=== PATIENT | female | born 1980 | race Caucasian/White ===

== ENCOUNTER 2020-11-03 09:00 | Outpatient (RCR) | payer OTHER, MEDICARE, MEDICAID, SELFPAY ==
--- NOTE | 2020-10-09 06:59 | MHC.PT.EP ---
[facility] Office [place] Office [place] Office [address] Rosemary Blue [address] [phone] F: [phone] F: [phone] F: [phone] F: [phone] Physical Therapy Plan of Care Date of Evaluation: 10/08/20 Date of Surgery: none Diagnosis: low back pain Assessment: Patient is a 40 year old R handed female who presents with s/s consistent with low back pain. She fell off a horse 5 years ago and fractured L2 per her report. She notes she healed well at the time but she started having significant back pain again recently while driving. She is not currently working at this time. Patient past medical history is fairly complex. Current impairments include pain, ROM, strength, activity tolerance and functional mobility. Functional limitations include decreased ability to walk, sleep, lift, squat, stand, transfer, negotiate stairs, and perform weight bearing activities.. Patient is motivated with good rehab potential. Skilled PT will address impairments and functional limitations in order to achieve goals. Frequency and Duration: The patient will be seen 2x/week for 5 weeks Short Term Goals: I with HEP - 2 weeks Restore rotation to 75% - 3 weeks s/s centralized - 3 weeks [employer] Goals: Able to sit/drive 1 hour without increased s/s - 4 weeks Restore PLOF - 5 weeks Treatment Plan: Modalities to reduce pain, spasms and effusion. Manual therapy to restore motion and function. Therapeutic exercise to improve strength and flexibility. Neuromuscular re-education for posture and balance. Therapeutic activities to return to functional activities of daily living. Electronically signed by: Compa Storm, PT Please sign and return to therapist. Thank you for your referral.
--- NOTE | 2021-01-01 07:35 | MHC.PT.DC ---
[facility] [place] Office [place] Office [place] Office [address] Rosemary Blue 140 [facility] [phone] F: [phone] F: [phone] F: [phone] F: [phone] Physical Therapy Discharge Report Diagnosis: low back pain Date of Surgery: none Date of Evaluation: 10/08/20 Date of Discharge: 11/03/20 Treatments to Date: 6 Cancellations to Date: 0 No Shows to Date: 0 Discharge Status: Recommend MD Follow-up Discharge Summary: Pt having too much pain. d/c from PT at this time. Referring back to MD. Electronically signed by: Compa Storm PT Please sign and return to therapist. Thank you for your referral.
== END 2021-01-01 07:37 | disposition home or self-care (01) ==
LOC: HO.PTCHIC 09:00
PROVIDERS: PCP Internal Medicine; Visit Provider Internal Medicine
DX: M54.5 Low back pain (principal)
CPT/HCPCS: 97110; 97140; 97162

== ENCOUNTER 2021-02-24 12:52 | Outpatient (REF) | payer OTHER, MEDICAID, SELFPAY ==
--- NOTE | ~2021-02-24 | MM_ITS ---
EXAMINATION: MM DIAGNOSTIC DIGITAL BREAST TOMOSYNTHESIS, BILATERAL CLINICAL INFORMATION: Right breast nodule The lifetime risk of breast cancer based on the Tyrer-Cuzick Model is 10.3%. COMPARISON: Mammography: February 25, 2020 and studies dating back to February 15, 2019 TECHNIQUE: Digital breast tomosynthesis is performed in both the craniocaudal and mediolateral oblique views along with computer-aided detection (CAD). Synthesized 2D images are generated from the tomosynthesis. FINDINGS: There are scattered areas of fibroglandular density (ACR BI-RADS breast composition Category b). There are no new significant masses, abnormal calcifications, or other abnormalities. There is stability of density about the inferior aspect of the right breast for 2 years. Results are provided to the patient at time of visit by the technologist. MM/MM tomosynthesis diagnostic BI IMPRESSION: There are no significant changes from prior study. ASSESSMENT: BI-RADS 2: Benign RECOMMENDATION: Routine annual mammography screening due in 12 months. This patient's information was entered into a reminder system with a target due date for their next mammogram.
== END 2021-02-24 12:53 | disposition home or self-care (01) ==
LOC: HO.MAMMO 12:52
PROVIDERS: PCP Internal Medicine; Visit Provider Internal Medicine
DX: R92.2 Inconclusive mammogram (principal)
CPT/HCPCS: 77062; 77066

== ENCOUNTER 2021-04-21 09:33 | Outpatient (REF) | payer OTHER, MEDICAID, SELFPAY ==
[2021-04-21 12:07] LABS: Alanine Aminotransferase 45 U/L (0-31); Anion Gap 14 (12-20); Aspartate Amino Transferase 22 U/L (5-31); Blood Urea Nitrogen 10 mg/dL (9-16); Calcium 10.1 mg/dL (8.4-10.2); Carbon Dioxide 24 mmol/L (22-29); Chloride 103 mmol/L (96-108); Cholesterol 222 mg/dL; Estimated Glomerular Filt Rate > 60; Glucose Fasting 83 mg/dL (60-99); HDL Cholesterol 37 mg/dL; LDL Cholesterol Calculated 147 mg/dl; Potassium 4.4 mmol/L (3.3-5.1); Sodium 137 mmol/L (135-145); Triglycerides 190 mg/dL
[2021-04-21 12:30] LABS: Vitamin D 25-OH Total 23.6 ng/mL (>30)
== END 2021-04-21 09:34 | disposition home or self-care (01) ==
LOC: HO.HMGCLDS 09:33
PROVIDERS: PCP Internal Medicine; Visit Provider Internal Medicine
DX: Z00.00 Encounter for general adult medical examination without abnormal findings (principal); F31.9 Bipolar disorder, unspecified; I10 Essential (primary) hypertension
CPT/HCPCS: 36415; 80048; 80061; 82306; 84450; 84460

== ENCOUNTER 2021-11-19 10:51 | Emergency (ER) | payer OTHER, MEDICARE, MEDICAID, SELFPAY ==
--- NOTE | ~2021-11-19 | XR_ITS ---
EXAMINATION: XR CHEST CLINICAL INFORMATION: Chest pain COMPARISON: 05/13/2020 TECHNIQUE: Frontal view of the chest was obtained. FINDINGS: No significant abnormality is noted involving the heart, lungs, mediastinum, bony thorax or soft tissues. No rib fracture, pneumothorax or bone lesion is evident. XR/XR chest 1V IMPRESSION: No acute cardiopulmonary disease.
[2021-11-19 10:55] VITALS: BP 151/85; PULSE 78; RESP 18; TEMP 37; O2SAT 96; BMI 39.1
--- NOTE | 2021-11-19 10:55 | ECG_ITS ---
Test Reason : CHEST PAIN Blood Pressure : / mmHG Vent. Rate : 074 BPM Atrial Rate : 074 BPM P-R Int : 164 ms QRS Dur : 090 ms QT Int : 394 ms P-R-T Axes : 048 033 031 degrees QTc Int : 437 ms Sinus rhythm with occasional Premature ventricular complexes Otherwise normal ECG When compared to the previous EKG of Premature ventricular complexes are now Present Referred By: Generic ED Physician Electronically Signed By:TREY AGUILAR MD
[2021-11-19 11:41] LABS: MANUAL DIFF FLAG NO
[2021-11-19 11:42] LABS: Basophils Percent Auto 0.3 % (0-2); Eosinophils Absolute Auto 0.1 X10*3/uL (0.0-0.4); Eosinophils Percent Auto 0.6 % (0-4); Hematocrit 43.2 % (37.0-47.0); Hemoglobin 14.9 g/dl (12.0-16.0); Imm Gran Abs Auto 0.05 X10*3/uL (0.00-0.03); Imm Gran Pct Auto 0.4 % (0.0-0.4); Lymphocytes Absolute Auto 3.9 X10*3/uL (1.2-4.9); Lymphocytes Percent Auto 30.4 % (20-40); Mean Corpuscular HGB Conc 34.5 g/dl (31.0-35.0); Mean Corpuscular Hemoglobin 31.9 pg (27.0-33.0); Mean Corpuscular Volume 92.5 fL (80.0-98.0); Mean Platelet Volume 9.8 fL (9.4-12.3); Monocytes Absolute Auto 0.6 X10*3/uL (0.1-1.2); Monocytes Percent Auto 4.3 % (2-11); Neutrophils Absolute Auto 8.1 x10*3/uL (2.0-8.3); Platelet Count 229 X10*3/uL (160-400); Red Blood Count 4.67 X10*6/uL (4.20-5.50); Red Cell Distribution Width 12.4 % (11.0-16.0); White Blood Count 12.7 X10*3/uL (4.8-10.8)
[2021-11-19 12:00] LABS: Anion Gap 12 (12-20); Blood Urea Nitrogen 9 mg/dL (9-16); Calcium 9.6 mg/dL (8.4-10.2); Carbon Dioxide 22 mmol/L (22-29); Chloride 107 mmol/L (96-108); Creatinine Clr Calc Pharmacy 127.3; Estimated Glomerular Filt Rate > 60; Glucose Random 88 mg/dL (60-115); Potassium 4.6 mmol/L (3.3-5.1); Sodium 136 mmol/L (135-145)
--- NOTE | 2021-11-19 12:08 | ED.CHESTPAIN ---
HPI - Chest Pain General Chief Complaint: Chest Pain Stated Complaint: Chest pain sent from urgent care Time Seen by Provider: 11/19/21 12:07 Source: patient Mode of arrival: ambulatory Limitations: no limitations History of Present Illness HPI narrative: Patient is a 41 year old female presenting to the emergency department today with left sided chest pain. Patient states that for the last week, she has had left sided chest pain that is worse with inspiration. Patient states that it feels better when she rubs it. Patient denies any dizziness, lightheadedness, abdominal pain, nausea, vomiting, fever, chills, blurry vision, double vision, loss of vision, difficulty breathing, shortness of breath, back pain, night sweats, pain with urination, increased urinary frequency, increased urinary urgency, blood in her urine or stool, syncope or a near syncopal episode, recent trauma or falls, bowel incontinence, bladder incontinence, bowel retention, bladder retention, or any other complaints at this time. MD complaint: chest pain Onset (ago): week(s) Timing of current episode: now resolved Pain location: left chest Pain radiation: none Severity: mild Pain scale (0-10): 3 Quality: sharp Relieving factors: nothing Exacerbating factors: inspiration Treatment prior to arrival: none Risk Factors Coronary artery disease risk factors: smoking history Thoracic aortic dissection risk factors: none Related Data On Oral Contraceptives: No Home Medications Medication Instructions Recorded Confirmed clonazepam 0.5 mg tablet 0.5 mg PO BID PRN 09/22/20 09/22/20 clonidine HCl 0.1 mg tablet 0.1 mg PO BID 04/21/21 04/21/21 oxcarbazepine 150 mg tablet 150 mg PO QAM 04/21/21 04/21/21 sertraline 50 mg tablet 50 mg PO DAILY 04/21/21 04/21/21 Previous Rx's Medication Instructions Recorded ibuprofen 800 mg tablet 800 mg PO DAILY PRN #60 tab 07/14/20 cholecalciferol (vitamin D3) 50 50 mcg PO DAILY #90 cap 07/21/21 mcg (2,000 unit) capsule Allergies Allergy/AdvReac Type Severity Reaction Status Date / Time No Known Allergies Allergy Mild NOT Verified 11/19/21 11:01 APPLICABLE Review of Systems Constitutional: Constitutional: Reports no additional constitutional complaints, Denies chills, Denies fever(s) and Denies night sweats Eyes: Eyes: Reports no additional eye complaints, Denies blurry vision, Denies change in vision, Denies diplopia, Denies eye discharge, Denies loss of vision and Denies eye pain ENT: Denies dizziness Cardiovascular: Cardiovascular: Reports no additional cardiovascular complaints, Reports chest pain, Denies lightheadedness, Denies Loss of Consciousness and Denies dyspnea Respiratory: Respiratory: Reports no additional respiratory complaints and Denies dyspnea Gastrointestinal: Gastrointestinal: Reports no additional gastrointestinal complaints, Denies abdominal pain, Denies melena, Denies hematochezia, Denies change in bowel habits and Denies change in stool character Genitourinary: Genitourinary: Denies hematuria, Denies urinary frequency, Denies dysuria, Denies urinary incontinence, Denies urinary hesitancy and Denies urinary urgency Musculoskeletal: Musculoskeletal: Reports no additional musculoskeletal complaints, Denies numbness and Denies tingling Neurologic: Denies dizziness, Denies loss of vision, Denies numbness and Denies tingling Psychiatric: Psychiatric: Reports no additional psychiatric complaints Endocrine: Endocrine: Reports no additional endocrine complaints Hematologic/Lymphatic: Hematologic/Lymphatic: Reports no additional hematologic/lymphatic complaints Allergic/Immunologic: Allergic/Immunologic: Reports no additional allergic/immunologic complaints [facility] Past Medical History Attestation statement: The following information was validated with the patient. Source: old records reviewed Medical History Bipolar disorder Furunculosis of skin Left-sided chest pain Legally blind in right eye, as defined in [place] Low back pain radiating to lower extremity Lumbar disc herniation with radiculopathy Obesity (BMI 35.0-39.9 without comorbidity) Smoker unmotivated to quit Surgical History History of bunionectomy of right great toe History of History of carpal tunnel release Family History Family History Father Brain aneurysm Sister Gilbert's disease Daughter Bipolar disorder Mental health disorder Social History Social History Housing: House Alcohol intake: never Patient Tobacco Use Status: Current everyday Tobacco user Cigarettes Per Day: 10 e-Cigarette/Vaping Use: Never Used Advance Directives: No Advance Directives Information Provided: Yes Patient : No service: No Current occupational status: disabled Physical Exam Vital Signs: Vital Signs: Last Vital Signs Temp 98.6 F 11/19/21 10:55 Pulse 78 11/19/21 10:55 Resp 18 11/19/21 10:55 BP 151/85 H 11/19/21 10:55 Pulse Ox 96 11/19/21 10:55 BMI result Body Mass Index 39.1 Const: General: cooperative, no acute distress, alert and awake Nutritional Appearance: well nourished Orientation/consciousness: patient oriented x3 Limitations: no limitations HEENT: Head: Yes normal to inspection and Yes atraumatic Ears: hearing grossly normal bilaterally and external ears normal General nose exam: Normal external nose present, no nasal discharge noted and no epistaxis Face and sinus: Yes normal facial exam, No abrasion and No laceration Mouth: Normal oral and palatal mucosa present, no drooling and no muffled voice Eyes: General: appearance normal, both eyes and all related structures Periorbital: periorbital findings normal Eyelids: Yes eyelids normal Conjunctivae: conjunctivae normal Pupils: Equal, round and reactive pupils present EOM: EOMs intact bilaterally Neck: Neck: Yes normal visual inspection, Yes full ROM and Yes no lymphadenopathy Chest: Other: pain to palpation of the left upper chest Chest palpation & inspection: normal inspection of the chest Resp: Effort & Inspection: normal respiratory effort and able to speak in complete sentences Auscultation: clear to auscultation bilaterally Cardio: Rate: regular rate Rhythm: regular rhythm GI: Inspection: Yes normal to inspection Neuro: General: patient oriented x3 and moves all extremities Cranial nerves: Yes Equal, round and reactive pupils present Cognition (Neuro): normal cognition Motor exam (neuro): 5/5 motor strength present throughout Sensory Exam: Normal double simultaneous stimulation for sensation Coordination: [id number] test normal Extrem: General: Yes normal to inspection, Yes full ROM and Yes capillary refill normal Psych: Appearance: grossly normal Mental Status: mental status grossly normal Affect: normal affect Attitude: cooperative Thought process: Normal thought process present Thought content: Normal thought content present Insight: Good insight present (Psych) MDM - Chest Pain MDM Narrative Medical decision making narrative: Patient is a 41 year old female presenting to the emergency department today with left sided chest pain. Patient's physical exam showed tenderness to palpation of the left upper chest but was otherwise unremarkable. Patient's blood work showed a slightly elevated WBC count however, the patient's clinical presentation is not consistent with Sepsis or infectious concern. Patient's troponin was normal. Patient's EKG was unremarkable. Patient's chest x-ray showed no acute process. I explained my physical exam findings as well as all test results to the patient. I answered all questions asked by the patient. I explained to the patient that due to her presentation and negative work up, she is likely experiencing costochondritis. I stressed the importance of the patient taking her medication as prescribed. I stressed the importance of the patient following up with her primary care provider. I stressed the importance of the patient returning to the emergency department immediately if her symptoms were to worsen or if she were to develop any dizziness, shortness of breath, difficulty breathing, chest pain, blurry vision, loss of vision, nausea, vomiting, abdominal pain, fever, chills, back pain, or any other complaints. Patient verbalized agreement and understanding with this treatment plan and discharge. Differential Diagnosis Differential diagnosis: Likely atypical chest pain and costochondritis Medical Records Data Attestation: I reviewed the patient's medical records. Lab Data Attestation: I reviewed the patient's lab results. Result diagrams: 11/19/21 11:37 11/19/21 11:37 Labs: Lab Results 11/19/21 11/19/21 11/19/21 Range/Units 11:37 11:37 11:37 WBC 12.7 H (4.8-10.8) X10*3/uL RBC 4.67 (4.20-5.50) X10*6/uL Hgb 14.9 (12.0-16.0) g/dl Hct 43.2 (37.0-47.0) % MCV 92.5 (80.0-98.0) fL MCH 31.9 (27.0-33.0) pg MCHC 34.5 (31.0-35.0) g/dl RDW 12.4 (11.0-16.0) % Plt Count 229 (160-400) X10*3/uL MPV 9.8 (9.4-12.3) fL Immature Gran % (Auto) 0.4 (0.0-0.4) % Neut % (Auto) 64.0 (45-73) % Lymph % (Auto) 30.4 (20-40) % [place] % (Auto) 4.3 (2-11) % Eos % (Auto) 0.6 (0-4) % Baso % (Auto) 0.3 (0-2) % Lymph # (Auto) 3.9 (1.2-4.9) X10*3/uL [place] # (Auto) 0.6 (0.1-1.2) X10*3/uL Eos # (Auto) 0.1 (0.0-0.4) X10*3/uL Baso # (Auto) 0.0 (0.0-0.2) X10*3/uL Abs Immat Gran (auto) 0.05 H (0.00-0.03) X10*3/uL Absolute Neuts (auto) 8.1 (2.0-8.3) x10*3/uL Absolute Nucleated RBC 0.000 (0.0-0.012) X10*3/uL Nucleated RBC % (auto) 0.0 (0.0-0.2) /100WBC Sodium 136 (135-145) mmol/L Potassium 4.6 (3.3-5.1) mmol/L Chloride 107 (96-108) mmol/L Carbon Dioxide 22 (22-29) mmol/L Anion Gap 12 (12-20) BUN 9 (9-16) mg/dL Creatinine 0.74 (0.5-1.4) mg/dL Estim Creat Clear Calc 127.3 Estimated GFR > 60 Random Glucose 88 (60-115) mg/dL Calcium 9.6 (8.4-10.2) mg/dL Troponin I High Sens < 3.5 (<3.5-17.0) ng/L Imaging Data Chest x-ray: Attestation: I personally reviewed and interpreted this imaging study as follows: Radiologist's impression: EXAMINATION: XR CHEST CLINICAL INFORMATION: Chest pain COMPARISON: 05/13/2020 TECHNIQUE: Frontal view of the chest was obtained. FINDINGS: No significant abnormality is noted involving the heart, lungs, mediastinum, bony thorax or soft tissues. No rib fracture, pneumothorax or bone lesion is evident. XR/XR chest 1V IMPRESSION: No acute cardiopulmonary disease. Dictated By: Hector Castro MD Signed By: Electronically signed by Hector Castro MD 11/19/21 1132 ECG Data ECG #1: Attestation: I personally reviewed and interpreted this ECG as follows: ECG interpretation date: 11/19/21 ECG interpretation time: 10:52 Prior ECG tracings: available for review Interpretation: Vent. Rate: 074 BPM ? ? Atrial Rate: 074 BPM P-R Int: 164 ms? QRS Dur: 090 ms QT Int: 394 ms ? ? ? P-R-T Axes: 048 033 031 degrees QTc Int: 437 ms ? Sinus rhythm with occasional Premature ventricular complexes Otherwise normal ECG When compared to the previous EKG of Premature ventricular complexes are now Present ? Referred By: Generic ED Physician ? Electronically Signed By:MOISES AGUILAR MD Dictated By: Moises Aguilar MD Signed By: Electronically signed by Moises Aguilar MD 11/19/21 1234 Discharge Plan Discharge Clinical Impression: Acute costochondritis Patient Disposition: Home, Self-Care Instructions: Costochondritis (ED) Additional Instructions: Follow up with your primary care provider. Return to the emergency department immediately if your symptoms worsen or if you develop any dizziness, shortness of breath, difficulty breathing, chest pain, blurry vision, loss of vision, nausea, vomiting, abdominal pain, fever, chills, back pain, or any other complaints. Prescriptions: No Action ibuprofen 800 mg tablet 800 mg PO DAILY PRN (Reason: pain) Qty: 60 0RF cholecalciferol (vitamin D3) 50 mcg (2,000 unit) capsule 50 mcg PO DAILY Qty: 90 0RF clonazepam 0.5 mg tablet 0.5 mg PO BID PRN0RF clonidine HCl 0.1 mg tablet 0.1 mg PO BID 0RF oxcarbazepine 150 mg tablet 150 mg PO QAM 0RF sertraline 50 mg tablet 50 mg PO DAILY 0RF Referrals: Felisa Amaral MD [Primary Care Provider] - 2 days Interventions: ED Discharge Assessment Last Done: 11/19/21 12:32 Discharge Date/Time: 11/19/21 12:33 Print Language: Georgian
[2021-11-19 12:10] LABS: Troponin-I High Sensitivity < 3.5 ng/L (<3.5-17.0)
== END 2021-11-19 12:33 | disposition home or self-care (01) ==
PROVIDERS: Emergency Provider Emergency Medicine; PCP Internal Medicine
DX: F17.200 Nicotine dependence, unspecified, uncomplicated (principal); M94.0 Chondrocostal junction syndrome [Tietze]
CPT/HCPCS: 36415; 71045; 80048; 84484; 85025; 93005; 99283

== ENCOUNTER 2022-04-22 09:46 | Outpatient (REF) | payer MEDICARE, OTHER, MEDICAID, SELFPAY ==
[2022-04-22 12:08] LABS: Anion Gap 16 (12-20); Blood Urea Nitrogen 9 mg/dL (9-16); Calcium 9.7 mg/dL (8.4-10.2); Carbon Dioxide 24 mmol/L (22-29); Chloride 105 mmol/L (96-108); Cholesterol 187 mg/dL; Estimated Glomerular Filt Rate > 60; Glucose Fasting 91 mg/dL (60-99); HDL Cholesterol 36 mg/dL; LDL Cholesterol Calculated 127 mg/dl; Potassium 4.7 mmol/L (3.3-5.1); Sodium 140 mmol/L (135-145); Triglycerides 122 mg/dL
[2022-04-22 12:18] LABS: TSH reflex Free T4 1.27 uIU/mL (0.32-4.0); Vitamin D 25-OH Total 25.8 ng/mL (>30)
[2022-04-22 12:40] LABS: Folate 4.2 ng/mL (> or = 4.0); Vitamin B12 414 pg/mL (200-900)
== END 2022-04-22 09:47 | disposition home or self-care (01) ==
LOC: HO.HMGCLDS 09:46
PROVIDERS: Visit Provider Internal Medicine
DX: Z00.01 Encounter for general adult medical examination with abnormal findings (principal); F31.9 Bipolar disorder, unspecified
CPT/HCPCS: 36415; 80048; 80061; 82306; 82607; 82746; 84443

== ENCOUNTER 2022-07-03 05:14 | Emergency (ER) | payer MEDICARE, OTHER, MEDICAID, SELFPAY ==
[2022-07-03 05:26] VITALS: BP 152/101; PULSE 85; RESP 14; TEMP 36.6; O2SAT 99; BMI 37.5
[2022-07-03 07:49] VITALS: BP 156/93; PULSE 90; RESP 20; O2SAT 99
--- NOTE | 2022-07-03 08:06 | ED.SKABFB ---
HPI - Skin/Abscess/Foreign Bdy General Chief complaint: Skin/Abscess/Foreign Body Stated complaint: Bee sting reaction Time Seen by Provider: 07/03/22 07:55 Source: patient Mode of arrival: ambulatory Limitations: no limitations History of Present Illness HPI narrative: This is a 42 years old of female presented to the emergency room complaining of allergic reaction, she states that she was stung by a bee yesterday in the left chest and now she is complaining of itchiness a Doty painful there is no fever. MD complaint: rash Location: chest (Left chest) Severity: mild Quality: burning Pain Consistency: constant Relieving factors: none Exacerbating factors: none Related Data Home Medications Medication Instructions Recorded Confirmed sertraline 50 mg tablet 50 mg PO DAILY 04/21/21 04/21/21 oxcarbazepine 300 mg tablet 300 mg PO DAILY PRN 04/22/22 clonazepam 0.5 mg tablet 0.25 mg PO BEDTIME 05/04/22 clonidine HCl 0.1 mg tablet 0.1 mg PO BEDTIME 05/04/22 Previous Rx's Medication Instructions Recorded B-complex with vitamin C 1 cap PO DAILY #30 caps 04/22/22 losartan 50 mg tablet 50 mg PO DAILY #30 tabs 04/22/22 nicotine 21 mg/24 hr daily 1 patch transdermal DAILY #28 ea 05/04/22 transdermal patch cholecalciferol (vitamin D3) 50 50 mcg PO DAILY #90 caps 06/13/22 mcg (2,000 unit) capsule epinephrine 0.3 mg/0.3 mL 0.3 mg (0.3 mL) IM Q10M PRN 07/03/22 injection, auto-injector (EpiPen) anaphylaxis #1 ea loratadine 10 mg tablet (Claritin) 10 mg PO DAILY #5 tabs 07/03/22 prednisone 20 mg tablet 60 mg PO DAILY #12 tabs 07/03/22 Allergies Allergy/AdvReac Type Severity Reaction Status Date / Time No Known Allergies Allergy Mild NOT Verified 05/04/22 13:06 APPLICABLE Review of Systems Review of Systems: Yes all other systems are reviewed and are negative Constitutional: Constitutional: Denies fever(s) Eyes: Eyes: Reports no additional eye complaints ENT: Reports system reviewed and no additional complaints, except as documented Cardiovascular: Cardiovascular: Reports no additional cardiovascular complaints Respiratory: Respiratory: Reports no additional respiratory complaints PMFSH Past Medical History Medical History Bipolar disorder Cigarette smoker motivated to quit Essential hypertension Furunculosis of skin History of shingles Lazy eye of right side Legally blind in right eye, as defined in [place] Low back pain radiating to lower extremity Lumbar disc herniation with radiculopathy Obesity (BMI 35.0-39.9 without comorbidity) Surgical History History of bunionectomy of right great toe History of History of carpal tunnel release Family History Family History Father Brain aneurysm Sister Gilbert's disease Daughter Bipolar disorder Mental health disorder Social History Social History Housing: House Alcohol intake: never Patient Tobacco Use Status: Current everyday Tobacco user Cigarettes Per Day: 10 e-Cigarette/Vaping Use: Never Used Second Hand Smoke Exposure: No Advance Directives: No Advance Directives Information Provided: No service: No Current occupational status: disabled Cognitive needs: No Hearing needs: No Vision needs: No Physical Exam Vital Signs: Vital Signs: Last Vital Signs Temp 97.9 F 07/03/22 05:26 Pulse 90 07/03/22 07:49 Resp 20 07/03/22 07:49 BP 156/93 H 07/03/22 07:49 Pulse Ox 99 07/03/22 07:49 O2 Del Method 07/03/22 07:49 BMI result Body Mass Index 37.5 Patient looks well no distress comfortable afebrile Const: General: cooperative, healthy appearing, comfortable, no acute distress, well developed, alert and awake Nutritional Appearance: well nourished Orientation/consciousness: oriented to person and patient oriented x3 HEENT: Head: Yes normal to inspection Ears: hearing grossly normal bilaterally General nose exam: Normal external nose present Face and sinus: Yes normal facial exam Mouth: Normal oral and palatal mucosa present Throat: Yes posterior oropharynx normal Neck: Neck: Yes normal visual inspection, Yes full ROM and Yes no lymphadenopathy Chest: Other: There is an area of redness of 4 x 3 cm in the left chest wall Resp: Effort & Inspection: normal respiratory effort Auscultation: clear to auscultation bilaterally Cardio: Jugular venous distension: no JVD Rate: regular rate Rhythm: regular rhythm GI: Inspection: Yes normal to inspection Palpation (GI): Soft to palpation, not firm, nontender and no guarding Percussion: Yes normal to percussion Auscultation: normal bowel sounds Skin: Other: As above redness in the left chest wall 4 x 3 cm Lesions: no lesions Neuro: General: oriented to person and patient oriented x3 MDM - Skin/Abscess/Foreign Bdy MDM Narrative Medical decision making narrative: I do not think this is cellulitis, I think is rather a local reaction from the bee sting, will treat with the antihistamine the prednisone and cool compresses Discharge Plan Discharge Clinical Impression: Bee sting, Allergic reaction Patient Disposition: Home, Self-Care Instructions: Insect Bite or Sting (ED) Additional Instructions: Take prednisone and Claritin as directed, return if you worse if you have a fever any concern apply cool compresses Prescriptions: New loratadine [Claritin] 10 mg tablet 10 mg PO DAILY Qty: 5 0RF prednisone 20 mg tablet 60 mg PO DAILY Qty: 12 0RF epinephrine [EpiPen] 0.3 mg/0.3 mL auto-injector 0.3 mg IM Q10M PRN (Reason: anaphylaxis) Qty: 1 0RF Rx Instructions: for 2 doses No Action cholecalciferol (vitamin D3) 50 mcg (2,000 unit) capsule 50 mcg PO DAILY Qty: 90 1RF oxcarbazepine 300 mg tablet 300 mg PO DAILY PRN B-complex with vitamin C Capsule 1 cap PO DAILY Qty: 30 5RF losartan 50 mg tablet 50 mg PO DAILY Qty: 30 3RF clonazepam 0.5 mg tablet 0.25 mg PO BEDTIME sertraline 50 mg tablet 50 mg PO DAILY clonidine HCl 0.1 mg tablet 0.1 mg PO BEDTIME nicotine 21 mg/24 hr patch 24 hour 1 patch transdermal DAILY Qty: 28 0RF Rx Instructions: apply to non hairy areas once a day and remove at bedtime , rotate sites of application Referrals: Felisa Amaral MD [Primary Care Provider] - 3 days Interventions: ED Discharge Assessment Last Done: 07/03/22 08:22 Discharge Date/Time: 07/03/22 08:30
[2022-07-03] MEDS: predniSONE 20 MG TABLET 60 MG PO (08:14)
[2022-07-03] MEDS: Loratadine 10 MG TABLET PO (08:14)
== END 2022-07-03 08:30 | disposition home or self-care (01) ==
PROVIDERS: Emergency Provider Emergency Medicine; PCP Internal Medicine
DX: L23.9 Allergic contact dermatitis, unspecified cause (principal); F17.210 Nicotine dependence, cigarettes, uncomplicated; Z71.6 Tobacco abuse counseling; Z79.899 Other long term (current) drug therapy
CPT/HCPCS: 99282

== ENCOUNTER 2022-11-07 12:58 | Outpatient (REF) | payer MEDICARE, OTHER, MEDICAID, SELFPAY ==
--- NOTE | ~2022-11-07 | MM_ITS ---
EXAMINATION: MM SCREENING DIGITAL BREAST TOMOSYNTHESIS, BILATERAL CLINICAL INFORMATION: Screening. Asymptomatic. The lifetime risk of breast cancer based on the Tyrer-Cuzick Model is 3.4%. COMPARISON: Mammography: February 24, 2021 and studies dating back to February 15, 2019 TECHNIQUE: Digital breast tomosynthesis is performed in both the craniocaudal and mediolateral oblique views along with computer-aided detection (CAD). Synthesized 2D images are generated from the tomosynthesis. FINDINGS: There are scattered areas of fibroglandular density (ACR BI-RADS breast composition Category b). There are no significant masses, abnormal calcifications, or other abnormalities. MM/MM tomosynthesis screening BI IMPRESSION: No significant changes from prior exam. ASSESSMENT: BI-RADS 1: Negative RECOMMENDATION: Routine annual mammography screening. This patient's information was entered into a reminder system with a target due date for their next mammogram.
== END 2022-11-07 12:59 | disposition home or self-care (01) ==
LOC: HO.MAMMO 12:58
PROVIDERS: PCP Internal Medicine; Visit Provider Internal Medicine
DX: Z12.31 Encounter for screening mammogram for malignant neoplasm of breast (principal)
CPT/HCPCS: 77063; 77067

== ENCOUNTER 2023-06-08 12:56 | Outpatient (AMB) | payer MEDICARE, MEDICAID, SELFPAY ==
[2023-06-08 13:09] VITALS: BP 120/70; PULSE 67; O2SAT 97; BMI 33.2
--- NOTE | 2023-06-08 13:09 | AM.OFFVISMDC ---
Intake Vital Signs 06/08/23 13:09 Height 5 ft 7 in Weight 212 lb BMI 33.2 BP 120/70 Blood Pressure Location Rt brachial Position Sitting Pulse 67 Pulse Source Pulse Oximeter Pulse Oximetry (%) 97 Oxygen Delivery Method Room Air Intake Visit Reasons: AWV Intake Note: patient is here today for her AWV Allergies No Known Allergies Allergy (Mild, Verified 06/08/23 13:11) NOT APPLICABLE Do you need a note to return to daycare/school/sports/work: No HPI AWV HPI Details AWV ?43 year old lady presents for her ? Annual Wellness Visit, initial visit.? 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 She is up-to-date with her screening mammogram done at [facility] last 11/07/2022 with negative findings. Goes to [facility] for her cervical cancer screening, done 10/04/2021 again with negative findings. She is due for screening colonoscopy. ? Medical / Social History Reviewed? Past Medical History ?Yes . ? [place] of Care / Care Team list updated ?Yes . ? Surgical/Hospitalization History ?Yes . ? Current Medications (including OTC and supplements) ?Yes . ? Family History ?Yes . ? Tobacco Control form ?Yes . ? AUDIT-C (Alcohol use) form ?Yes . ? Illicit drug use in Social History ?Yes . ? Current diagnosis of depression? ?No ? Appropriate PHQ2/PHQ9 completed ?Yes . ? Data entered by ?Parts Assembler and reviewed by provider ? Fall Risk ? Fall History? Have you had any falls with injury in the past year? ?No . ? Have you had two or more falls in the past year? ?No . ? Fall Risk Assessment: ?No falls in the past year . ? HRA filled out by the patient, reviewed by Provider and scanned. ? IPPE/AWV ? Balance? Romberg ?Yes . ? Tandem walk ?Yes . ? Walk and Turn ?Yes . ? Rise from sit to stand ?Yes . ?Vision? Corrective lens ?Yes ? Vision screen ? Up-to-date, has an appointment Dr. Grady 01/05/2021 for her vision screening and glaucoma screening ?Hearing? Whisper test ?pass . ?Written Plan?Completed. See Patient Documents.? 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 Surgical History History of carpal tunnel release History of History of bunionectomy of right great toe Family History Father Brain aneurysm Sister Gilbert's disease Daughter Bipolar disorder Mental health disorder Social History Housing: House Alcohol intake: never Patient Tobacco Use Status: Current everyday Tobacco user Cigarettes Per Day: 10 e-Cigarette/Vaping Use: Never Used Second Hand Smoke Exposure: No service: No Current occupational status: disabled Cognitive needs: No Hearing needs: No Vision needs: No Questionnaire Mini Mental State Exam (MMSE) Orientation What is the (year) (season) (date) (day) (month)?: year (2022), season (fall), date (06/08/23), day () and month (may) Where are we (state) (county) (town or city) (hospital) (floor)?: state ([place]), county ([place]), town or city ([place]) and hospital/clinic ([facility]) Score Score: 9 Physical Exam Vital Signs: Last Vital Signs Pulse 67 06/08/23 13:09 BP 120/70 06/08/23 13:09 Pulse Ox 97 06/08/23 13:09 Oxygen Delivery Method Room Air 06/08/23 13:09 BMI result Body Mass Index 33.2 Coding
--- NOTE | 2023-06-08 13:26 | MHC.PC.OV ---
Vital Signs 06/08/23 13:09 Height 5 ft 7 in Weight 212 lb BMI 33.2 BP 120/70 Blood Pressure Location Rt brachial Position Sitting Pulse 67 Pulse Source Pulse Oximeter Pulse Oximetry (%) 97 Oxygen Delivery Method Room Air Intake Visit Reasons: Annual PE Intake Note: Pt is here today for her PE Allergies lurasidone [From Latuda] Allergy (Mild, Verified 10/24/23 02:09) Itching Medication List - Last Reconciled 06/08/23 by Felisa Amaral MD B-complex with vitamin C 1 cap PO DAILY cholecalciferol (vitamin D3) 50 mcg PO DAILY clonazepam 0.25 mg p.o. Q a.m. and 0.5 mg Q PM clonidine HCl 0.1 mg PO BEDTIME epinephrine (EpiPen) 0.3 mg (0.3 mL) IM Q10M PRN loratadine (Claritin) 10 mg PO DAILY losartan 50 mg PO DAILY oxcarbazepine 150 mg in a.m. and 600 mg in p.m. sertraline 100 mg PO DAILY Tobacco use date assessed: 05/04/22 HPI Annual PE HPI Details 43-year-old lady with hypertension, legally blind in her left eye, and has bipolar disorder currently followed by psychiatry at the [facility], here today for her physical exam. She goes to [facility] for her routine Pap and mammogram, currently up-to-date. She is due for her initial screening colonoscopy. Declines getting any vaccines at present time. Continues to smoke cigarettes but has cut down to approximately 10 a day, not ready to quit at present [facility] Medical History (Updated 10/24/23 @ 02:16 by Felisa Amaral MD) Smokes one pack per day or less and unmotivated to quit History of shingles Essential hypertension Lazy eye of right side Legally blind in right eye, as defined in [place] Obesity (BMI 35.0-39.9 without comorbidity) Bipolar disorder Lumbar disc herniation with radiculopathy Surgical History History of carpal tunnel release History of History of bunionectomy of right great toe Family History Father Brain aneurysm Sister Gilbert's disease Daughter Bipolar disorder Mental health disorder Family/Other Hx of colonoscopy Social History Housing: House Alcohol intake: never Patient Tobacco Use Status: Current everyday Tobacco user Cigarettes Per Day: 10 e-Cigarette/Vaping Use: Never Used Second Hand Smoke Exposure: No service: No Current occupational status: disabled Cognitive needs: No Hearing needs: No Vision needs: No Questionnaire PHQ-9 Over the last 2 weeks, how often have you been bothered by any of the following problems? 1. Little interest or pleasure in doing things: not at all 2. Feeling down, depressed, or hopeless: not at all 3. Trouble falling or staying asleep, or sleeping too much: several days 4. Feeling tired or having little energy: several days 5. Poor appetite or overeating: more than half the days 6. Feeling bad about yourself - or that you are a failure or have let yourself or your family down: nearly every day 7. Trouble concentrating on things, such as reading the newspaper or watching television: several days 8. Moving or speaking so slowly that other people could have noticed. Or the opposite - being so fidgety or restless that you have been moving around a lot more than usual: not at all 9. Thoughts that you would be better off or of hurting yourself in some way: not at all Total score: 8 Depression Screening Interpretation: Positive (Has bipolar disorder currently being followed by Psychiatry to [facility]) Depression Screening Follow-up: Existing condition and In treatment Depression Screening Done: Yes 95268 - PHQ-9 Billing: Yes Source: Developed by Drs. Regis Martinez, Stephie Palomino, Terrence Mota and colleagues, with an educational aditi from [employer]. Thrive Questionnaire Date Thrive assessed: 06/08/23 I am a: Patient What is your living situation today?: I have a steady place to live Within the past 12 months, did the food you bought not last and you didn't have the money to get more?: Never true Within the past 12 months, did you worry whether your food would run out before you got money to buy more?: Never true Do you have trouble paying for medicines?: No Do you have trouble getting transportation to medical appointments?: No Do you have trouble paying your heating and electricity bill?: No Do you have trouble taking care of your child, family member or friend?: No Do you have trouble with day-to-day activities such as bathing, preparing meals, shopping, managing finances, etc.?: No Are you currently unemployed and looking for a job?: I choose not to answer this question Are you interested in more education?: No AUDIT C Alcohol Use Questionnaire (AUDIT-C) 1. How often do you have a drink containing alcohol?: Never Total Score: 0 GAY-7 AMB Questionnaire GAY-7 Date GAY - 7 assessed: 06/08/23 Feeling nervous, anxious, or on edge: 0 = Not at all Not being able to stop or control worryin = Not at all Worrying too much about different things: 0 = Not at all Trouble relaxin = Not at all Being so restless that it is hard to sit still: 0 = Not at all Becoming easily annoyed or irritable: 0 = Not at all Feeling afraid as if something awful might happen: 0 = Not at all Total GAY-7 score (0-4 normal; 5-9 mild; 10-14 moderate; 15-21 severe): 0 Source: Developed by Drs. Regis Martinez, Stephie Palomino, Terrence Mota and colleagues, with an educational aditi from [employer]. GAY-7 Assessment Billing GAY-7 Assessment Tool: GAY-7 Assessment 79906 Review of Systems Const Denies body aches, Denies fever(s), Denies headache(s) and Denies weakness Eyes Reports as per HPI ENT Reports Normal hearing present, Denies dizziness, Denies headache(s), Denies nasal congestion, Denies nasal discharge and Denies sore throat Card Denies chest pain, Denies lightheadedness and Denies dyspnea Resp Denies chest congestion, Denies cough and Denies dyspnea GI Reports no additional complaints Reports no additional complaints Musc Reports no additional complaints Skin/Breast Denies lesions and Denies rash Neuro Reports Normal hearing present, Denies dizziness, Denies headache(s), Denies Sensory deficit (Neuro) and Denies weakness Psych Reports no additional complaints Endo Reports no additional complaints Zac/Lymph Reports no additional complaints Aller/Immun Reports no additional complaints Physical exam (Primary Care) Vital Signs: Last Vital Signs Pulse 67 06/08/23 13:09 BP 120/70 06/08/23 13:09 Pulse Ox 97 06/08/23 13:09 Oxygen Delivery Method Room Air 06/08/23 13:09 BMI result Body Mass Index 33.2 Tobacco/Smoking Status: Tobacco use Status Tobacco use date assessed 05/04/22 06/08/23 13:29 Patient Tobacco Use Status Current everyday Tobacco 06/08/23 13:29 e-Cigarette/Vaping Use Never Used 06/08/23 13:29 Are you ready to quit: No PHQ-9: PHQ-9 Score PHQ-9: Total score 8 06/08/23 14:00 Depression Screening Interpretation: Positive (Has bipolar disorder currently being followed by Psychiatry to [facility]) Depression Screening Follow-up: Existing condition and In treatment Thrive Assessment: Date of Thrive Assessment Date Thrive assessed 06/08/23 06/08/23 13:29 Advance Care Planning discussion: Completed/Scanned Date of discussion: 06/08/23 Who was present: Patient Forms completed: Health Care Proxy Time spent: 16-45 minutes Actual minutes spent: 16 Const General: cooperative and no acute distress Nutritional Appearance: obese Orientation/consciousness: patient oriented x3 Limitations: no limitations HENMT Head: Yes normal to inspection, Yes normocephalic and Yes atraumatic Ears: hearing grossly normal bilaterally, external ears normal, TM's normal bilaterally and EAC's normal General nose exam: Normal external nose present and No nasal discharge present Face and sinus: Yes normal facial exam, Yes sinuses nontender and Yes face symmetric Mouth: Normal oral and palatal mucosa present, lip normal, tongue normal, oropharynx normal and moist mucous membranes Eyes General: appearance normal, both eyes and all related structures Neck Neck: Yes full ROM and Yes no lymphadenopathy Thyroid: Thyroid normal Chest Chest palpation & inspection: normal inspection of the chest Breast/axilla palpation: normal palpation of the breasts and normal palpation of the axillae Resp Effort & Inspection: normal respiratory effort and able to speak in complete sentences Auscultation: clear to auscultation bilaterally Cardio Jugular venous distension: no JVD Rate: regular rate Rhythm: regular rhythm Heart sounds: S1 normal heart sound present and S2 normal heart sound present GI Inspection: Yes normal to inspection Palpation (GI): Soft to palpation Auscultation: normal bowel sounds General: Yes no CVA tenderness Back/Spine/Pelvis Back: no CVA tenderness Cervical Spine: normal cervical lordosis Thoracic/Lumbar Spine: thoraco-lumbar ROM normal and straight leg raise negative bilaterally Skin General skin exam: no rashes or lesions noted Neuro General: patient oriented x3, gait normal, moves all extremities, no focal motor deficits and CN's II-XI intact bilaterally Cranial nerves: Yes Normal hearing present Cognition (Neuro): normal cognition Gait exam (Neuro): Normal gait present Motor exam (neuro): 5/5 motor strength present throughout Sensory Exam: No Sensory deficit (Neuro) Extrem General: Yes normal to inspection, Yes full ROM, Yes no pedal edema and Yes normal gait Psych Appearance: grossly normal and well kempt Mental Status: mental status grossly normal Speech and movement: Normal speech and movement present Affect: normal affect Attitude: cooperative Thought process: Normal thought process present Assessment and Plan Assessment & Plan (1) Annual visit for general adult medical examination with abnormal findings: Code(s): Z00.01 - Encounter for general adult medical examination with abnormal findings Plan: Will check appropriate labs. Recommended dental visit every 6 months and regular eye exams, goes to [facility]. Take adequate calcium in diet and vitamin-D 3 at 2000 IU per cap once a day, in addition to weight-bearing exercises to help maintain good muscle tone and weight control. She goes to [facility] for her routine Pap and pelvic exam as well as for her screening mammogram. Due now for her initial screening colonoscopy. Declines getting vaccination. (2) Legally blind in right eye, as defined in [place]: Code(s): H54.8 - Legal blindness, as defined in [place] Plan: Followed at [facility] (3) Obesity (BMI 35.0-39.9 without comorbidity): Code(s): E66.9 - Obesity, unspecified Plan: Recommended focusing on improving your health instead of dieting. : Eat Mediterranean diet, limit foods high in fat, sugar, and calories, eat slowly, pay attention to portion sizes, plan your meals ahead of time, start regular physical activity 150 minutes of moderate intensity exercise or 90 minutes/week of vigorous exercise and increase water intake. Offered referral to a supervisor knitting but patient declined (4) Bipolar disorder: Comment: Followed at to [facility] Code(s): F31.9 - Bipolar disorder, unspecified Qualifiers: Active/Remission status: remission status unspecified Qualified Code(s): F31.9 - Bipolar disorder, unspecified Plan: Currently being followed by Psychiatry, would like a refill refill however on her sertraline Rx for now until she can get seen but again. (5) Essential hypertension: Code(s): I10 - Essential (primary) hypertension Plan: Blood pressure at goal of less than 130/80. Continue losartan 50 mg daily Reinforced importance of following a low sodium diet, getting regular exercise, and lowering stress levels. (6) Smokes one pack per day or less and unmotivated to quit: Code(s): F17.210 - Nicotine dependence, cigarettes, uncomplicated Plan: Patient strongly advised to stop smoking, as smoking damages blood vessels, degenerative of joints and spine, damage to lungs and heart., predisposes to developing certain cancers like lung, breast, bladder, colon. Recommended to try decreasing cigarette use by 1-2 cigarettes a day. Advised to monitor what triggers are for smoking so that this can be discussed on the next office visit. We can discuss different options to quit smoking when ready. Orders: Orders Complete Blood Count Auto Diff 06/08/23 I10 - Essential (primary) hypertension, E66.9 - Obesity, unspecified, F31.9 - Bipolar disorder, unspecified, H53.001 - Unspecified amblyopia, right eye, H54.8 - Legal blindness, as defined in [place] Lipid Panel 06/08/23 I10 - Essential (primary) hypertension, E66.9 - Obesity, unspecified, F31.9 - Bipolar disorder, unspecified, H53.001 - Unspecified amblyopia, right eye, H54.8 - Legal blindness, as defined in [place] Aspartate Amino Transferase 06/08/23 I10 - Essential (primary) hypertension, E66.9 - Obesity, unspecified, F31.9 - Bipolar disorder, unspecified, H53.001 - Unspecified amblyopia, right eye, H54.8 - Legal blindness, as defined in [place] Basic Metabolic Panel Fasting 06/08/23 I10 - Essential (primary) hypertension, E66.9 - Obesity, unspecified, F31.9 - Bipolar disorder, unspecified, H53.001 - Unspecified amblyopia, right eye, H54.8 - Legal blindness, as defined in [place] Vitamin D 25-OH Total 06/08/23 I10 - Essential (primary) hypertension, E66.9 - Obesity, unspecified, F31.9 - Bipolar disorder, unspecified, H53.001 - Unspecified amblyopia, right eye, H54.8 - Legal blindness, as defined in [place] Alanine Aminotransferase 06/08/23 I10 - Essential (primary) hypertension, E66.9 - Obesity, unspecified, F31.9 - Bipolar disorder, unspecified, H53.001 - Unspecified amblyopia, right eye, H54.8 - Legal blindness, as defined in [place] Referrals Gastroenterology Referral Z12.11 - Encounter for screening for malignant neoplasm of colon Medications: New sertraline 100 mg PO DAILY Refilled losartan 50 mg PO DAILY 90 tabs 3RF Review Flu Vaccine not done: patient reason Declined TDap/Td: 06/08/23 Coding Level of Care Code Est Pt Prev Care 40-64y(08900) Diagnoses Annual visit for general adult medical examination with abnormal findings Z00.01 Legally blind in right eye, as defined in [place] H54.8 Obesity (BMI 35.0-39.9 without comorbidity) E66.9 Bipolar affective disorder, remission status unspecified F31.9 Active/Remission status: remission status unspecified Essential hypertension I10 Smokes one pack per day or less and unmotivated to quit F17.210 Additional Codes GAY-7 Assessment Billing - GAY-7 Assessment Tool: GAY-7 Assessment 53819 ([id number]) Vital Signs *Quality* - Advance Care Planning discussion: Completed/Scanned ([id number]) Vital Signs *Quality* - Time spent: 16-45 minutes ([id number])
== END 2023-06-08 14:03 | disposition home or self-care (01) ==
PROVIDERS: PCP Internal Medicine; Visit Provider Internal Medicine
DX: Z00.01 Encounter for general adult medical examination with abnormal findings (principal); F31.9 Bipolar disorder, unspecified; Z68.33 Body mass index [BMI] 33.0-33.9, adult; E66.9 Obesity, unspecified; H54.8 Legal blindness, as defined in USA; I10 Essential (primary) hypertension; F17.210 Nicotine dependence, cigarettes, uncomplicated
CPT/HCPCS: 1123F; 99396; 99497

== ENCOUNTER 2023-06-08 13:44 | Outpatient (REF) | payer MEDICARE, MEDICAID, SELFPAY ==
[2023-06-08 16:30] LABS: MANUAL DIFF FLAG NO
[2023-06-08 16:39] LABS: Basophils Percent Auto 0.3 % (0-2); Eosinophils Absolute Auto 0.1 X10*3/uL (0.0-0.4); Eosinophils Percent Auto 0.8 % (0-4); Hematocrit 40.7 % (37.0-47.0); Hemoglobin 13.8 g/dl (12.0-16.0); Imm Gran Abs Auto 0.02 X10*3/uL (0.00-0.03); Imm Gran Pct Auto 0.2 % (0.0-0.4); Lymphocytes Absolute Auto 3.5 X10*3/uL (1.2-4.9); Lymphocytes Percent Auto 38.9 % (20-40); Mean Corpuscular HGB Conc 33.9 g/dl (31.0-35.0); Mean Corpuscular Hemoglobin 31.6 pg (27.0-33.0); Mean Corpuscular Volume 93.1 fL (80.0-98.0); Mean Platelet Volume 10.4 fL (9.4-12.3); Monocytes Absolute Auto 0.4 X10*3/uL (0.1-1.2); Monocytes Percent Auto 4.7 % (2-11); Neutrophils Absolute Auto 4.9 x10*3/uL (2.0-8.3); Neutrophils Percent Auto 55.1 % (45-73); Platelet Count 228 X10*3/uL (160-400); Red Blood Count 4.37 X10*6/uL (4.20-5.50); White Blood Count 8.9 X10*3/uL (4.8-10.8)
[2023-06-08 16:57] LABS: Alanine Aminotransferase 13 U/L (0-31); Anion Gap 14 (12-20); Aspartate Amino Transferase 14 U/L (5-31); Blood Urea Nitrogen 10 mg/dL (9-16); Calcium 9.7 mg/dL (8.4-10.2); Carbon Dioxide 23 mmol/L (22-29); Chloride 104 mmol/L (96-108); Cholesterol 203 mg/dL (<200); Estimated Glomerular Filt Rate > 60; Glucose Fasting 76 mg/dL (60-99); HDL Cholesterol 40 mg/dL (>40); LDL Cholesterol Calculated 140 mg/dL (<100); Sodium 137 mmol/L (135-145); Triglycerides 115 mg/dL (<150)
[2023-06-08 17:14] LABS: Vitamin D 25-OH Total 37.6 ng/mL (>30)
== END 2023-06-08 13:45 | disposition home or self-care (01) ==
LOC: HO.HMGCLDS 13:44
PROVIDERS: PCP Internal Medicine; Visit Provider Internal Medicine
DX: I10 Essential (primary) hypertension (principal); E66.9 Obesity, unspecified; F31.9 Bipolar disorder, unspecified; H53.001 Unspecified amblyopia, right eye; H54.8 Legal blindness, as defined in USA
CPT/HCPCS: 36415; 80048; 80061; 82306; 84450; 84460; 85025

== ENCOUNTER → 2023-08-31 08:04 | Outpatient (BNVA) | payer MEDICARE, MEDICAID, SELFPAY | PROVIDERS: PCP Internal Medicine; Visit Provider Physician Assistant ==

== ENCOUNTER 2023-11-13 07:58 | Outpatient (REF) | payer MEDICARE, MEDICAID, SELFPAY | END 2023-11-13 07:59 | disposition home or self-care (01) | LOC: HO.MAMMO 07:58 | PROVIDERS: PCP Internal Medicine; Visit Provider Internal Medicine | DX: Z12.31 Encounter for screening mammogram for malignant neoplasm of breast (principal) | CPT/HCPCS: 77063; 77067 ==

== ENCOUNTER → 2023-11-13 08:30 | Outpatient (BNV) | payer MEDICARE, MEDICAID, SELFPAY | PROVIDERS: PCP Internal Medicine; Visit Provider Radiology Diagnostic Radiology | DX: Z12.31 Encounter for screening mammogram for malignant neoplasm of breast (principal) | CPT/HCPCS: 77063; 77067 ==

== ENCOUNTER 2023-12-06 12:27 | Day surgery (SDC) | payer MEDICARE, MEDICAID, SELFPAY ==
[2023-12-04 11:43] VITALS: BMI 33.2
--- NOTE | 2023-12-05 10:01 | P.CONAN_ITS ---
Documented by User: Buffy Jameson NP 12/05/23 10:02 HPI - Anesthesia Eval Consult details Narrative: 43yo F for Colonoscopy PMFSH Active Problems Active Problems: All Active Problems Smokes one pack per day or less and unmotivated to quit (Acute) Essential hypertension (Acute) Lazy eye of right side (Acute) Legally blind in right eye, as defined in [place] (Acute) Obesity (BMI 35.0-39.9 without comorbidity) (Acute) Bipolar disorder (Acute) Past Medical History Medical History (Updated 10/24/23 @ 02:16 by Felisa Amaral MD) Smokes one pack per day or less and unmotivated to quit History of shingles Essential hypertension Lazy eye of right side Legally blind in right eye, as defined in [place] Obesity (BMI 35.0-39.9 without comorbidity) Bipolar disorder Lumbar disc herniation with radiculopathy Family History Family History Father Brain aneurysm Sister Gilbert's disease Daughter Bipolar disorder Mental health disorder Family/Other Hx of colonoscopy Surgical History Surgical History (Updated 12/04/23 @ 11:43 by Eduarda Awad RN) Hx of dilation and curettage History of carpal tunnel release History of History of bunionectomy of right great toe Social History Social History Housing: House Alcohol intake: never Patient Tobacco Use Status: Current everyday Tobacco user Tobacco use type: Cigarette Cigarettes Per Day: 10 e-Cigarette/Vaping Use: Never Used Second Hand Smoke Exposure: No service: No Current occupational status: disabled Cognitive needs: No Hearing needs: No Vision needs: No Meds Allergies Allergy/AdvReac Type Severity Reaction Status Date / Time lurasidone [From Latuda] Allergy Mild Itching Verified 10/24/23 02:09 Home Medications ?Medication ?Instructions ?Recorded ?Confirmed ?Last Taken ?Type clonidine HCl 0.1 mg tablet 0.1 mg PO BEDTIME 05/04/22 12/04/23 Unknown History oxcarbazepine 300 mg tablet See Rx Instructions PO DAILY 06/08/23 12/04/23 Unknown History sertraline 100 mg tablet 100 mg PO DAILY 06/08/23 12/04/23 Unknown History clonazepam 1 mg tablet 1 mg PO BID 08/31/23 12/04/23 Unknown History oxcarbazepine 150 mg tablet 150 mg PO DAILY 08/31/23 12/04/23 Unknown History Exam Height,Weight and Vital Signs: Height 5 ft 7 in Weight 96.162 kg Assessment and Plan Assessment Anesthesia Assessment: Chart Reviewed Documented by User: Garth Degroot MD 12/06/23 13:07 [facility] Past Medical History Medical History (Updated 10/24/23 @ 02:16 by Felisa Amaral MD) Smokes one pack per day or less and unmotivated to quit History of shingles Essential hypertension Lazy eye of right side Legally blind in right eye, as defined in [place] Obesity (BMI 35.0-39.9 without comorbidity) Bipolar disorder Lumbar disc herniation with radiculopathy Family History Family History Father Brain aneurysm Sister Gilbert's disease Daughter Bipolar disorder Mental health disorder Family/Other Hx of colonoscopy Family history of problems with anesthesia: No Surgical History Surgical History (Updated 12/04/23 @ 11:43 by Eduarda Awad RN) Hx of dilation and curettage History of carpal tunnel release History of History of bunionectomy of right great toe History of Problems with Anesthesia: No Social History Social History Housing: House Alcohol intake: never Patient Tobacco Use Status: Current everyday Tobacco user Tobacco use type: Cigarette Cigarettes Per Day: 10 e-Cigarette/Vaping Use: Never Used Second Hand Smoke Exposure: No service: No Current occupational status: disabled Cognitive needs: No Hearing needs: No Vision needs: No Meds Allergies Allergy/AdvReac Type Severity Reaction Status Date / Time lurasidone [From Latuda] Allergy Mild Itching Verified 10/24/23 02:09 Home Medications ?Medication ?Instructions ?Recorded ?Confirmed ?Last Taken ?Type clonidine HCl 0.1 mg tablet 0.1 mg PO BEDTIME 05/04/22 12/04/23 Unknown History oxcarbazepine 300 mg tablet See Rx Instructions PO DAILY 06/08/23 12/04/23 Unknown History sertraline 100 mg tablet 100 mg PO DAILY 06/08/23 12/04/23 Unknown History clonazepam 1 mg tablet 1 mg PO BID 08/31/23 12/04/23 Unknown History oxcarbazepine 150 mg tablet 150 mg PO DAILY 08/31/23 12/04/23 Unknown History Exam Airway Mallampati Class: II TM Dist: >3cm Loose/Missing/Broken Teeth: No Heart: rrr Lungs: cta Assessment and Plan Assessment Anesthesia Assessment: Anesthesia Plan Discussed and Smoking Cess. Discussed Final Anesthetic Review Family History of Problems with Anesthesia: No History of Problems with Anesthesia: No NPO: Yes ASA Class: III Final Preanesthetic Review: No Changes in Pt Med Stat, Meds/Allgs Chart Reviewed, Consent Obtained/Reviewed and Anes Risks/Benef Reviewed Patient Risk: Intermediate Procedure Risk: Intermediate Anesthetic Plan Anesthetic Plan: MAC: Disposition: Standard PACU
[2023-12-06 13:01] VITALS: BMI 34.5
[2023-12-06 13:07] LABS: UPreg QC Valid YES; Urine Pregnancy NEGATIVE (NEGATIVE)
[2023-12-06 13:13] VITALS: BP 93/68; PULSE 69; RESP 16; TEMP 36.9; O2SAT 97
[2023-12-06] MEDS: Lactated Ringers 1,000 ML 100 ML IVCONT (13:24)
--- NOTE | 2023-12-06 14:53 | P.HPSUR_ITS ---
Pre-Procedural Eval Section A - 24 Hr Update-Section A only Date of Service: 12/06/23 Section B - Complete if H&P > 30 days Chief Complaint: screening Relevant Family History (Specify if Yes): No Relevant Social History: Tobacco Use Present Medications: see Short Stay Collaborative assessment Medical History: Significant History (Smokes one pack per day or less and unmotivated to quit History of shingles Essential hypertension Lazy eye of right side Legally blind in right eye, as defined in [place] Obesity (BMI 35.0-39.9 without comorbidity) Bipolar disorder Lumbar disc herniation with radiculopathy) History of Previous Operations: Relevant previous surgery/procedure and date(s) (Hx of dilation and curettage History of carpal tunnel release History of C- section History of bunionectomy of right great toe) Allergies: Allergies Allergy/AdvReac Type Severity Reaction Status Date / Time lurasidone [From Latuda] Allergy Mild Itching Verified 10/24/23 02:09 Review of Systems Sugical H&P ROS: Negative: Constitution, Cardiovascular, Respiratory, Neurological, Psychiatric, Hem-Onc, Allergic/Immunologic, Gastrointestinal, Genitourinary, Musculoskeletal, Integumentary, Endocrine and Eyes/Ears/Nose/Throat Exam Surgical H&P Exam: Normal: HEENT, Normal: Heart, Normal: Lungs, Normal: Extremities, Normal: Abdomen, Normal: Skin and Normal: Neurological Plan Diagnosis/Plan: Unchanged I have reviewed the history and physical and performed a pertinent physical examination on my patient. No changes have occurred unless specified. Time Spent With Patient Time: Total time managing care of this patient today ____ minutes.
--- NOTE | 2023-12-06 14:54 | W.PM.OPN ---
Operative Note Operative Note Date of Service: 12/06/23 Narrative: Operative Information Procedure Description: Colonoscopy Indication: screening Anesthesia: MAC COLONOSCOPY Instrument: Olympus variable stiffness pediatric scope 190L Colonoscopy Monitoring: Vital signs and clinical assessment, continuous EKG monitoring, Pulse oximetry, Carbon Dioxide monitoring and blood pressure monitoring were done throughout the procedure. Colon withdrawal time was 10 minutes. Procedure: The patient was placed in the left lateral decubitis position and pre-procedure medications were administered. After a digital rectal examination of the ano-rectum, the video colonoscope was inserted into the rectum and advanced through the colon to the cecum/TI. The colonoscope was slowly withdrawn in a retrograde panoramic fashion and the colon mucosa was carefully examined including a retroflexed view of the rectum. Findings and interventions are described below. Procedure Difficulty: easy Findings: Terminal Ileum-normal Cecum:normal Ascending Colon: 10 mm sessile polyp removed with cold snare Transverse Colon -normal Descending Colon: x 2 sessile polyps 4-7 mm removed with cold snare Sigmoid Colon: normal Rectum: Retroflexion with small internal hemorrhoids seen, grade I Anorectum - normal Intervention: cold snare Colon preparation: [place] Bowel Preparation Scale Right colon; 2 Transverse colon: 2 Left colon; 2 (0 = Unprepared colon segment with mucosa not seen due to solid stool that cannot be cleared. 1 = Portion of mucosa of the colon segment seen, but other areas of the colon segment not well seen due to staining, residual stool and/or opaque liquid. 2 = Minor amount of residual staining, small fragments of stool and/or opaque liquid, but mucosa of colon segment seen well. 3 = Entire mucosa of colon segment seen well with no residual staining, small fragments of stool or opaque liquid) Impression and Post Procedure Diagnosis: colon polyps internal hemorrhoids Plan: High fiber diet leaflet Avoid straining at stool, epsom salts and sitz bath, anusol supps or cream Repeat Colonoscopy in 5 years due to polyps or earlier if clinically indicated Above findings were reviewed with the patient and relevant handouts were provided if indicated.
[2023-12-06 15:31] VITALS: BP 100/66; PULSE 65; RESP 16; TEMP 36.4; O2SAT 98
[2023-12-06 15:46] VITALS: BP 118/83; PULSE 56; RESP 15; O2SAT 99
[2023-12-06 16:01] VITALS: BP 111/74; PULSE 64; RESP 16; TEMP 36.6; O2SAT 99
== END 2023-12-06 16:06 | disposition home or self-care (01) ==
PROVIDERS: Nurse Practitioner; PCP Internal Medicine; Visit Provider Internal Medicine Gastroenterology
PROC: 0DJD8ZZ Inspection of Lower Intestinal Tract, Via Natural or Artificial Opening Endoscopic (ICD-10-PCS; CPT 45378; principal; 2023-12-06 14:30)
DX: Z12.11 Encounter for screening for malignant neoplasm of colon (principal); D12.2 Benign neoplasm of ascending colon; K63.5 Polyp of colon; K64.0 First degree hemorrhoids; I10 Essential (primary) hypertension; E66.9 Obesity, unspecified; Z68.33 Body mass index [BMI] 33.0-33.9, adult; H54.61 Unqualified visual loss, right eye, normal vision left eye; F31.9 Bipolar disorder, unspecified; Z79.899 Other long term (current) drug therapy; Z88.8 Allergy status to other drugs, medicaments and biological substances; F17.210 Nicotine dependence, cigarettes, uncomplicated
CPT/HCPCS: 45385; 81025; 88305; J2704

== ENCOUNTER → 2023-12-06 12:27 | Outpatient (BNV) | payer MEDICARE, MEDICAID, SELFPAY | PROVIDERS: PCP Internal Medicine; Visit Provider Internal Medicine Gastroenterology | DX: Z12.11 Encounter for screening for malignant neoplasm of colon (principal); D12.2 Benign neoplasm of ascending colon; K64.0 First degree hemorrhoids | CPT/HCPCS: 45385 ==

== ENCOUNTER 2023-12-20 07:33 | Outpatient (AMB) | payer MEDICARE, MEDICAID, SELFPAY ==
--- NOTE | 2023-12-20 07:37 | A.OFFVIS_ITS ---
Vital Signs 12/20/23 07:42 Height 5 ft 7 in Weight 216 lb BMI 33.8 BP 132/57 L Blood Pressure Location Lt brachial Position Sitting Pulse 74 Intake Visit Reasons: S/p colon Rush Intake Note: Patient follow up for Colonoscopy results Patient denies any GI issues. 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 Accompanied by: Self / Same As Patient Allergies lurasidone [From Latuda] Allergy (Mild, Verified 12/20/23 07:36) Itching HPI Comments Details: Very pleasant 43-year-old female follows up after index screening colonoscopy with polypectomy She tolerated procedure well No GI complaints today Reviewed procedure report, pathology as well as recommendations Questions answered to her satisfaction No nausea vomiting hematemesis hematochezia fever PFSH Medical History (Updated 12/20/23 @ 07:40 by Zainab Shook PA-C) Smokes one pack per day or less and unmotivated to quit History of shingles Essential hypertension Lazy eye of right side Legally blind in right eye, as defined in [place] Obesity (BMI 35.0-39.9 without comorbidity) Bipolar disorder Lumbar disc herniation with radiculopathy Surgical History Hx of colonoscopy Hx of dilation and curettage History of carpal tunnel release History of History of bunionectomy of right great toe Family History Father Brain aneurysm Sister Gilbert's disease Daughter Bipolar disorder Mental health disorder Family/Other Hx of colonoscopy Social History Housing: House Alcohol intake: never Patient Tobacco Use Status: Current everyday Tobacco user Tobacco use type: Cigarette Cigarettes Per Day: 10 e-Cigarette/Vaping Use: Never Used Second Hand Smoke Exposure: No service: No Current occupational status: disabled Cognitive needs: No Hearing needs: No Vision needs: No Review of Systems Const All systems reviewed & are unremarkable except as noted in HPI and below Physical Exam Vital Signs: Last Vital Signs Pulse 74 12/20/23 07:42 BP 132/57 L 12/20/23 07:42 BMI result Body Mass Index 33.8 Const General: cooperative, healthy appearing and comfortable Orientation/consciousness: patient oriented x3 Limitations: no limitations Skin General skin exam: no rashes or lesions noted Neuro General: patient oriented x3 Extrem General: Yes full ROM Psych Appearance: grossly normal and well kempt Mental Status: mental status grossly normal Speech and movement: Normal speech and movement present Affect: normal affect Attitude: cooperative Thought process: Normal thought process present Thought content: Normal thought content present Insight: Good insight present (Psych) Judgement: Good judgement present (Psych) Results Reviewed Results Reviewed: Impression and Post Procedure Diagnosis: colon polyps internal hemorrhoids Plan: High fiber diet leaflet Avoid straining at stool, epsom salts and sitz bath, anusol supps or cream Repeat Colonoscopy in 5 years due to polyps or earlier if clinically indicated Name: Baylee Sparks Age/Sex: 43/F Attending: Hermelindo Rush MD : 1980 Submitted by: Hermelindo Rush MD Copies to: Felisa Amaral MD MR #: [id number] Status: [facility] Collected: 12/06/23 Location: [facility] Received: 12/07/23 Diagnosis A. Colon, descending, polyp: Hyperplastic polyp. B. Colon, ascending, polyp: Tubular adenoma; negative for high-grade dysplasia and carcinoma. Clinical History Pre-Op Dx: Screening Post-Op Dx: Colon polyps, internal hemorrhoids Microscopic Description Microscopic sections reviewed. Material Received A. Descending colon polyp B. Ascending colon polyp Gross Description Received in 2 parts. Part A: Received in formalin labeled ?descending colon polyp? is a 1.2 x 0.3 x 0.2 cm elongate rectangular fragment of mucosa with a central 0.35 cm congested, maroon-brown papular focus, submitted in toto in a cassette labeled A. Part B: Received in formalin labeled ?ascending colon polyp? is a 0.3 cm nair irregular tissue fragment, submitted in toto in a cassette labeled B. CEDS Copies To Felisa Amaral MD [address] [place] [address] Dr. Tripathi, [place] [id number] Hermelindo Rush MD [address] [place] [address] Dr. Maldonado, SELIN [id number] Patient: Baylee Sparks Age/Sex: 43/F MR#: [id number] Page 1 of 2 Assessment & Plan Assessment & Plan (1) Adenomatous colon polyp: Code(s): D12.6 - Benign neoplasm of colon, unspecified Category: Medical Plan: Repeat asymptomatic colonoscopy 5 years All first-degree relatives begin screening at age 35 (2) Hyperplastic colon polyp: Code(s): K63.5 - Polyp of colon Category: Medical Plan: Removed (3) Hemorrhoids: Code(s): K64.9 - Unspecified hemorrhoids Category: Medical Plan: Avoid straining Maintain high-fiber diet Plan Asymptomatic 5 year polyp surveyed colonoscopy All first-degree relatives begin screening at age 35 Maintain high-fiber diet Avoid straining with hemorrhoids Patient Instructions: Asymptomatic 5 year polyp surveyed colonoscopy All first-degree relatives begin screening at age 35 Maintain high-fiber diet Avoid straining with hemorrhoids Coding Level of Care Code Est Pt Level 3 (34826) Diagnoses Adenomatous colon polyp D12.6 Hyperplastic colon polyp K63.5 Hemorrhoids K64.9 Time Spent (min) 20
[2023-12-20 07:42] VITALS: BP 132/57; PULSE 74; BMI 33.8
== END 2023-12-20 08:41 | disposition home or self-care (01) ==
PROVIDERS: PCP Internal Medicine; Visit Provider Physician Assistant
DX: D12.6 Benign neoplasm of colon, unspecified (principal); K63.5 Polyp of colon; K64.9 Unspecified hemorrhoids
CPT/HCPCS: 99213

== ENCOUNTER → 2023-12-20 07:33 | Outpatient (BNVA) | payer MEDICARE, MEDICAID, SELFPAY | PROVIDERS: PCP Internal Medicine; Visit Provider Physician Assistant | DX: D12.6 Benign neoplasm of colon, unspecified (principal); K63.5 Polyp of colon; K64.9 Unspecified hemorrhoids | CPT/HCPCS: 99212 ==

== ENCOUNTER 2024-01-04 16:15 | Emergency (ER) | payer MEDICARE, MEDICAID, SELFPAY ==
--- NOTE | ~2024-01-04 | XR_ITS ---
EXAMINATION: XR SACRUM AND COCCYX, 3 VIEWS XR LUMBAR SPINE, 3 VIEWS CLINICAL INFORMATION: Back pain COMPARISON: None available. TECHNIQUE: 3 views of the lumbar spine 3 views of the sacrum and coccyx FINDINGS: 5 nonrib-bearing lumbar-type vertebral bodies. Suggestion of lucency through the left L1 transverse process cortical which may reflect nondisplaced fracture, chronicity indeterminate, versus unfused transverse process. Correlation with point tenderness. Multilevel degenerative changes. Bilateral sacroiliac joints are patent. Vertebral body heights and disc spaces are maintained. Posterior elements are intact. Paraspinal soft tissues are unremarkable. Visualized bowel gas is unremarkable. XR/XR sacrum coccyx min 2V IMPRESSION: 1. Suggestion of lucency through the left L1 transverse process cortical which may reflect nondisplaced fracture, chronicity indeterminate, versus unfused transverse process. Correlation with point tenderness. 2. Multilevel degenerative changes. 3. Bilateral sacroiliac joints are patent.
--- NOTE | ~2024-01-04 | XR_ITS ---
EXAMINATION: XR SACRUM AND COCCYX, 3 VIEWS XR LUMBAR SPINE, 3 VIEWS CLINICAL INFORMATION: Back pain COMPARISON: None available. TECHNIQUE: 3 views of the lumbar spine 3 views of the sacrum and coccyx FINDINGS: 5 nonrib-bearing lumbar-type vertebral bodies. Suggestion of lucency through the left L1 transverse process cortical which may reflect nondisplaced fracture, chronicity indeterminate, versus unfused transverse process. Correlation with point tenderness. Multilevel degenerative changes. Bilateral sacroiliac joints are patent. Vertebral body heights and disc spaces are maintained. Posterior elements are intact. Paraspinal soft tissues are unremarkable. Visualized bowel gas is unremarkable. XR/XR lumbar spine 2-3V IMPRESSION: 1. Suggestion of lucency through the left L1 transverse process cortical which may reflect nondisplaced fracture, chronicity indeterminate, versus unfused transverse process. Correlation with point tenderness. 2. Multilevel degenerative changes. 3. Bilateral sacroiliac joints are patent.
[2024-01-04 16:48] VITALS: BP 122/64; PULSE 73; RESP 20; TEMP 36.5; O2SAT 98; BMI 34.5
--- NOTE | 2024-01-04 16:52 | ED_ITS ---
HPI - General Adult General Chief complaint: Back Pain/Injury Stated complaint: hurt back/pain Time Seen by Provider: 01/04/24 19:28 Source: patient, RN notes reviewed and old records reviewed Mode of arrival: ambulatory Limitations: no limitations History of Present Illness HPI narrative: 43-year-old female presents for evaluation of right lower back pain. Patient reports that about 2 weeks ago she was lifting a ?Tote of books. She reports ?my back went out at that time. She reports frequent history of similar. She states that usually when she has this kind of her pain ?it hurts for a few days but gets better. She reports a history of an L2 fracture but did not have any intervention for it She reports pain radiating down her right leg Denies any numbness, tingling bladder or bowel incontinence Denies any lower extremity weakness Denies any falls Related Data Home Medications ?Medication ?Instructions ?Recorded ?Confirmed clonidine HCl 0.1 mg tablet 0.1 mg PO BEDTIME 05/04/22 12/06/23 oxcarbazepine 300 mg tablet See Rx Instructions PO DAILY 06/08/23 12/04/23 sertraline 100 mg tablet 100 mg PO DAILY 06/08/23 12/06/23 clonazepam 1 mg tablet 1 mg PO BID 08/31/23 12/06/23 oxcarbazepine 150 mg tablet 150 mg PO DAILY 08/31/23 12/06/23 Previous Rx's ?Medication ?Instructions ?Recorded epinephrine 0.3 mg/0.3 mL 0.3 mg (0.3 mL) IM Q10M PRN 07/03/22 injection, auto-injector (EpiPen) anaphylaxis #1 ea losartan 50 mg tablet 50 mg PO DAILY #90 tabs 06/08/23 COVID-19 antigen test #2 ea 08/10/23 bisacodyl 5 mg tablet,delayed 20 mg (4 x 5 mg) PO ONCE 08/31/23 release (Dulcolax (bisacodyl)) colonoscopy prep 1 day #4 tabs polyethylene glycol 3350 17 238 g PO ONCE PRN laxative effect 08/31/23 gram/dose oral powder (Miralax) 1 day #238 grams dexamethasone 4 mg tablet 4 mg PO BID #6 tabs 01/04/24 nitrofurantoin 100 mg PO Q12H 3 days #6 caps 01/04/24 monohydrate/macrocrystals 100 mg capsule (Macrobid) Allergies Allergy/AdvReac Type Severity Reaction Status Date / Time lurasidone [From Latuda] Allergy Mild Itching Verified 01/04/24 16:50 Review of Systems Constitutional: Constitutional: Denies body ache(s), Denies chills, Denies fever(s) and Denies headache(s) Eyes: Eyes: Denies blurry vision ENT: Denies headache(s) and Denies odynophagia Cardiovascular: Cardiovascular: Denies chest pain and Denies dyspnea Respiratory: Respiratory: Denies cough and Denies dyspnea Gastrointestinal: Gastrointestinal: Denies abdominal pain, Denies nausea, Denies odynophagia and Denies vomiting Musculoskeletal: Musculoskeletal: Reports back pain, Denies arthralgias, Denies joint swelling and Reports radiating pain into limb Integumentary/Breasts: Skin/Breast: Denies rash Neurologic: Denies headache(s) [facility] Past Medical History Medical History (Updated 01/05/24 @ 00:01 by Hannah Banks) Smokes one pack per day or less and unmotivated to quit History of shingles Essential hypertension Lazy eye of right side Legally blind in right eye, as defined in [place] Obesity (BMI 35.0-39.9 without comorbidity) Bipolar disorder Lumbar disc herniation with radiculopathy Surgical History Hx of colonoscopy Hx of dilation and curettage History of carpal tunnel release History of History of bunionectomy of right great toe Family History Family History Father Brain aneurysm Sister Gilbert's disease Daughter Bipolar disorder Mental health disorder Family/Other Hx of colonoscopy Social History Social History Housing: House Alcohol intake: never Patient Tobacco Use Status: Current everyday Tobacco user Tobacco use type: Cigarette Cigarettes Per Day: 10 Smoked in Last 30 Days: No e-Cigarette/Vaping Use: Never Used Second Hand Smoke Exposure: No Use of substances other than those prescribed or required for medical reasons: No Advance Directives: No Advance Directives Information Provided: No Patient : No service: No Current occupational status: disabled Cognitive needs: No Hearing needs: No Vision needs: No Physical Exam ED Vital Signs: Vital Signs - 24 hr 01/04/24 16:48 01/04/24 19:58 01/04/24 20:08 Temperature 97.7 F 97.2 F 97.2 F Pulse Rate 73 80 80 Respiratory Rate 20 18 18 Blood Pressure 122/64 142/85 H 142/85 H Pulse Oximetry 98 98 98 Oxygen Delivery Method Room Air Room Air Room Air BMI result Body Mass Index 34.5 Const General: healthy appearing, comfortable, no acute distress, alert and awake Nutritional Appearance: well nourished Orientation/consciousness: patient oriented x3 HENMT Head: Yes normocephalic and Yes atraumatic Neck Neck: Yes full ROM Resp Effort & Inspection: normal respiratory effort, able to speak in complete sentences and not labored GI Inspection: No distended Palpation (GI): Soft to palpation, not firm, nontender, no guarding and not rigid Back/Spine/Pelvis Other: Patient has tenderness to the right lumbar paraspinous region. Negative straight leg raise Skin General skin exam: elasticity normal Neuro General: patient oriented x3 Cranial nerves: Yes Bilaterally intact EOM present Cognition (Neuro): normal cognition Motor exam (neuro): 5/5 motor strength present throughout Course Course Course Narrative: RME: 43-year-old female presents to ED for low back pain exacerbation after bending down. Patient's history of back injuries lumbar spine fracture in the past. Patient deneis any uinary/bowel incontinence. Xray and UA normal Medications Administered Discontinued Medications Generic Name Dose Route Start Last Admin Trade Name Freq PRN Reason Stop Dose Admin Dexamethasone 4 mg 01/04/24 19:41 01/04/24 19:56 Dexamethasone 4 Mg Tablet PO 01/04/24 19:42 4 mg ONCE ONE Administration Ketorolac Tromethamine 30 mg 01/04/24 19:41 01/04/24 19:56 Ketorolac Tromethamine 30 Mg/Ml Vial IM 01/04/24 19:42 30 mg ONCE ONE Administration Nitrofurantoin Macrocrystals 100 mg 01/04/24 19:41 01/04/24 19:56 Nitrofurantoin Monohyd/M-Cryst 100 Mg Capsule PO 01/04/24 19:42 100 mg ONCE ONE Administration Medical Decision Making Medical Decision Making [facility] Narrative: Patient has a history of chronic back pain, x-ray show an L1 transverse process fracture versus congenital abnormality. There is no concern for cauda equina syndrome, the patient's physical exam is reassuring. Plan to treat with dexamethasone and NSAIDs. Differential Diagnosis Differential Diagnoses: The differential diagnosis associated with the presentation includes Sciatica Muscle strain Contusion Radiculopathy Compression fracture Lab Data Labs: Lab Results 01/04/24 Range/Units 17:04 Urine Color Yellow Urine Appearance Cloudy Urine pH 5.5 (5.0-9.0) Ur Specific [place] >= 1.030 H (1.005-1.025) Urine Protein Negative (Neg-Trace) mg/dL Urine Glucose (UA) Negative (Negative) mg/dL Urine Ketones 15 (Negative) mg/dL Urine Blood Negative (Negative) Urine Nitrite Negative (Negative) Ur Leukocyte Esterase Trace H (Negative) Urine RBC 0-2 (0-2) /HPF Urine WBC 0-5 (0-5) /HPF Ur Squamous Epith Cells 11-20 (0-2) /HPF Urine Bacteria 4+ (None Seen) Hyaline Casts 0-2 (0-2) /LPF Urine Test NEGATIVE (NEGATIVE) Independent Interpretation I performed an independent interpretation of an: Plain X-Ray Interpretation: 1. Suggestion of lucency through the left L1 transverse process cortical which may reflect nondisplaced fracture, chronicity indeterminate, versus unfused transverse process. Correlation with point tenderness. 2. Multilevel degenerative changes. 3. Bilateral sacroiliac joints are patent. Discharge Plan Discharge Clinical Impression: Acute low back pain with sciatica, UTI (urinary tract infection) Patient Disposition: Home, Self-Care Instructions: Acute Low Back Pain (ED) Additional Instructions: Your x-ray did show a possible L1 transverse process fracture. This may be the cause of your back pain I recommend following up with your primary doctor, you may benefit from an outpatient MRI Take dexamethasone twice daily for the next 3 days You may continue to use ibuprofen as needed for pain, but take this with food Take Macrobid twice daily for 3 days for UTI Prescriptions: New dexamethasone 4 mg tablet 4 mg PO BID Qty: 6 0RF nitrofurantoin monohyd/m-cryst [Macrobid] 100 mg capsule 100 mg PO Q12H 3 Days Qty: 6 0RF Rx Instructions: must administer with a meal/food No Action (DME) COVID-19 antigen test Kit See Rx Instructions .Route Qty: 2 5RF Rx Instructions: As directed epinephrine [EpiPen] 0.3 mg/0.3 mL auto-injector 0.3 mg IM Q10M PRN (Reason: anaphylaxis) Qty: 1 0RF Rx Instructions: for 2 doses oxcarbazepine 300 mg tablet See Rx Instructions PO DAILY Rx Instructions: 150 mg in a.m. and 600 mg in p.m. clonidine HCl 0.1 mg tablet 0.1 mg PO BEDTIME losartan 50 mg tablet 50 mg PO DAILY Qty: 90 3RF sertraline 100 mg tablet 100 mg PO DAILY clonazepam 1 mg tablet 1 mg PO BID oxcarbazepine 150 mg tablet 150 mg PO DAILY bisacodyl [Dulcolax (bisacodyl)] 5 mg tablet,delayed release (DR/EC) 20 mg PO ONCE 1 Days Qty: 4 0RF Rx Instructions: Day before procedure, prep day Take 4 tablets by mouth upon awakening followed by large glass of water polyethylene glycol 3350 [Miralax] 17 gram/dose powder 238 g PO ONCE PRN (Reason: laxative effect) 1 Days Qty: 238 0RF Rx Instructions: Take as directed by mouth the day before your procedure. Interventions: ED Discharge Assessment Last Done: 01/04/24 20:08 Discharge Date/Time: 01/04/24 20:10 Print Language: Tanzanian
[2024-01-04 17:17] LABS: Appearance Urine Cloudy; Color Urine Yellow; Glucose Urine UA Negative (Negative); Leukocyte Esterase Urine Trace (Negative); Nitrite Urine Negative (Negative); PH 5.5 (5.0-9.0); Specific Gravity - Urine >= 1.030 (1.005-1.025); UMIC TRIGGER UACC YES; Urine Blood Negative (Negative); Urine Ketones 15 mg/dL (Negative); Urine Protein Negative (Neg-Trace)
[2024-01-04 17:20] LABS: UPreg QC Valid YES; Urine Pregnancy NEGATIVE (NEGATIVE)
[2024-01-04 17:22] LABS: Bacteria Urine 4+ (None Seen); Hyaline Casts Urine 0-2 /LPF (0-2); RBC Urine 0-2 /HPF (0-2); WBC Urine 0-5 /HPF (0-5)
[2024-01-04] MEDS: dexAMETHasone 4 MG TABLET PO (19:56)
[2024-01-04] MEDS: Nitrofurantoin Monohyd/M-Cryst 100 MG CAPSULE PO (19:56)
[2024-01-04] MEDS: Ketorolac Tromethamine 30 MG/ML VIAL IM (19:56)
[2024-01-04 19:58] VITALS: BP 142/85; PULSE 80; RESP 18; TEMP 36.2; O2SAT 98
--- NOTE | 2024-01-04 20:07 | PC.NURSE ---
Pt a&o, medicated upon discharge, reviewed discharge instructions with pt. pt verbalized understanding, no sign of distress at discharge.
[2024-01-04 20:08] VITALS: BP 142/85; PULSE 80; RESP 18; TEMP 36.2; O2SAT 98
== END 2024-01-04 20:10 | disposition home or self-care (01) ==
PROVIDERS: Physician Assistant; Emergency Provider Student in an Organized Health Care Education/Training Program; PCP Internal Medicine
DX: M54.42 Lumbago with sciatica, left side (principal); N39.0 Urinary tract infection, site not specified; Z79.899 Other long term (current) drug therapy
CPT/HCPCS: 72100; 72220; 81001; 81025; 96372; 99284; J1885; J8540

== ENCOUNTER 2024-01-10 10:28 | Outpatient (AMB) | payer MEDICARE, MEDICAID, SELFPAY ==
[2024-01-10 10:54] VITALS: BP 110/66; PULSE 83; O2SAT 97; BMI 34.1
--- NOTE | 2024-01-10 10:54 | MHC.PC.OV ---
Vital Signs 01/10/24 10:54 Height 5 ft 7 in Weight 218 lb BMI 34.1 BP 110/66 Blood Pressure Location Rt brachial Position Sitting Pulse 83 Pulse Source Pulse Oximeter Pulse Oximetry (%) 97 Oxygen Delivery Method Room Air Intake Visit Reasons: ER f/u Intake Note: Pt is here today to f/u ER back pain fracture on her L1 : Pt was treated for a UTI. Repeat Urine sample taken Allergies lurasidone [From Latuda] Allergy (Mild, Verified 01/10/24 10:54) Itching Tobacco use date assessed: 01/10/24 Dental Screening Dental Screen Date: 01/10/24 Did you have a dental visit in the last 12 months?: Yes Did you have a dental problem in the last 6 months where you did not have access to dental care?: Yes Was dental information given to patient?: Patient has dentist HPI ER f/u HPI Details 43-year-old lady here today for an ER follow-up. She was seen there complaining of low back pain, with radiation of pain down back of right leg, present for the last 2 weeks after lifting books. Patient states that she has had similar symptoms in the past and has history of lumbar disc herniation with radiculopathy as seen on MRI done 03/22/2019. Patient denies any urinary or stool incontinence, no leg weakness reported she. She was prescribed dexamethasone on discharge and 3 day course of nitrofurantoin. Still complaining of pain in her right lower back radiating down leg, but no urinary frequency or urgency reported. [facility] Medical History (Updated 01/10/24 @ 11:23 by Felisa Amaral MD) Lumbago of lumbar region with sciatica Smokes one pack per day or less and unmotivated to quit History of shingles Essential hypertension Lazy eye of right side Legally blind in right eye, as defined in [place] Obesity (BMI 35.0-39.9 without comorbidity) Bipolar disorder Lumbar disc herniation with radiculopathy Surgical History Hx of colonoscopy Hx of dilation and curettage History of carpal tunnel release History of History of bunionectomy of right great toe Family History Father Brain aneurysm Sister Gilbert's disease Daughter Bipolar disorder Mental health disorder Family/Other Hx of colonoscopy Social History Housing: House Alcohol intake: never Patient Tobacco Use Status: Current everyday Tobacco user Tobacco use type: Cigarette Cigarettes Per Day: 10 e-Cigarette/Vaping Use: Never Used Second Hand Smoke Exposure: No service: No Current occupational status: disabled Cognitive needs: No Hearing needs: No Vision needs: Yes Questionnaire PHQ-9 Over the last 2 weeks, how often have you been bothered by any of the following problems? 1. Little interest or pleasure in doing things: not at all 2. Feeling down, depressed, or hopeless: not at all 3. Trouble falling or staying asleep, or sleeping too much: not at all 4. Feeling tired or having little energy: several days 5. Poor appetite or overeating: several days 6. Feeling bad about yourself - or that you are a failure or have let yourself or your family down: not at all 7. Trouble concentrating on things, such as reading the newspaper or watching television: not at all 8. Moving or speaking so slowly that other people could have noticed. Or the opposite - being so fidgety or restless that you have been moving around a lot more than usual: not at all 9. Thoughts that you would be better off or of hurting yourself in some way: not at all Total score: 2 Depression Screening Interpretation: Negative Depression Screening Done: Yes 45449 - PHQ-9 Billing: Yes Source: Developed by Drs. Regis Martinez, Stephie Palomino, Terrence Mota and colleagues, with an educational aditi from [employer]. Thrive Questionnaire Date Thrive assessed: 06/08/23 AUDIT C Alcohol Use Questionnaire (AUDIT-C) 1. How often do you have a drink containing alcohol?: Never Total Score: 0 GAY-7 AMB Questionnaire GAY-7 Date GAY - 7 assessed: 01/10/24 Feeling nervous, anxious, or on edge: 0 = Not at all Not being able to stop or control worryin = Not at all Worrying too much about different things: 0 = Not at all Trouble relaxin = Not at all Being so restless that it is hard to sit still: 0 = Not at all Becoming easily annoyed or irritable: 0 = Not at all Feeling afraid as if something awful might happen: 0 = Not at all Total GAY-7 score (0-4 normal; 5-9 mild; 10-14 moderate; 15-21 severe): 0 Source: Developed by Drs. Regis Martinez, Stephie Palomino, Terrence Mota and colleagues, with an educational aditi from [employer]. GAY-7 Assessment Billing GAY-7 Assessment Tool: GAY-7 Assessment 98529 Review of Systems Const All systems reviewed & are unremarkable except as noted in HPI and below Neuro Denies Sensory deficit (Neuro) Physical exam (Primary Care) Vital Signs: Last Vital Signs Pulse 83 01/10/24 10:54 BP 110/66 01/10/24 10:54 Pulse Ox 97 01/10/24 10:54 Oxygen Delivery Method Room Air 01/10/24 10:54 BMI result Body Mass Index 34.1 Tobacco/Smoking Status: Tobacco use Status Tobacco use date assessed 01/10/24 01/10/24 10:56 Patient Tobacco Use Status Current everyday Tobacco 01/10/24 10:56 Tobacco use type Cigarette 01/10/24 10:56 e-Cigarette/Vaping Use Never Used 01/10/24 10:56 PHQ-9: PHQ-9 Score PHQ-9: Total score 2 01/23/24 01:27 Depression Screening Interpretation: Negative Thrive Assessment: Date of Thrive Assessment Date Thrive assessed 06/08/23 01/10/24 10:56 Const General: cooperative and no acute distress Nutritional Appearance: obese Orientation/consciousness: patient oriented x3 Eyes General: appearance normal, both eyes and all related structures Neck Neck: Yes full ROM and Yes no lymphadenopathy Thyroid: Thyroid normal Resp Effort & Inspection: normal respiratory effort and able to speak in complete sentences Auscultation: clear to auscultation bilaterally Cardio Jugular venous distension: no JVD Rate: regular rate Rhythm: regular rhythm Heart sounds: S1 normal heart sound present and S2 normal heart sound present GI Inspection: Yes normal to inspection Palpation (GI): Soft to palpation Auscultation: normal bowel sounds Back/Spine/Pelvis Thoracic/Lumbar Spine: paraspinal muscle tenderness on the right in the mid lumbar Skin Other: Equivocal straight leg raising sign on right General skin exam: no rashes or lesions noted Neuro General: patient oriented x3, gait normal, moves all extremities and no focal motor deficits Cognition (Neuro): normal cognition Gait exam (Neuro): Normal gait present Motor exam (neuro): 5/5 motor strength present throughout Sensory Exam: No Sensory deficit (Neuro) Extrem General: Yes normal to inspection, Yes full ROM, Yes no pedal edema and Yes normal gait Psych Appearance: grossly normal and well kempt Mental Status: mental status grossly normal Speech and movement: Normal speech and movement present Affect: normal affect Attitude: cooperative Thought process: Normal thought process present Results AMB Urinalysis, Automated UA Leukoctes 0 Huong/uL Last Edit by Katia Worrell CMA on 01/10/24 11:04 UA Nitrite Negative Last Edit by Katia Worrell CMA on 01/10/24 11:04 UA Urobilinogen 0.2 mg/dL Last Edit by Katia Worrell CMA on 01/10/24 11:04 UA Protein 0 mg/dL Last Edit by Katia Worrell CMA on 01/10/24 11:04 UA pH 6.0 Last Edit by Katia Worrell CMA on 01/10/24 11:04 UA Blood 0 Jeramie/uL Last Edit by Katia Worrell CMA on 01/10/24 11:04 UA Specific [place] 1.015 Last Edit by Katia Worrell CMA on 01/10/24 11:04 UA Ketone Negative Last Edit by Katia Worrell CMA on 01/10/24 11:04 UA Bilirubin 0 mg/dL Last Edit by Katia Worrell CMA on 01/10/24 11:04 UA Glucose 0 mg/dL Last Edit by Katia Worrell CMA on 01/10/24 11:04 Results Reviewed Results Reviewed: Laboratory Last Values Urine pH (Auto) 6.0 01/10/24 10:40 Specific [place] (Auto) 1.015 01/10/24 10:40 Urine Protein (Auto) 0 mg/dL 01/10/24 10:40 Glucose (UA)(Auto) 0 mg/dL 01/10/24 10:40 Urine Ketones (Auto) Negative 01/10/24 10:40 Urine Blood (Auto) 0 Jeramie/uL 01/10/24 10:40 Urine Nitrite (Auto) Negative 01/10/24 10:40 Urine Bilirubin (Auto) 0 mg/dL 01/10/24 10:40 Urine Urobilinogen (Auto) 0.2 mg/dL 01/10/24 10:40 Leukocyte Esterase (Auto) 0 Huong/uL 01/10/24 10:40 Assessment and Plan Assessment & Plan (1) Lumbago of lumbar region with sciatica: Code(s): M54.40 - Lumbago with sciatica, unspecified side Plan: MRI of lumbar spine ordered without contrast. Prescription sent for tizanidine 4 mg per tablet to take 1 tablet twice a day as needed for painful muscle spasm, prescription also sent for flexor patch apply to affected area twice a day as needed. (2) Hx of urinary tract infection: Code(s): Z87.440 - Personal history of urinary (tract) infections Plan: Urinalysis did not show any evidence of infection Orders: Orders AMB Urinalysis Automated 01/10/24 Z13.9 - Encounter for screening, unspecified MR lumbar spine wo con 01/10/24 M51.16 - Intervertebral disc disorders with radiculopathy, lumbar region Medications: New tizanidine 4 mg PO BID PRN 20 tabs 0RF muscle spasticity diclofenac epolamine 1.3% (Flector) 1 patch topical Q12H PRN 30 ea 0RF low back pain M54.40 - Lumbago with sciatica, unspecified side Coding Level of Care Code Est Pt Level 4 (38586) Diagnoses Lumbago of lumbar region with sciatica M54.40 Hx of urinary tract infection Z87.440 Additional Codes GAY-7 Assessment Billing - GAY-7 Assessment Tool: GAY-7 Assessment 43113 ([id number])
== END 2024-01-10 12:23 | disposition home or self-care (01) ==
PROVIDERS: PCP Internal Medicine; Visit Provider Internal Medicine
DX: M54.59 Other low back pain (principal)
CPT/HCPCS: 81003; 99214

== ENCOUNTER 2024-02-07 07:36 | Outpatient (REF) | payer MEDICARE, MEDICAID, SELFPAY ==
--- NOTE | ~2024-02-07 | MR_ITS ---
MR LUMBAR SPINE WITHOUT CONTRAST CLINICAL INFORMATION: Intervertebral disc disorder with radiculopathy. COMPARISON: Lumbar spine radiographs 01/04/2024 and lumbar spine MRI 03/22/2019. TECHNIQUE: MRI of the lumbar spine was obtained using routine sequences without contrast. FINDINGS: There are 5 nonrib-bearing lumbar-type vertebral bodies. There is moderate disc volume loss posteriorly at L5-S1 and mild disc volume loss posteriorly at L4-L5 with disc desiccation at both of these levels. There is stable chronic vertebral body height loss at L5 and the remaining vertebral body heights are maintained. There is no bone marrow edema. There are no acute fractures. Modic type II endplate signal changes at L5-S1. Conus terminates at the L1-L2 level. There are no significant extra spinal soft tissue findings. The L1-L2, L2-L3, and L3-L4 disc contours are normal. There is no central canal stenosis and there is no foraminal stenosis at these levels. L4-L5: There is a diffuse annular disc bulge and there is severe bilateral facet arthropathy. Mild central canal stenosis and mild bilateral foraminal encroachment. Findings progressed. L5-S1: There has been a significant interval decrease in size of a persistent right paracentral disc protrusion that results in mild residual mass effect on the traversing right S1 nerve root within the right subarticular zone. Background annular disc bulge and severe bilateral facet arthropathy. Stable mild to moderate right and mild left foraminal stenosis. MR/MR lumbar spine wo con IMPRESSION: * At L5-S1, there has been a significant interval decrease in size of a persistent right paracentral disc protrusion that results in mild residual mass effect on the traversing right S1 nerve root within the right subarticular zone. * At L4-L5, progressive spondylitic changes result in worsening mild central canal stenosis and mild bilateral foraminal encroachment.
== END 2024-02-07 07:37 | disposition home or self-care (01) ==
LOC: HO.MRI 07:36
PROVIDERS: PCP Internal Medicine; Visit Provider Internal Medicine
DX: M51.16 Intervertebral disc disorders with radiculopathy, lumbar region (principal)
CPT/HCPCS: 72148

== ENCOUNTER 2024-02-09 11:05 | Outpatient (AMB) | payer MEDICARE, MEDICAID, SELFPAY ==
--- NOTE | 2024-02-09 13:14 | A.OFFPC_ITS ---
Intake Visit Reasons: Discuss FMLA [phone] andriod Allergies lurasidone [From Latuda] Allergy (Mild, Verified 02/09/24 13:14) Itching Medication List - Last Reconciled 02/09/24 by Felisa Amaral MD clonazepam 1 mg PO BID clonidine HCl 0.1 mg PO BEDTIME diclofenac epolamine 1.3% (Flector) 1 patch topical Q12H PRN epinephrine (EpiPen) 0.3 mg (0.3 mL) IM Q10M PRN losartan 50 mg PO DAILY oxcarbazepine 150 mg in a.m. and 600 mg in p.m. oxcarbazepine 150 mg PO DAILY sertraline 100 mg PO DAILY tizanidine 4 mg PO BID PRN Tobacco use date assessed: 01/10/24 Dental Screening Dental Screen Date: 01/10/24 HPI Discuss FMLA [phone] andriod HPI Details 43-year-old lady with history of hyperte nsion, legally blind in right eye, obesity, history of bipolar disorder, here today complaining of pain across her lower back. She went to the ER at [facility] 01/04/2024, complaining of low back pain. She states that about 2 weeks ago she was lifting a ?Tote of books. And felt sudden sharp pain across her lower back. She reports frequent history of similar episodes, but they usually would hurt only for a few days but gets better, unlike this last episode. Patient states that pain would occasionally shoots down her right leg but denies any numbness, no tingling, no bladder or bowel incontinence or lower extremity weakness. She states that she had an MRI of lower lumbar spine done in 2019 showed a large 10 mm right paracentral disc protrusion at L5-S1 disc levels that impinges on descending right S1 nerve root with no acute compression fracture seen. She however did not seek any medical treatment for this. She is here requesting to have an FMLA application completed. 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 She received tapering dose of steroids during that ER visit last month, and takes tizanidine as needed for muscle spasm which affords only temporary relief. She had an MRI of her lumbar spine done 2023 with results still pending. [facility] Medical History Lumbago of lumbar region with sciatica Smokes one pack per day or less and unmotivated to quit History of shingles Essential hypertension Lazy eye of right side Legally blind in right eye, as defined in [place] Obesity (BMI 35.0-39.9 without comorbidity) Bipolar disorder Lumbar disc herniation with radiculopathy Surgical History Hx of colonoscopy Hx of dilation and curettage History of carpal tunnel release History of History of bunionectomy of right great toe Family History Father Brain aneurysm Sister Gilbert's disease Daughter Bipolar disorder Mental health disorder Family/Other Hx of colonoscopy Social History Housing: House Alcohol intake: never Patient Tobacco Use Status: Current everyday Tobacco user Tobacco use type: Cigarette Cigarettes Per Day: 10 e-Cigarette/Vaping Use: Never Used Second Hand Smoke Exposure: No service: No Current occupational status: disabled Cognitive needs: No Hearing needs: No Vision needs: Yes Questionnaire Thrive Questionnaire Date Thrive assessed: 06/08/23 GAY-7 AMB Questionnaire GAY-7 Date GAY - 7 assessed: 01/10/24 Source: Developed by Drs. Regis Martinez, Stephie Palomino, Terrence Mota and colleagues, with an educational aditi from [employer]. Review of Systems Const Denies frequent falls and Denies weakness Card Denies chest pain, Denies lightheadedness and Denies dyspnea Resp Denies cough and Denies dyspnea GI Reports no additional complaints Reports no additional complaints Musc Reports as per HPI Skin/Breast Denies lesions and Denies rash Neuro Reports as per HPI, Denies frequent falls, Denies lack of coordination and Denies weakness Physical exam (Primary Care) Tobacco/Smoking Status: Tobacco use Status Tobacco use date assessed 01/10/24 02/09/24 13:18 Patient Tobacco Use Status Current everyday Tobacco 02/09/24 13:18 Tobacco use type Cigarette 02/09/24 13:18 e-Cigarette/Vaping Use Never Used 02/09/24 13:18 Thrive Assessment: Date of Thrive Assessment Date Thrive assessed 06/08/23 02/09/24 13:18 Telehealth Telehealth Telehealth Platform: [employer] Location of provider rendering services: practice address Location of patient: address on file Patient Identification confirmed using: Name, : Yes Telehealth method: video Patient verbally consented to treatment: Yes Patient verbally consented to billing insurance company: Yes Patient informed of any privacy concerns related to visit: Yes Minutes spent on Phone/Video with Pt.: 15 Assessment and Plan Assessment & Plan (1) Lumbago of lumbar region with sciatica: Code(s): M54.40 - Lumbago with sciatica, unspecified side Plan: Takes [id number] medications, and tizanidine as needed for muscle spasm. FMLA application form completed , awaiting results of MRI of lumbar spine done 02/07/2024. Will refer to Neurosurgery , or physical therapy depending on results of MRI Coding Level of Care Code Tele Est Pt Level 4 (71551) Diagnoses Lumbago of lumbar region with sciatica M54.40
== END 2024-02-09 14:22 | disposition home or self-care (01) ==
LOC: HO.HMGC 11:06
PROVIDERS: PCP Internal Medicine; Visit Provider Internal Medicine
DX: M54.40 Lumbago with sciatica, unspecified side (principal)
CPT/HCPCS: 99214

== ENCOUNTER 2024-02-15 09:58 | Outpatient (AMB) | payer MEDICARE, MEDICAID, SELFPAY ==
--- NOTE | 2024-02-15 09:26 | A.SPINEOV_ITS ---
Intake Visit Reasons: L-1 fracture Intake Note: Ms. Sparks is here today c/o severe low back pain that radiates down to both legs. [employer] Required: No Allergies lurasidone [From Latuda] Allergy (Mild, Verified 02/09/24 13:14) Itching Assessment & Plan Assessment & Plan (1) Lumbar radiculopathy: Code(s): M54.16 - Radiculopathy, lumbar region Category: Medical Plan Dear Dr. Amaral, Thank you for referring Baylee to our office today. She has a pleasant 43-year-old female who comes in today with a chief complaint of low back pain with radiation down her right lower extremity. She states that this has been ongoing since late November when she was attempting to lift a tote of books off of the ground and felt a shooting pain across her low back. She does report a history of previous disc herniation at L5-S1 back in 2019 which she opted for conservative treatment of. She was evaluated in the emergency department and had a subsequent MRI of the lumbar spine completed, prompting her referral to our office. When describing her radiation of pain she states that it starts in her low back shoots down her right posterior buttocks into her right posterior thigh terminating before the knee. She denies any numbness/tingling/burning/weakness associated with this pain. She states that she has had episodes where she ?throws her back out? in the past but it always resolves within a week or so. Unfortunately this radicular pain has been fairly consistent since the end of November. She denies recent physical therapy, has not been to see a chiropractor, has not attempted acupuncture, and has not had cortisone injections as of yet. PMH: Right-sided 1st digit trigger finger surgery (few weeks ago), bilateral carpal tunnel release, 2 C-sections, Anxiety, depression, and bipolar disorder, hypertension, colonic polyps. Social hx: Patient smokes 1/2 pack per day, reports no substance use. Medications: Klonopin, clonidine, diclofenac gel, epinephrine, losartan, oxcarbazepine, sertraline, tizanidine. Allergies: Latuda. Physical exam: The patient has 4/5 strength with right-sided interossei testing (likely confounded by recent 1st digit surgery). The rest of her strength is 5/5 intact. She is able to ambulate well and rises from a seated position w ithout difficulty. Her reflexes are 2+ intact diffusely. She has no significant sensational deficits. (-) bilateral straight leg raise, (-) clonus, (-) Zavaleta's. Imaging review: X-ray imaging completed here at [facility] shows a likely deformity of the L1 transverse process on the left. Unlikely acute fracture as you can see well defined periosteum around the displaced segment. MRI of the lumbar spine completed here at [facility] shows endplate inflammation at L5-S1 with a posterior disc protrusion which is primarily paracentral, with some mass effect on the right exiting S1 nerve root, and some direct involvement of the central canal though this does not appear to affect central canal patency. Impression: Baylee is a pleasant 43-year-old female who comes in today with a chief complaint of axial low back pain with radiation into her right lower extremity. She identifies an inciting incident in his bending over to brain picker a tote of books at the end of November. She has had low back pain and right-sided radicular pain since. She raise some concerns regarding a transverse process fracture of L1, however I am not convinced this is an acute injury. It appears more like a stable healed displaced fracture. In regards to her posterior disc bulge at L5-S1, there is some right-sided S1 nerve root effacement as a result of the extruded disc segment on the right, but there is little to no central canal or left-sided foraminal stenosis. I would like to obtain the MRI disc of her previous MRI completed in 2019 here at [facility]. I contacted the radiology department and he will need to burn a disc for me, as this was from the old MRI imaging service, and is not uploaded in the computer. I want to compare her acute disc herniation from 2019 to the posterior disc bulge that we see on imaging today, to ascertain what changes have occurred. After I have reviewed this I have likely will be referring her to pain management for conservative treatment/evaluation for injections at L5-S1. Thank you for allowing us to care for your patient. The total time spent with this visit with this patient was 45 minutes reviewing history, physical exam, MRI / X-ray imaging review, and implementation of treatment plan or further diagnostic testing. Brian Ludwig MD,PhD [facility] Coding Level of Care Code New Pt Level 4 (04414) Diagnoses Lumbar radiculopathy M54.16
== END 2024-02-15 10:45 | disposition home or self-care (01) ==
PROVIDERS: PCP Internal Medicine; Visit Provider Physician Assistant
DX: M54.16 Radiculopathy, lumbar region (principal)
CPT/HCPCS: 99204; 99214

== ENCOUNTER → 2024-02-15 09:58 | Outpatient (BNVA) | payer MEDICARE, MEDICAID, SELFPAY | PROVIDERS: PCP Internal Medicine; Visit Provider Physician Assistant | DX: M54.16 Radiculopathy, lumbar region (principal) | CPT/HCPCS: 99202 ==

== ENCOUNTER 2024-03-15 10:29 | Outpatient (AMB) | payer MEDICARE, MEDICAID, SELFPAY ==
--- NOTE | 2024-03-15 10:27 | A.OFFPC_ITS ---
Intake Visit Reasons: discuss FMLA [phone] Allergies lurasidone [From Latuda] Allergy (Mild, Verified 03/21/24 09:11) Itching Medication List - Last Reconciled 03/15/24 by Felisa Amaral MD clonazepam 1 mg PO BID clonidine HCl 0.1 mg PO BEDTIME epinephrine (EpiPen) 0.3 mg (0.3 mL) IM Q10M PRN losartan 50 mg PO DAILY oxcarbazepine 150 mg in a.m. and 600 mg in p.m. oxcarbazepine 150 mg PO DAILY sertraline 100 mg PO DAILY Tobacco use date assessed: 03/15/24 Dental Screening Dental Screen Date: 03/15/24 Did you have a dental visit in the last 12 months?: Yes Did you have a dental problem in the last 6 months where you did not have access to dental care?: Yes Was dental information given to patient?: Patient has dentist HPI discuss FMLA [phone] HPI Details 43-year-old lady here today to request a n extension of her FMLA. She has been seen by neuro spine clinic for evaluation of severe low back pain that radiates down both legs.. Review of her MRI of lumbar spine showed recurrent disc herniation at L5-S1. She has not yet tried any conservative measures, and it was recommended that she try physical therapy 1st and to follow-up with them again if unable to tolerate physical therapy. She also an appointment with pain management clinic next week to try other conservative measures for treatment of her low back pain. Requesting to extend her leave from work until 05/08/2024. [facility] Medical History Lumbar disc herniation with radiculopathy Smokes one pack per day or less and unmotivated to quit History of shingles Essential hypertension Lazy eye of right side Legally blind in right eye, as defined in [place] Obesity (BMI 35.0-39.9 without comorbidity) Bipolar disorder Surgical History Hx of colonoscopy Hx of dilation and curettage History of carpal tunnel release History of History of bunionectomy of right great toe Family History Father Brain aneurysm Sister Gilbert's disease Daughter Bipolar disorder Mental health disorder Family/Other Hx of colonoscopy Social History Housing: House Alcohol intake: never Patient Tobacco Use Status: Current everyday Tobacco user Tobacco use type: Cigarette Cigarettes Per Day: 15 e-Cigarette/Vaping Use: Never Used Second Hand Smoke Exposure: No Substance Use Type: Marijuana Substance Use Frequency: Occasionally service: No Current occupational status: disabled Cognitive needs: No Hearing needs: No Vision needs: Yes Questionnaire PHQ-9 Over the last 2 weeks, how often have you been bothered by any of the following problems? Depression Screening Interpretation: Negative Depression Screening Done: Yes Source: Developed by Drs. Regis Martinez, Stephie Palomino, Terrence Mota and colleagues, with an educational aditi from [employer]. Thrive Questionnaire Date Thrive assessed: 06/08/23 GAY-7 AMB Questionnaire GAY-7 Date GAY - 7 assessed: 01/10/24 Source: Developed by Drs. Regis Martinez, Stephie Palomino, Terrence Mota and colleagues, with an educational aditi from [employer]. Review of Systems Const Denies frequent falls and Denies weakness ENT Reports no additional complaints Card Denies chest pain, Denies lightheadedness and Denies dyspnea Resp Denies cough and Denies dyspnea GI Reports no additional complaints Reports no additional complaints Musc Reports as per HPI Skin/Breast Denies lesions and Denies rash Neuro Denies frequent falls, Denies lack of coordination, Denies Sensory deficit (Neuro) and Denies weakness Physical exam (Primary Care) Tobacco/Smoking Status: Tobacco use Status Tobacco use date assessed 03/15/24 03/15/24 10:29 Patient Tobacco Use Status Current everyday Tobacco 03/15/24 10:29 Tobacco use type Cigarette 03/15/24 10:29 e-Cigarette/Vaping Use Never Used 03/15/24 10:29 Depression Screening Interpretation: Negative Thrive Assessment: Date of Thrive Assessment Date Thrive assessed 06/08/23 03/15/24 10:29 Const General: cooperative and no acute distress Nutritional Appearance: obese Orientation/consciousness: patient oriented x3 Eyes General: appearance normal, both eyes and all related structures Neck Neck: Yes full ROM and Yes no lymphadenopathy Resp Effort & Inspection: normal respiratory effort and able to speak in complete sentences Auscultation: clear to auscultation bilaterally Cardio Jugular venous distension: no JVD Rate: regular rate Rhythm: regular rhythm Heart sounds: S1 normal heart sound present and S2 normal heart sound present GI Inspection: Yes normal to inspection Palpation (GI): Soft to palpation Auscultation: normal bowel sounds Back/Spine/Pelvis Thoracic/Lumbar Spine: straight leg raise negative bilaterally and paraspinal muscle tenderness on the right in the mid lumbar Skin General skin exam: no rashes or lesions noted Neuro General: patient oriented x3, gait normal, moves all extremities, Normal light touch and pain sensation, no focal motor deficits, CN's II-XI intact bilaterally and deep tendon reflexes 2+ bilaterally Cognition (Neuro): normal cognition Gait exam (Neuro): Normal gait present Motor exam (neuro): 5/5 motor strength present throughout Sensory Exam: No Sensory deficit (Neuro) Extrem General: Yes normal to inspection, Yes full ROM, Yes no pedal edema and Yes normal gait Psych Appearance: grossly normal and well kempt Mental Status: mental status grossly normal Speech and movement: Normal speech and movement present Affect: normal affect Attitude: cooperative Thought process: Normal thought process present Telehealth Telehealth Telehealth Platform: Hatch Location of provider rendering services: practice address Location of patient: address on file Patient Identification confirmed using: Name, : Yes Telehealth method: video Patient verbally consented to treatment: Yes Patient verbally consented to billing insurance company: Yes Patient informed of any privacy concerns related to visit: Yes Minutes spent on Phone/Video with Pt.: 15 Assessment and Plan Assessment & Plan (1) Lumbar disc herniation with radiculopathy: Comment: At L5-S1, 10 mm right paracentral disc protrusion, impinging on descending right S1 nerve root, noted on MRI done 03/22/2019, previously was being seen at [facility] pain management Code(s): M51.16 - Intervertebral disc disorders with radiculopathy, lumbar region Plan: Has already been seen and evaluated by neuro spine clinic and referred for pain management at [facility] [place] [facility]. Extended her leave from work until 05/08/2024 on her FMLA application. Medications: Refilled epinephrine (EpiPen) for 2 doses 0.3 mg (0.3 mL) IM Q10M PRN 1 ea 4RF anaphylaxis Coding Level of Care Code Est Pt Level 4 (50272) Diagnoses Lumbar disc herniation with radiculopathy M51.16
== END 2024-03-15 11:48 | disposition home or self-care (01) ==
LOC: HO.HMGC 10:29
PROVIDERS: PCP Internal Medicine; Visit Provider Internal Medicine
DX: M51.16 Intervertebral disc disorders with radiculopathy, lumbar region (principal)
CPT/HCPCS: 99214

== ENCOUNTER 2024-03-21 08:54 | Outpatient (AMB) | payer MEDICARE, MEDICAID, SELFPAY ==
--- NOTE | 2024-03-21 08:59 | MHC.OFFVIS ---
Vital Signs 03/21/24 09:10 Height 5 ft 7 in Weight 220 lb BMI 34.5 BP 130/81 Blood Pressure Location Rt brachial Position Sitting Pulse 87 Pulse Source Pulse Oximeter Pulse Oximetry (%) 98 Oxygen Delivery Method Room Air Intake Visit Reasons: Radiculopathy, lumbar region Intake Note: Pain today 04/06 Clinical Academic Allergist Required: No Accompanied by: Spouse Allergies lurasidone [From Latuda] Allergy (Mild, Verified 03/21/24 09:11) Itching HPI Comments Details: Baylee is very pleasant 43 years old female who presents today in my office with complains on pain in lower back with radiation to bilateral lower extremities more to the right and less to the left however with discomfort bilaterally with sensation of pins and needles and stabbing pain. She reports that her pain started to be aggravated in November. However she connects her pain to the trauma she received in 2015. She felt from the horse and received unknown fracture of the lumbar spine. On the MRI there is no evidence of compression fracture in the past. She reports that walking aggravates her pain and laying down or sitting make her pain better. Walking upstairs make her pain worse flexing forward increases her pain as well. She denies able to sleep normally can not do activities of daily living she can not take care of herself but she can not function normally she is on permanent disability for bipolar disorder. She is self mobile she does not need assistance with walking weather changes aggravate her pain heat cold applications make her pain better for pain she takes oral medications ibuprofen she states that she does not like to take any medications. In terms of tissue damage he reports her pain is pulsing, throbbing, pounding, jumping, flushing, shooting, tugging, pulling, wrenching, tingling, stinging, dull, hurting, heavy, fair a full fried full terrifying. She was sent by her primary care physician to the physical therapy at [facility] stretching exercises reports no pain improvement after 3 sessions and home exercise program. She reports that MRI was performed and report of the MRI is dictated as below. She has significant disc protrusion with right S1 nerve abutment in subarticular zone. She has past medical history of hypertension and bipolar disorder she also reports arthritis. She has had multiple surgeries including trigger thumb release bilateral carpal tunnel release, bilateral bunionectomy, and right elbow tendonitis. She drinks 1 cup of coffee a day she smokes half a pack of cigarettes she denies recreational drugs she denies addiction. [facility] Medical History Lumbar disc herniation with radiculopathy Smokes one pack per day or less and unmotivated to quit History of shingles Essential hypertension Lazy eye of right side Legally blind in right eye, as defined in [place] Obesity (BMI 35.0-39.9 without comorbidity) Bipolar disorder Surgical History Hx of colonoscopy Hx of dilation and curettage History of carpal tunnel release History of History of bunionectomy of right great toe Family History Father Brain aneurysm Sister Gilbert's disease Daughter Bipolar disorder Mental health disorder Family/Other Hx of colonoscopy Social History (Updated 03/21/24 @ 09:12 by Lucy Ash) Housing: House Alcohol intake: never Patient Tobacco Use Status: Current everyday Tobacco user Tobacco use type: Cigarette Cigarettes Per Day: 15 e-Cigarette/Vaping Use: Never Used Second Hand Smoke Exposure: No Substance Use Type: Marijuana Substance Use Frequency: Occasionally service: No Current occupational status: disabled Cognitive needs: No Hearing needs: No Vision needs: Yes Review of Systems Const Denies frequent falls and Denies weakness ENT Reports no additional complaints and Reports Normal hearing present Card Denies chest pain, Denies lightheadedness and Denies dyspnea Resp Denies cough and Denies dyspnea GI Reports no additional complaints Reports no additional complaints Musc Reports as per HPI Skin/Breast Denies lesions and Denies rash Neuro Reports Normal hearing present, Denies Abnormal speech present, Denies confusion, Denies frequent falls, Denies lack of coordination, Denies Sensory deficit (Neuro) and Denies weakness Psych Denies confusion Physical Exam Vital Signs: Last Vital Signs Pulse 87 03/21/24 09:10 BP 130/81 03/21/24 09:10 Pulse Ox 98 03/21/24 09:10 Oxygen Delivery Method Room Air 03/21/24 09:10 BMI result Body Mass Index 34.5 Const General: no acute distress; No confusion Orientation/consciousness: patient oriented x3 and No confusion Eyes General: appearance normal, both eyes and all related structures Pupils: Equal, round and reactive pupils present EOM: EOMs intact bilaterally Neck Neck: Yes full ROM Chest Chest palpation & inspection: normal inspection of the chest Resp Effort & Inspection: normal respiratory effort, able to speak in complete sentences, normal respiratory pattern, no audible wheezes and no cough Cardio Jugular venous distension: no JVD GI Inspection: Yes normal to inspection Back/Spine/Pelvis Other: She is able to stand on bilateral tiptoes and bilateral heels without difficulty. Standing on heels without difficulty demonstrates normal strength of S1 nerve roots bilaterally. Flexing forward aggravates her pain more than flexing backwards. Loading test equivocal bilaterally. Randolph test is very prominent on the right and equivocal on the left. Pelvic compression test and pelvic distraction tests are positive on the right. SLR is negative bilaterally. Lassegue test is negative bilaterally. Neuro General: patient oriented x3, gait normal and No confusion Cranial nerves: Yes CN's II-XII intact bilaterally, Yes Equal, round and reactive pupils present, Yes Normal hearing present and Yes Ability to bilaterally elevate shoulders present Speech: No Abnormal speech present Gait exam (Neuro): Normal gait present Motor exam (neuro): 5/5 motor strength present throughout Sensory Exam: No Sensory deficit (Neuro) Extrem General: No pedal edema Psych Speech and movement: Normal speech and movement present Affect: normal affect Attitude: cooperative Thought process: Normal thought process present Thought content: Normal thought content present Insight: Good insight present (Psych) Judgement: Good judgement present (Psych) Results Reviewed Results Reviewed: MR LUMBAR SPINE WITHOUT CONTRAST CLINICAL INFORMATION: Intervertebral disc disorder with radiculopathy. COMPARISON: Lumbar spine radiographs 01/04/2024 and lumbar spine MRI 03/22/2019. TECHNIQUE: MRI of the lumbar spine was obtained using routine sequences without contrast. FINDINGS: There are 5 nonrib-bearing lumbar-type vertebral bodies. There is moderate disc volume loss posteriorly at L5-S1 and mild disc volume loss posteriorly at L4-L5 with disc desiccation at both of these levels. There is stable chronic vertebral body height loss at L5 and the remaining vertebral body heights are maintained. There is no bone marrow edema. There are no acute fractures. Modic type II endplate signal changes at L5-S1. Conus terminates at the L1-L2 level. There are no significant extra spinal soft tissue findings. The L1-L2, L2-L3, and L3-L4 disc contours are normal. There is no central canal stenosis and there is no foraminal stenosis at these levels. L4-L5: There is a diffuse annular disc bulge and there is severe bilateral facet arthropathy. Mild central canal stenosis and mild bilateral foraminal encroachment. Findings progressed. L5-S1: There has been a significant interval decrease in size of a persistent right paracentral disc protrusion that results in mild residual mass effect on the traversing right S1 nerve root within the right subarticular zone. Background annular disc bulge and severe bilateral facet arthropathy. Stable mild to moderate right and mild left foraminal stenosis. IMPRESSION: * At L5-S1, there has been a significant interval decrease in size of a persistent right paracentral disc protrusion that results in mild residual mass effect on the traversing right S1 nerve root within the right subarticular zone. * At L4-L5, progressive spondylitic changes result in worsening mild central canal stenosis and mild bilateral foraminal encroachment. Assessment & Plan Assessment & Plan (1) Vertebrogenic low back pain: Code(s): M54.51 - Vertebrogenic low back pain Category: Medical (2) Sacroiliitis: Code(s): M46.1 - Sacroiliitis, not elsewhere classified Category: Medical (3) Sacroiliac joint dysfunction of both sides: Code(s): M53.3 - Sacrococcygeal disorders, not elsewhere classified Category: Medical Plan On the MRI of this patient there is significant disc bulging with abutment of S1 right nerve root. However the patient's pain is bilateral. Therefore I do not think that however prominent this bulging disc is unlikely it is a pain generators of this patient's pain. The MRI also demonstrates Modic type 2 changes in the L5-S1 however on physical exam patient does not exhibit pain with prolonged sitting. She does have pain with flexing forward and that could be evident of vertebra genic pain syndrome. However today on physical exam I found most prominent features of sacroiliitis on the right and possibly on the left. I offered this patient bilateral diagnostic sacroiliac joint injection to be performed without sedation. Patient agreed to go for the procedure. I will see this patient after the procedure. As of the fractures of the lumbar spine L1 and L2 she reported she had in 2016 I do not think that any of that is pertinent to the patient's current condition of the pain in the most lower portion of the lumbar spine. Patient Instructions: I here by testify that I spent 48 minutes in conversation with this patient as well as evaluating her MRI images as well as reading MRI report as well as planning her care and organizing this note. Coding Level of Care Code New Pt Level 4 (33572) Diagnoses Vertebrogenic low back pain M54.51 Sacroiliitis M46.1 Sacroiliac joint dysfunction of both sides M53.3
[2024-03-21 09:10] VITALS: BP 130/81; PULSE 87; O2SAT 98; BMI 34.5
== END 2024-03-21 09:49 | disposition home or self-care (01) ==
PROVIDERS: PCP Internal Medicine; Visit Provider Anesthesiology
DX: M54.51 Vertebrogenic low back pain (principal); M46.1 Sacroiliitis, not elsewhere classified; M53.3 Sacrococcygeal disorders, not elsewhere classified
CPT/HCPCS: 99204

== ENCOUNTER → 2024-03-21 08:54 | Outpatient (BNVA) | payer MEDICARE, MEDICAID, SELFPAY | PROVIDERS: PCP Internal Medicine; Visit Provider Anesthesiology | DX: M54.51 Vertebrogenic low back pain (principal); M46.1 Sacroiliitis, not elsewhere classified; M53.3 Sacrococcygeal disorders, not elsewhere classified | CPT/HCPCS: 99202 ==

== ENCOUNTER 2024-05-30 14:54 | Emergency (ER) | payer MEDICARE, MEDICAID, SELFPAY ==
--- NOTE | ~2024-05-30 | XR_ITS ---
EXAMINATION: XR HIP, RIGHT CLINICAL INFORMATION: Right hip pain worsening x3 days. COMPARISON: None available. TECHNIQUE: 4 views of the right hip. FINDINGS: No fracture. Alignment is anatomic. Hip joint space is maintained. Soft tissues are unremarkable. XR/XR hip RT w PEL1V IMPRESSION: No fracture or dislocation. Electronically signed by: Micheal Marks DO 05/30/2024 05:14 PM EDT RP
[2024-05-30 15:40] VITALS: BP 145/101; PULSE 93; RESP 16; TEMP 36.4; O2SAT 98; BMI 28.2
--- NOTE | 2024-05-30 15:41 | ED_ITS ---
HPI - Extremity Problem General Chief complaint: Extremity Injury, Lower Stated complaint: r hip pain Time Seen by Provider: 05/30/24 17:25 Source: patient Mode of arrival: ambulatory Limitations: no limitations History of Present Illness ED Provider: feliciano TABARES HPI Narrative: 44-year-old female history of disc herniation and bilateral sacral ileitis presents to ED for right buttock/right hip pain going down leg. Patient states pain is chronic. Patient denies any recent trauma. Patient denies any leg swelling, calf pain, chest pain, or shortness of breath. Patient is due for hip injection by pain management doctor but his cancer and rescheduled for June 04. Patient denies any urinary/bowel incontinence. Patient denies any fever or chills. Patient denies any history of HIV or hepatitis. Patient denies any history of IV drug use Related Data Home Medications ?Medication ?Instructions ?Recorded ?Confirmed clonidine HCl 0.1 mg tablet 0.1 mg PO BEDTIME 05/04/22 12/06/23 oxcarbazepine 300 mg tablet See Rx Instructions PO DAILY 06/08/23 12/04/23 sertraline 100 mg tablet 100 mg PO DAILY 06/08/23 12/06/23 clonazepam 1 mg tablet 1 mg PO BID 08/31/23 12/06/23 oxcarbazepine 150 mg tablet 150 mg PO DAILY 08/31/23 12/06/23 Previous Rx's ?Medication ?Instructions ?Recorded epinephrine 0.3 mg/0.3 mL 0.3 mg (0.3 mL) IM Q10M PRN 03/15/24 injection, auto-injector (EpiPen) anaphylaxis #1 ea losartan 50 mg tablet 50 mg PO DAILY #90 tabs 04/01/24 cyclobenzaprine 10 mg tablet 10 mg PO TID PRN muscle spasm 5 05/30/24 days #15 tabs ketorolac 10 mg tablet 10 mg PO Q6H PRN pain 5 days #20 05/30/24 tabs prednisone 20 mg tablet 40 mg (2 x 20 mg) PO DAILY 5 days 05/30/24 #10 tabs Allergies Allergy/AdvReac Type Severity Reaction Status Date / Time lurasidone [From Latuda] Allergy Mild Itching Verified 05/30/24 15:45 Review of Systems 2 Review of Systems: Right buttock hip pain going down right leg Yes all other systems are reviewed and are negative [facility] Past Medical History Medical History Lumbar disc herniation with radiculopathy Smokes one pack per day or less and unmotivated to quit History of shingles Essential hypertension Lazy eye of right side Legally blind in right eye, as defined in [place] Obesity (BMI 35.0-39.9 without comorbidity) Bipolar disorder Surgical History Hx of colonoscopy Hx of dilation and curettage History of carpal tunnel release History of History of bunionectomy of right great toe Family History Family History Father Brain aneurysm Sister Gilbert's disease Daughter Bipolar disorder Mental health disorder Family/Other Hx of colonoscopy Social History Social History Housing: House Alcohol intake: never Patient Tobacco Use Status: Current everyday Tobacco user Tobacco use type: Cigarette Cigarettes Per Day: 15 e-Cigarette/Vaping Use: Never Used Second Hand Smoke Exposure: No Substance Use Type: Marijuana Advance Directives: No Advance Directives Information Provided: No Do you have a plan to hurt others: No Plan service: No Current occupational status: disabled Cognitive needs: No Hearing needs: No Vision needs: Yes Physical Exam 2 Vital Signs: Vital Signs: Last Vital Signs Temp 98.2 F 05/30/24 20:19 Pulse 76 05/30/24 20:19 Resp 16 05/30/24 20:19 BP 122/64 05/30/24 20:19 Pulse Ox 96 05/30/24 20:19 O2 Del Method Room Air 05/30/24 20:19 BMI result Body Mass Index 28.2 Const: General: cooperative, healthy appearing, comfortable, no acute distress, well developed, alert, awake and Physically active O rientation/consciousness: patient oriented x3 HEENT: Head: Yes normal to inspection, Yes No palpable skull fracture present, Yes normocephalic and Yes atraumatic Eyes: General: appearance normal, both eyes and all related structures Neck: Neck: Yes normal visual inspection, Yes full ROM, Yes no lymphadenopathy, Yes no meningeal signs, Yes trachea midline, Yes supple, No anterior neck swelling and No tender Chest: Chest palpation & inspection: normal inspection of the chest and normal palpation of entire chest wall Resp: Effort & Inspection: normal respiratory effort and able to speak in complete sentences Auscultation: clear to auscultation bilaterally Cardio: Jugular venous distension: no JVD Heart sounds: S1 normal heart sound present and S2 normal heart sound present GI: Inspection: Yes normal to inspection Palpation (GI): Soft to palpation, not firm, nontender, no guarding and not rigid : General: Yes no CVA tenderness Back/Spine/Pelvis: Back: no CVA tenderness and No back tenderness Skin: General skin exam: no rashes or lesions noted, elasticity normal and turgor normal Full body images: 1. Positive for tenderness on palpation. Negative for ecchymosis, erythema, fluctuance, pus discharge, foul odor, mass, or deformity. Rest of buttock and extremity normal. Motor/neuro/vascular exam intact Neuro: General: patient oriented x3, gait normal, tone normal, moves all extremities, Normal light touch and pain sensation, no meningeal signs, no focal motor deficits, CN's II-XI intact bilaterally and normal sensation to monofilament Extrem: Other: Bilateral lower extremity negative for swelling, pitting edema, palpable cords, or calf tenderness General: Yes normal to inspection, Yes full ROM and Yes capillary refill normal Psych: Appearance: grossly normal, well kempt and not disheveled Course Course Course Narrative: This is a Rapid Medical Examination (RME) performed by Adia Painting PA-C in triage. Full HPI, ROS, assessment and treatment plan per primary provider in the Main ED. 44 yo female presents to the ER for evaluation of right buttock pain for the last 1.5 weeks that has been worsening. hx lumbar disc herniation w/ radiculopathy. was supposed to go to the pain clinic but doc on medical leave. no relief with nsaids, tylenol, ice, heat. no LE swelling. Plan: xr hip/pelvis. medicate and reassess Medications Administered Discontinued Medications Generic Name Dose Route Start Last Admin Trade Name Freq PRN Reason Stop Dose Admin Cyclobenzaprine HCl 10 mg 05/30/24 18:25 05/30/24 18:45 Cyclobenzaprine Hcl 10 Mg Tablet PO 05/30/24 18:26 10 mg ONCE ONE Administration Ketorolac Tromethamine 30 mg 05/30/24 18:25 05/30/24 18:46 Ketorolac Tromethamine 30 Mg/Ml Vial IM 05/30/24 18:26 30 mg ONCE ONE Administration Prednisone 60 mg 05/30/24 18:25 05/30/24 18:46 Prednisone 20 Mg Tablet PO 05/30/24 18:26 60 mg ONCE ONE Administration Medical Decision Making Medical Decision Making MDM Narrative: 44-year-old female presents to ED for chronic right hip buttock chronic pain exacerbation without any trauma. Patient is due for hip injections. It is. Patient denies any genitourinary symptoms. Patient denies any nausea or vomiting. X-ray does not show any fracture. Patient's symptoms improved with Toradol prednisone and Flexeril. Patient to be discharged. Patient explained worrisome signs informed to return to the ED immediately. not suspecting caudina equina, epidural abscess, kidney stoness, UTI, osteomyleitis, fracture, abscess, cellulitis, hematoma or disclocation. Differential Diagnosis Differential Diagnoses: The differential diagnosis associated with the presentation includes (Hip fracture, arthritis, sacroiliitis.) Admission/Observation Consideration of admission/observation: Escalation of care including admission/observation considered Independent Interpretation I performed an independent interpretation of an: Plain X-Ray Radiology Impression Discussion of test interpretation with radiology: I have reviewed the radiologist's reading. Prescription Management I considered prescription management with: Pain Medication Discharge Plan Discharge Clinical Impression: Sacroiliitis Patient Disposition: Home, Self-Care Instructions: Sciatica (ED), Sacroiliitis (ED) Additional Instructions: Return to the ED immediately for any hip pain, back pain, urinary/bowel incontinence, inability to walk, numbness/tingling of lower extremities, numbness tingling genital area, abdominal pain, nausea, vomiting, back pain, flank pain, fever, chills, bloody urine, dysuria, or any other concerning symptoms. Recommend follow-up with primary care provider. Recommend follow-up with your spinal neurosurgeon FINDINGS: No fracture. Alignment is anatomic. Hip joint space is maintained. Soft tissues are unremarkable. XR/XR hip RT w PEL1V IMPRESSION: No fracture or dislocation. Electronically signed by: Micheal Marks DO 05/30/2024 05:14 PM EDT RP Prescriptions: New ketorolac 10 mg tablet 10 mg PO Q6H PRN (Reason: pain) 5 Days Qty: 20 0RF Rx Instructions: Patient received 30 mg IM Toradol in the ED prednisone 20 mg tablet 40 mg PO DAILY 5 Days Qty: 10 0RF cyclobenzaprine 10 mg tablet 10 mg PO TID PRN (Reason: muscle spasm) 5 Days Qty: 15 0RF Rx Instructions: side effect is drowsiness. DO not take at work or while driving. No Action losartan 50 mg tablet 50 mg PO DAILY Qty: 90 1RF oxcarbazepine 300 mg tablet See Rx Instructions PO DAILY Rx Instructions: 150 mg in a.m. and 600 mg in p.m. clonidine HCl 0.1 mg tablet 0.1 mg PO BEDTIME epinephrine [EpiPen] 0.3 mg/0.3 mL auto-injector 0.3 mg IM Q10M PRN (Reason: anaphylaxis) Qty: 1 4RF Rx Instructions: for 2 doses sertraline 100 mg tablet 100 mg PO DAILY clonazepam 1 mg tablet 1 mg PO BID oxcarbazepine 150 mg tablet 150 mg PO DAILY Stand Alone Forms: Work/School Release Interventions: ED Discharge Assessment Last Done: 05/30/24 20:19 Discharge Date/Time: 05/30/24 20:33 Print Language: Montenegrin
[2024-05-30] MEDS: Cyclobenzaprine HCl 10 MG TABLET PO (18:45)
[2024-05-30] MEDS: predniSONE 20 MG TABLET 60 MG PO (18:46)
[2024-05-30] MEDS: Ketorolac Tromethamine 30 MG/ML VIAL IM (18:46)
[2024-05-30 20:12] VITALS: BP 122/64; PULSE 76; RESP 16; TEMP 36.8; O2SAT 96
[2024-05-30 20:19] VITALS: BP 122/64; PULSE 76; RESP 16; TEMP 36.8; O2SAT 96
== END 2024-05-30 20:33 | disposition home or self-care (01) ==
PROVIDERS: Emergency Provider Emergency Medicine; PCP Internal Medicine
DX: M46.1 Sacroiliitis, not elsewhere classified (principal); M25.551 Pain in right hip
CPT/HCPCS: 73502; 96372; 99283; 99284; J1885

== ENCOUNTER 2024-06-04 06:05 | Outpatient (REF) | payer MEDICARE, MEDICAID, SELFPAY ==
--- NOTE | ~2024-06-04 | FL_ITS ---
EXAMINATION: FLUOROSCOPY GUIDANCE FOR NEEDLE PLACEMENT CLINICAL INFORMATION: Bilateral SI joints COMPARISON: None available. TECHNIQUE: Fluoroscopy during SI joint injections FINDINGS: Bilateral SI joint injections. FLUOROSCOPY TIME: 0.4 minutes DOSE AREA PRODUCT: 0.126 mGy-m2 (milligray-meter squared) FL/FL guidance in treatment room IMPRESSION: Fluoroscopy during injection. Please see the operative report for additional formation. Electronically signed by: Brie Pereira MD 06/15/2024 04:59 PM EDT
== END 2024-06-04 06:06 | disposition home or self-care (01) ==
LOC: CF 06:05
PROVIDERS: Visit Provider Anesthesiology
DX: M53.3 Sacrococcygeal disorders, not elsewhere classified (principal); M54.51 Vertebrogenic low back pain; M46.1 Sacroiliitis, not elsewhere classified
CPT/HCPCS: 27096; J2003; J2795; Q9967

== ENCOUNTER 2024-06-04 09:24 | Outpatient (AMB) | payer MEDICARE, MEDICAID, SELFPAY ==
--- NOTE | 2024-06-04 09:25 | A.OFFVIS_ITS ---
Vital Signs 06/04/24 09:59 06/04/24 10:00 Height 5 ft 6 in 5 ft 6 in Weight 175 lb 175 lb BMI 28.2 28.2 BP 122/80 114/83 Blood Pressure Location Lt brachial Lt brachial Position Sitting Sitting Respiration 16 16 Pulse 88 88 Pulse Source Pulse Oximeter Pulse Oximeter Pulse Oximetry (%) 99 99 Oxygen Delivery Method Room Air Room Air Comment pre-op post-op Intake Visit Reasons: BILATERAL DIAGNOSTIC SIJ INJECTIONS Allergies lurasidone [From Latuda] Allergy (Mild, Verified 06/04/24 09:33) Itching [facility] Medical History Lumbar disc herniation with radiculopathy Smokes one pack per day or less and unmotivated to quit History of shingles Essential hypertension Lazy eye of right side Legally blind in right eye, as defined in [place] Obesity (BMI 35.0-39.9 without comorbidity) Bipolar disorder Surgical History Hx of colonoscopy Hx of dilation and curettage History of carpal tunnel release History of History of bunionectomy of right great toe Family History Father Brain aneurysm Sister Gilbert's disease Daughter Bipolar disorder Mental health disorder Family/Other Hx of colonoscopy Social History Housing: House Alcohol intake: never Patient Tobacco Use Status: Current everyday Tobacco user Tobacco use type: Cigarette Cigarettes Per Day: 15 e-Cigarette/Vaping Use: Never Used Second Hand Smoke Exposure: No Substance Use Type: Marijuana service: No Current occupational status: disabled Cognitive needs: No Hearing needs: No Vision needs: Yes Physical Exam Vital Signs: Last Vital Signs Pulse 88 06/04/24 09:59 Resp 16 06/04/24 09:59 BP 122/80 06/04/24 09:59 Pulse Ox 99 06/04/24 09:59 Oxygen Delivery Method Room Air 06/04/24 09:59 BMI result Body Mass Index 28.2 Assessment & Plan Assessment & Plan (1) Vertebrogenic low back pain: Code(s): M54.51 - Vertebrogenic low back pain Category: Medical (2) Sacroiliitis: Code(s): M46.1 - Sacroiliitis, not elsewhere classified Category: Medical (3) Sacroiliac joint dysfunction of both sides: Code(s): M53.3 - Sacrococcygeal disorders, not elsewhere classified Category: Medical Plan: Bilateral diagnostic sacroiliac joint injection. Informed consent was explained thoroughly to the patient.? All questions about benefits and risks for the procedure were answered. Patient came to the operating room and was positioned prone on the operating table with the pillow under the abdomen. The lower back and buttocks of the patient were prepped with ChloraPrep prepped and draped with sterile utility towels.? Sterilely draped C-arm was brought over the operating field and sq picture of patient's pelvis was demonstrated on the screen.? For the right joint tilting C-arm contralateral to the site of the joint the most posterior portion of the joints was superimposed with anterior silhouette of the joint.? Skin was injected in the projection of the joint slightly medial to the location of the joint with 25 gauge 1/2 inch needle using local lidocaine 2% . After that 22 gauge 3 and 1/2 inch needle was driven to the right joint in tunnel vision fashion.? When needle entered the joint capsule injection of the contrast was performed demonstrating intra-articular and minimally periarticular spread of the contrast.? After that 4 cc. of ropivacaine 0.5% was injected in the joint. After that procedure was repeated on the left side in mirroring fashion. Same dose of ropivacaine was injected into the joint. Upon completion of the injections the needle was removed and Band-Aid was applied.? Upon completion of the injection patient was taken outside of the operating room to the recovery room where recovered uneventfully. Plan On the MRI of this patient there is significant disc bulging with abutment of S1 right nerve root. However the patient's pain is bilateral. Therefore I do not think that however prominent this bulging disc is unlikely it is a pain generators of this patient's pain. The MRI also demonstrates Modic type 2 changes in the L5-S1 however on physical exam patient does not exhibit pain with prolonged sitting. She does have pain with flexing forward and that could be evident of vertebra genic pain syndrome. However today on physical exam I found most prominent features of sacroiliitis on the right and possibly on the left. I offered this patient bilateral diagnostic sacroiliac joint injection to be performed without sedation. Patient agreed to go for the procedure. I will see this patient after the procedure. As of the fractures of the lumbar spine L1 and L2 she reported she had in 2016 I do not think that any of that is pertinent to the patient's current condition of the pain in the most lower portion of the lumbar spine. Orders: Orders FL guidance in treatment room Today M53.3 - Sacrococcygeal disorders, not elsewhere classified Coding Level of Care Code Procedure Only Diagnoses Vertebrogenic low back pain M54.51 Sacroiliitis M46.1 Sacroiliac joint dysfunction of both sides M53.3
[2024-06-04 09:59] VITALS: BP 122/80; PULSE 88; RESP 16; O2SAT 99; BMI 28.2
[2024-06-04 10:00] VITALS: BP 114/83; PULSE 88; RESP 16; O2SAT 99; BMI 28.2
== END 2024-06-04 10:00 | disposition home or self-care (01) ==
LOC: HO.PMCPRC 09:24
PROVIDERS: PCP Internal Medicine; Visit Provider Anesthesiology
DX: M54.51 Vertebrogenic low back pain (principal); M46.1 Sacroiliitis, not elsewhere classified; M53.3 Sacrococcygeal disorders, not elsewhere classified
CPT/HCPCS: 27096

== ENCOUNTER 2024-06-05 08:59 | Outpatient (AMB) | payer MEDICARE, MEDICAID, SELFPAY ==
--- NOTE | 2024-06-05 09:13 | AM.OFFWIN_ITS ---
Intake Vital Signs 06/05/24 09:15 Height 5 ft 6 in Weight 233 lb BMI 37.6 BP 122/84 Blood Pressure Location Rt brachial Position Sitting Pulse 100 Pulse Source Pulse Oximeter Pulse Oximetry (%) 98 Oxygen Delivery Method Room Air Intake Visit Reasons: EP right hip pain Intake Note: Patient here for right hip pain that has been present since Monday. she states her right leg is numb. Patient Tobacco Use Status: Current everyday Tobacco user Allergies lurasidone [From Latuda] Allergy (Mild, Verified 06/05/24 09:17) Itching Do you need a note to return to daycare/school/sports/work: No HPI HPI Comments History of Present Illness Details Patient is a 44-year-old female complaining of weeks and months of bilateral low back pain and most recently she has had right-sided leg numbness that starts in her buttocks shoots down the back of her legs and goes to her toes. She states that she feels like a shooting pain and she has a Charley horse in her right calf. She states she has a history of L1 and L2 fractures from 2015 and then in January of 2024, she fractured L1 again. She has a history of degenerative disc disease and disc bulging. She states she has been in pain but she knew she had an appointment with pain management coming up however, the pain got really bad about a week ago so she went to the emergency room. She states while in the emergency room they did a x-ray of her low back which did not show anything acute, they gave her a Toradol injection and a prednisone burst as well as a muscle relaxer and Toradol prescription to take at home. She states the muscle relaxer in the Toradol have not really worked but the prednisone seemed to work well and the Toradol injection worked well. She was referred to PT and pain management by her PCP, she was scheduled to have bilateral SI joint injections yesterday, she states she did get them done but the pain is now worse and in her right leg. She did not call the physician's office for a follow-up. [facility] Medical History Lumbar disc herniation with radiculopathy Smokes one pack per day or less and unmotivated to quit History of shingles Essential hypertension Lazy eye of right side Legally blind in right eye, as defined in [place] Obesity (BMI 35.0-39.9 without comorbidity) Bipolar disorder Surgical History Hx of colonoscopy Hx of dilation and curettage History of carpal tunnel release History of History of bunionectomy of right great toe Family History Father Brain aneurysm Sister Gilbert's disease Daughter Bipolar disorder Mental health disorder Family/Other Hx of colonoscopy Social History Housing: House Alcohol intake: never Patient Tobacco Use Status: Current everyday Tobacco user Tobacco use type: Cigarette Cigarettes Per Day: 15 e-Cigarette/Vaping Use: Never Used Second Hand Smoke Exposure: No Substance Use Type: Marijuana service: No Current occupational status: disabled Cognitive needs: No Hearing needs: No Vision needs: Yes Review of Systems Const All systems reviewed & are unremarkable except as noted in HPI and below Physical Exam Vital Signs: Last Vital Signs Pulse 100 06/05/24 09:15 BP 122/84 06/05/24 09:15 Pulse Ox 98 06/05/24 09:15 Oxygen Delivery Method Room Air 06/05/24 09:15 BMI result Body Mass Index 37.6 Const General: cooperative, healthy appearing and comfortable Orientation/consciousness: patient oriented x3 HEENT Head: Yes normal to inspection and Yes normocephalic General nose exam: Normal external nose present Face and sinus: Yes normal facial exam Eyes General: appearance normal, both eyes and all related structures Resp Effort & Inspection: normal respiratory effort and able to speak in complete sentences Back/Spine/Pelvis Cervical Spine: cervical ROM normal Thoracic/Lumbar Spine: thoracic and lumbar spine normal to inspection Neuro General: patient oriented x3 Extrem Other: Straight leg raise test positive on the right; motor strength normal bilaterally; limping gait Office Meds ketorolac 30 mg/mL (1 mL) injection solution Performing Provider: Jonna Guadalupe PA-C Performing Location: [facility] Administered by: Silvia Grey RN on 06/05/24 09:51 Dose Route Admin Location Dispensed Lot Number Expiration Date [facility] Dehydrator Operator 30 mg IM left gluteal 1 mL [id number] 02/25/25 54169-767-20 [employer] Assessment & Plan Assessment & Plan (1) Sacroiliac joint dysfunction of both sides: Code(s): M53.3 - Sacrococcygeal disorders, not elsewhere classified (2) Hip pain, right: Code(s): M25.551 - Pain in right hip (3) Sciatica, right side: Code(s): M54.31 - Sciatica, right side Plan: We will send a 10 day prednisone taper, we also gave a Toradol injection in the office. Recommended she follow up with pain management with this right-sided new sciatic pain after the injections. Plan see above Orders: Orders AMB Ketorolac Injection Today M25.551 - Pain in right hip, M53.3 - Sacrococcygeal disorders, not elsewhere classified Medications: New ketorolac 30 mg IM ONCE 1 mL 0RF pain M25.551 - Pain in right hip, M53.3 - Sacrococcygeal disorders, not elsewhere classified prednisone On days 1&2, take 3 tablets with breakfast. On days 3&4 take 2 tablets with breakfast, on days 5&6 take 1.5 tablets with breakfast, on days 7&8 take 1 tablet with breakfast, on days 9&10 take 0.5 tablet with breakfast. 20 mg PO DAILY 16 tabs 0RF Coding Level of Care Code Est Pt Level 4 (57038) Diagnoses Sacroiliac joint dysfunction of both sides M53.3 Hip pain, right M25.551 Sciatica, right side M54.31
[2024-06-05 09:15] VITALS: BP 122/84; PULSE 100; O2SAT 98; BMI 37.6
== END 2024-06-05 09:52 | disposition home or self-care (01) ==
PROVIDERS: PCP Internal Medicine; Visit Provider Physician Assistant
DX: M53.3 Sacrococcygeal disorders, not elsewhere classified (principal); M25.551 Pain in right hip; M54.31 Sciatica, right side

== ENCOUNTER → 2024-06-05 08:59 | Outpatient (BNVA) | payer MEDICARE, MEDICAID, SELFPAY | PROVIDERS: PCP Internal Medicine; Visit Provider Physician Assistant | DX: M53.3 Sacrococcygeal disorders, not elsewhere classified (principal); M25.551 Pain in right hip; M54.31 Sciatica, right side | CPT/HCPCS: 96372; 99212; J1885 ==

== ENCOUNTER 2024-06-10 08:47 | Outpatient (AMB) | payer MEDICARE, MEDICAID, SELFPAY ==
[2024-06-10 09:05] VITALS: BP 146/80; PULSE 102; O2SAT 98; BMI 37.3
--- NOTE | 2024-06-10 09:05 | A.OFFPC_ITS ---
Vital Signs 06/10/24 09:05 Height 5 ft 6 in Weight 231 lb BMI 37.3 BP 146/80 H Blood Pressure Location Rt brachial Position Sitting Pulse 102 H Pulse Source Pulse Oximeter Pulse Oximetry (%) 98 Oxygen Delivery Method Room Air Intake Visit Reasons: f/u walkin Intake Note: Pt is here today for her f/u walkin for her Rt hip pain Allergies lurasidone [From Latuda] Allergy (Mild, Verified 06/13/24 01:24) Itching Medication List - Last Reconciled 06/13/24 by Felisa Amaral MD clonazepam 1 mg PO BID clonidine HCl 0.1 mg PO BEDTIME epinephrine (EpiPen) 0.3 mg (0.3 mL) IM Q10M PRN losartan 50 mg PO DAILY oxcarbazepine 150 mg in a.m. and 600 mg in p.m. oxcarbazepine 150 mg PO DAILY oxycodone 5 mg PO BID PRN prednisone 20 mg PO DAILY sertraline 100 mg PO DAILY Tobacco use date assessed: 06/10/24 Dental Screening Dental Screen Date: 06/10/24 Did you have a dental visit in the last 12 months?: Yes Did you have a dental problem in the last 6 months where you did not have access to dental care?: Yes Was dental information given to patient?: Patient has dentist HPI f/u walkin HPI Details 44-year-old femal e here today for f ollow-up after rec ent visit to the w alk-in still compl aining of low back pain willright-si ded leg numbness t hat starts in her buttocks shoots do wn the back of her legs and goes to her toes. She cano s a history of L1 and L2 fractures f rom 2015 and then in January of 2024, s he fractured L1 ag ain, and history of degenerative di sc disease and dis c bulging. Pain h as been present no w for the last sev eral weeks and she went to the [facility] ency room about 5 days ago , where x-ray of her low b ack was done , whi ch did not show a nything acut. She was given a [place] l injection and a prednisone burst a s well as a pain M anagement and rece ived bilateral SI joint injections , which did not he lp and pain is no w worse. Denies a ny leg weakness, n o urinary or stool incontinence repo rted. [facility] Medical History Lumbar disc herniation with radiculopathy Smokes one pack per day or less and unmotivated to quit History of shingles Essential hypertension Lazy eye of right side Legally blind in right eye, as defined in [place] Obesity (BMI 35.0-39.9 without comorbidity) Bipolar disorder Surgical History Hx of colonoscopy Hx of dilation and curettage History of carpal tunnel release History of History of bunionectomy of right great toe Family History Father Brain aneurysm Sister Gilbert's disease Daughter Bipolar disorder Mental health disorder Family/Other Hx of colonoscopy Social History Housing: House Alcohol intake: never Patient Tobacco Use Status: Current everyday Tobacco user Tobacco use type: Cigarette Cigarettes Per Day: 15 e-Cigarette/Vaping Use: Never Used Second Hand Smoke Exposure: No Substance Use Type: Marijuana service: No Current occupational status: disabled Cognitive needs: No Hearing needs: No Vision needs: Yes Questionnaire PHQ-9 Over the last 2 weeks, how often have you been bothered by any of the following problems? Depression Screening Interpretation: Negative Depression Screening Done: Yes Source: Developed by Drs. Regis Martinez, Stephie Palomino, Terrence Mota and colleagues, with an educational aditi from [employer] [facility]. Thrive Questionnaire Date Thrive assessed: 06/10/24 I am a: Patient What is your living situation today?: I have a steady place to live Within the past 12 months, did the food you bought not last and you didn't have the money to get more?: Never true Within the past 12 months, did you worry whether your food would run out before you got money to buy more?: Never true Do you have trouble paying for medicines?: No Do you have trouble getting transportation to medical appointments?: No Do you have trouble paying your heating and electricity bill?: No Do you have trouble taking care of your child, family member or friend?: No Do you have trouble with day-to-day activities such as bathing, preparing meals, shopping, managing finances, etc.?: Yes Are you interested in more education?: No Please select the resources that you would like help with: None Currently or been in a relationship where the following occur: No concerns reported THRIVE Score: 0 AUDIT C Alcohol Use Questionnaire (AUDIT-C) 1. How often do you have a drink containing alcohol?: Never Total Score: 0 Review of Systems Const Reports as per HPI, Denies frequent falls and Denies weakness Card Denies chest pain, Denies lightheadedness and Denies dyspnea Resp Denies cough and Denies dyspnea GI Reports no additional complaints Reports no additional complaints Musc Reports as per HPI Skin/Breast Denies lesions and Denies rash Neuro Denies frequent falls, Denies lack of coordination, Denies Sensory deficit (Neuro) and Denies weakness Physical exam (Primary Care) Vital Signs: Last Vital Signs Pulse 102 H 06/10/24 09:05 BP 146/80 H 06/10/24 09:05 Pulse Ox 98 06/10/24 09:05 Oxygen Delivery Method Room Air 06/10/24 09:05 BMI result Body Mass Index 37.3 Tobacco/Smoking Status: Tobacco use Status Tobacco use date assessed 06/10/24 06/10/24 09:12 Patient Tobacco Use Status Current everyday Tobacco 06/10/24 09:05 Tobacco use type Cigarette 06/10/24 09:05 e-Cigarette/Vaping Use Never Used 06/10/24 09:05 PHQ-9: PHQ-9 Score PHQ-9: Total score 16 06/10/24 09:05 Depression Screening Interpretation: Negative Thrive Assessment: Date of Thrive Assessment Date Thrive assessed 06/10/24 06/10/24 09:12 Currently or been in a relationship where the following occur: No concerns reported Const Nutritional Appearance: obese Orientation/consciousness: patient oriented x3 Eyes General: appearance normal, both eyes and all related structures Neck Neck: Yes full ROM and Yes no lymphadenopathy Resp Effort & Inspection: normal respiratory effort and able to speak in complete sentences Auscultation: clear to auscultation bilaterally Cardio Rate: regular rate Rhythm: regular rhythm Heart sounds: S1 normal heart sound present and S2 normal heart sound present GI Inspection: Yes normal to inspection Palpation (GI): Soft to palpation Auscultation: normal bowel sounds Back/Spine/Pelvis Thoracic/Lumbar Spine: straight leg raise negative bilaterally and paraspinal muscle tenderness on the right in the mid lumbar Skin General skin exam: no rashes or lesions noted Neuro General: patient oriented x3, gait normal, moves all extremities, Normal light touch and pain sensation, no focal motor deficits, CN's II-XI intact bilaterally and deep tendon reflexes 2+ bilaterally Cognition (Neuro): normal cognition Gait exam (Neuro): Normal gait present Motor exam (neuro): 5/5 motor strength present throughout Sensory Exam: No Sensory deficit (Neuro) Extrem General: Yes normal to inspection, Yes full ROM, Yes no pedal edema and Yes normal gait Coding Level of Care Code Est Pt Level 3 (49257) Diagnoses Sciatica, right side M54.31 Assessment & Plan Assessment & Plan (1) Sciatica, right side: Code(s): M54.31 - Sciatica, right side Category: Medical Plan: Not much relief afforded with prednisone and muscle relaxant or Toradol. No red flags on physical exam. Will give a short course of oxycodone 5 mg per tablet, take 1 tablet no more than twice a day only as needed for severe pain.7 tabs with no refill . Patient advised to keep appointment with her pain management provider as scheduled in 2 days. Advised to go to the ER if any worsening of pain especially if accompanied by any weakness, numbness, any urinary or stool incontinence present Medications: New oxycodone Partial Fill upon patient request. 5 mg PO BID PRN 7 tabs 0RF pain, moderate
== END 2024-06-10 09:48 | disposition home or self-care (01) ==
PROVIDERS: PCP Internal Medicine; Visit Provider Internal Medicine
DX: M54.31 Sciatica, right side (principal)

== ENCOUNTER → 2024-06-10 08:47 | Outpatient (BNVA) | payer MEDICARE, MEDICAID, SELFPAY | PROVIDERS: PCP Internal Medicine; Visit Provider Internal Medicine | DX: M54.31 Sciatica, right side (principal) | CPT/HCPCS: 96127; 99212 ==

== ENCOUNTER 2024-06-12 10:06 | Outpatient (AMB) | payer MEDICARE, MEDICAID, SELFPAY ==
--- NOTE | 2024-06-12 10:20 | A.OFFVIS_ITS ---
Vital Signs 06/12/24 10:26 Height 5 ft 6 in Weight 231 lb BMI 37.3 BP 126/60 Blood Pressure Location Lt brachial Position Sitting Respiration 18 Pulse 96 Pulse Source Pulse Oximeter Pulse Oximetry (%) 96 Oxygen Delivery Method Room Air Intake Visit Reasons: BILATERAL DIAGNOSTIC SIJ INJECTIONS Intake Note: Patient comes in for post-op. Reports pain 05/07. Allergies lurasidone [From Latuda] Allergy (Mild, Verified 06/12/24 10:27) Itching HPI Comments Details: Baylee is back in my office with continuous complain on lower back pain especially on the right with radiation down to the right lower extremity. At the beginning of the conversation today we discussed previously done sacroiliac joint injection. She reported pain aggravation from sacroiliac joint injection and no pain improvement at all. Patient reported today that she had her pain greatly increased since she visited me 1st time in the office. She reports pain aggravated with flexing forward and no pain aggravation with flexing backwards. She reports pain with prolonged sitting. At the same time she sits mostly leaning on the left side and stretching the right leg out in the front of her. I evaluated her MRI again and she has Modic type changes at L4-L5 and S1 verteb ra. Originally I offered this patient to do intercept procedure. However when I asked her to perform lateral hip rotation she reported pain aggravated in the right buttock with radiation of the pain all the way down to her ankle. I suspected that the patient might have piriformis syndrome. I offered her ultrasound-guided piriformis steroid injection. I will schedule it on or after July 15. She just recently went to emergency room and they started her on oral steroids: Medrol pack. She will finish this oral steroids on June 14. Also I recommended her to take Tylenol and or NSAIDs intermittently as needed for her pain control. Prior: very pleasant 43 years old female who presents today in my office with complains on pain in lower back with radiation to bilateral lower extremities more to the right and less to the left however with discomfort bilaterally with sensation of pins and needles and stabbing pain. She reports that her pain started to be aggravated in November. However she connects her pain to the trauma she received in 2016. She felt from the horse and received unknown fracture of the lumbar spine. On the MRI there is no evidence of compression fracture in the past. She reports that walking aggravates her pain and laying down or sitting make her pain better. Walking upstairs make her pain worse flexing forward increases her pain as well. . She was sent by her primary care physician to the physical therapy at [facility] stretching exercises reports no pain improvement after 3 sessions and home exercise program. She reports that MRI was performed and report of the MRI is dictated as below. She has significant disc protrusion with right S1 nerve abutment in subarticular zone. [facility] Medical History Lumbar disc herniation with radiculopathy Smokes one pack per day or less and unmotivated to quit History of shingles Essential hypertension Lazy eye of right side Legally blind in right eye, as defined in [place] Obesity (BMI 35.0-39.9 without comorbidity) Bipolar disorder Surgical History Hx of colonoscopy Hx of dilation and curettage History of carpal tunnel release History of History of bunionectomy of right great toe Family History Father Brain aneurysm Sister Gilbert's disease Daughter Bipolar disorder Mental health disorder Family/Other Hx of colonoscopy Social History Housing: House Alcohol intake: never Patient Tobacco Use Status: Current everyday Tobacco user Tobacco use type: Cigarette Cigarettes Per Day: 15 e-Cigarette/Vaping Use: Never Used Second Hand Smoke Exposure: No Substance Use Type: Marijuana service: No Current occupational status: disabled Cognitive needs: No Hearing needs: No Vision needs: Yes Review of Systems Const All systems reviewed & are unremarkable except as noted in HPI and below ENT Reports Normal hearing present Neuro Reports Normal hearing present, Denies Abnormal speech present, Denies confusion and Denies Sensory deficit (Neuro) Psych Denies confusion Physical Exam Vital Signs: Last Vital Signs Pulse 96 06/12/24 10:26 Resp 18 06/12/24 10:26 BP 126/60 06/12/24 10:26 Pulse Ox 96 06/12/24 10:26 Oxygen Delivery Method Room Air 06/12/24 10:26 BMI result Body Mass Index 37.3 Const General: no acute distress; No confusion Orientation/consciousness: patient oriented x3 and No confusion Eyes General: appearance normal, both eyes and all related structures Pupils: Equal, round and reactive pupils present EOM: EOMs intact bilaterally Neck Neck: Yes full ROM Chest Chest palpation & inspection: normal inspection of the chest Resp Effort & Inspection: normal respiratory effort, able to speak in complete sentences, normal respiratory pattern, no audible wheezes and no cough Cardio Jugular venous distension: no JVD GI Inspection: Yes normal to inspection Back/Spine/Pelvis Other: She is able to stand on bilateral tiptoes and bilateral heels without difficulty. Standing on heels without difficulty demonstrates normal strength of S1 nerve roots bilaterally. Flexing forward aggravates her pain more than flexing backwards. Loading test equivocal bilaterally. Randolph test is very prominent on the right and equivocal on the left. Pelvic compression test and pelvic distraction tests are positive on the right. SLR is negative bilaterally. Lassegue test is negative bilaterally. Lateral rotation of the right hip causes pain in the right buttock with radiation of the pain all the way down to the right lower extremity to the level of her cough but not below the level of the ankle. Neuro General: patient oriented x3, gait normal and No confusion Cranial nerves: Yes CN's II-XII intact bilaterally, Yes Equal, round and reactive pupils present, Yes Normal hearing present and Yes Ability to bilaterally elevate shoulders present Speech: No Abnormal speech present Gait exam (Neuro): Normal gait present Motor exam (neuro): 5/5 motor strength present throughout Sensory Exam: No Sensory deficit (Neuro) Extrem General: No pedal edema Psych Speech and movement: Normal speech and movement present Affect: normal affect Attitude: cooperative Thought process: Normal thought process present Thought content: Normal thought content present Insight: Good insight present (Psych) Judgement: Good judgement present (Psych) Assessment & Plan Assessment & Plan (1) Vertebrogenic low back pain: Code(s): M54.51 - Vertebrogenic low back pain Category: Medical (2) Piriformis syndrome of right side: Code(s): G57.01 - Lesion of sciatic nerve, right lower limb Category: Medical Plan On the MRI of this patient there is significant disc bulging with abutment of S1 right nerve root. . The MRI also demonstrates Modic type 2 changes in the L5- S1 however on physical exam patient does not exhibit pain with prolonged sitting. She does have pain with flexing forward and that could be evident of vertebra genic pain syndrome. Negative bilateral sacroiliac joint injection effectively eliminated sacroiliac joints as the source of her pain. Attention was attracted to symptoms of the piriformis syndrome on the right and I offered her ultrasound-guided piriformis steroid injection. We will schedule her for this procedure on or after 07/15/2024 because it is 06/14/2024 when she will finish her oral steroids. I also have to admit that possibility exists that this abutment of the S1 right nerve root can play the role in the patient's pain syndrome. Transforaminal L5- S1 on the right could be performed to help the pain of this patient versus caudal epidural steroid injection as a treatment modality for this patient. Prolonged sitting and medial rotation of the hip exacerbation make me think about piriformis syndrome and I will schedule her for piriformis syndrome 1st.. Patient Instructions: I here by testify that I spent 32 minutes in conversation with this patient as well as planning her care evaluating her prior records and organizing this note. Coding Level of Care Code Est Pt Level 4 (95994) Diagnoses Vertebrogenic low back pain M54.51 Piriformis syndrome of right side G57.01
[2024-06-12 10:26] VITALS: BP 126/60; PULSE 96; RESP 18; O2SAT 96; BMI 37.3
== END 2024-06-12 11:03 | disposition home or self-care (01) ==
PROVIDERS: PCP Internal Medicine; Visit Provider Anesthesiology
DX: M54.51 Vertebrogenic low back pain (principal); G57.01 Lesion of sciatic nerve, right lower limb
CPT/HCPCS: 99214

== ENCOUNTER → 2024-06-12 10:06 | Outpatient (BNVA) | payer MEDICARE, MEDICAID, SELFPAY | PROVIDERS: PCP Internal Medicine; Visit Provider Anesthesiology | DX: M54.51 Vertebrogenic low back pain (principal); G57.01 Lesion of sciatic nerve, right lower limb | CPT/HCPCS: 99212 ==

== ENCOUNTER 2024-06-15 16:23 | Inpatient (IN) | payer MEDICARE, MEDICAID, SELFPAY ==
[2024-06-15] VITALS (10 sets, daily range): BP systolic 101–132; BP diastolic 66–95; PULSE 70–117; RESP 16–22; TEMP 36.7–36.9; O2SAT 96–97; BMI 34.9
--- NOTE | ~2024-06-15 | CT_ITS ---
EXAMINATION: CT ABDOMEN AND PELVIS WITHOUT CONTRAST CLINICAL INFORMATION: Moderate pain. COMPARISON: None available. TECHNIQUE: Multidetector volumetric imaging was performed from the superior aspect of the liver through the pubic symphysis. Sagittal and coronal reformatted images were obtained on the technologist's workstation. This CT examination was performed using dose optimization techniques as appropriate, variously including the following: *Automated exposure control *Adjustment of mA and/or kV according to patient size (this includes techniques or standardized protocols for targeted exams where dose is matched to indication/reason for exam; i.e. extremities or head) *Use of iterative reconstruction technique DLP: 725 mGy-cm FINDINGS: LUNG BASES: There is platelike atelectasis in the lingula. LIVER, GALLBLADDER, AND BILIARY TREE: The liver is normal in size, shape, and attenuation. No focal hepatic lesion or biliary ductal dilatation is present. The gallbladder is unremarkable with no evidence of radiopaque gallstones, gallbladder wall thickening, or obvious pericholecystic inflammatory changes. PANCREAS: Unremarkable. SPLEEN: Unremarkable. ADRENAL GLANDS: Unremarkable. KIDNEYS AND URETERS: The kidneys are normal in size, shape, and attenuation. No hydronephrosis, hydroureter, or calculi seen. No perinephric stranding. BLADDER: Unremarkable. GASTROINTESTINAL TRACT: There is scattered stool and gas in colon without distention. The small bowel loops are normal caliber. Appendix is normal caliber. No free air or free fluid seen. No inflammatory process. ABDOMINAL WALL: Tiny amount of hernia containing fat LYMPH NODES: Normal. VASCULAR: Unremarkable. PELVIC VISCERA: The uterus is unremarkable. There is a 2.2 cm cyst left ovary. There is no free fluid or free air. No abnormality seen in the buttocks or perirenal region. OSSEOUS STRUCTURES: No aggressive lytic or sclerotic process seen. CT/CT abdomen pelvis wo IV con IMPRESSION: 1. No acute intra-abdominal process seen. 2. Mild constipation. 3. 2.2 cm left ovarian cyst. Fleischner guidelines were followed. Electronically signed by: Soto Bunn MD 06/17/2024 07:37 PM EDT
--- NOTE | ~2024-06-15 | XR_ITS ---
EXAMINATION: XR CHEST CLINICAL INFORMATION: Cough, shortness of breath COMPARISON: Chest x-ray on 05/13/2020 TECHNIQUE: 2 views of the chest were obtained. FINDINGS: The cardiac silhouette is normal. There is mild diffuse bronchial wall thickening. Small areas of hazy opacity at the left lung base. There are no pleural effusions or pneumothoraces. The bones and soft tissues are unremarkable for the patient's age. XR/XR chest 2V IMPRESSION: 1. Bronchial wall thickening may be infectious and/or inflammatory in etiology. 2. Small areas of hazy opacity at the left lung base may be infectious in etiology. Electronically signed by: Brie Pereira MD 06/15/2024 04:59 PM EDT
--- NOTE | 2024-06-15 16:26 | ED_ITS ---
HPI - URI/Sore Throat General Chief Complaint: General Medical Stated Complaint: sob/cough-hip and leg pain Time Seen by Provider: 06/15/24 18:30 Source: patient, RN notes reviewed and old records reviewed Mode of arrival: ambulatory History of Present Illness ED Provider: Vesta Rivas PA-C HPI Narrative: 44-year-old female with a past medical history lumbar disc herniation with radiculopathy, HTN, obesity, bipolar, presenting to the ED complaining of dry coarse cough x1 week with low O2 at home. Also reports acute on chronic right buttock pain radiating down RLE. Admits has been seen in our ED, PCP, pain management/neuro spine for this pain, recently finished steroids without relief. Denies fever, chest pain, travel, pedal edema, injury/trauma or fall, numbness, weakness, incontinence/retention. Related Data Home Medications ?Medication ?Instructions ?Recorded ?Confirmed clonidine HCl 0.1 mg tablet 0.1 mg PO BEDTIME 05/04/22 12/06/23 oxcarbazepine 300 mg tablet See Rx Instructions PO DAILY 06/08/23 12/04/23 sertraline 100 mg tablet 100 mg PO DAILY 06/08/23 12/06/23 clonazepam 1 mg tablet 1 mg PO BID 08/31/23 12/06/23 oxcarbazepine 150 mg tablet 150 mg PO DAILY 08/31/23 12/06/23 Previous Rx's ?Medication ?Instructions ?Recorded epinephrine 0.3 mg/0.3 mL 0.3 mg (0.3 mL) IM Q10M PRN 03/15/24 injection, auto-injector (EpiPen) anaphylaxis #1 ea losartan 50 mg tablet 50 mg PO DAILY #90 tabs 04/01/24 prednisone 20 mg tablet 20 mg PO DAILY #16 tabs 06/05/24 oxycodone 5 mg tablet 5 mg PO BID PRN pain, moderate #7 06/10/24 tabs Allergies Allergy/AdvReac Type Severity Reaction Status Date / Time lurasidone [From Latuda] Allergy Mild Itching Verified 06/15/24 16:29 Review of Systems 2 Review of Systems: Yes all other systems are reviewed and are negative Constitutional: Constitutional: Reports as per HPI Neurologic: Denies Sensory deficit (Neuro) PMFSH Past Medical History Attestation statement: The following information was validated with the patient. Source: old records reviewed Medical History Lumbar disc herniation with radiculopathy Smokes one pack per day or less and unmotivated to quit History of shingles Essential hypertension Lazy eye of right side Legally blind in right eye, as defined in [place] Obesity (BMI 35.0-39.9 without comorbidity) Bipolar disorder Surgical History Hx of colonoscopy Hx of dilation and curettage History of carpal tunnel release History of History of bunionectomy of right great toe Family History Family History Father Brain aneurysm Sister Gilbert's disease Daughter Bipolar disorder Mental health disorder Family/Other Hx of colonoscopy Social History Social History Housing: House Alcohol intake: never Patient Tobacco Use Status: Current everyday Tobacco user Tobacco use type: Cigarette Cigarettes Per Day: 15 e-Cigarette/Vaping Use: Never Used Second Hand Smoke Exposure: No Substance Use Type: Marijuana Advance Directives: No Advance Directives Information Provided: Yes Do you have a plan to hurt others: No Plan service: No Current occupational status: disabled Cognitive needs: No Hearing needs: No Vision needs: Yes Physical Exam 2 Vital Signs: Vital Signs: Last Vital Signs Temp 98.4 F 06/15/24 20:52 Pulse 76 06/15/24 20:52 Resp 19 06/15/24 20:52 BP 131/66 06/15/24 20:52 Pulse Ox 96 06/15/24 20:52 O2 Del Method Room Air 06/15/24 20:52 BMI result Body Mass Index 34.9 Const: General: cooperative, healthy appearing and no acute distress O rientation/consciousness: patient oriented x3 Limitations: no limitations HEENT: Head: Yes normal to inspection and Yes atraumatic Ears: hearing grossly normal bilaterally General nose exam: Normal external nose present Face and sinus: Yes normal facial exam Eyes: General: appearance normal, both eyes and all related structures EOM: EOMs intact bilaterally Neck: Neck: Yes normal visual inspection and Yes no meningeal signs Resp: Other: Coarse lung sounds throughout Effort & Inspection: normal respiratory effort and no respiratory distress Auscultation: wheezes expiratory wheezes Cardio: Rate: regular rate Heart sounds: S1 normal heart sound present and S2 normal heart sound present GI: Inspection: Yes normal to inspection Palpation (GI): Soft to palpation, nontender, no guarding and not rigid : General: Yes no CVA tenderness Back/Spine/Pelvis: Other: No midline cervical/thoracic/lumbar spinous tenderness/step-off or deformity. + right-sided lower lumbar/buttock reproducible tenderness. Back: no CVA tenderness Skin: Rashes: no rashes Wounds: no wounds Neuro: Other: Strength intact throughout. No saddle anesthesia. Sensation intact to light touch. Neurovascular intact distally General: patient oriented x3, gait normal, tone normal, moves all extremities and no meningeal signs Cranial nerves: Yes CN's II-XII intact bilaterally Gait exam (Neuro): Normal gait present Sensory Exam: No Sensory deficit (Neuro) Extrem: General: Yes normal to inspection Course Course Course Narrative: This is a Rapid Medical Exam performed in triage by Vesta Rivas PA-C. Full HPI, ROS and PE to be performed by primary ED provider. 44 yo F w/PMHx HTN, cigarette smoker, bipolar, sacroilitis, presenting to the ED c/o cough x 1 week w/hypoxia noted at home. Also reports acute on chronic R hip pain, was seen in our ED, the walk in, PCP & pain clinic w/o pain relief. PE: coarse cough appreciated w/exp wheeze. satting 96% on RA, tachycardic. ambulating with limping gait Plan: EKG, CXR, viral testing, ED bronch protocol XR chest 2V IMPRESSION: 1. Bronchial wall thickening may be infectious and/or inflammatory in etiology. 2. Small areas of hazy opacity at the left lung base may be infectious in etiology. > empiric IV antibiotics ordered as well as labs including lactic/cultures -1936--leukocytosis 14.5. Labs otherwise reassuring. Lactic acid WNL. -viral studies negative > plan to admit for further management -2109--repeat EKG with QTC 482 Medications Administered Discontinued Medications Generic Name Dose Route Start Last Admin Trade Name Freq PRN Reason Stop Dose Admin Ceftriaxone Sodium 1 gm 06/15/24 18:23 06/15/24 18:52 Ceftriaxone Sodium 1 Gm Vial IVPUSH 06/15/24 18:24 1 gm ONCE ONE Administration Albuterol Sulfate 5 mg/ 0 mg 06/15/24 16:48 06/15/24 16:50 Albuterol/Ipratropium 3 ml INHALE 06/15/24 16:49 1 each ONCE ONE Administration Cyclobenzaprine HCl 10 mg 06/15/24 19:18 06/15/24 19:24 Cyclobenzaprine Hcl 10 Mg Tablet PO 06/15/24 19:19 10 mg ONCE ONE Administration Doxycycline Hyclate 100 mg/ 250 mls @ 166.67 mls/hr 06/15/24 18:28 06/15/24 19:10 Sodium Chloride IV 06/15/24 19:57 166.67 mls/hr ONCE ONE Administration Sodium Chloride 1,000 mls @ 999 mls/hr 06/15/24 19:30 06/15/24 19:48 Ns IV 06/15/24 20:30 999 mls/hr .Q1H1M DAVID Administration Lidocaine 1 patch 06/15/24 19:18 06/15/24 19:22 Lidocaine 4 % Patch Adh..Patch TRANSDERMA 06/15/24 19:19 1 patch ONCE ONE Administration Protocol Methylprednisolone Sodium Succinate 60 mg 06/15/24 19:25 06/15/24 19:59 Methylprednisolone Sod Succ 125 Mg/2 Ml Vial IVPUSH 06/15/24 19:26 60 mg ONCE ONE Administration Medical Decision Making Medical Decision Making MDM Narrative: 44-year-old female with a past medical history lumbar disc herniation with radiculopathy, HTN, obesity, bipolar, presenting to the ED complaining of dry coarse cough x1 week with low O2 at home. Also reports acute on chronic right buttock pain radiating down RLE. On exam tachycardic, tachypneic, course cough appreciated, + coarse lung sounds throughout with appreciable expiratory wheeze. No midline spinous tenderness or red flag symptoms. Concern for viral illness vs bronchitis vs pneumonia vs sciatica/herniated disc vs MSK pain/strain. Low suspicion for cauda equina/cord compression or epidural abscess. Lower suspicion for ACS or DVT/PE. Low suspicion for severe sepsis at this time Plan: EKG, viral studies, CXR, pain control, ED bronch protocol Please refer to course for remaining clinical decision making, interpretation of labs/imaging results, and discussions with consultants and/or family members. Differential Diagnosis Differential Diagnoses: The differential diagnosis associated with the presentation includes As above Admission/Observation Consideration of admission/observation: Escalation of care including admission/observation considered Consult Healthcare Provider Management of the patient was discussed with: Hospitalist Lab Data MDM Lab Attestation statement: I reviewed the patient's lab results. 06/15/24 18:45 06/15/24 18:44 Labs: Lab Results 06/15/24 06/15/24 06/15/24 Range/Units 17:24 18:44 18:45 WBC 14.5 H (4.8-10.8) X10*3/uL RBC 4.43 (4.20-5.50) X10*6/uL Hgb 14.5 (12.0-16.0) g/dl Hct 40.6 (37.0-47.0) % MCV 91.6 (80.0-98.0) fL MCH 32.7 (27.0-33.0) pg MCHC 35.7 H (31.0-35.0) g/dl RDW 12.4 (11.0-16.0) % Plt Count 209 (160-400) X10*3/uL MPV 9.4 (9.4-12.3) fL Immature Gran % (Auto) 0.4 (0.0-0.4) % Neut % (Auto) 65.8 (45-73) % Lymph % (Auto) 27.1 (20-40) % [place] % (Auto) 5.9 (2-11) % Eos % (Auto) 0.6 (0-4) % Baso % (Auto) 0.2 (0-2) % Lymph # (Auto) 3.9 (1.2-4.9) X10*3/uL [place] # (Auto) 0.9 (0.1-1.2) X10*3/uL Eos # (Auto) 0.1 (0.0-0.4) X10*3/uL Baso # (Auto) 0.0 (0.0-0.2) X10*3/uL Abs Immat Gran (auto) 0.06 H (0.00-0.03) X10*3/uL Absolute Neuts (auto) 9.5 H (2.0-8.3) x10*3/uL Absolute Nucleated RBC 0.000 (0.0-0.012) X10*3/uL Nucleated RBC % (auto) 0.0 (0.0-0.2) /100WBC Sodium 139 (135-145) mmol/L Potassium 3.5 (3.3-5.1) mmol/L Chloride 105 (96-108) mmol/L Carbon Dioxide 23 (22-29) mmol/L Anion Gap 15 (12-20) BUN 15 (9-16) mg/dL Creatinine 0.75 (0.5-1.4) mg/dL Estim Creat Clear Calc 114.6 Estimated GFR > 60 Random Glucose 94 (60-115) mg/dL Lactic Acid 0.9 (0.5-2.0) mmol/L Calcium 9.1 D (8.4-10.2) mg/dL Total Bilirubin 0.4 (0.0-1.0) mg/dL Direct Bilirubin 0.1 (0.0-0.5) mg/dL AST 9 (5-31) U/L ALT 12 (0-31) U/L Alkaline Phosphatase 48 (39-117) U/L Total Protein 7.2 (6.5-8.0) g/dL Albumin 4.7 (3.5-5.0) g/dL Influenza Type A (PCR) NEGATIVE (Negative) Influenza Type B (PCR) NEGATIVE (Negative) RSV RNA Qual (PCR) NEGATIVE (Negative) SARS-CoV-2 RNA (RT-PCR) NEGATIVE (Negative) Independent Interpretation I performed an independent interpretation of an: EKG (My interpretation EKG normal sinus rhythm rate of 96. DC interval 176. Nonspecific T-wave abnormality in anterior lateral leads. QT has lengthened. No STEMI) Radiology Impression Discussion of test interpretation with radiology: I have reviewed the radiologist's reading. External Record Review External record reviewed: Inpatient record, Office record, Outpatient record, Prior outpatient labs, Prior outpatient radiology, Primary care record and Outside ED record Tests considered The following testing was considered but not selected: As above Prescription Management I considered prescription management with: Pain Medication Social Determinants Patient?s care significantly limited by Social Determinants of Health including: Other Social Determinant of Health Critical Care Time Critical Care Time Critical Care Time: Yes Total Critical Care Time: 40 Attestation: I have personally provided critical care time exclusive of time spent on separately billable procedures. Time includes review of lab data, radiology results, discussion with consultants, and monitoring for potential decompensation. Intervention performed as documented. Discharge Plan Discharge Clinical Impression: Pneumonia, Chronic lumbar radiculopathy Patient Disposition: Admitted As Inpatient Print Language: Turkmen
--- NOTE | 2024-06-15 16:32 | ECG_ITS ---
Test Reason : SOB Blood Pressure : / mmHG Vent. Rate : 096 BPM Atrial Rate : 096 BPM P-R Int : 176 ms QRS Dur : 080 ms QT Int : 000 ms P-R-T Axes : 065 044 025 degrees QTc Int : 000 ms Artifact in tracing Normal sinus rhythm Nonspecific ST and T wave abnormality Abnormal ECG When compared with ECG of 19-NOV-2021 10:52, Premature ventricular complexes are no longer Present Nonspecific T wave abnormality now evident in Anterolateral leads unable to calculate QT Referred By: Vesta Rivas Electronically Signed By:CONNIE SALDIVAR
[2024-06-15] MEDS: Albuterol Sulfate 5 MG, Albuterol/Iprat 2.5/0.5MG 3 ML 3 ML INHALE (16:50)
[2024-06-15 18:14] LABS: Influenza A PCR NEGATIVE (Negative); Influenza B PCR NEGATIVE (Negative); Resp Syncy Virus RNA Qual PCR NEGATIVE (Negative); SARS COV2 PCR INHOUSE NEGATIVE (Negative)
[2024-06-15 18:51] LABS: MANUAL DIFF FLAG NO
[2024-06-15 18:52] LABS: Basophils Percent Auto 0.2 % (0-2); Eosinophils Absolute Auto 0.1 X10*3/uL (0.0-0.4); Eosinophils Percent Auto 0.6 % (0-4); Hematocrit 40.6 % (37.0-47.0); Hemoglobin 14.5 g/dl (12.0-16.0); Imm Gran Abs Auto 0.06 X10*3/uL (0.00-0.03); Imm Gran Pct Auto 0.4 % (0.0-0.4); Lymphocytes Absolute Auto 3.9 X10*3/uL (1.2-4.9); Lymphocytes Percent Auto 27.1 % (20-40); Mean Corpuscular HGB Conc 35.7 g/dl (31.0-35.0); Mean Corpuscular Hemoglobin 32.7 pg (27.0-33.0); Mean Corpuscular Volume 91.6 fL (80.0-98.0); Mean Platelet Volume 9.4 fL (9.4-12.3); Monocytes Absolute Auto 0.9 X10*3/uL (0.1-1.2); Monocytes Percent Auto 5.9 % (2-11); Neutrophils Absolute Auto 9.5 x10*3/uL (2.0-8.3); Neutrophils Percent Auto 65.8 % (45-73); Platelet Count 209 X10*3/uL (160-400); Red Blood Count 4.43 X10*6/uL (4.20-5.50); Red Cell Distribution Width 12.4 % (11.0-16.0); White Blood Count 14.5 X10*3/uL (4.8-10.8)
[2024-06-15] MEDS: cefTRIAXone sodium 1 GM VIAL IVPUSH (18:52)
--- NOTE | 2024-06-15 18:55 | PC.NURSE ---
pt a&ox3, iv inserted, labs drawn, blood cultures drawn, ekg performed, cxr performed, pt got 1st dose of iv abx and is being moved over to ED 17 for cardiac monitoring as she was slightly tachy. pt had updraft by RT- currently speaking in full sentences. provider has not ordered IVF for sepsis as of yet- she is awaiting the lactic to come back. call pascual within reach, will continue to monitor
[2024-06-15 19:06] LABS: Lactic Acid 0.9 mmol/L (0.5-2.0)
[2024-06-15] MEDS: Doxycycline Hyclate 100 MG in 0.9 % Sodium Chloride 250 ML 166.67 MG IV (19:10)
[2024-06-15 19:11] LABS: Alanine Aminotransferase 12 U/L (0-31); Albumin Level 4.7 g/dL (3.5-5.0); Alkaline Phosphatase 48 U/L (39-117); Anion Gap 15 (12-20); Aspartate Amino Transferase 9 U/L (5-31); Bilirubin Direct 0.1 mg/dL (0.0-0.5); Bilirubin Total 0.4 mg/dL (0.0-1.0); Blood Urea Nitrogen 15 mg/dL (9-16); Calcium 9.1 mg/dL (8.4-10.2); Carbon Dioxide 23 mmol/L (22-29); Chloride 105 mmol/L (96-108); Creatinine Clr Calc Pharmacy 114.6; Estimated Glomerular Filt Rate > 60; Glucose Random 94 mg/dL (60-115); Potassium 3.5 mmol/L (3.3-5.1); Sodium 139 mmol/L (135-145); Total Protein 7.2 g/dL (6.5-8.0)
--- NOTE | 2024-06-15 19:16 | PC.NURSE ---
assumed care of pt at 1909- front desk monitor applied- vitals obtained, doxycycline infusing per order- call apscual within reach
[2024-06-15] MEDS: Lidocaine 4 % Patch ADH..PATCH 1 PATCH TRANSDERMA (19:22)
[2024-06-15] MEDS: Cyclobenzaprine HCl 10 MG TABLET PO (19:24)
[2024-06-15] MEDS: 0.9 % Sodium Chloride 1,000 ML 999 ML IV (19:48)
[2024-06-15] MEDS: methylPREDNISolone Sod Succ 125 MG/2 ML VIAL 60 MG IVPUSH (19:59)
--- NOTE | 2024-06-15 20:44 | P.HPHOSP_ITS ---
History of Present Illness Date of Service: 06/15/24 Attending physician on admission: Dona Ohara Chief Complaint: Cough, SOB, low O2 at home Pt is a 44-year-old female with a PMH significant for HTN,?lumbar disc herniation with radiculopathy follows with pain Clinic, and bipolar disorder who presents to the ED with?SOB, LOPEZ, fatigue, and cough for the past week. Patient reports symptoms began last weekend with sore throat and nasal congestion, likely contracted from daughter who was sick at home. Patient saw PCP on Monday and was prescribed Claritin. Patient began to develop SOB, LOPEZ, fatigue, and mostly nonproductive cough over the ensuing days. Presents today due to worsening symptoms and noticing that her O2 sats measured at home were low. Patient also complains of chronic lower back pain radiating down her right leg secondary to lumbar disc herniation. Has been to PCP, spine clinic, and currently Pain Clinic for management. Patient reports she has yet to receive much relief for her symptoms, and is now awaiting workup for possible piriformis syndrome. Denies numbness or tingling in extremities. No saddle anesthesia. Denies fever, chills, nausea, vomiting, abdominal pain. No chest pain or pressure. Patient reports currently smoking around half a pack or less of cigarettes daily. In the ED pt was tachycardic up to 117, tachypneic up to 22, and mildly hypertensive at 132/92, satting at 97% on RA. Labs were significant for leukocytosis of 14.5, otherwise grossly unremarkable. Stable H&H. No significant electrolyte abnormalities. Renal and hepatic function baseline. Lactic acid WNL. Tested negative for flu, RSV, COVID. CXR showed bronchial wall thickening that may be infectious and/or inflammatory in etiology, and also found small areas of hazy opacity in left base that may be infectious in etiology. Initial EKG demonstrated normal sinus rhythm with QTc of 702. Repeat EKG showed sinus rhythm with QTc of 482 without evidence of significant ST elevations or depressions. Pt was treated with lidocaine patch, cyclobenzaprine, Solu-Medrol, IVF, DuoNebs, ceftriaxone and azithromycin. Pt will be admitted to the hospital for treatment and further evaluation of pneumonia with sepsis and concomitant bronchitis. Review of Systems 2 Review of Systems: Yes all other systems are reviewed and are negative [facility] Medical History Lumbar disc herniation with radiculopathy Smokes one pack per day or less and unmotivated to quit History of shingles Essential hypertension Lazy eye of right side Legally blind in right eye, as defined in [place] Obesity (BMI 35.0-39.9 without comorbidity) Bipolar disorder Family History Father Brain aneurysm Sister Gilbert's disease Daughter Bipolar disorder Mental health disorder Family/Other Hx of colonoscopy Surgical History Hx of colonoscopy Hx of dilation and curettage History of carpal tunnel release History of History of bunionectomy of right great toe Social History Housing: House Alcohol intake: never Patient Tobacco Use Status: Current everyday Tobacco user Tobacco use type: Cigarette Cigarettes Per Day: 15 Smoked in Last 30 Days: Yes e-Cigarette/Vaping Use: Never Used Second Hand Smoke Exposure: No Use of substances other than those prescribed or required for medical reasons: No Substance Use Type: Marijuana Advance Directives: No Advance Directives Information Provided: Yes Do you have a plan to hurt others: No Plan Patient : No service: No Current occupational status: disabled Cognitive needs: No Hearing needs: No Vision needs: Yes Meds Allergies Allergy/AdvReac Type Severity Reaction Status Date / Time lurasidone [From Latuda] Allergy Mild Itching Verified 06/15/24 16:29 Home Medications ?Medication ?Instructions ?Recorded ?Confirmed ?Last Taken ?Type clonidine HCl 0.1 mg tablet 0.1 mg PO BEDTIME 05/04/22 12/06/23 12/06/23 07:30 History oxcarbazepine 300 mg tablet See Rx Instructions PO DAILY 06/08/23 12/04/23 Unknown History sertraline 100 mg tablet 100 mg PO DAILY 06/08/23 12/06/23 12/06/23 07:30 History clonazepam 1 mg tablet 1 mg PO BID 08/31/23 12/06/23 12/06/23 07:30 History oxcarbazepine 150 mg tablet 150 mg PO DAILY 08/31/23 12/06/2312/05/24 07:30 History Physical Exam 2 Vital Signs and Narrative: Vital Signs: Last Vital Signs Temp 98.1 F 06/15/24 16:26 Pulse 76 06/15/24 20:27 Resp 16 06/15/24 20:27 BP 131/66 06/15/24 20:27 Pulse Ox 96 06/15/24 20:27 O2 Del Method Room Air 06/15/24 20:27 BMI result Body Mass Index 34.9 General: AOx3, no acute distress Resp: Diffuse expiratory wheezing and rhonchi bilaterally. CVS: S1, S2, RRR GI: +BS, NT, no distention Skin: Warm, dry Neuro: Cranial nerves II-XII grossly intact bilaterally. Motor grossly intact bilaterally. Preserved sensation to light touch of lower extremities bilaterally. Strength preserved of lower extremities bilaterally. Extremities: No edema Psych: Appropriate affect Results Labs 06/15/24 18:45 06/15/24 18:44 Labs: Laboratory Results - last 24 hr 06/15/24 06/15/24 06/15/24 17:24 18:44 18:45 MCV 91.6 MCH 32.7 MCHC 35.7 H RDW 12.4 Plt Count 209 MPV 9.4 Immature Gran % (Auto) 0.4 Neut % (Auto) 65.8 Lymph % (Auto) 27.1 [place] % (Auto) 5.9 Eos % (Auto) 0.6 Baso % (Auto) 0.2 Lymph # (Auto) 3.9 [place] # (Auto) 0.9 Eos # (Auto) 0.1 Baso # (Auto) 0.0 Abs Immat Gran (auto) 0.06 H Absolute Neuts (auto) 9.5 H Absolute Nucleated RBC 0.000 Nucleated RBC % (auto) 0.0 Anion Gap 15 Estim Creat Clear Calc 114.6 Estimated GFR > 60 Random Glucose 94 Lactic Acid 0.9 Calcium 9.1 D Total Bilirubin 0.4 Direct Bilirubin 0.1 AST 9 ALT 12 Alkaline Phosphatase 48 Total Protein 7.2 Albumin 4.7 Influenza Type A (PCR) NEGATIVE Influenza Type B (PCR) NEGATIVE RSV RNA Qual (PCR) NEGATIVE SARS-CoV-2 RNA (RT-PCR) NEGATIVE Imaging Radiologist's Impressions: Impressions Chest X-Ray 06/15/24 16:46 IMPRESSION: 1. Bronchial wall thickening may be infectious and/or inflammatory in etiology. 2. Small areas of hazy opacity at the left lung base may be infectious in etiology. Electronically signed by: Brie Pereira MD 06/15/2024 04:59 PM EDT RP Assessment and Plan (1) Pneumonia: Status: Acute (2) Bronchitis: Status: Acute Plan Pt is a 44-year-old female with a PMH significant for HTN,?lumbar disc herniation with radiculopathy follows with pain Clinic, and bipolar disorder who presents to the ED with?SOB, LOPEZ, fatigue, and cough for the past week. Pt will be admitted to the hospital for treatment and further evaluation of pneumonia with sepsis and concomitant bronchitis. Community aquired pneumonia with sepsis Pt with SOB, cough, LOPEZ, fatigue x1 week CXR showing left lung infiltrates Meets sepsis criteria: Tachycardia, tachypnea, leukocytosis; lactic acid WNL at 0.9 Will treat with ceftriaxone, doxycycline, started 06/15/2024 Follow cultures Bronchitis CXR showing bronchial wall thickening, pt wheezy/rhonchus upon auscultation Will treat with DuoNebs, Solu-Medrol No hypoxia, no supplemental O2 indicated Prolonged QTc Initial EKG showing QTc 702, likely due to poor data quality Repeat EKG with QTc of 482 Avoid QT-prolonging agents Lumbar disc herniation with radiculopathy Follows with pain management clinic We will give analgesics for pain management Cyclobenzaprine p.r.n. Follow up outpatient with spine clinic and pain clinic Nicotine dependence NRT Encouraged smoking cessation HTN Continue losartan Bipolar disorder Continue home mood stabilizers Full Code Attending:?Dr. Blackwood DVT Prophylaxis: Lovenox Pt will require a hospitalization of at least two nights for treatment of?community-acquired pneumonia with sepsis and concomitant bronchitis that will require administration of IV antibiotics, breathing treatments, and IV steroids. Quality Stroke Does the patient have a stroke diagnosis?: No VTE Prior VTE?: No VTE Risk Level:: Medical - moderate - high VTE Device Contraindication: Treatment Not Indicated VTE Drug Contraindication: N/A - Med Ordered
--- NOTE | 2024-06-15 20:56 | ECG_ITS ---
Test Reason : PROLONGED QTC Blood Pressure : / mmHG Vent. Rate : 071 BPM Atrial Rate : 071 BPM P-R Int : 160 ms QRS Dur : 092 ms QT Int : 444 ms P-R-T Axes : 021 035 037 degrees QTc Int : 482 ms Sinus rhythm with marked sinus arrhythmia Prolonged QT Abnormal ECG When compared with ECG of 15-JUN-2024 17:15, Nonspecific T wave abnormality no longer evident in Anterolateral leads Referred By: Vesta Rivas Electronically Signed By:CONNIE SALDIVAR
--- NOTE | 2024-06-15 22:04 | PC.NURSE ---
pt medicated per OCT- evaluated by hospitalist- plan is for admission for tx for pneumonia.
[2024-06-15] MEDS: Nicotine 14 MG PATCH.TD24 TRANSDERMA (22:59)
[2024-06-15] MEDS: Melatonin 3 MG TABLET 6 MG PO (23:08)
[2024-06-16] VITALS (10 sets, daily range): BP systolic 113–151; BP diastolic 58–72; PULSE 57–88; RESP 14–18; TEMP 36.4–36.8; O2SAT 93–96
[2024-06-16] MEDS: Morphine Sulfate 4 MG/ML CARTRIDGE IVPUSH ×3 (00:31→18:07)
[2024-06-16] MEDS: 0.9 % Sodium Chloride Flush 3 ML SYRINGE IVFLUSH ×2 (00:32→07:10)
[2024-06-16] MEDS: Cyclobenzaprine HCl 5 MG TABLET PO ×2 (04:45→13:55)
[2024-06-16] MEDS: methylPREDNISolone Sod Succ 40 MG/ML VIAL IVPUSH (05:08)
[2024-06-16] MEDS: Doxycycline Hyclate 100 MG in 0.9 % Sodium Chloride 250 ML 166.67 MG IV ×2 (07:09→20:18)
[2024-06-16 07:20] LABS: Hematocrit 38.3 % (37.0-47.0); Hemoglobin 13.1 g/dl (12.0-16.0); Mean Corpuscular HGB Conc 34.2 g/dl (31.0-35.0); Mean Corpuscular Hemoglobin 31.8 pg (27.0-33.0); Mean Platelet Volume 10.1 fL (9.4-12.3); Platelet Count 213 X10*3/uL (160-400); Red Blood Count 4.12 X10*6/uL (4.20-5.50); Red Cell Distribution Width 12.4 % (11.0-16.0); White Blood Count 14.5 X10*3/uL (4.8-10.8)
[2024-06-16] MEDS: oxyCODONE HCl Immed Release 5 MG TABLET PO ×3 (07:20→20:18)
--- NOTE | 2024-06-16 07:25 | PHA.MEDREC ---
Addendum entered by Deandre Colvin 06/16/24 07:48: Contacted RN Dariel Benitez regarding clonidine 0.1 mg dosing. She states patient told her that they take clonidine 0.1 mg at bedtime and 1/2 tablet (0.05mg) in the morning. Original Note: Pharmacy Consult ? Medication Reconciliation Pharmacy has completed the medication reconciliation. MED REC DONE BY NURSING REVIEWED BY [facility] AND CORRECTIONS MADE. PROVIDER MADE AWARE THAT SERTRALINE WAS ADDED TO HOME MED LIST.
[2024-06-16] MEDS: Albuterol/Iprat 2.5/0.5MG 3 ML AMPUL.NEB INHALE ×4 (08:16→19:45)
[2024-06-16] MEDS: Losartan Potassium 50 MG TABLET PO (08:33)
[2024-06-16] MEDS: Sertraline HCL 100 MG TABLET PO (08:33)
[2024-06-16] MEDS: cloNIDine HCL 0.1 MG TABLET 0.05 MG PO (08:33)
[2024-06-16] MEDS: Nicotine 14 MG PATCH.TD24 TRANSDERMA (08:34)
[2024-06-16] MEDS: OXcarbazepine 150 MG TABLET PO (08:34)
[2024-06-16] MEDS: clonazePAM 1 MG TABLET PO ×2 (08:34→20:18)
[2024-06-16] MEDS: Omeprazole 40 MG CAPSULE.DR PO (10:07)
[2024-06-16] MEDS: Ketorolac Tromethamine 15 MG/ML VIAL IVPUSH (10:07)
[2024-06-16 12:59] LABS: Adenovirus PCR Not Detected (Not Detect.); Bordetella parapertussis PCR Not Detected (Not Detect.); Bordetella pertussis PCR Not Detected (Not Detect.); Chlamydia pneumoniae PCR Not Detected (Not Detect.); Coronavirus 229E PCR Not Detected (Not Detect.); Coronavirus HKU1 PCR Not Detected (Not Detect.); Coronavirus NL63 PCR Not Detected (Not Detect.); Coronavirus OC43 PCR Not Detected (Not Detect.); Human metapneumovirus PCR Not Detected (Not Detect.); Influenza A PCR Not Detected (Not Detect.); Influenza B PCR Not Detected (Not Detect.); Mycoplasma pneumoniae PCR Not Detected (Not Detect.); Parainfluenza 1 PCR Not Detected (Not Detect.); Parainfluenza 2 PCR Not Detected (Not Detect.); Parainfluenza 3 PCR Not Detected (Not Detect.); Parainfluenza 4 PCR Not Detected (Not Detect.); RSV PCR Not Detected (Not Detect.); Rhino/Enterovirus PCR Detected (Not Detect.)
[2024-06-16 13:04] LABS: SARS-CoV-2 PCR Not Detected (Not Detect.)
--- NOTE | 2024-06-16 13:24 | HO.PM.IMPN ---
Subjective Subjective Date of Service: 06/16/24 Interval History: Seen and examined this morning Follow-up for pneumonia, sob improving still with cough primarily concerned with sciatica pain, reporting right buttock pain ongoing for a long time. sees the pain management clinic for the same Review of Systems Review of Systems: Yes all other systems are reviewed and are negative Constitutional Constitutional: Denies chills and Denies fever(s) Cardiovascular Cardiovascular: Denies chest pain, Denies palpitations and Denies dyspnea Respiratory Respiratory: Reports cough and Denies dyspnea Gastrointestinal Gastrointestinal: Denies abdominal pain, Denies nausea and Denies vomiting Endocrine Endocrine: Denies palpitations Physical Exam Vital Signs: Vital Signs: Last Vital Signs Temp 97.6 F 06/16/24 08:00 Pulse 67 06/16/24 11:34 Resp 18 06/16/24 11:34 BP 133/68 06/16/24 08:00 Pulse Ox 94 06/16/24 08:00 O2 Del Method Room Air 06/16/24 08:00 BMI result Body Mass Index 34.9 Const: General: cooperative, comfortable, no acute distress, alert and awake Nutritional Appearance: average body habitus Orientation/consciousness: patient oriented x3 Limitations: no limitations HEENT: Head: Yes normal to inspection and Yes atraumatic Ears: hearing grossly normal bilaterally General nose exam: Normal external nose present Face and sinus: Yes normal facial exam Eyes: General: appearance normal, both eyes and all related structures EOM: EOMs intact bilaterally Neck: Neck: Yes normal visual inspection and Yes no meningeal signs Resp: Other: b/l wheeze, intermittent cough Effort & Inspection: normal respiratory effort, able to speak in complete sentences, no respiratory distress and no use of accessory muscles Auscultation: wheezes expiratory wheezes Cardio: Rate: regular rate Heart sounds: S1 normal heart sound present and S2 normal heart sound present GI: Inspection: No distended Palpation (GI): Soft to palpation, nontender, no guarding and not rigid : General: Yes no CVA tenderness Back/Spine/Pelvis: Other: No midline cervical/thoracic/lumbar spinous tenderness/step-off or deformity. + right-sided lower lumbar/buttock reproducible tenderness. Back: no CVA tenderness Skin: Rashes: no rashes Wounds: no wounds Neuro: Other: Strength intact throughout. No saddle anesthesia. Sensation intact to light touch. Neurovascular intact distally General: patient oriented x3, moves all extremities, no meningeal signs and CN's II-XI intact bilaterally Cranial nerves: Yes CN's II-XII intact bilaterally Gait exam (Neuro): Normal gait present Extrem: General: Yes normal to inspection Objective Data Active Medications Acetaminophen (Acetaminophen 325 Mg Tablet) 650 mg PO Q6H PRN PRN Reason: Pain, Mild (Pain Scale 1-3), fever or headache Albuterol Sulfate (Albuterol Sulfate (0.083%) 2.5 Mg/3 Ml Vial.Neb) 2.5 mg INHALE Q2H PRN PRN Reason: Shortness of Breath/Wheezing Albuterol/Ipratropium (Albuterol/Iprat 2.5/0.5mg 3 Ml Ampul.Neb) 3 ml INHALE RQ4H WHILE AWAKE [facility] Last Admin: 06/16/24 11:35 Dose: 3 ml Documented By: MELODY Calcium Carbonate (Calcium Carbonate 750 Mg Tab.Chew) 750 mg PO Q4H PRN PRN Reason: Heartburn Ceftriaxone Sodium (Ceftriaxone Sodium 1 Gm Vial) 1 gm IVPUSH Q24H DAVID Clonazepam (Clonazepam 1 Mg Tablet) 1 mg PO BID DAVID Last Admin: 06/16/24 08:34 Dose: 1 mg Documented By: OLGA Clonidine HCl (Clonidine Hcl 0.1 Mg Tablet) 0.1 mg PO BEDTIME DAVID; Protocol Clonidine HCl (Clonidine Hcl 0.1 Mg Tablet) 0.05 mg PO DAILY DAVID; Protocol Last Admin: 06/16/24 08:33 Dose: 0.05 mg Documented By: OLGA Cyclobenzaprine HCl (Cyclobenzaprine Hcl 5 Mg Tablet) 5 mg PO TID PRN PRN Reason: Muscle Spasm Last Admin: 06/16/24 04:45 Dose: 5 mg Documented By: VERNELL Enoxaparin Sodium (Enoxaparin Sodium 40 Mg/0.4 Ml Syringe) 40 mg SUBCUT Q24H DAVID Last Admin: 06/15/24 22:57 Dose: Not Given Documented By: JOSE Non-Admin Reason: Patient Condition Contraindication Doxycycline Hyclate 100 mg/ (Sodium Chloride) 250 mls @ 166.67 mls/hr IV Q12H DAVID Last Infusion: 06/16/24 08:41 Dose: Infused Documented By: OLGA Lidocaine (Lidocaine 4 % Patch Adh..Patch) 1 patch TRANSDERMA DAILY [facility]; Protocol Last Admin: 06/16/24 07:22 Dose: Not Given Documented By: OLGA Non-Admin Reason: Patient Refused Losartan Potassium (Losartan Potassium 50 Mg Tablet) 50 mg PO DAILY [facility]; Protocol Last Admin: 06/16/24 08:33 Dose: 50 mg Documented By: OLGA Magnesium Hydroxide (Milk Of Magnesia 30 Ml Oral.Susp) 30 ml PO DAILY PRN PRN Reason: Constipation Melatonin (Melatonin 3 Mg Tablet) 6 mg PO BEDTIME PRN PRN Reason: Insomnia Last Admin: 06/15/24 23:08 Dose: 6 mg Documented By: SHARATH Nicotine (Nicotine 14 Mg Patch.Td24) 14 mg TRANSDERMA DAILY [facility] Last Admin: 06/16/24 08:34 Dose: 14 mg Documented By: OLGA Omeprazole (Omeprazole 40 Mg Capsule.Dr) 40 mg PO DAILY@0630 [facility] Last Admin: 06/16/24 10:07 Dose: 40 mg Documented By: OLGA Oxcarbazepine (Oxcarbazepine 150 Mg Tablet) 150 mg PO DAILY [facility] Last Admin: 06/16/24 08:34 Dose: 150 mg Documented By: OLGA Oxcarbazepine (Oxcarbazepine 300 Mg Tablet) 600 mg PO BEDTIME [facility] Oxycodone HCl (Oxycodone Hcl Immed Release 5 Mg Tablet) 5 mg PO BID PRN PRN Reason: Pain, Moderate(Pain Scale 4-6) Last Admin: 06/16/24 07:20 Dose: 5 mg Documented By: OLGA Prednisone (Prednisone 20 Mg Tablet) 40 mg PO DAILY [facility] Sertraline HCl (Sertraline Hcl 100 Mg Tablet) 100 mg PO DAILY [facility] Last Admin: 06/16/24 08:33 Dose: 100 mg Documented By: OLGA Sodium Chloride (0.9 % Sodium Chloride Flush 3 Ml Syringe) 3 ml IVFLUSH QSHIFT [facility] Last Admin: 06/16/24 07:10 Dose: 3 ml Documented By: OLGA Labs 06/16/24 06:02 06/15/24 18:44 Labs: Laboratory Results - last 24 hr 06/15/24 06/15/24 06/15/24 17:24 18:44 18:45 MCV 91.6 MCH 32.7 MCHC 35.7 H RDW 12.4 Plt Count 209 MPV 9.4 Immature Gran % (Auto) 0.4 Neut % (Auto) 65.8 Lymph % (Auto) 27.1 Gibson % (Auto) 5.9 Eos % (Auto) 0.6 Baso % (Auto) 0.2 Lymph # (Auto) 3.9 Gibson # (Auto) 0.9 Eos # (Auto) 0.1 Baso # (Auto) 0.0 Abs Immat Gran (auto) 0.06 H Absolute Neuts (auto) 9.5 H Absolute Nucleated RBC 0.000 Nucleated RBC % (auto) 0.0 Anion Gap 15 Estim Creat Clear Calc 114.6 Estimated GFR > 60 Random Glucose 94 Lactic Acid 0.9 Calcium 9.1 D Total Bilirubin 0.4 Direct Bilirubin 0.1 AST 9 ALT 12 Alkaline Phosphatase 48 Total Protein 7.2 Albumin 4.7 Respiratory Panel Harris Adenovirus (Rapid PCR) B.pert (TEM-PCR) B.parapertussis DNA PCR C. pneumoniae DNA (PCR) Coronavirus OC43 (PCR) Coronavirus HKU1 (PCR) Coronavirus 229E (PCR) Coronavirus NL63 (PCR) Human Metapneumovir PCR Influenza A (RT-PCR) Influenza Type A (PCR) NEGATIVE Influenza B (RT-PCR) Influenza Type B (PCR) NEGATIVE M. pneumoniae (PCR) Parainfluenza 1 (PCR) Parainfluenza 2 (PCR) Parainfluenza 3 (PCR) Parainfluenza 4 (PCR) RSV (PCR) RSV RNA Qual (PCR) NEGATIVE Entero/Rhino (PCR) SARS-CoV-2 RNA (RT-PCR) NEGATIVE 06/16/24 06/16/24 06:02 Unknown MCV 93.0 MCH 31.8 MCHC 34.2 RDW 12.4 Plt Count 213 MPV 10.1 Immature Gran % (Auto) Neut % (Auto) Lymph % (Auto) Gibson % (Auto) Eos % (Auto) Baso % (Auto) Lymph # (Auto) Gibson # (Auto) Eos # (Auto) Baso # (Auto) Abs Immat Gran (auto) Absolute Neuts (auto) Absolute Nucleated RBC 0.000 Nucleated RBC % (auto) 0.0 Anion Gap Estim Creat Clear Calc Estimated GFR Random Glucose Lactic Acid Calcium Total Bilirubin Direct Bilirubin AST ALT Alkaline Phosphatase Total Protein Albumin Respiratory Panel Harris See Note Adenovirus (Rapid PCR) Not Detected B.pert (TEM-PCR) Not Detected B.parapertussis DNA PCR Not Detected C. pneumoniae DNA (PCR) Not Detected Coronavirus OC43 (PCR) Not Detected Coronavirus HKU1 (PCR) Not Detected Coronavirus 229E (PCR) Not Detected Coronavirus NL63 (PCR) Not Detected Human Metapneumovir PCR Not Detected Influenza A (RT-PCR) Not Detected Influenza Type A (PCR) Influenza B (RT-PCR) Not Detected Influenza Type B (PCR) M. pneumoniae (PCR) Not Detected Parainfluenza 1 (PCR) Not Detected Parainfluenza 2 (PCR) Not Detected Parainfluenza 3 (PCR) Not Detected Parainfluenza 4 (PCR) Not Detected RSV (PCR) Not Detected RSV RNA Qual (PCR) Entero/Rhino (PCR) Detected A SARS-CoV-2 RNA (RT-PCR) Not Detected Assessment and Plan (1) Bronchitis: Status: Acute (2) Piriformis syndrome of right side: Status: Acute Plan Pt is a 44-year-old female with a PMH significant for HTN,?lumbar disc herniation with radiculopathy follows with pain Clinic, and bipolar disorder who presents to the ED with?SOB, LOPEZ, fatigue, and cough for the past week. Pt will be admitted to the hospital for treatment and further evaluation of pneumonia with sepsis and concomitant bronchitis. Community aquired pneumonia with sepsis CXR showing left lung infiltrates - probable viral as RPP + for rhino/enterovirus Meets sepsis criteria: Tachycardia, tachypnea, resolved; persistent leukocytosis due to steroids Will treat with ceftriaxone, doxycycline, started 06/15/2024 wean steroids to po prednisone Follow cultures no hypoxia Prolonged QTc Initial EKG showing QTc 702, likely due to poor data quality Repeat EKG with QTc of 482 Avoid QT-prolonging agents Lumbar disc herniation with radiculopathy, ongoing for several months Follows with pain management clinic Cyclobenzaprine not effective will trial robaxin toradol prednisone as above requesting narcotics, will increase baseline oxy to tid dosing Follow up outpatient with spine clinic and pain clinic Nicotine dependence NRT Encouraged smoking cessation HTN Continue losartan Bipolar disorder Continue home mood stabilizers Full Code DVT Prophylaxis: Lovenox Ongoing inpatient stay for management of?community-acquired pneumonia with sepsis and concomitant bronchitis that will require administration of IV antibiotics, breathing treatments, and IV steroids. Quality Stroke Does the patient have a stroke diagnosis?: No VTE Prior VTE?: No VTE Risk Level:: Medical - moderate - high VTE Device Contraindication: Treatment Not Indicated VTE Drug Contraindication: N/A - Med Ordered
[2024-06-16] MEDS: Acetaminophen 325 MG TABLET 650 MG PO (13:52)
--- NOTE | 2024-06-16 15:03 | PC.NURSE ---
Pt noted to be teary-eyed sitting on edge of bed, when asked what was wrong, Pt told this RN she is upset that CT scan was not ordered, endorsing R hip/pelvis pain. MONIKA Barrios notified of Pt's request for CT, PA did not feel as though it is warranted at this time based on previous imaging studies, Pt notified of decision, is requesting a new hospitalist and to speak with patient advocacy floor representative, Yaneli Barrios PA made aware. Pt previously medicated for pain per MAR.
[2024-06-16] MEDS: cefTRIAXone sodium 1 GM VIAL IVPUSH (17:37)
--- NOTE | 2024-06-16 17:51 | PC.NURSE ---
Pt endorsing 10/10 R hip pain and pelvic pain, Yaneli FRANK made aware, Oxycodone 5mg TID ordered, flexeril and toradol trialed, Pt pain rating remains the same, Dr Mita HOBBS notified.
[2024-06-16] MEDS: OXcarbazepine 300 MG TABLET 600 MG PO (20:17)
[2024-06-16] MEDS: cloNIDine HCL 0.1 MG TABLET PO (20:19)
[2024-06-16] MEDS: methocarbamoL 500 MG TABLET PO (21:01)
[2024-06-17] VITALS (8 sets, daily range): BP systolic 112–138; BP diastolic 61–78; PULSE 65–84; RESP 16–18; TEMP 36–36.6; O2SAT 94–97
[2024-06-17] MEDS: 0.9 % Sodium Chloride Flush 3 ML SYRINGE IVFLUSH ×3 (02:03→17:27)
[2024-06-17] MEDS: oxyCODONE HCl Immed Release 5 MG TABLET PO ×3 (02:03→19:51)
--- NOTE | 2024-06-17 02:04 | PC.NURSE ---
Pt given her dose of Oxycodone early, as she awoke in excruciating pain. She states her pain is an 8. Md is aware. Pt states that the DrDomingo is supposed to revisit her situation tomorrow morning, and that they may make med changes. I did not see this in any report.
[2024-06-17] MEDS: Morphine Sulfate 4 MG/ML CARTRIDGE IVPUSH (03:05)
[2024-06-17] MEDS: Doxycycline Hyclate 100 MG in 0.9 % Sodium Chloride 250 ML 166.67 MG IV (06:23)
[2024-06-17] MEDS: Omeprazole 40 MG CAPSULE.DR PO (06:24)
--- NOTE | 2024-06-17 06:28 | PC.NURSE ---
Pt rang for me to come to the room. Pretty distraught and crying. The pain medications that she is getting are either not working or not lasting very long. Pt is questioning if this could be nerve pain. I have exhausted all of my resources for pain medications without any efficacy. has been notified.
[2024-06-17] MEDS: methocarbamoL 500 MG TABLET PO (07:25)
[2024-06-17] MEDS: Albuterol/Iprat 2.5/0.5MG 3 ML AMPUL.NEB INHALE ×3 (07:36→19:59)
--- NOTE | 2024-06-17 08:26 | HO.PM.IMPN ---
Subjective Subjective Date of Service: 06/17/24 Interval History: Follow-up for pneumonia respiratory, doing better, no hypoxia c/o sciatica pain, reporting right buttock pain that radiates down right leg Review of Systems Review of Systems: Yes all other systems are reviewed and are negative Constitutional Constitutional: Denies chills and Denies fever(s) Cardiovascular Cardiovascular: Denies chest pain, Denies palpitations and Denies dyspnea Respiratory Respiratory: Reports cough and Denies dyspnea Gastrointestinal Gastrointestinal: Denies abdominal pain, Denies nausea and Denies vomiting Endocrine Endocrine: Denies palpitations Physical Exam Vital Signs: Vital Signs: Last Vital Signs Temp 96.8 F 06/17/24 07:46 Pulse 65 06/17/24 07:46 Resp 16 06/17/24 07:46 BP 135/78 06/17/24 07:46 Pulse Ox 97 06/17/24 07:46 O2 Del Method Room Air 06/17/24 07:46 BMI result Body Mass Index 34.9 Appearing in no acute distress lung sounds are clear to auscultation heart regular rate rhythm abdomen is soft, nontender neuro patient is alert x3, no focal deficits pain with palpation to right buttock and knee bend Objective Data Active Medications Acetaminophen (Acetaminophen 325 Mg Tablet) 650 mg PO Q6H PRN PRN Reason: Pain, Mild (Pain Scale 1-3), fever or headache Last Admin: 06/16/24 13:52 Dose: 650 mg Documented By: OLGA Albuterol Sulfate (Albuterol Sulfate (0.083%) 2.5 Mg/3 Ml Vial.Neb) 2.5 mg INHALE Q2H PRN PRN Reason: Shortness of Breath/Wheezing Albuterol/Ipratropium (Albuterol/Iprat 2.5/0.5mg 3 Ml Ampul.Neb) 3 ml INHALE RQ4H WHILE AWAKE [facility] Last Admin: 06/17/24 07:36 Dose: 3 ml Documented By: KALIN Calcium Carbonate (Calcium Carbonate 750 Mg Tab.Chew) 750 mg PO Q4H PRN PRN Reason: Heartburn Ceftriaxone Sodium (Ceftriaxone Sodium 1 Gm Vial) 1 gm IVPUSH Q24H [facility] Last Admin: 06/16/24 17:37 Dose: 1 gm Documented By: SCOTT Clonazepam (Clonazepam 1 Mg Tablet) 1 mg PO BID [facility] Last Admin: 06/16/24 20:18 Dose: 1 mg Documented By: AMIE Clonidine HCl (Clonidine Hcl 0.1 Mg Tablet) 0.1 mg PO BEDTIME DAVID; Protocol Last Admin: 06/16/24 20:19 Dose: 0.1 mg Documented By: AMIE Clonidine HCl (Clonidine Hcl 0.1 Mg Tablet) 0.05 mg PO DAILY [facility]ID; Protocol Last Admin: 06/16/24 08:33 Dose: 0.05 mg Documented By: OLGA Enoxaparin Sodium (Enoxaparin Sodium 40 Mg/0.4 Ml Syringe) 40 mg SUBCUT Q24H DAVID Last Admin: 06/17/24 02:03 Dose: Not Given Documented By: AMIE Non-Admin Reason: Patient Refused Hydromorphone HCl (Hydromorphone Hcl 0.5 Mg/0.5 Ml Syringe) 0.5 mg IVPUSH Q4H PRN; Protocol PRN Reason: Pain, Severe (Pain Scale 7-10) Doxycycline Hyclate 100 mg/ (Sodium Chloride) 250 mls @ 166.67 mls/hr IV Q12H DAVID Last Admin: 06/17/24 06:23 Dose: 166.67 mls/hr Documented By: AMIE Lidocaine (Lidocaine 4 % Patch Adh..Patch) 1 patch TRANSDERMA DAILY [facility]; Protocol Last Admin: 06/16/24 07:22 Dose: Not Given Documented By: OLGA Non-Admin Reason: Patient Refused Losartan Potassium (Losartan Potassium 50 Mg Tablet) 50 mg PO DAILY DAVID; Protocol Last Admin: 06/16/24 08:33 Dose: 50 mg Documented By: OLGA Magnesium Hydroxide (Milk Of Magnesia 30 Ml Oral.Susp) 30 ml PO DAILY PRN PRN Reason: Constipation Melatonin (Melatonin 3 Mg Tablet) 6 mg PO BEDTIME PRN PRN Reason: Insomnia Last Admin: 06/15/24 23:08 Dose: 6 mg Documented By: SHARATH Methocarbamol (Methocarbamol 500 Mg Tablet) 500 mg PO BID PRN PRN Reason: muscle spasm Last Admin: 06/17/24 07:25 Dose: 500 mg Documented By: BRIANNA Nicotine (Nicotine 14 Mg Patch.Td24) 14 mg TRANSDERMA DAILY [facility] Last Admin: 06/16/24 08:34 Dose: 14 mg Documented By: OLGA Omeprazole (Omeprazole 40 Mg Capsule.Dr) 40 mg PO DAILY@0630 [facility] Last Admin: 06/17/24 06:24 Dose: 40 mg Documented By: AMIE Oxcarbazepine (Oxcarbazepine 150 Mg Tablet) 150 mg PO DAILY [facility] Last Admin: 06/16/24 08:34 Dose: 150 mg Documented By: OLGA Oxcarbazepine (Oxcarbazepine 300 Mg Tablet) 600 mg PO BEDTIME [facility] Last Admin: 06/16/24 20:17 Dose: 600 mg Documented By: AMIE Oxycodone HCl (Oxycodone Hcl Immed Release 5 Mg Tablet) 5 mg PO Q8H PRN PRN Reason: Pain, Moderate(Pain Scale 4-6) Last Admin: 06/17/24 02:03 Dose: 5 mg Documented By: AMIE Prednisone (Prednisone 20 Mg Tablet) 40 mg PO DAILY [facility] Sertraline HCl (Sertraline Hcl 100 Mg Tablet) 100 mg PO DAILY [facility] Last Admin: 06/16/24 08:33 Dose: 100 mg Documented By: OLGA Sodium Chloride (0.9 % Sodium Chloride Flush 3 Ml Syringe) 3 ml IVFLUSH QSHIFT [facility] Last Admin: 06/17/24 02:03 Dose: 3 ml Documented By: AMIE Labs 06/16/24 06:02 06/15/24 18:44 Labs: Laboratory Results - last 24 hr 06/16/24 Unknown Respiratory Panel Harris See Note Adenovirus (Rapid PCR) Not Detected B.pert (TEM-PCR) Not Detected B.parapertussis DNA PCR Not Detected C. pneumoniae DNA (PCR) Not Detected Coronavirus OC43 (PCR) Not Detected Coronavirus HKU1 (PCR) Not Detected Coronavirus 229E (PCR) Not Detected Coronavirus NL63 (PCR) Not Detected Human Metapneumovir PCR Not Detected Influenza A (RT-PCR) Not Detected Influenza B (RT-PCR) Not Detected M. pneumoniae (PCR) Not Detected Parainfluenza 1 (PCR) Not Detected Parainfluenza 2 (PCR) Not Detected Parainfluenza 3 (PCR) Not Detected Parainfluenza 4 (PCR) Not Detected RSV (PCR) Not Detected Entero/Rhino (PCR) Detected A SARS-CoV-2 RNA (RT-PCR) Not Detected Microbiology Microbiology Results: Microbiology 06/15/24 18:52 Blood Culture - Preliminary Blood - Venous No growth after 24 hours. 06/15/24 18:44 Blood Culture - Preliminary Blood - Venous No growth after 24 hours. Assessment and Plan (1) Bronchitis: Status: Acute (2) Piriformis syndrome of right side: Status: Acute Plan Pt is a 44-year-old female with a PMH significant for HTN,?lumbar disc herniation with radiculopathy follows with pain Clinic, and bipolar disorder who presents to the ED with?SOB, LOPEZ, fatigue, and cough for the past week. Pt will be admitted to the hospital for treatment and further evaluation of pneumonia with sepsis and concomitant bronchitis. Intractable pain secondary to Lumbar disc herniation with radiculopathy Chronic for several years but with exacerbation Follows with pain management clinic prednisone as above Still with ongoing pain, appears to be sciatic pain will treat with IV dilaudid and toradol alternate with ice and heat as needed PT when pain is better Community aquired pneumonia with sepsis Sepsis resolved CXR showing left lung infiltrates - probable viral as RPP + for rhino/enterovirus ceftriaxone, doxycycline, started 06/15/2024 po prednisone neg cultures after 24 hours no hypoxia Prolonged QTc Initial EKG showing QTc 702, likely due to poor data quality Repeat EKG with QTc of 482 Avoid QT-prolonging agents Nicotine dependence NRT HTN stable BP Continue losartan Bipolar disorder Continue home mood stabilizers Full Code Attending Dr. Samuel DVT Prophylaxis: [facility] [place] Stroke Does the patient have a stroke diagnosis?: No VTE Prior VTE?: No VTE Risk Level:: Medical - moderate - high VTE Device Contraindication: Treatment Not Indicated VTE Drug Contraindication: N/A - Med Ordered
[2024-06-17] MEDS: HYDROmorphone HCl 0.5 MG/0.5 ML SYRINGE IVPUSH ×4 (08:44→21:17)
[2024-06-17] MEDS: Ketorolac Tromethamine 15 MG/ML VIAL IVPUSH ×3 (08:46→19:42)
[2024-06-17] MEDS: Lidocaine 4 % Patch ADH..PATCH 1 PATCH TRANSDERMA (08:48)
[2024-06-17] MEDS: predniSONE 20 MG TABLET 40 MG PO (08:51)
[2024-06-17] MEDS: Losartan Potassium 50 MG TABLET PO (08:51)
[2024-06-17] MEDS: OXcarbazepine 150 MG TABLET PO (08:51)
[2024-06-17] MEDS: clonazePAM 1 MG TABLET PO ×2 (08:52→21:17)
[2024-06-17] MEDS: Sertraline HCL 100 MG TABLET PO (08:52)
[2024-06-17] MEDS: cloNIDine HCL 0.1 MG TABLET 0.05 MG PO (08:55)
[2024-06-17] MEDS: Nicotine 14 MG PATCH.TD24 TRANSDERMA (09:03)
--- NOTE | 2024-06-17 09:25 | MHC.CM.PN ---
IMM delivered. Patient lives in a home w/ spouse. Functionally independent. Denies use of DME or services. Followed by pain clinic for chronic pain. PCP Dr. Amaral Reports she has an HCP listing spouse, Ed, as HCA. Copy requested from Dr. Amaral' office. DP: PT eval when pain improved. Goal is home w/ PT services. Prefers [facility]. Referral sent via [facility] to transport. CM will continue to follow.
[2024-06-17] MEDS: levoFLOXacin 500 MG TABLET PO (13:08)
--- NOTE | 2024-06-17 19:57 | PM.DS ---
DS: Providers Provider Date of Service: 06/18/24 Date of admission: 06/15/24 21:47 Primary care physician: Felisa Amaral MD DS: Diagnosis Discharge Diagnosis (1) Bronchitis: Status: Resolved (2) Piriformis syndrome of right side: Status: Inactive DS: Summary Hospital Course Hospital Course: HP as per admitting provider. Pt is a 44-year-old female with a PMH significant for HTN,?lumbar disc herniation with radiculopathy follows with pain Clinic, and bipolar disorder who presents to the ED with?SOB, LOPEZ, fatigue, and cough for the past week. Patient reports symptoms began last weekend with sore throat and nasal congestion, likely contracted from daughter who was sick at home. Patient saw PCP on Monday and was prescribed Claritin. Patient began to develop SOB, LOPEZ, fatigue, and mostly nonproductive cough over the ensuing days. Presents today due to worsening symptoms and noticing that her O2 sats measured at home were low. Patient also complains of chronic lower back pain radiating down her right leg secondary to lumbar disc herniation. Has been to PCP, spine clinic, and currently Pain Clinic for management. Patient reports she has yet to receive much relief for her symptoms, and is now awaiting workup for possible piriformis syndrome. Denies numbness or tingling in extremities. No saddle anesthesia. Denies fever, chills, nausea, vomiting, abdominal pain. No chest pain or pressure. Patient reports currently smoking around half a pack or less of cigarettes daily. In the ED pt was tachycardic up to 117, tachypneic up to 22, and mildly hypertensive at 132/92, satting at 97% on RA. Labs were significant for leukocytosis of 14.5, otherwise grossly unremarkable. Stable H&H. No significant electrolyte abnormalities. Renal and hepatic function baseline. Lactic acid WNL. Tested negative for flu, RSV, COVID. CXR showed bronchial wall thickening that may be infectious and/or inflammatory in etiology, and also found small areas of hazy opacity in left base that may be infectious in etiology. Initial EKG demonstrated normal sinus rhythm with QTc of 702. Repeat EKG showed sinus rhythm with QTc of 482 without evidence of significant ST elevations or depressions. Pt was treated with lidocaine patch, cyclobenzaprine, Solu-Medrol, IVF, DuoNebs, ceftriaxone and azithromycin. Pt will be admitted to the hospital for treatment and further evaluation of pneumonia with sepsis and concomitant bronchitis. 44-year-old woman with history of chronic back pain with more recently intractable pain secondary to piriformis, likely. She reports she has undergone at least 2-3 steroid taper treatments in the recent months. She was following with pain clinic at [facility] and plan is to do pain injections but she has been on steroids. So the plan will be to discontinue the steroids and follow-up with the pain clinic in 4 weeks. She was started on IV pain medication while inpatient and that has seemed to help her pain. Discussed the case with Dr. Westbrook who suggested giving 28 days of oral pain medication. She seemed to do well with the IV Dilaudid so we will discharge home with 2 mg t.i.d. p.r.n. for pain and ibuprofen 800 prn. Had a lengthy discussion with the patient regarding narcotic medication management. She is narcotic naive, meaning she has not been prescribed these medications therefore only take when she is having pain and spread out doses. It seems to be more helpful to take these medications when there is an exacerbation and not take them on a regular basis to ?avoid pain?. She stated understanding of this. She can also alternate with ice and heat when pain occurs and continue with physical therapy and therapeutic exercises. Patient was also treated for community-acquired pneumonia initially with sepsis but this resolved fairly quickly. Chest x-ray did show left lung infiltrate with respiratory pathogen panel positive for rhino virus/enterovirus. She was treated with ceftriaxone and doxycycline, will complete 2 more days of therapy with Levaquin. Blood cultures have remained negative and she was not hypoxic nor has required any oxygen. Nicotine dependence. Discussed the importance of smoking cessation HTN. Stable blood pressure during hospitalization. Continue losartan Bipolar disorder. Continue home mood stabilizers Overall plan: Take pain medication with exacerbations of back pain/sciatica/piriformis pain Exercise, stretching, physical therapy Follow-up with pain management Clinic for further treatments for chronic pain Time Attestation Discharge Coordination Time (in mins): 45 Quality: Safe Use of Opioids Does Pt have an Active Cancer Diagnosis on the Problem List?: No Quality: Stroke Does the patient have a stroke diagnosis?: No Physical Exam Vital Signs: Vital Signs: Last Vital Signs Temp 97.1 F 06/17/24 19:24 Pulse 74 06/17/24 19:24 Resp 18 06/17/24 19:24 BP 126/68 06/17/24 19:24 Pulse Ox 95 06/17/24 19:24 O2 Del Method Room Air 06/17/24 19:24 BMI result Body Mass Index 34.9 Appearing in no acute distress head is normocephalic atraumatic eyes pupils are PERRLA sclera is anicteric mouth throat mucous membranes are intact and moist neck is supple no lymphadenopathy, no JVD noted lung sounds are clear to auscultation heart regular rate rhythm, clear S1, S2 positive bowel sounds, abdomen is soft, nontender neuro patient is alert x3, no focal deficits DS: Data Data Completed and Pending Labs on day of discharge: Preliminary micro results at discharge 06/15/24 18:52 Blood Culture - Preliminary Blood - Venous No growth after 24 hours. 06/15/24 18:44 Blood Culture - Preliminary Blood - Venous No growth after 24 hours. Discharge Plan Discharge Anticipated Discharge Date/Time: 06/18/24 09:22 Patient Disposition: Home Health Service Discharge Diagnosis: Piriformis pneumomia/bronchitis Referrals: Felisa Amaral MD [Primary Care Provider] - 1 Week Zak Westbrook MD [Physician] - 4 Weeks Discharge Medications: New omeprazole 40 mg Capsule,Delayed Release(Dr/Ec) 40 mg PO DAILY@0630 Qty: 90 0RF levofloxacin 500 mg Tablet 500 mg PO Q24H Qty: 2 0RF ibuprofen 800 mg tablet 800 mg PO Q8H PRN (Reason: pain) Qty: 15 0RF hydromorphone [Dilaudid] 2 mg tablet 2 mg PO Q8H PRN (Reason: pain) Qty: 84 0RF Rx Instructions: Partial Fill upon patient request. Continued losartan 50 mg tablet 50 mg PO DAILY Qty: 90 1RF oxcarbazepine 300 mg tablet 600 mg PO BEDTIME clonidine HCl 0.1 mg tablet 0.05 mg PO DAILY clonidine HCl 0.1 mg tablet 0.1 mg PO BEDTIME epinephrine [EpiPen] 0.3 mg/0.3 mL auto-injector 0.3 mg IM Q10M PRN (Reason: anaphylaxis) Qty: 1 4RF Rx Instructions: for 2 doses sertraline 100 mg tablet 100 mg PO DAILY clonazepam 1 mg tablet 1 mg PO BID oxcarbazepine 150 mg tablet 150 mg PO DAILY Discontinued oxycodone 5 mg tablet 5 mg PO BID PRN (Reason: pain, moderate) Qty: 7 0RF Rx Instructions: Partial Fill upon patient request. Discharge Orders: Discharge Order (Routine); Ordered 06/18/24 Ordered By: Tabatha Donaldson Diet: Advance to usual diet Activity on Discharge: As tolerated Stand Alone Forms: Patient Portal Discharge page Print Language: Belarusian Care Plan Goals: take pain medication as needed Continue physical therapy your steroids have been stopped Health Concerns: Piriformis pneumomia/bronchitis Plan of Treatment: Follow up with pain clinic for injections for piriformus pain Assessment: See discharge summary
[2024-06-17] MEDS: OXcarbazepine 300 MG TABLET 600 MG PO (21:17)
[2024-06-17] MEDS: cloNIDine HCL 0.1 MG TABLET PO (21:17)
[2024-06-17] MEDS: Enoxaparin Sodium 40 MG/0.4 ML SYRINGE SUBCUT (21:18)
[2024-06-18] MEDS: 0.9 % Sodium Chloride Flush 3 ML SYRINGE IVFLUSH ×2 (01:23→08:11)
[2024-06-18] MEDS: Ketorolac Tromethamine 15 MG/ML VIAL IVPUSH ×2 (01:23→08:07)
[2024-06-18] MEDS: HYDROmorphone HCl 0.5 MG/0.5 ML SYRINGE IVPUSH ×3 (01:28→09:28)
[2024-06-18 03:30] VITALS: BP 108/60; PULSE 69; RESP 16; TEMP 36.5; O2SAT 94
[2024-06-18] MEDS: oxyCODONE HCl Immed Release 5 MG TABLET PO (04:12)
[2024-06-18] MEDS: Omeprazole 40 MG CAPSULE.DR PO (05:41)
[2024-06-18 07:31] VITALS: BP 136/75; PULSE 62; RESP 16; TEMP 36.3; O2SAT 97
[2024-06-18] MEDS: Losartan Potassium 50 MG TABLET PO (08:07)
[2024-06-18] MEDS: cloNIDine HCL 0.1 MG TABLET 0.05 MG PO (08:07)
[2024-06-18] MEDS: OXcarbazepine 150 MG TABLET PO (08:07)
[2024-06-18] MEDS: Albuterol/Iprat 2.5/0.5MG 3 ML AMPUL.NEB INHALE (08:07)
[2024-06-18] MEDS: Sertraline HCL 100 MG TABLET PO (08:07)
[2024-06-18] MEDS: clonazePAM 1 MG TABLET PO (08:07)
[2024-06-18] MEDS: Lidocaine 4 % Patch ADH..PATCH 1 PATCH TRANSDERMA (08:11)
[2024-06-18] MEDS: Nicotine 14 MG PATCH.TD24 TRANSDERMA (08:12)
[2024-06-18 08:21] VITALS: PULSE 75; RESP 16; O2SAT 96
--- NOTE | 2024-06-18 09:43 | MHC.CM.PN ---
Addendum entered by Noris Steele RN 06/18/24 09:45: NO PT SERVICES INDICATED PER EVAL. Original Note: PT MEDICALLY CLEARED FOR [facility] HOME SELF CARE, PRESCRIPTIONS SENT TO [facility] AND SHOULD BE DELIVERED TO BEDSIDE PRIOR TO DC, PT'S FOR TRANSPORT
== END 2024-06-18 10:34 | disposition home or self-care (01) | DRG 871 ==
LOC: HO.ED 19:45 → HO.EDOVER 22:19 → HO.S3 23:20
PROVIDERS: Physician Assistant; Physician Assistant Medical; Admitting Provider Student in an Organized Health Care Education/Training Program; Emergency Provider Emergency Medicine; PCP Internal Medicine; Visit Provider Nurse Practitioner Acute Care
DX: A41.9 Sepsis, unspecified organism (principal); J12.9 Viral pneumonia, unspecified; I10 Essential (primary) hypertension; G57.01 Lesion of sciatic nerve, right lower limb; M51.16 Intervertebral disc disorders with radiculopathy, lumbar region; B97.89 Other viral agents as the cause of diseases classified elsewhere; J20.9 Acute bronchitis, unspecified; B97.10 Unspecified enterovirus as the cause of diseases classified elsewhere; F31.9 Bipolar disorder, unspecified; F17.210 Nicotine dependence, cigarettes, uncomplicated; Z71.6 Tobacco abuse counseling; R94.31 Abnormal electrocardiogram [ECG] [EKG]; Z79.899 Other long term (current) drug therapy
CPT/HCPCS: 0241U; 36415; 71046; 74176; 80048; 80076; 83605; 85025; 85027; 87040; 87633; 93005; 94640; 97161; 99285; J0696; J1171; J1650; J1885; J2270; J2919

== ENCOUNTER → 2024-06-15 16:32 | Outpatient (BNV) | payer MEDICARE, MEDICAID, SELFPAY | PROVIDERS: Admitting Provider Student in an Organized Health Care Education/Training Program; Emergency Provider Emergency Medicine; PCP Internal Medicine; Visit Provider Internal Medicine | DX: R94.31 Abnormal electrocardiogram [ECG] [EKG] (principal) | CPT/HCPCS: 93010 ==

== ENCOUNTER → 2024-06-15 21:47 | Outpatient (BNV) | payer MEDICARE, MEDICAID, SELFPAY | PROVIDERS: Admitting Provider Student in an Organized Health Care Education/Training Program; Emergency Provider Emergency Medicine; PCP Internal Medicine; Visit Provider Physician Assistant Medical | DX: J40 Bronchitis, not specified as acute or chronic (principal); G57.01 Lesion of sciatic nerve, right lower limb | CPT/HCPCS: 99223; 99232; 99239; 99499 ==

== ENCOUNTER 2024-06-21 19:26 | Emergency (ER) | payer MEDICARE, MEDICAID, SELFPAY ==
--- NOTE | ~2024-06-21 | XR_ITS ---
EXAMINATION: XR ABDOMEN KUB CLINICAL INDICATION: Pain. COMPARISON: None available. TECHNIQUE: AP view of the abdomen. FINDINGS: The bowel gas pattern is normal with no evidence of ileus or obstruction. No unusual soft tissue calcifications are noted. The bones are unremarkable. XR/XR KUB IMPRESSION: Unremarkable examination. Electronically signed by: Inocente Griggs MD 06/22/2024 01:10 AM EDT
--- NOTE | ~2024-06-21 | XR_ITS ---
EXAMINATION: XR CHEST 2 VIEWS CLINICAL INFORMATION: Shortness of breath. COMPARISON: Chest radiograph dated 06/15/2024. TECHNIQUE: Frontal and lateral views of the chest were obtained. FINDINGS: The heart, great vessels, pulmonary vasculature and mediastinum are normal. The lungs show no focal infiltrate, effusion or pneumothorax. There is no acute osseous abnormality. XR/XR chest 2V IMPRESSION: No active cardiopulmonary disease. Electronically signed by: Cain Jiménez MD 06/21/2024 11:46 PM EDT
[2024-06-21 19:56] VITALS: BP 126/89; PULSE 93; RESP 16; TEMP 36.8; O2SAT 97; BMI 36.8
--- NOTE | 2024-06-21 19:57 | ED_ITS ---
HPI - General Adult General Chief complaint: General Medical Stated complaint: tongue hurts, hard to swallow, stomach pain Time Seen by Provider: 06/21/24 21:39 Source: patient Limitations: no limitations History of Present Illness ED Provider: Eduarda Doty PA-C HPI narrative: Patient is a 44 year old female who presents with possible thrush and abdominal pain with constipation and one episode of dark hard stool. Her BM today was the first in 6 days. It was dark red/tarry in color and she believes this is because she had been previously constipated during her hospital stay last week. She has some abdominal pain across the lower abdomen. She states that she is still passing some gas. She has not tried any stool softeners or laxatives. She also states that this morning, she noticed white patches that coat her tongue. They have a burning sensation and came back despite her brushing her tongue. Also, she reports persistent SOB and cough since she was hospitalized with pneumonia last week. She denies fevers, N/V, and sick contacts. Related Data Home Medications ?Medication ?Instructions ?Recorded ?Confirmed clonidine HCl 0.1 mg tablet 0.1 mg PO BEDTIME 05/04/22 06/19/24 sertraline 100 mg tablet 100 mg PO DAILY 06/08/23 06/19/24 clonazepam 1 mg tablet 1 mg PO BID 08/31/23 06/19/24 oxcarbazepine 150 mg tablet 150 mg PO DAILY 08/31/23 06/19/24 clonidine HCl 0.1 mg tablet 0.05 mg PO DAILY 06/16/24 06/19/24 oxcarbazepine 300 mg tablet 600 mg PO BEDTIME 06/16/24 06/19/24 Previous Rx's ?Medication ?Instructions ?Recorded epinephrine 0.3 mg/0.3 mL 0.3 mg (0.3 mL) IM Q10M PRN 03/15/24 injection, auto-injector (EpiPen) anaphylaxis #1 ea losartan 50 mg tablet 50 mg PO DAILY #90 tabs 04/01/24 ibuprofen 800 mg tablet 800 mg PO Q8H PRN pain #15 tabs 06/17/24 levofloxacin 500 mg tablet 500 mg PO Q24H #2 tabs 06/17/24 omeprazole 40 mg capsule,delayed 40 mg PO DAILY@0630 #90 caps 06/17/24 release hydromorphone 2 mg tablet 2 mg PO Q8H PRN pain #84 tabs 06/18/24 (Dilaudid) albuterol sulfate 90 mcg/actuation 2 puff inhalation Q4-6H PRN 06/22/24 aerosol inhaler shortness of breath or wheezing 1 week #8.5 grams nystatin 100,000 unit/mL oral 600,000 unit (6 mL) PO Q6H 2 weeks 06/22/24 suspension #336 mL prednisone 20 mg tablet 40 mg (2 x 20 mg) PO DAILY #8 tabs 06/22/24 Allergies Allergy/AdvReac Type Severity Reaction Status Date / Time lurasidone [From Latuda] Allergy Mild Itching Verified 06/21/24 20:00 Review of Systems 2 Review of Systems: Yes all other systems are reviewed and are negative Constitutional: Constitutional: Denies anorexia and Denies fever(s) Eyes: Eyes: Denies change in vision ENT: Denies dizziness, Reports mouth lesions, Denies nasal congestion and Denies sore throat Cardiovascular: Cardiovascular: Denies Abdominal Distension, Denies chest pain, Denies syncope, Denies rapid heart rate, Denies leg edema and Reports dyspnea Respiratory: Respiratory: Reports cough, Denies hemoptysis and Reports dyspnea Gastrointestinal: Gastrointestinal: Reports abdominal pain, Reports melena, Denies bloating, Denies hematochezia, Reports constipation, Denies excessive flatus, Denies nausea and Denies vomiting Neurologic: Denies dizziness and Denies syncope [facility] Past Medical History Medical History Lumbar disc herniation with radiculopathy Smokes one pack per day or less and unmotivated to quit History of shingles Essential hypertension Lazy eye of right side Legally blind in right eye, as defined in [place] Obesity (BMI 35.0-39.9 without comorbidity) Bipolar disorder Surgical History Hx of colonoscopy Hx of dilation and curettage History of carpal tunnel release History of History of bunionectomy of right great toe Family History Family History Father Brain aneurysm Sister Gilbert's disease Daughter Bipolar disorder Mental health disorder Family/Other Hx of colonoscopy Social History Social History Household Members: Family Housing: House Do you presently have visiting nurse or other home services: No Alcohol intake: never Patient Tobacco Use Status: Never used Tobacco Tobacco use type: Cigarette Cigarettes Per Day: 15 e-Cigarette/Vaping Use: Never Used Second Hand Smoke Exposure: No Substance Use Type: Marijuana Advance Directives: No Advance Directives Information Provided: Yes service: No Current occupational status: disabled Cognitive needs: No Hearing needs: No Vision needs: Yes Physical Exam ED Vital Signs: Vital Signs - 24 hr 06/21/24 19:56 06/21/24 22:51 Temperature 98.3 F Pulse Rate 93 67 Respiratory Rate 16 18 Blood Pressure 126/89 Pulse Oximetry 97 Oxygen Delivery Method Room Air BMI result Body Mass Index 36.8 Const General: cooperative, healthy appearing, comfortable and no acute distress Nutritional Appearance: overweight Orientation/consciousness: patient oriented x3 Limitations: no limitations Neck Neck: Yes no meningeal signs Resp Effort & Inspection: normal respiratory effort, able to speak in complete sentences, audible wheezes, Actively coughing, no nasal flaring, no respiratory distress and no use of accessory muscles Auscultation: no rales, rhonchi, wheezes and No rub present Cardio Jugular venous distension: no JVD Rate: regular rate Rhythm: regular rhythm Heart sounds: S1 normal heart sound present and S2 normal heart sound present GI Inspection: Yes normal to inspection and No distended Palpation (GI): Soft to palpation, nontender, no guarding and no masses Skin Other: warm and dry, no rash Neuro General: patient oriented x3, no meningeal signs, no focal motor deficits and CN's II-XI intact bilaterally Cranial nerves: Yes CN's II-XII intact bilaterally and Yes Facial sensation intact/muscles of mastication intact Cognition (Neuro): normal cognition Psych Other: calm and cooperative Appearance: grossly normal Mental Status: mental status grossly normal Speech and movement: Normal speech and movement present and Clear speech present Affect: normal affect Attitude: cooperative Thought process: Normal thought process present Course Course Course Narrative: This is an RME performed by Cam Palomares CNP: Additional HPI, ROS, PE not included below will be deferred to primary provider. Patient is a 44-year-old female presents to the emergency department for evaluation, She reports that she recently discharged from the hospital with a course of antibiotics to treat pneumonia. She reports that she was constipated did not have a BM for 7 days, she is experiencing pain to her abdomen particularly the left lower abdomen she had a few episodes of loose stools earlier this morning followed by a bowel movement later today that was black and tarry then she noticed some bright red blood on the toilet tissue, has mild tenderness on palpation. She also states that she is having a burning sensation to her mouth on exam is concerning for thrush. Plan: labs, urinalysis Medications Administered Discontinued Medications Generic Name Dose Route Start Last Admin Trade Name Freq PRN Reason Stop Dose Admin Albuterol Sulfate 7.5 mg 06/21/24 22:37 06/21/24 22:46 Albuterol Sulfate (0.083%) 2.5 Mg/3 Ml Vial.Neb INHALE 06/21/24 22:38 7.5 mg ONCE ONE Administration Prednisone 40 mg 06/21/24 22:37 06/21/24 23:09 Prednisone 20 Mg Tablet PO 06/21/24 22:38 40 mg ONCE ONE Administration Medical Decision Making Medical Decision Making [facility] Narrative: Genesis Doty PA-C have personally assessed diminished the patient, Adrianne SERNA observed in help formulate the documentation Patient is a 44 year old female who presents with possible thrush and abdominal pain with constipation and one episode of dark hard stool. Her BM today was the first in 6 days. It was dark red/tarry in color and she believes this is because she had been previously constipated during her hospital stay last week. She has some abdominal pain across the lower abdomen. She states that she is still passing some gas. She has not tried any stool softeners or laxatives. She also states that this morning, she noticed white patches that coat her tongue. They have a burning sensation and came back despite her brushing her tongue. Also, she reports persistent SOB and cough since she was hospitalized with pneumonia last week. She finished her course of abx for this yesterday. She denies fevers, N/V, and sick contacts. Patient has a history of colon polyps, essential HTN, sciatica, lumbar disc herniation with radiculopathy, and bipolar disorder. Differentials: Thrush, leukoplakia, geographic tongue, diverticulitis, constipation, SBO, LBO, UTI Plan: Because the patient has recent nebulizer/abx use, a white coating that is able to be scraped off, and a burning sensation in her mouth, I strongly believe that she has thrush. If it was unable to be scraped off, I would be concerned for leukoplakia. Geographic tongue is a possibility, however, the patches are not consistent with it and it would not cause the burning sensation, therefore making it less likely. Also, due to her recent hospitalization and narcotic use, I believe that the cause of her abdominal pain is constipation. Due to the lack of fever and likely dx of constipation, I believe diverticulitis is less likely. She is not distended, has no N/V, and does not guard her abdomen when palpating, and therefore I do not believe a SBO or LBO are present. UTI was considered but given that she has no urinary symptoms and the likelihood of this being constipation, I believe UTI is not likely. Per Eduarda Doty PA-C The patient clearly has thrush, she has been on antibiotics for an extended period of time. In regard to her abdominal discomfort, she is likely constipated, she does not have obstructive symptoms to suggest a bowel obstruction. We will obtain a KUB. Lastly, she has an active bronchospasm type cough with wheezing, I am treating her for concurrent COPD exacerbation. We will give albuterol and steroid. I am repeating the chest x-ray to be sure her pneumonia is improving I have independently reviewed the following tests: KUB: Significant constipation XR/XR chest 2V IMPRESSION: No active cardiopulmonary disease. Electronically signed by: Cain Jiménez MD 06/21/2024 11:46 PM EDT RP Patient improved after 1 updraft Lab Data 06/21/24 20:14 06/21/24 20:15 Labs: Lab Results 06/21/24 06/21/24 06/21/24 Range/Units 20:14 20:15 20:34 WBC 13.1 H (4.8-10.8) X10*3/uL RBC 4.29 (4.20-5.50) X10*6/uL Hgb 14.0 (12.0-16.0) g/dl Hct 39.1 (37.0-47.0) % MCV 91.1 (80.0-98.0) fL MCH 32.6 (27.0-33.0) pg MCHC 35.8 H (31.0-35.0) g/dl RDW 12.4 (11.0-16.0) % Plt Count 248 (160-400) X10*3/uL MPV 9.3 L (9.4-12.3) fL Immature Gran % (Auto) 0.4 (0.0-0.4) % Neut % (Auto) 62.2 (45-73) % Lymph % (Auto) 30.9 (20-40) % [place] % (Auto) 4.5 (2-11) % Eos % (Auto) 1.6 (0-4) % Baso % (Auto) 0.4 (0-2) % Lymph # (Auto) 4.0 (1.2-4.9) X10*3/uL [place] # (Auto) 0.6 (0.1-1.2) X10*3/uL Eos # (Auto) 0.2 (0.0-0.4) X10*3/uL Baso # (Auto) 0.1 (0.0-0.2) X10*3/uL Abs Immat Gran (auto) 0.05 H (0.00-0.03) X10*3/uL Absolute Neuts (auto) 8.1 (2.0-8.3) x10*3/uL Absolute Nucleated RBC 0.000 (0.0-0.012) X10*3/uL Nucleated RBC % (auto) 0.0 (0.0-0.2) /100WBC Sodium 141 (135-145) mmol/L Potassium 4.3 D (3.3-5.1) mmol/L Chloride 109 H (96-108) mmol/L Carbon Dioxide 24 (22-29) mmol/L Anion Gap 12 (12-20) BUN 9 (9-16) mg/dL Creatinine 0.76 (0.5-1.4) mg/dL Estim Creat Clear Calc 116.2 Estimated GFR > 60 Random Glucose 90 (60-115) mg/dL Calcium 9.7 D (8.4-10.2) mg/dL Total Bilirubin 0.4 (0.0-1.0) mg/dL AST 14 (5-31) U/L ALT 14 (0-31) U/L Alkaline Phosphatase 41 (39-117) U/L Total Protein 6.9 (6.5-8.0) g/dL Albumin 4.6 (3.5-5.0) g/dL Urine Color Yellow Urine Appearance Clear Urine pH 5.0 (5.0-9.0) Ur Specific [place] 1.015 (1.005-1.025) Urine Protein Negative (Neg-Trace) mg/dL Urine Glucose (UA) Negative (Negative) mg/dL Urine Ketones Negative (Negative) mg/dL Urine Blood Large (3+) H (Negative) Urine Nitrite Negative (Negative) Ur Leukocyte Esterase Negative (Negative) Urine RBC 0-2 (0-2) /HPF Urine WBC 0-5 (0-5) /HPF Ur Squamous Epith Cells 3-5 (0-2) /HPF Urine Bacteria Trace (None Seen) Hyaline Casts 0-2 (0-2) /LPF Urine Test NEGATIVE (NEGATIVE) Discharge Plan Discharge Clinical Impression: Candidiasis of mouth, Constipation, Bronchitis Patient Disposition: Home, Self-Care Instructions: Constipation (ED), Oral Candidiasis (ED), Acute Bronchitis (ED) Additional Instructions: You have thrush, or an oral yeast infection. See home care instructions. Use the nystatin swish and swallow as directed. I am also treating you for bronchitis, given your smoking history you likely have undiagnosed COPD. Use the steroid as directed in the inhaler as directed. You need to follow up with your primary care provider for pulmonary function testing. Be sure to continue taking the antibiotic you were prescribed at the time your discharge. Lastly, you were found to be constipated. See home care instructions. You need to start using yarf-vop-wunnerp Colace twice a day, and [id number] MiraLax. I would mixed the powder with water or Gatorade per package instructions, and drank it every hour until you begin having multiple large volume bowel movements. Prescriptions: New prednisone 20 mg tablet 40 mg PO DAILY Qty: 8 0RF albuterol sulfate 90 mcg/actuation HFA aerosol inhaler 2 puff inhalation Q4-6H PRN (Reason: shortness of breath or wheezing) 7 Days Qty: 8.5 0RF nystatin 100,000 unit/mL suspension 600,000 unit PO Q6H 14 Days Qty: 336 0RF Rx Instructions: Swish in mouth several minutes and then swallow No Action losartan 50 mg tablet 50 mg PO DAILY Qty: 90 1RF oxcarbazepine 300 mg tablet 600 mg PO BEDTIME clonidine HCl 0.1 mg tablet 0.05 mg PO DAILY omeprazole 40 mg Capsule,Delayed Release(Dr/Ec) 40 mg PO DAILY@0630 Qty: 90 0RF levofloxacin 500 mg Tablet 500 mg PO Q24H Qty: 2 0RF ibuprofen 800 mg tablet 800 mg PO Q8H PRN (Reason: pain) Qty: 15 0RF hydromorphone [Dilaudid] 2 mg tablet 2 mg PO Q8H PRN (Reason: pain) Qty: 84 0RF Rx Instructions: Partial Fill upon patient request. clonidine HCl 0.1 mg tablet 0.1 mg PO BEDTIME epinephrine [EpiPen] 0.3 mg/0.3 mL auto-injector 0.3 mg IM Q10M PRN (Reason: anaphylaxis) Qty: 1 4RF Rx Instructions: for 2 doses sertraline 100 mg tablet 100 mg PO DAILY clonazepam 1 mg tablet 1 mg PO BID oxcarbazepine 150 mg tablet 150 mg PO DAILY Stand Alone Forms: Work/School Release Print Language: Occitan
[2024-06-21 20:19] LABS: MANUAL DIFF FLAG NO
[2024-06-21 20:20] LABS: Basophils Absolute Auto 0.1 X10*3/uL (0.0-0.2); Basophils Percent Auto 0.4 % (0-2); Eosinophils Absolute Auto 0.2 X10*3/uL (0.0-0.4); Eosinophils Percent Auto 1.6 % (0-4); Hematocrit 39.1 % (37.0-47.0); Imm Gran Abs Auto 0.05 X10*3/uL (0.00-0.03); Imm Gran Pct Auto 0.4 % (0.0-0.4); Lymphocytes Percent Auto 30.9 % (20-40); Mean Corpuscular HGB Conc 35.8 g/dl (31.0-35.0); Mean Corpuscular Hemoglobin 32.6 pg (27.0-33.0); Mean Corpuscular Volume 91.1 fL (80.0-98.0); Mean Platelet Volume 9.3 fL (9.4-12.3); Monocytes Absolute Auto 0.6 X10*3/uL (0.1-1.2); Monocytes Percent Auto 4.5 % (2-11); Neutrophils Absolute Auto 8.1 x10*3/uL (2.0-8.3); Neutrophils Percent Auto 62.2 % (45-73); Platelet Count 248 X10*3/uL (160-400); Red Blood Count 4.29 X10*6/uL (4.20-5.50); Red Cell Distribution Width 12.4 % (11.0-16.0); White Blood Count 13.1 X10*3/uL (4.8-10.8)
[2024-06-21 20:36] LABS: Alanine Aminotransferase 14 U/L (0-31); Albumin Level 4.6 g/dL (3.5-5.0); Alkaline Phosphatase 41 U/L (39-117); Anion Gap 12 (12-20); Aspartate Amino Transferase 14 U/L (5-31); Bilirubin Total 0.4 mg/dL (0.0-1.0); Blood Urea Nitrogen 9 mg/dL (9-16); Calcium 9.7 mg/dL (8.4-10.2); Carbon Dioxide 24 mmol/L (22-29); Chloride 109 mmol/L (96-108); Creatinine Clr Calc Pharmacy 116.2; Estimated Glomerular Filt Rate > 60; Glucose Random 90 mg/dL (60-115); Potassium 4.3 mmol/L (3.3-5.1); Sodium 141 mmol/L (135-145); Total Protein 6.9 g/dL (6.5-8.0)
[2024-06-21 20:48] LABS: Appearance Urine Clear; Color Urine Yellow; Glucose Urine UA Negative (Negative); Leukocyte Esterase Urine Negative (Negative); Nitrite Urine Negative (Negative); Specific Gravity - Urine 1.015 (1.005-1.025); UMIC TRIGGER UACC YES; Urine Blood Large (3+) (Negative); Urine Ketones Negative (Negative); Urine Protein Negative (Neg-Trace)
[2024-06-21 20:51] LABS: UPreg QC Valid YES; Urine Pregnancy NEGATIVE (NEGATIVE)
[2024-06-21 21:07] LABS: Bacteria Urine Trace (None Seen); Hyaline Casts Urine 0-2 /LPF (0-2); RBC Urine 0-2 /HPF (0-2); WBC Urine 0-5 /HPF (0-5)
[2024-06-21] MEDS: Albuterol Sulfate (0.083%) 2.5 MG/3 ML VIAL.NEB 7.5 MG INHALE (22:46)
[2024-06-21 22:51] VITALS: PULSE 67; RESP 18; O2SAT 97
[2024-06-21] MEDS: predniSONE 20 MG TABLET 40 MG PO (23:09)
[2024-06-22 01:25] VITALS: BP 126/89; PULSE 67; RESP 18; TEMP 36.8; O2SAT 97
== END 2024-06-22 01:25 | disposition home or self-care (01) ==
PROVIDERS: Nurse Practitioner Family; Emergency Provider Emergency Medicine; PCP Internal Medicine
DX: B37.0 Candidal stomatitis (principal); K59.00 Constipation, unspecified; J40 Bronchitis, not specified as acute or chronic; R06.02 Shortness of breath; R10.2 Pelvic and perineal pain; R13.10 Dysphagia, unspecified; F17.210 Nicotine dependence, cigarettes, uncomplicated; Z79.899 Other long term (current) drug therapy
CPT/HCPCS: 36415; 71046; 74018; 80053; 81001; 81025; 85025; 94640; 99283; 99284

== ENCOUNTER 2024-06-26 09:12 | Outpatient (AMB) | payer MEDICARE, MEDICAID, SELFPAY ==
--- NOTE | 2024-06-26 09:29 | MHC.PC.OV ---
Vital Signs 06/26/24 09:30 Height 5 ft 7 in Weight 222 lb BMI 34.8 BP 100/80 Blood Pressure Location Lt brachial Position Sitting Pulse 83 Pulse Source Pulse Oximeter Pulse Oximetry (%) 98 Oxygen Delivery Method Room Air Intake Visit Reasons: [facility] Intake Note: Pt is here today for [facility] bronchitis Allergies lurasidone [From Latuda] Allergy (Mild, Verified 06/26/24 10:06) Itching Medication List - Last Reconciled 06/26/24 by Felisa Amaral MD albuterol sulfate 90 mcg/actuation 2 puffs inhalation Q4-6H PRN 1 week clonazepam 1 mg PO BID clonidine HCl 0.05 mg PO DAILY clonidine HCl 0.1 mg PO BEDTIME epinephrine (EpiPen) 0.3 mg (0.3 mL) IM Q10M PRN hydromorphone (Dilaudid) 2 mg PO Q8H PRN ibuprofen 800 mg PO Q8H PRN losartan 50 mg PO DAILY nystatin 600,000 units (6 mL) PO Q6H 2 weeks omeprazole 40 mg PO DAILY@0630 oxcarbazepine 600 mg PO BEDTIME oxcarbazepine 150 mg PO DAILY sertraline 100 mg PO DAILY Tobacco use date assessed: 06/26/24 Dental Screening Dental Screen Date: 06/26/24 Did you have a dental visit in the last 12 months?: Yes Did you have a dental problem in the last 6 months where you did not have access to dental care?: No Was dental information given to patient?: Patient has dentist HPI [facility] HPI Details 44-year-old lady here today for follow-up after recent ER visit, where she was treated for acute bronchitis, oral thrush, and possible constipation. She was prescribed levofloxacin which has already finished taking, and oral nystatin oral suspension, 4 days of prednisone at 40 mg q.d., and advised to start taking Colace and MiraLax as needed for constipation. Breathing is back to normal low further burning on tongue, white film on tongue has resolved. Still complaining of pain across her lower back, occasionally radiating to buttock, currently followed by chest pain coordinator [facility] Medical History (Updated 06/26/24 @ 10:28 by Felisa Amaral MD) History of adenomatous polyp of colon Piriformis syndrome of right side Lumbar disc herniation with radiculopathy History of shingles Essential hypertension Lazy eye of right side Legally blind in right eye, as defined in [place] Obesity (BMI 35.0-39.9 without comorbidity) Bipolar disorder Surgical History Hx of colonoscopy Hx of dilation and curettage History of carpal tunnel release History of History of bunionectomy of right great toe Family History Father Brain aneurysm Sister Gilbert's disease Daughter Bipolar disorder Mental health disorder Family/Other Hx of colonoscopy Social History Household Members: Family Housing: House Do you presently have visiting nurse or other home services: No Alcohol intake: never Patient Tobacco Use Status: Current everyday Tobacco user Tobacco use type: Cigarette Cigarettes Per Day: 15 e-Cigarette/Vaping Use: Never Used Second Hand Smoke Exposure: No Substance Use Type: Marijuana service: No Current occupational status: disabled Cognitive needs: No Hearing needs: No Vision needs: Yes Questionnaire Thrive Questionnaire Date Thrive assessed: 06/10/24 I am a: Patient What is your living situation today?: I have a steady place to live Within the past 12 months, did the food you bought not last and you didn't have the money to get more?: Never true Within the past 12 months, did you worry whether your food would run out before you got money to buy more?: Never true Do you have trouble paying for medicines?: No Do you have trouble getting transportation to medical appointments?: No Do you have trouble paying your heating and electricity bill?: No Do you have trouble taking care of your child, family member or friend?: No Do you have trouble with day-to-day activities such as bathing, preparing meals, shopping, managing finances, etc.?: Yes Are you currently unemployed and looking for a job?: I choose not to answer this question Are you interested in more education?: No Please select the resources that you would like help with: None Currently or been in a relationship where the following occur: No concerns reported THRIVE Score: 0 GAY-7 AMB Questionnaire GAY-7 Date GAY - 7 assessed: 06/10/24 Source: Developed by Drs. Regis Martinez, Stephie Palomino, Terrence Mota and colleagues, with an educational aditi from [employer]. Review of Systems Const All systems reviewed & are unremarkable except as noted in HPI and below Neuro Denies Sensory deficit (Neuro) Physical exam (Primary Care) Vital Signs: Last Vital Signs Pulse 83 06/26/24 09:30 BP 100/80 06/26/24 09:30 Pulse Ox 98 06/26/24 09:30 Oxygen Delivery Method Room Air 06/26/24 09:30 BMI result Body Mass Index 34.8 Tobacco/Smoking Status: Tobacco use Status Tobacco use date assessed 06/26/24 06/26/24 09:33 Patient Tobacco Use Status Current everyday Tobacco 06/26/24 09:53 Tobacco use type Cigarette 06/26/24 09:30 e-Cigarette/Vaping Use Never Used 06/26/24 09:30 Thrive Assessment: Date of Thrive Assessment Date Thrive assessed 06/10/24 06/26/24 09:30 Currently or been in a relationship where the following occur: No concerns reported Const Nutritional Appearance: obese Orientation/consciousness: patient oriented x3 HENMT Other: No oral thrush seen Eyes General: appearance normal, both eyes and all related structures Neck Neck: Yes full ROM and Yes no lymphadenopathy Resp Effort & Inspection: normal respiratory effort and able to speak in complete sentences Auscultation: clear to auscultation bilaterally Cardio Rate: regular rate Rhythm: regular rhythm Heart sounds: S1 normal heart sound present and S2 normal heart sound present GI Inspection: Yes normal to inspection Palpation (GI): Soft to palpation Auscultation: normal bowel sounds Back/Spine/Pelvis Thoracic/Lumbar Spine: straight leg raise negative bilaterally and paraspinal muscle tenderness on the right in the mid lumbar Skin General skin exam: no rashes or lesions noted Neuro General: patient oriented x3, gait normal, moves all extremities, Normal light touch and pain sensation, no focal motor deficits, CN's II-XI intact bilaterally and deep tendon reflexes 2+ bilaterally Cognition (Neuro): normal cognition Gait exam (Neuro): Normal gait present Motor exam (neuro): 5/5 motor strength present throughout Sensory Exam: No Sensory deficit (Neuro) Extrem General: Yes normal to inspection, Yes full ROM, Yes no pedal edema and Yes normal gait Coding Level of Care Code Est Pt Level 4 (96243) Diagnoses Piriformis syndrome of right side G57.01 Cigarette smoker motivated to quit F17.210 Assessment & Plan Assessment & Plan (1) Piriformis syndrome of right side: Code(s): G57.01 - Lesion of sciatic nerve, right lower limb Plan: Referred to physical therapy for further evaluation management, prescription sent for ibuprofen 800 mg per tablet to take 1 tablet every 12 hours as needed for pain, always take it with a meal. (2) Cigarette smoker motivated to quit: Code(s): F17.210 - Nicotine dependence, cigarettes, uncomplicated Plan: Discussed options for smoking cessation with medications. Pt wishes to try nicotine patch. Pt advised to apply the nicotine patch as directed on cigarette quit day. Discussed common side effects and strongly advised not to smoke while using the patch. If developes any adverse effects please call office. Follow up in office 4-6 weeks and 1 week by phone with update.Discussed side effects including but not limited to local erythema, rash, diarrhea, and insomnia., , Orders: Orders PT Evaluation and Treatment 06/26/24 G57.01 - Lesion of sciatic nerve, right lower limb, M54.31 - Sciatica, right side Medications: New nicotine 1 patch transdermal DAILY 28 ea 0RF F17.210 - Nicotine dependence, cigarettes, uncomplicated Changed From ibuprofen 800 mg PO Q8H PRN 15 tabs 0RF pain To ibuprofen Take it with food 800 mg PO Q12H PRN 60 tabs 0RF pain
[2024-06-26 09:30] VITALS: BP 100/80; PULSE 83; O2SAT 98; BMI 34.8
== END 2024-06-26 10:30 | disposition home or self-care (01) ==
LOC: HO.HMCC 09:13
PROVIDERS: PCP Internal Medicine; Visit Provider Internal Medicine
DX: G57.01 Lesion of sciatic nerve, right lower limb (principal); F17.210 Nicotine dependence, cigarettes, uncomplicated

== ENCOUNTER → 2024-06-26 09:12 | Outpatient (BNVA) | payer MEDICARE, MEDICAID, SELFPAY | PROVIDERS: PCP Internal Medicine; Visit Provider Internal Medicine | DX: G57.01 Lesion of sciatic nerve, right lower limb (principal); F17.210 Nicotine dependence, cigarettes, uncomplicated | CPT/HCPCS: 99212 ==

== ENCOUNTER 2024-07-02 14:38 | Emergency (ER) | payer MEDICARE, MEDICAID, SELFPAY ==
--- NOTE | 2024-07-02 14:45 | ED_ITS ---
HPI - General Adult General Chief complaint: Allergic Reaction Stated complaint: Allergic reaction? Hives Time Seen by Provider: 07/02/24 16:35 Source: patient Mode of arrival: ambulatory Limitations: no limitations History of Present Illness ED Provider: tania HPI narrative: Patient is a 44-year-old female with history of lumbar disc herniation with radiculopathy, HTN, bipolar disorder presenting to the ED with complaint of hives to chest, arms, buttocks for the past week after taking ibuprofen for sciatic pain. Known allergy to NSAIDs, but states nothing else helps her back pain, so she has been taking ibuprofen with benadryl. Denies shortness of breath or difficulty breathing, denies any nausea or vomiting, swelling to lips or tongue. Has seen neurosurgeon for her back, was referred to pain management, had one round of injections which she feels did not help. Has an epi-pen at home. Has PO dilaudid at home but is hesitant to start using this for her back pain. MD complaint: rash Onset (ago): week(s) Location: chest, buttocks and upper extremity Associated symptoms: denies other symptoms Treatments prior to arrival: other Related Data Home Medications ?Medication ?Instructions ?Recorded ?Confirmed clonidine HCl 0.1 mg tablet 0.1 mg PO BEDTIME 05/04/22 06/26/24 sertraline 100 mg tablet 100 mg PO DAILY 06/08/23 06/26/24 clonazepam 1 mg tablet 1 mg PO BID 08/31/23 06/26/24 oxcarbazepine 150 mg tablet 150 mg PO DAILY 08/31/23 06/26/24 clonidine HCl 0.1 mg tablet 0.05 mg PO DAILY 06/16/24 06/26/24 oxcarbazepine 300 mg tablet 600 mg PO BEDTIME 06/16/24 06/26/24 Previous Rx's ?Medication ?Instructions ?Recorded epinephrine 0.3 mg/0.3 mL 0.3 mg (0.3 mL) IM Q10M PRN 03/15/24 injection, auto-injector (EpiPen) anaphylaxis #1 ea losartan 50 mg tablet 50 mg PO DAILY #90 tabs 04/01/24 omeprazole 40 mg capsule,delayed 40 mg PO DAILY@0630 #90 caps 06/17/24 release hydromorphone 2 mg tablet 2 mg PO Q8H PRN pain #84 tabs 06/18/24 (Dilaudid) albuterol sulfate 90 mcg/actuation 2 puff inhalation Q4-6H PRN 06/22/24 aerosol inhaler shortness of breath or wheezing 1 week #8.5 grams nystatin 100,000 unit/mL oral 600,000 unit (6 mL) PO Q6H 2 weeks 06/22/24 suspension #336 mL ibuprofen 800 mg tablet 800 mg PO Q12H PRN pain #60 tabs 06/26/24 nicotine 14 mg/24 hr daily 1 patch transdermal DAILY #28 ea 06/26/24 transdermal patch gabapentin 100 mg capsule 100 mg PO TID #42 caps 07/02/24 prednisone 20 mg tablet 20 mg PO DAILY #5 tabs 07/02/24 Allergies Allergy/AdvReac Type Severity Reaction Status Date / Time lurasidone [From Latuda] Allergy Mild Itching Verified 07/02/24 14:47 NSAIDS (Non-Steroidal Allergy Rash Verified 07/02/24 14:47 Anti-Inflamma Review of Systems Review of Systems: As per HPI. Yes all other systems are reviewed and are negative Constitutional: Constitutional: Reports as per HPI [facility] Past Medical History Medical History (Updated 07/02/24 @ 16:41 by Vicki Alvarado NP) History of adenomatous polyp of colon Piriformis syndrome of right side Lumbar disc herniation with radiculopathy History of shingles Essential hypertension Lazy eye of right side Legally blind in right eye, as defined in [place] Obesity (BMI 35.0-39.9 without comorbidity) Bipolar disorder Surgical History Hx of colonoscopy Hx of dilation and curettage History of carpal tunnel release History of History of bunionectomy of right great toe Family History Family History Father Brain aneurysm Sister Gilbert's disease Daughter Bipolar disorder Mental health disorder Family/Other Hx of colonoscopy Social History Social History Household Members: Family Housing: House Do you presently have visiting nurse or other home services: No Alcohol intake: never Patient Tobacco Use Status: Current everyday Tobacco user Tobacco use type: Cigarette Cigarettes Per Day: 15 e-Cigarette/Vaping Use: Never Used Second Hand Smoke Exposure: No Substance Use Type: Marijuana Advance Directives: No Advance Directives Information Provided: Yes service: No Current occupational status: disabled Cognitive needs: No Hearing needs: No Vision needs: Yes Physical Exam ED Vital Signs: Vital Signs - 24 hr 07/02/24 14:46 Temperature 98.3 F Pulse Rate 98 Respiratory Rate 18 Blood Pressure 143/100 H Pulse Oximetry 98 Oxygen Delivery Method Room Air BMI result Body Mass Index 34.7 Vital signs have been reviewed and appear to be correct. Blood pressure normal. Heart rate normal. Respiratory rate normal. Temperature normal. Oxygen saturation normal. Const General: cooperative, healthy appearing and no acute distress Orientation/consciousness: oriented to person, oriented to place, oriented to time and patient oriented x3 Limitations: no limitations HENMT Head: Yes normocephalic and Yes atraumatic Ears: external ears normal General nose exam: Normal external nose present Face and sinus: Yes face symmetric Mouth: Normal oral and palatal mucosa present, lip normal, tongue normal, oropharynx normal and moist mucous membranes Throat: Yes posterior oropharynx normal, Yes uvula midline and No uvular edema Eyes Pupils: Equal, round and reactive pupils present Neck Neck: Yes normal visual inspection and Yes supple Resp Effort & Inspection: normal respiratory effort and able to speak in complete sentences Auscultation: clear to auscultation bilaterally Cardio Rate: regular rate Rhythm: regular rhythm Heart sounds: S1 normal heart sound present and S2 normal heart sound present GI Palpation (GI): Soft to palpation and nontender Auscultation: normoactive bowel sounds General: Yes no CVA tenderness Back/Spine/Pelvis Back: no CVA tenderness Skin General skin exam: elasticity normal and turgor normal Rashes: rashes noted urticaria diffuse Neuro General: oriented to person, oriented to place, oriented to time, patient oriented x3, moves all extremities, no focal motor deficits and CN's II-XI intact bilaterally Cranial nerves: Yes Equal, round and reactive pupils present Cognition (Neuro): normal cognition Extrem General: Yes full ROM, Yes no pedal edema and Yes no calf tenderness Psych Mental Status: mental status grossly normal Affect: normal affect Thought process: Normal thought process present Course Course Course Narrative: This is a rapid medical exam performed by C. Tania, [employer]PA[employer]: Additional HPI, ROS, PE not included below will be deferred to primary provider. Patient is a 44-year-old female presenting with complaint of hives due to taking ibuprofen for sciatic pain. States she was also recently treated for pneumonia. Denies dyspnea. In no acute distress in triage. Medical Decision Making Medical Decision Making [facility] Narrative: Patient is a 44-year-old female with history of lumbar disc herniation with radiculopathy, HTN, bipolar disorder presenting to the ED with complaint of hives to chest, arms, buttocks for the past week after taking ibuprofen for sciatic pain. On exam patient is awake, A+Ox3, VS WNL, afebrile, normal neurological exam without focal deficits, physical exam findings as above. Given reported symptoms and physical exam findings, initial differential includes allergic reaction, contact dermatitis. Do not suspect TEN/SJS, DRESS, TTP/DIC, necrotizing fasciitis, meningococcemia, SSSS, TSS, anaphylaxis. Lungs CTA throughout, no uvular edema. Single system reaction, do not suspect anaphylaxis. Patient adamant that she wants to continue taking NSAIDs, because nothing else helps, and does not want any additional steroids. After lengthy discussion about the risks of continuing to take NSAIDs in the setting of known allergy, patient finally agreeable to try gabapentin for her pain, avoid NSAIDs, and take a short course of prednisone for her hives. Patient was also advised to stop using benadryl and switch to Zyrtec. Follow up with PCP to let them know if gabapentin was helpful or not. Return precautions discussed. Patient verbalized understanding of and agreement with plan. Differential Diagnosis Differential Diagnoses: The differential diagnosis associated with the presentation includes As per [facility] External Record Review External record reviewed: Inpatient record, Office record and Outpatient record Prescription Management I considered prescription management with: Pain Medication and Other Discharge Plan Discharge Clinical Impression: Sciatica, Allergic reaction Patient Disposition: Home, Self-Care Instructions: Sciatica (ED), Lower Back Exercises (ED) Additional Instructions: You were evaluated in the emergency department today for a rash which is due to an allergy to NSAIDs (ibuprofen, naproxen, etc). DO NOT TAKE ANY MORE OF THIS TYPE OF MEDICATION. We recommend that you take Zyrtec for itching. You are being prescribed prednisone to decrease inflammation. You are being prescribed gabapentin for your back pain. Follow up with your primary care provider and let them know if this medicine is helpful in treating your pain. Return to the emergency department if you develop worsening rash, difficulty breathing or shortness of breath, swelling of lips/tongue, or any other concerning symptoms. Prescriptions: New prednisone 20 mg tablet 20 mg PO DAILY Qty: 5 0RF gabapentin 100 mg capsule 100 mg PO TID Qty: 42 0RF No Action losartan 50 mg tablet 50 mg PO DAILY Qty: 90 1RF oxcarbazepine 300 mg tablet 600 mg PO BEDTIME clonidine HCl 0.1 mg tablet 0.05 mg PO DAILY omeprazole 40 mg Capsule,Delayed Release(Dr/Ec) 40 mg PO DAILY@0630 Qty: 90 0RF hydromorphone [Dilaudid] 2 mg tablet 2 mg PO Q8H PRN (Reason: pain) Qty: 84 0RF Rx Instructions: Partial Fill upon patient request. albuterol sulfate 90 mcg/actuation HFA aerosol inhaler 2 puff inhalation Q4-6H PRN (Reason: shortness of breath or wheezing) 7 Days Qty: 8.5 0RF nystatin 100,000 unit/mL suspension 600,000 unit PO Q6H 14 Days Qty: 336 0RF Rx Instructions: Swish in mouth several minutes and then swallow clonidine HCl 0.1 mg tablet 0.1 mg PO BEDTIME epinephrine [EpiPen] 0.3 mg/0.3 mL auto-injector 0.3 mg IM Q10M PRN (Reason: anaphylaxis) Qty: 1 4RF Rx Instructions: for 2 doses sertraline 100 mg tablet 100 mg PO DAILY clonazepam 1 mg tablet 1 mg PO BID oxcarbazepine 150 mg tablet 150 mg PO DAILY nicotine 14 mg/24 hr patch 24 hour 1 patch transdermal DAILY Qty: 28 0RF ibuprofen 800 mg tablet 800 mg PO Q12H PRN (Reason: pain) Qty: 60 0RF Rx Instructions: Take it with food Print Language: Bur[place]
[2024-07-02 14:46] VITALS: BP 143/100; PULSE 98; RESP 18; TEMP 36.8; O2SAT 98; BMI 34.7
[2024-07-02 17:01] VITALS: BP 143/100; PULSE 98; RESP 18; TEMP 36.8; O2SAT 98
== END 2024-07-02 17:01 | disposition home or self-care (01) ==
PROVIDERS: Emergency Provider Emergency Medicine; PCP Internal Medicine
DX: L50.0 Allergic urticaria (principal); M54.40 Lumbago with sciatica, unspecified side; F17.210 Nicotine dependence, cigarettes, uncomplicated; Z79.899 Other long term (current) drug therapy
CPT/HCPCS: 99282; 99283

== ENCOUNTER 2024-07-08 08:10 | Outpatient (AMB) | payer MEDICARE, MEDICAID, SELFPAY ==
--- NOTE | 2024-07-08 08:14 | MHC.PC.OV ---
Vital Signs 07/08/24 08:17 Height 5 ft 7 in Weight 223 lb BMI 34.9 BP 122/82 Blood Pressure Location Rt brachial Position Sitting Pulse 94 Pulse Source Pulse Oximeter Pulse Oximetry (%) 98 Oxygen Delivery Method Room Air Intake Visit Reasons: ED follow up Intake Note: [place] is here today [place] [facility] [place]ergies lurasidone [From Latuda] Allergy (Mild, Verified 07/15/24 02:53) Itching NSAIDS (Non-Steroidal Anti-Inflamma Allergy (Verified 07/15/24 02:53) Rash Medication List - Last Reconciled 07/08/24 by Felisa Amaral MD albuterol sulfate 90 mcg/actuation 2 puffs inhalation Q4-6H PRN 1 week clonidine HCl 0.05 mg PO DAILY clonidine HCl 0.1 mg PO BEDTIME epinephrine (EpiPen) 0.3 mg (0.3 mL) IM Q10M PRN gabapentin 100 mg PO TID losartan 50 mg PO DAILY nicotine 1 patch transdermal DAILY nystatin 600,000 units (6 mL) PO Q6H 2 weeks omeprazole 40 mg PO DAILY@0630 oxcarbazepine 600 mg PO BEDTIME oxcarbazepine 150 mg PO DAILY prednisone 20 mg PO DAILY sertraline 100 mg PO DAILY Tobacco use date assessed: 07/08/24 Dental Screening Dental Screen Date: 07/08/24 Did you have a dental visit in the last 12 months?: Yes Did you have a dental problem in the last 6 months where you did not have access to dental care?: No Was dental information given to patient?: Patient has dentist HPI ED follow up HPI Details 44-year-old female with history of lumbar disc herniation with radiculopathy, HTN, bipolar disorder follow-up after visit to the ED with complaint of hives to chest, arms, buttocks for the past week after taking ibuprofen for sciatic pain. Has been taking Benadryl which affords relief. Patient has been advised to not continue taking any NSAIDs, was tried on gabapentin 100 mg at night, and given a 5 day course of prednisone 20 mg 1 tablet taken once a day, and advised to stop taking Benadryl and start Zyrtec as needed for hives. Patient states that the gabapentin helped a little bit but it gave her blurry vision. Prednisone for 5 days helped temporarily , but pain is back after she finished taking the medication. She has an appointment with physical therapy on the 17 of July. Patient was seen by Dr. Westbrook last month and had bilateral diagnostic sacroiliac joint injection, which did not cause any improvement, Negative bilateral sacroiliac joint injection effectively eliminated sacroiliac joints as the source of her pain. Dr. Westbrook things she has piriformis syndrome on the right and offered her ultrasound-guided piriformis steroid injection, but patient hesitant to have it done. [facility] Medical History History of adenomatous polyp of colon Piriformis syndrome of right side Lumbar disc herniation with radiculopathy History of shingles Essential hypertension Lazy eye of right side Legally blind in right eye, as defined in [place] Obesity (BMI 35.0-39.9 without comorbidity) Bipolar disorder Surgical History Hx of colonoscopy Hx of dilation and curettage History of carpal tunnel release History of History of bunionectomy of right great toe Family History Father Brain aneurysm Sister Gilbert's disease Daughter Bipolar disorder Mental health disorder Family/Other Hx of colonoscopy Social History Household Members: Family Housing: House Do you presently have visiting nurse or other home services: No Alcohol intake: never Patient Tobacco Use Status: Current everyday Tobacco user Tobacco use type: Cigarette Cigarettes Per Day: 15 e-Cigarette/Vaping Use: Never Used Second Hand Smoke Exposure: No Substance Use Type: Marijuana service: No Current occupational status: disabled Cognitive needs: No Hearing needs: No Vision needs: Yes Questionnaire Thrive Questionnaire Date Thrive assessed: 06/10/24 GAY-7 AMB Questionnaire GAY-7 Date GAY - 7 assessed: 06/10/24 Source: Developed by Drs. Regis Martinez, Stephie Palomino, Terrence Mota and colleagues, with an educational aditi from [employer]. Review of Systems Const All systems reviewed & are unremarkable except as noted in HPI and below Neuro Denies Sensory deficit (Neuro) Physical exam (Primary Care) Vital Signs: Last Vital Signs Pulse 94 07/08/24 08:17 BP 122/82 07/08/24 08:17 Pulse Ox 98 07/08/24 08:17 Oxygen Delivery Method Room Air 07/08/24 08:17 BMI result Body Mass Index 34.9 Tobacco/Smoking Status: Tobacco use Status Tobacco use date assessed 07/08/24 07/08/24 08:21 Patient Tobacco Use Status Current everyday Tobacco 07/08/24 08:15 Tobacco use type Cigarette 07/08/24 08:15 e-Cigarette/Vaping Use Never Used 07/08/24 08:15 Thrive Assessment: Date of Thrive Assessment Date Thrive assessed 06/10/24 07/08/24 08:15 Const Nutritional Appearance: obese Orientation/consciousness: patient oriented x3 Eyes General: appearance normal, both eyes and all related structures Neck Neck: Yes full ROM and Yes no lymphadenopathy Resp Effort & Inspection: normal respiratory effort and able to speak in complete sentences Auscultation: clear to auscultation bilaterally Cardio Rate: regular rate Rhythm: regular rhythm Heart sounds: S1 normal heart sound present and S2 normal heart sound present GI Inspection: Yes normal to inspection Palpation (GI): Soft to palpation Auscultation: normal bowel sounds Back/Spine/Pelvis Thoracic/Lumbar Spine: straight leg raise negative bilaterally and paraspinal muscle tenderness on the right in the mid lumbar Skin General skin exam: no rashes or lesions noted Neuro General: patient oriented x3, gait normal, moves all extremities, Normal light touch and pain sensation, no focal motor deficits, CN's II-XI intact bilaterally and deep tendon reflexes 2+ bilaterally Cognition (Neuro): normal cognition Gait exam (Neuro): Normal gait present Motor exam (neuro): 5/5 motor strength present throughout Sensory Exam: No Sensory deficit (Neuro) Extrem General: Yes normal to inspection, Yes full ROM, Yes no pedal edema and Yes normal gait Psych Affect: Anxious affect present Coding Level of Care Code Est Pt Level 3 (95905) Diagnoses Piriformis syndrome of right side G57.01 Assessment & Plan Assessment & Plan (1) Piriformis syndrome of right side: Code(s): G57.01 - Lesion of sciatic nerve, right lower limb Plan: Patient states she will continue with the gabapentin, and keep that appointment with physical therapy on the . Advised to schedule another appointment with Dr. Westbrook, and try the procedure that he is recommending. Do not take NSAIDs.
[2024-07-08 08:17] VITALS: BP 122/82; PULSE 94; O2SAT 98; BMI 34.9
== END 2024-07-08 09:21 | disposition home or self-care (01) ==
LOC: HO.HMCC 08:10
PROVIDERS: PCP Internal Medicine; Visit Provider Internal Medicine
DX: G57.01 Lesion of sciatic nerve, right lower limb (principal)

== ENCOUNTER → 2024-07-08 08:10 | Outpatient (BNVA) | payer MEDICARE, MEDICAID, SELFPAY | PROVIDERS: PCP Internal Medicine; Visit Provider Internal Medicine | DX: G57.01 Lesion of sciatic nerve, right lower limb (principal) | CPT/HCPCS: 99212 ==

== ENCOUNTER 2024-07-11 05:54 | Emergency (ER) | payer MEDICARE, MEDICAID, SELFPAY ==
[2024-07-11 06:00] VITALS: BP 129/88; PULSE 109; RESP 18; TEMP 36.6; O2SAT 100; BMI 34.9
[2024-07-11 06:25] VITALS: BP 107/70; PULSE 91; RESP 16; TEMP 36.9; O2SAT 98
--- NOTE | 2024-07-11 09:04 | ED_ITS ---
HPI - Extremity Injury (Lower) General Chief Complaint: Extremity Injury, Lower Stated Complaint: R Leg pain, Dizzyness Time Seen by Provider: 07/11/24 09:02 Source: patient Mode of arrival: ambulatory Limitations: no limitations History of Present Illness ED Provider: Adia Painting PA-C HPI Narrative: 44-year-old female with history of bipolar disorder, HTN, lumbar disc herniation with radiculopathy, history of ongoing back issues since she fell off of a horse in 2014, who presents to the ER for evaluation of right buttock pain radiating down her right leg for the last 1.5 months. She denies any specific injury. She reports having an MRI of her back in January which showed overall improvement of her disc herniation. She reports this pain is different than her normal disc herniated pain. She states she has been on 5 courses of steroids with brief improvement along with gabapentin. She reports the gabapentin was causing her to have blurred vision so she stopped it on Monday. She has been seen by Dr. Westbrook in pain management and is due to get a procedure on September 03. He told her the pain was likely from the piriformis muscle compressing the sciatic nerve. She reports minimal relief muscle relaxers. She has intermittently tried Dilaudid with brief relief but does not want to be on pain medications. She reports all over body hives with naproxen and ibuprofen. She reports the pain is severe, worse with any movement. She states on Monday she had ?a psychotic break. ? she was just coming off of a round of steroids and had stopped her gabapentin. She states she went crazy and ended up breaking several bases and pieces of glass in her home. She was throwing things, yelling and not being rational. She states her family members did not want her to be at her home anymore so she drove to a hotel where she has stayed the last 2 nights. She thinks her medications have been reacting with her psych meds. She has a psychiatrist but no therapist. She is not suicidal or homicidal. complaint: leg injury Onset (ago): week(s) Type of Injury: unknown Severity: severe Severity scale (1-10): 9 Relieving factors: immobilization, rest and other (dilaudid) Exacerbating factors: weight bearing, movement and palpation Associated symptoms: able to partially bear weight Other symptoms: none Related Data Home Medications ?Medication ?Instructions ?Recorded ?Confirmed clonidine HCl 0.1 mg tablet 0.1 mg PO BEDTIME 05/04/22 06/26/24 sertraline 100 mg tablet 100 mg PO DAILY 06/08/23 06/26/24 oxcarbazepine 150 mg tablet 150 mg PO DAILY 08/31/23 06/26/24 clonidine HCl 0.1 mg tablet 0.05 mg PO DAILY 06/16/24 06/26/24 oxcarbazepine 300 mg tablet 600 mg PO BEDTIME 06/16/24 06/26/24 Previous Rx's ?Medication ?Instructions ?Recorded epinephrine 0.3 mg/0.3 mL 0.3 mg (0.3 mL) IM Q10M PRN 03/15/24 injection, auto-injector (EpiPen) anaphylaxis #1 ea losartan 50 mg tablet 50 mg PO DAILY #90 tabs 04/01/24 omeprazole 40 mg capsule,delayed 40 mg PO DAILY@0630 #90 caps 06/17/24 release albuterol sulfate 90 mcg/actuation 2 puff inhalation Q4-6H PRN 06/22/24 aerosol inhaler shortness of breath or wheezing 1 week #8.5 grams nystatin 100,000 unit/mL oral 600,000 unit (6 mL) PO Q6H 2 weeks 06/22/24 suspension #336 mL nicotine 14 mg/24 hr daily 1 patch transdermal DAILY #28 ea 06/26/24 transdermal patch gabapentin 100 mg capsule 100 mg PO TID #42 caps 07/02/24 prednisone 20 mg tablet 20 mg PO DAILY #5 tabs 07/02/24 methocarbamol 750 mg tablet 750 mg PO Q8H PRN muscle 07/11/24 spasticity #14 tabs pregabalin 25 mg capsule (Lyrica) 25 mg PO BEDTIME #14 caps 07/11/24 Allergies Allergy/AdvReac Type Severity Reaction Status Date / Time lurasidone [From Latuda] Allergy Mild Itching Verified 07/11/24 06:00 NSAIDS (Non-Steroidal Allergy Rash Verified 07/11/24 06:00 Anti-Inflamma Review of Systems Review of Systems: Yes all other systems are reviewed and are negative PMFSH Past Medical History Medical History History of adenomatous polyp of colon Piriformis syndrome of right side Lumbar disc herniation with radiculopathy History of shingles Essential hypertension Lazy eye of right side Legally blind in right eye, as defined in [place] Obesity (BMI 35.0-39.9 without comorbidity) Bipolar disorder Surgical History Hx of colonoscopy Hx of dilation and curettage History of carpal tunnel release History of History of bunionectomy of right great toe Family History Family History Father Brain aneurysm Sister Gilbert's disease Daughter Bipolar disorder Mental health disorder Family/Other Hx of colonoscopy Social History Social History Household Members: Family Housing: House Do you presently have visiting nurse or other home services: No Alcohol intake: never Patient Tobacco Use Status: Current everyday Tobacco user Tobacco use type: Cigarette Cigarettes Per Day: 15 Smoked in Last 30 Days: No e-Cigarette/Vaping Use: Never Used Second Hand Smoke Exposure: No Use of substances other than those prescribed or required for medical reasons: No Substance Use Type: Marijuana Advance Directives: No Do you have a plan to hurt others: No Plan service: No Current occupational status: disabled Cognitive needs: No Hearing needs: No Vision needs: Yes Physical Exam Vital Signs: Vital Signs: Last Vital Signs Temp 98.1 F 07/11/24 12:23 Pulse 66 07/11/24 12:23 Resp 16 07/11/24 12:23 BP 112/73 07/11/24 12:23 Pulse Ox 97 07/11/24 12:23 O2 Del Method Room Air 07/11/24 12:23 BMI result Body Mass Index 34.9 Appearance: Alert. Oriented X3. Appears uncomfortable Head: normocephalic, atraumatic. Eyes: Pupils equal, round and reactive to light. ENT: Pharynx normal. No tonsillar swelling or exudate. Neck: Normal inspection. Neck supple. CVS: Normal heart rate and rhythm. Pulses normal. Respiratory: No respiratory distress. Breath sounds normal. Abdomen: Soft and nontender. +BS x4 Back: Soft tissue tenderness and tenderness at the SI joint with limited range of motion of the right leg/positive right leg raise test. Skin: Skin warm and dry. Normal skin color. Normal skin turgor. No rashes. Extremities: No lower extremity edema. No joint swelling. Neuro/psych: Oriented X 3. No motor deficit. No sensory deficit. CN II-XII intact. Normal speech and cognition. No SI or HI. No AH/ VH Course Reevaluation(s) Reevaluation #1: Patient reports improvement in her pain with Dilaudid and Robaxin. She does not like the way these medications make her feel in her head. She would like to be seen by the care team. Physician observation started at 10:47. Patient placed in physician observation because patient is awaiting CARE team evaluation for the possible need of inpatient psych admission and resource referral. At the time observation was started patient's vital signs were stable. Patient is alert and oriented. Neuro exam is non-focal. CV: RRR and lungs are clear. Will continue to monitor. Time: 10:47 Reevaluation #2: Patient seen and evaluated by the care team. Referral made to [facility]. Pain is improved with her medications. She is not psychotic at this time, not suicidal or homicidal. She is stable for discharge home with outpatient follow-up. Agrees with plan all questions were answered Time: 12:18 Medications Administered Discontinued Medications Generic Name Dose Route Start Last Admin Trade Name Isaura PRN Reason Stop Dose Admin Acetaminophen 975 mg 07/11/24 09:21 07/11/24 09:34 Acetaminophen 325 Mg Tablet PO 07/11/24 09:22 975 mg ONCE ONE Administration Hydromorphone HCl 2 mg 07/11/24 09:21 07/11/24 09:34 Hydromorphone Hcl 2 Mg Tablet PO 07/11/24 09:22 2 mg ONCE ONE Administration Methocarbamol 750 mg 07/11/24 09:21 07/11/24 09:34 Methocarbamol 750 Mg Tablet PO 07/11/24 09:22 750 mg ONCE ONE Administration Medical Decision Making Medical Decision Making [facility] Narrative: 44-year-old female presents to the ER for evaluation of 6 weeks of right buttock pain radiating to the right lower extremity causing significant pain and limited mobility issues. She reports being on prednisone several times, being on gabapentin with minimal relief. She is due to get intervention at pain management but not until August. She reports the pain is caused her to have a psychotic break. Exam is most consistent with sacroiliitis with pain upon the SI joint palpation. She had an MRI done in January. There are no red flag symptoms to warrant a repeat emergent MRI today. There is no evidence swelling in the right lower extremity suggest DVT. Patient was given Dilaudid and Robaxin with improvement in the pain. She was asking to be seen by the care team who evaluated her and made referrals for [facility]. This time patient is stable for discharge home with muscle relaxers. She has plenty of oral Dilaudid tablets from her recent admission at home. She will follow-up with pain management and her primary care doctor. She ambulates with steady gait. Stable for discharge home. Differential Diagnosis Differential Diagnoses: The differential diagnosis associated with the presentation includes Inflammatory disorders, malignancy, trauma, osteoporosis, nerve root compression, radiculopathy, plexopathy, degenerative disc disease, disc herniation, spinal stenosis, sacroiliac joint dysfunction, facet joint injury, and less likely infection?like abscess or diskitis Admission/Observation Consideration of admission/observation: Escalation of care including admission/observation considered Consult Healthcare Provider Management of the patient was discussed with: Behavioral Health Provider External Record Review External record reviewed: Outpatient record, Prior outpatient labs and Prior outpatient radiology Tests considered The following testing was considered but not selected: Considered CT scan of the lumbar spine and pelvis however not clinically emergently needed today Prescription Management I considered prescription management with: Pain Medication Chronic Conditions Patient?s care impacted by: Other (bipolar disorder) Critical Care Time Critical Care Time Critical Care Time: No Discharge Plan Discharge Clinical Impression: Sacroiliitis Patient Disposition: Home, Self-Care Instructions: Sacroiliitis (ED), Lower Back Exercises (ED) Additional Instructions: Take the prescribed muscle relaxer every 8 hours for the next 48 hours. Start Lyrica tonight. Follow up with Pain management as soon as possible. Follow up with your PCP as well. Follow up with [facility]. If you develop new or worsening symptoms call 911 or come back to the ER for further evaluation. Prescriptions: New methocarbamol 750 mg tablet 750 mg PO Q8H PRN (Reason: muscle spasticity) Qty: 14 0RF pregabalin [Lyrica] 25 mg capsule 25 mg PO BEDTIME Qty: 14 0RF No Action losartan 50 mg tablet 50 mg PO DAILY Qty: 90 1RF oxcarbazepine 300 mg tablet 600 mg PO BEDTIME clonidine HCl 0.1 mg tablet 0.05 mg PO DAILY omeprazole 40 mg Capsule,Delayed Release(Dr/Ec) 40 mg PO DAILY@0630 Qty: 90 0RF albuterol sulfate 90 mcg/actuation HFA aerosol inhaler 2 puff inhalation Q4-6H PRN (Reason: shortness of breath or wheezing) 7 Days Qty: 8.5 0RF nystatin 100,000 unit/mL suspension 600,000 unit PO Q6H 14 Days Qty: 336 0RF Rx Instructions: Swish in mouth several minutes and then swallow prednisone 20 mg tablet 20 mg PO DAILY Qty: 5 0RF gabapentin 100 mg capsule 100 mg PO TID Qty: 42 0RF clonidine HCl 0.1 mg tablet 0.1 mg PO BEDTIME epinephrine [EpiPen] 0.3 mg/0.3 mL auto-injector 0.3 mg IM Q10M PRN (Reason: anaphylaxis) Qty: 1 4RF Rx Instructions: for 2 doses sertraline 100 mg tablet 100 mg PO DAILY oxcarbazepine 150 mg tablet 150 mg PO DAILY nicotine 14 mg/24 hr patch 24 hour 1 patch transdermal DAILY Qty: 28 0RF [place] [facility] [place]] Felisa Amaral MD [Primary Care Provider] - Interventions: ED Discharge Assessment Last Done: 07/11/24 12:23 Discharge Date/Time: 07/11/24 12:24 Print Language: Chinese
[2024-07-11] MEDS: methocarbamoL 750 MG TABLET PO (09:34)
[2024-07-11] MEDS: Acetaminophen 325 MG TABLET 975 MG PO (09:34)
[2024-07-11] MEDS: HYDROmorphone HCl 2 MG TABLET PO (09:34)
--- NOTE | 2024-07-11 10:38 | PC.NURSE ---
Patient requesting care team consult d/t reaction at home. not si or Si, Provider maria guadalupe hooper
[2024-07-11 11:46] VITALS: BP 112/73; PULSE 66; RESP 16; TEMP 36.7; O2SAT 97
[2024-07-11 12:23] VITALS: BP 112/73; PULSE 66; RESP 16; TEMP 36.7; O2SAT 97
--- NOTE | 2024-07-11 12:48 | MHC.CARE ---
Pt is a 44 y/o single, Portuguese speaking, female who is previously unknown to the CARE Team.? Today, pt self-presented to the ED with a complaint of back pain and right buttock pain radiating down her right leg for the last 1.5 months.? Pt stated that on Monday she had ?a psychotic break ? she was just coming off of a round of steroids and had stopped her gabapentin.? She states she went crazy and ended up breaking several bases and pieces of glass in her home.? She was throwing things, yelling and not being rational.? She states her family members did not want her to be at her home anymore so she drove to a hotel where she has stayed the last 2 nights.? Pt suspects her medications have been reacting with her psych meds.? She has a psychiatrist but no therapist.? Pt is alert and oriented x4 and is met in her room in [facility] for a consult per provider?s request.? She is dressed in street clothes, engages easily with CARE Team, and her grooming is unremarkable. Pt reports she is not suicidal, and has no urges to harm herself or others.? She reports she had an ?episode? during which she broke several glass items in the home, pt reports this happened a couple of days ago and she feels a great deal of remorse for her actions as one of her children (19 y/o) was present for this.? Pt is tearful as she recounts the episode.? She reports that she had such an episode in the remote past, approximately 15 years ago.? She reports no other episodes such as this. Pt stated that she is unsure what triggered this episode.? She stated that her daughter asked her to leave the home due to her outburst and told her not to return until she gets help.? She reports staying at a hotel the past 2 days. Pt stated she has had ?a rough year?.? One daughter has mental illness and she had pursued and secured guardianship which she reported was challenging for her and the source of a great deal of stress.? She stated that she has been immobilized for approximately a month and a half due to pneumonia, then thrush, and with sciatic pain.? She stated she has always enjoyed a great deal of independence and finds that for the past month she has been reliant on others for much of what she has been used to doing on her own.? Pt reports that several years ago, her father suddenly passed from an aneurism.? She stated that she entered into a state of depression and during that time, it was discovered her had an extra marital affair, and that the cause of the affair was her depression.? She reports that they salvaged the marriage but she has been having concerns that he may seek attention elsewhere as she has been laid up for some time. Pt reports good sleep and appetite. She reports being medication adherent and has been engaging with her providers. She denies AVH.? Her thought process appears linear and organized.? Her insight, judgement, memory, concentration, and impulse control appear unimpaired. Given that pt is denying SI and has no hx of attempts, she appears to be at low risk for intentional self-harm.? Currently, pt does not appear to meet the criteria for inpatient psychiatric admission and there would be no clear goal for such an admission.? Pt could benefit from a therapist and has expressed a desire to secure one.? CARE Team will place a referral for [facility] on pt?s behalf.
== END 2024-07-11 12:24 | disposition home or self-care (01) ==
PROVIDERS: Emergency Provider Student in an Organized Health Care Education/Training Program; PCP Internal Medicine
DX: M46.1 Sacroiliitis, not elsewhere classified (principal); R42 Dizziness and giddiness; H53.8 Other visual disturbances; I10 Essential (primary) hypertension; F17.210 Nicotine dependence, cigarettes, uncomplicated; Z79.899 Other long term (current) drug therapy
CPT/HCPCS: 99284

== ENCOUNTER 2024-08-14 07:03 | Outpatient (RCR) | payer MEDICARE, MEDICAID, SELFPAY ==
--- NOTE | 2024-07-17 15:25 | MHC.PT.EP ---
[facility] [place] Office [place] Office [place] Office [address] Rosemary Blue [address] [phone] F: [phone] F: [phone] F: [phone] F: [phone] Physical Therapy Plan of Care Date of Evaluation: 07/17/24 Date of Surgery: Diagnosis: SCIATICA, RIGHT, PIRIFORMIS SYNDROME Assessment: 44 YO FEMALE REF TO PT FOR Rt PIRIFORMIS/ SCIATIC NERVE LESION. SHE HAS A H/O LUMBAR COMPR FX 2014 AND MORE RECENTLY AN INJURY AT WORK ON 12/2023 AND MORE THEN EXACERBATION 05/30/24- SHE HAS BEEN TO THE ER (ALSO HOSPITALIZED FOR PNEUMONIA 05/2024) AND HAS BEEN UNABLE TO WORK- SHE NOTES SHE SPENDS HER DAYS IN [place] IN BED WATCHING TV. OBJECTIVE FINDINGS: DECR POSTURAL AWARENESS, LIMITED TRUNK AROM, (+) LUMBOPELVIC ASYM AND WEAKNESS; DECR HIP FLEXIB, AND SIGNIF PAIN IN HER Rt SI/ GLUTE COMPLEX W INTERM RADIC SXS INTO Rt POST LE TO HER FOOT. FUNCTIONALLY, THE Pt NOTES SHE IS LIMITED W ALL ADLs , DIFFIC DRESSING, LIMITED WALKING/ STAIRS, RIDING IN THE CAR, AND SLEEPING. INITIATED PT EVAL AND ADDRESSED ABDOM MM ACTIVATION FOR LUMBOPELVIC STABILITY AND POSTURE/ BED MOB/ BODY MECH. WE DISCUSSED THE PT POC AND Pt IS IN AGREEMENT, ADDRESSING THE ABOVE FINDINGS. Frequency and Duration: The patient will be seen 2 x WK x 5 WKS Short Term Goals: *DECREASE LBP TO 2-3/10 AND Rt LE RADIC SXS BY 75% *Pt DEMON IMPROVED SELF CORRECT POSTURE/ BODY *INITIATE HEP TO ADDRESS HIP FLEXIB AND LUMBOPELVIC STABILITY *INCR FLEXIB IN PSOAS/HIP IR/ CALF MM TO IMPROVE EFFICIENCY OF GAIT ON LEVEL AND STAIRS *IMPROVE FUNCT MOBILITY, TRANSFERS, BED MOB, SQUAT MECHANICS Varnisher Apprentice Goals: *Pt WILL IMPROVE LUMBOPELVIC/ Lt LE STRENGTH BY 1 GRADE *Pt INDEP W PROGRESSIVE HEP AND SELF-SX MGMT TECHN *Pt RESUME REG ADLs / FITNESS WALKING , EVIDENT W IMPROVED OSWESTRY SCORE (AT EVAL 40/50) Treatment Plan: Modalities to reduce pain, spasms and effusion. Manual therapy to restore motion and function. Therapeutic exercise to improve strength and flexibility. Neuromuscular re-education for posture and balance. Therapeutic activities to return to functional activities of daily living. Electronically signed by: CHRISTA BRISENO PT Please sign and return to therapist. Thank you for your referral.
--- NOTE | 2024-09-20 15:30 | MHC.PT.DC ---
[facility] [place] Office [place] Office [place] [facility] [address] Rosemary Blue [address] [phone] F: [phone] F: [phone] F: [phone] F: [phone] Physical Therapy Discharge Report Diagnosis: SCIATICA, RIGHT, PIRIFORMIS SYNDROME Date of Surgery: Date of Evaluation: 07/17/24 Date of Discharge: 09/20/24 Treatments to Date: 9 Cancellations to Date: 5 No Shows to Date: 1 Discharge Status: Improved Function Independent with HEP Patient Elected to Stop Visit Non-compliance Discharge Summary: [facility] SIGNIF PROGRESS IN PT- SHE HAS A THOROUGH HEP AND WE WERE ABLE TO IMPROVE HIP FLEXIBILITY AND CORE STRENGTH/ ENGAGEMENT. HER LBP AND RADICULAR SXS WERE RELATIVELY RESOLVED. WE EDUC AND SIMUL POSTURAL/ BODY MECH AND Pt APPEARED TO HAVE GOOD COMPREHENSION AND FORM. A FORMAL REASSSESSMENT WAS NEVER PERF SHE CANC AND NO-SHOWED HER LAST FEW PT APPTS. Electronically signed by: CHRISTA BRISENO,PT Please sign and return to therapist. Thank you for your referral.
== END 2024-09-20 15:31 | disposition home or self-care (01) ==
LOC: HO.PT 07:03
PROVIDERS: PCP Internal Medicine; Visit Provider Internal Medicine
DX: M54.31 Sciatica, right side (principal)
CPT/HCPCS: 97110; 97140; 97163; 97530; 97535

== ENCOUNTER 2024-08-26 14:37 | Outpatient (AMB) | payer MEDICARE, MEDICAID, SELFPAY ==
--- NOTE | 2024-08-26 14:49 | A.OFFPC_ITS ---
Vital Signs 08/26/24 14:59 Height 5 ft 7 in Weight 220 lb 4 oz BMI 34.5 BP 100/82 Blood Pressure Location Rt brachial Pulse 111 H Pulse Source Pulse Oximeter Pulse Oximetry (%) 98 Oxygen Delivery Method Room Air Intake Visit Reasons: Transfer from Dr. 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 Allergies lurasidone [From Latuda] Allergy (Mild, Verified 08/26/24 14:49) Itching NSAIDS (Non-Steroidal Anti-Inflamma Allergy (Verified 08/26/24 14:49) Rash bee sting Allergy (Severe, Uncoded 08/26/24 14:55) tongue swelling Tobacco use date assessed: 08/26/24 Dental Screening Dental Screen Date: 08/26/24 Did you have a dental visit in the last 12 months?: Yes Did you have a dental problem in the last 6 months where you did not have access to dental care?: No Was dental information given to patient?: Patient has dentist HPI HPI Comments History of Present Illness Details 44-year-old female with history of lumba r disc herniation with radiculopathy, HTN, bipolar disorder presenting to [facility] care. Internal transfer. BH: Follows with [facility] the [facility]. MSK: Follows with pain management by Dr. Westbrook. Has had bilateral diagnostic sacroiliac joint injection. Dr. Westbrook things she has piriformis syndrome on the right and offered her ultrasound-guided piriformis steroid injection, but patient hesitant to have it done though is still considering this. Her pain levels did improve following physical therapy Screening colonoscopy with polyp 11/2023-5 year repeat recommended Mammogram UTD ROS CONSTITUTIONAL: Denies weight loss, fever and chills. HEENT: sinus congestion RESPIRATORY: + cough. CV: Denies palpitations and CP GI: Denies abdominal pain, nausea, vomiting and diarrhea. : Denies dysuria and urinary frequency. MSK: Denies new myalgia and joint pain. SKIN: Denies rash and pruritus. NEUROLOGICAL: Denies headache PSYCHIATRIC: Denies recent changes in mood. PHYSICAL EXAM: GENERAL: Alert and oriented x 3. NAD EYES: EOMI. Anicteric. HENT: Moist mucous membranes. No scleral icterus. No cervical lymphadenopathy. LUNGS: Clear to auscultation bilaterally. CARDIOVASCULAR: Regular rate and rhythm. No murmur. No JVD. ABDOMEN: Soft, non-tender +bs EXTREMITIES: No edema. Non-tender. SKIN: No rashes or lesions. Warm. NEUROLOGIC: No focal neurological deficits. CN II-XII grossly intact PSYCHIATRIC: Cooperative. Appropriate mood and affect [facility] Medical History History of adenomatous polyp of colon Piriformis syndrome of right side Lumbar disc herniation with radiculopathy History of shingles Essential hypertension Lazy eye of right side Legally blind in right eye, as defined in [place] Obesity (BMI 35.0-39.9 without comorbidity) Bipolar disorder Surgical History Hx of colonoscopy Hx of dilation and curettage History of carpal tunnel release History of History of bunionectomy of right great toe Family History Father Brain aneurysm Sister Gilbert's disease Daughter Bipolar disorder Mental health disorder Family/Other Hx of colonoscopy Maternal Grandmother Alcoholic Maternal Grandfather Alcoholic Daughter Schizo affective schizophrenia Other FH: mental illness Substance use disorder Social History Household Members: Family Housing: House Do you presently have visiting nurse or other home services: No Alcohol intake: former Comment: socially Patient Tobacco Use Status: Current everyday Tobacco user Tobacco use type: Cigarette Cigarette Packs Per Day: 0.5 Years Smoked: 34 e-Cigarette/Vaping Use: Never Used Second Hand Smoke Exposure: No Substance Use Type: Marijuana service: No Current occupational status: disabled Cognitive needs: No Hearing needs: No Vision needs: Yes (glasses, legally blind right eye) Questionnaire Thrive Questionnaire Date Thrive assessed: 06/10/24 I am a: Patient What is your living situation today?: I have a steady place to live Within the past 12 months, did the food you bought not last and you didn't have the money to get more?: Never true Within the past 12 months, did you worry whether your food would run out before you got money to buy more?: Never true Do you have trouble paying for medicines?: No Do you have trouble getting transportation to medical appointments?: No Do you have trouble paying your heating and electricity bill?: No Do you have trouble taking care of your child, family member or friend?: No Do you have trouble with day-to-day activities such as bathing, preparing meals, shopping, managing finances, etc.?: Yes Are you currently unemployed and looking for a job?: I choose not to answer this question Are you interested in more education?: No Please select the resources that you would like help with: None Currently or been in a relationship where the following occur: No concerns reported THRIVE Score: 0 AUDIT C Alcohol Use Questionnaire (AUDIT-C) 1. How often do you have a drink containing alcohol?: Never 3. How often do you have six or more drinks on one occasion?: Never Total Score: 0 GAY-7 AMB Questionnaire GAY-7 Date GAY - 7 assessed: 06/10/24 Source: Developed by Drs. Regis Martinez, Stephie Palomino, Terrence Mota and colleagues, with an educational aditi from [employer]. Physical exam (Primary Care) Vital Signs: Last Vital Signs Pulse 111 H 08/26/24 14:59 BP 100/82 08/26/24 14:59 Pulse Ox 98 08/26/24 14:59 Oxygen Delivery Method Room Air 08/26/24 14:59 BMI result Body Mass Index 34.5 Tobacco/Smoking Status: Tobacco use Status Tobacco use date assessed 08/26/24 08/26/24 15:01 Patient Tobacco Use Status Current everyday Tobacco 08/26/24 15:01 Tobacco use type Cigarette 08/26/24 15:01 e-Cigarette/Vaping Use Never Used 08/26/24 15:01 Thrive Assessment: Date of Thrive Assessment Date Thrive assessed 06/10/24 08/26/24 15:01 Currently or been in a relationship where the following occur: No concerns reported Coding Level of Care Code Est Pt Level 4 (25293) Diagnoses Essential hypertension I10 Bipolar affective disorder, remission status unspecified F31.9 Active/Remission status: remission status unspecified Lumbar disc herniation with radiculopathy M51.16 Assessment & Plan Assessment & Plan (1) Essential hypertension: Code(s): I10 - Essential (primary) hypertension Category: Medical Plan: well controlled on current medication (2) Bipolar disorder: Comment: Followed at to [facility] Code(s): F31.9 - Bipolar disorder, unspecified Category: Medical Qualifiers: Active/Remission status: remission status unspecified Qualified Code(s): F31.9 - Bipolar disorder, unspecified Plan: controlled on current medication (3) Lumbar disc herniation with radiculopathy: Code(s): M51.16 - Intervertebral disc disorders with radiculopathy, lumbar region Category: Medical Plan: continue follow up with pain management Medications: New azithromycin For 250 mg dose pack: take 500 mg today (day 1), then 250 mg for 4 days (days 2-5) PO 6 tabs 0RF Refilled losartan 50 mg PO DAILY 90 tabs 3RF
[2024-08-26 14:59] VITALS: BP 100/82; PULSE 111; O2SAT 98; BMI 34.5
== END 2024-08-26 15:20 | disposition home or self-care (01) ==
PROVIDERS: PCP Internal Medicine; Visit Provider Internal Medicine
DX: I10 Essential (primary) hypertension (principal); F31.9 Bipolar disorder, unspecified; M51.16 Intervertebral disc disorders with radiculopathy, lumbar region

== ENCOUNTER → 2024-08-26 14:37 | Outpatient (BNVA) | payer MEDICARE, MEDICAID, SELFPAY | PROVIDERS: PCP Internal Medicine; Visit Provider Internal Medicine | DX: I10 Essential (primary) hypertension (principal); F31.9 Bipolar disorder, unspecified; M51.16 Intervertebral disc disorders with radiculopathy, lumbar region | CPT/HCPCS: 99212 ==

== ENCOUNTER 2024-09-11 08:04 | Outpatient (AMB) | payer MEDICARE, MEDICAID, SELFPAY ==
--- NOTE | 2024-09-11 08:29 | MHC.OFFWIV ---
Intake Vital Signs 09/11/24 08:31 Height 5 ft 7 in Weight 218 lb BMI 34.1 BP 104/78 Blood Pressure Location Lt brachial Position Sitting Pulse 91 Pulse Source Pulse Oximeter Pulse Oximetry (%) 95 Oxygen Delivery Method Room Air Intake Visit Reasons: EP swollen glands Intake Note: Pt is here today for a walk in visit. Pt c/o swollen glands. Pt states that she was seen by her PCP on 08/26/24 as she had a cold and was put on Zpak. Patient Tobacco Use Status: Current everyday Tobacco user Allergies lurasidone [From Latuda] Allergy (Mild, Verified 09/11/24 08:35) Itching NSAIDS (Non-Steroidal Anti-Inflamma Allergy (Verified 09/11/24 08:35) Rash bee sting Allergy (Severe, Uncoded 09/11/24 08:35) tongue swelling Do you need a note to return to daycare/school/sports/work: No HPI HPI Comments History of Present Illness Details History of Present Illness - The patient is a 44-year-old female presenting with a sore throat and swollen neck glands. - After having a severe cold, her lymph glands have remained enlarged. - She received Azithromycin (Z-Jevon) from Dr. Roberts on the but symptoms, especially throat soreness and lymph gland swelling, persisted afterward, seems like it is getting worse. - The patient denies experiencing fever, cough, dyspnea, or wheezing and has noted increased fatigue in recent weeks. - Notably, she is a smoker . - Her daughter's recent bout with pneumonia. Physical Exam General: Cooperative, healthy appearing, comfortable, no acute distress and well developed Orientation: Patient oriented x3 Limitations: No limitations Head: Normal to inspection Ears: Hearing grossly normal bilaterally Nose: Normal External nose present Face and sinus: Normal facial exam Mouth: posterior oropharynx erythema, no exudates noted Eyes: Appearance normal, both eyes and all related structures Neck: submandibular lymphadenopathy bilaterally, 2 nodes enlarged, tender and firm Respiratory: Normal respiratory effort and able to speak in complete sentences. Skin: No rashes or lesions noted Neuro: Patient oriented x3 Extremities: Normal to inspection [facility] Medical History (Updated 09/11/24 @ 08:54 by Jonna Guadalupe PA-C) Piriformis syndrome of right side History of adenomatous polyp of colon Lumbar disc herniation with radiculopathy History of shingles Essential hypertension Lazy eye of right side Legally blind in right eye, as defined in [place] Obesity (BMI 35.0-39.9 without comorbidity) Bipolar disorder Surgical History Hx of colonoscopy Hx of dilation and curettage History of carpal tunnel release History of History of bunionectomy of right great toe Family History Father Brain aneurysm Sister Gilbert's disease Daughter Bipolar disorder Mental health disorder Family/Other Hx of colonoscopy Maternal Grandmother Alcoholic Maternal Grandfather Alcoholic Daughter Schizo affective schizophrenia Other FH: mental illness Substance use disorder Social History Household Members: Family Housing: House Do you presently have visiting nurse or other home services: No Alcohol intake: former Comment: socially Patient Tobacco Use Status: Current everyday Tobacco user Tobacco use type: Cigarette Cigarette Packs Per Day: 0.5 Years Smoked: 34 e-Cigarette/Vaping Use: Never Used Second Hand Smoke Exposure: No Substance Use Type: Marijuana service: No Current occupational status: disabled Cognitive needs: No Hearing needs: No Vision needs: Yes (glasses, legally blind right eye) Review of Systems Const All systems reviewed & are unremarkable except as noted in HPI and below Physical Exam Vital Signs: Last Vital Signs Pulse 91 09/11/24 08:31 BP 104/78 09/11/24 08:31 Pulse Ox 95 09/11/24 08:31 Oxygen Delivery Method Room Air 09/11/24 08:31 BMI result Body Mass Index 34.1 Assessment & Plan Assessment & Plan (1) Lymphadenopathy: Code(s): R59.1 - Generalized enlarged lymph nodes Plan: The plan involves conducting a test for Infectious Mononucleosis in light of her persistent symptoms to ascertain the diagnosis accurately. Emphasis was placed on refraining from actions that may transmit infection to others due to its contagious nature. If confirmed, an extended convalescent period may be expected with no contact sports. Initial laboratory work will be performed to determine the necessity of other diagnostic procedures if IM is ruled out. She will be reminded to increase hydration as it may aid symptom resolution. Additional follow-up with PCP for US of glands was recommended if test results are negative. Patient was informed and verbally consented to the use of an ambient scribe for clinic note documentation during this visit. Orders: Orders Monotest Today R59.1 - Generalized enlarged lymph nodes Coding Level of Care Code Est Pt Level 3 (82213) Diagnoses Lymphadenopathy R59.1
[2024-09-11 08:31] VITALS: BP 104/78; PULSE 91; O2SAT 95; BMI 34.1
== END 2024-09-11 09:03 | disposition home or self-care (01) ==
PROVIDERS: PCP Internal Medicine; Visit Provider Physician Assistant
DX: R59.1 Generalized enlarged lymph nodes (principal)

== ENCOUNTER 2024-09-11 08:04 | Outpatient (REF) | payer MEDICARE, MEDICAID, SELFPAY ==
[2024-09-11 10:30] LABS: Monotest Negative (Negative)
== END 2024-09-11 08:05 | disposition home or self-care (01) ==
LOC: HO.HMGCLDS 08:04
PROVIDERS: PCP Internal Medicine; Visit Provider Physician Assistant
DX: Z13.89 Encounter for screening for other disorder (principal)
CPT/HCPCS: 36415; 86308; 99212

== ENCOUNTER 2024-09-11 15:26 | Emergency (ER) | payer MEDICARE, MEDICAID, SELFPAY ==
--- NOTE | ~2024-09-11 | XR_ITS ---
EXAMINATION: XR CHEST CLINICAL INFORMATION: cough COMPARISON: 06/21/2024. TECHNIQUE: 2 views of the chest were obtained. FINDINGS: The cardiac, hilar, and mediastinal contours are normal. The lungs are clear bilaterally. There is no pneumothorax or pleural effusion. There is no focal osseous or soft tissue abnormality. XR/XR chest 2V IMPRESSION: Normal chest. Electronically signed by: London Oliva MD 09/11/2024 04:24 PM [facility]
[2024-09-11 16:03] VITALS: BP 126/87; PULSE 86; RESP 20; TEMP 2.8; TEMP 37; O2SAT 99; BMI 34.1
--- NOTE | 2024-09-11 16:08 | ED.GENADULT ---
HPI - General Adult General Chief complaint: Upper Respiratory Symptoms Stated complaint: Swollen glands in neck Time Seen by Provider: 09/11/24 19:37 Source: patient, RN notes reviewed and old records reviewed Mode of arrival: ambulatory Limitations: no limitations History of Present Illness ED Provider: Bryce HPI narrative: 44-year-old female presents for evaluation of swollen glands in her neck. She was recently treated for pneumonia 2 months ago. She was given antibiotics. She was then treated for thrush. Denied July she was given a Z-Jevon again for an upper respiratory infection She 1st noticed swollen glands to both sides of her neck two days ago. She went to urgent care and was referred here. She reportedly had a negative mono spot at urgent care but no other testing was performed The patient reports minor discomfort while swallowing Related Data Home Medications ?Medication ?Instructions ?Recorded ?Confirmed clonidine HCl 0.1 mg tablet 0.1 mg PO BEDTIME 05/04/22 06/26/24 sertraline 100 mg tablet 100 mg PO DAILY 06/08/23 06/26/24 oxcarbazepine 150 mg tablet 150 mg PO DAILY 08/31/23 06/26/24 clonidine HCl 0.1 mg tablet 0.05 mg PO DAILY 06/16/24 06/26/24 oxcarbazepine 300 mg tablet 600 mg PO BEDTIME 06/16/24 06/26/24 clonazepam 0.5 mg tablet (Klonopin) 0.5 mg PO DAILY 08/26/24 Previous Rx's ?Medication ?Instructions ?Recorded epinephrine 0.3 mg/0.3 mL 0.3 mg (0.3 mL) IM Q10M PRN 03/15/24 injection, auto-injector (EpiPen) anaphylaxis #1 ea albuterol sulfate 90 mcg/actuation 2 puff inhalation Q4-6H PRN 06/22/24 aerosol inhaler shortness of breath or wheezing 1 week #8.5 grams losartan 50 mg tablet 50 mg PO DAILY #90 tabs 08/26/24 Allergies Allergy/AdvReac Type Severity Reaction Status Date / Time lurasidone [From Latuda] Allergy Mild Itching Verified 09/11/24 16:08 NSAIDS (Non-Steroidal Allergy Rash Verified 09/11/24 16:08 Anti-Inflamma bee sting Allergy Severe tongue Uncoded 09/11/24 08:35 swelling Review of Systems Constitutional: Constitutional: Denies body ache(s), Denies chills, Denies fever(s) and Denies headache(s) ENT: Denies headache(s), Denies neck mass, Denies neck pain and Reports sore throat Comments: Reports swollen glands Cardiovascular: Cardiovascular: Denies dyspnea Respiratory: Respiratory: Denies cough and Denies dyspnea Gastrointestinal: Gastrointestinal: Denies abdominal pain, Denies nausea and Denies vomiting Musculoskeletal: Musculoskeletal: Denies back pain and Denies neck pain Integumentary/Breasts: Skin/Breast: Denies rash Neurologic: Denies headache(s) COUNT INCLUDES THE [facility] Past Medical History Medical History (Updated 09/11/24 @ 19:41 by Carlos Wu) Piriformis syndrome of right side History of adenomatous polyp of colon Lumbar disc herniation with radiculopathy History of shingles Essential hypertension Lazy eye of right side Legally blind in right eye, as defined in [place] Obesity (BMI 35.0-39.9 without comorbidity) Bipolar disorder Surgical History Hx of colonoscopy Hx of dilation and curettage History of carpal tunnel release History of History of bunionectomy of right great toe Family History Family History Father Brain aneurysm Sister Gilbert's disease Daughter Bipolar disorder Mental health disorder Family/Other Hx of colonoscopy Maternal Grandmother Alcoholic Maternal Grandfather Alcoholic Daughter Schizo affective schizophrenia Other FH: mental illness Substance use disorder Social History Social History Household Members: Family Housing: House Do you presently have visiting nurse or other home services: No Alcohol intake: former Comment: socially Patient Tobacco Use Status: Current everyday Tobacco user Tobacco use type: Cigarette Cigarette Packs Per Day: 0.5 Years Smoked: 34 e-Cigarette/Vaping Use: Never Used Second Hand Smoke Exposure: No Substance Use Type: Marijuana Advance Directives: No Advance Directives Information Provided: No Do you have a plan to hurt others: No Plan Patient : No service: No Current occupational status: disabled Cognitive needs: No Hearing needs: No Vision needs: Yes (glasses, legally blind right eye) Physical Exam ED Vital Signs: Vital Signs - 24 hr 09/11/24 16:03 09/11/24 19:41 09/11/24 19:42 Temperature 37.0 F L 97.4 F 97.4 F Pulse Rate 86 76 76 Respiratory Rate 20 18 18 Blood Pressure 126/87 137/86 137/86 Pulse Oximetry 99 99 99 Oxygen Delivery Method Room Air Room Air Room Air BMI result Body Mass Index 34.1 Const General: healthy appearing, comfortable, no acute distress, alert and awake Nutritional Appearance: well nourished Orientation/consciousness: patient oriented x3 HENMT Other: Positive bilateral submental lymphadenopathy. No fullness Head: Yes normocephalic and Yes atraumatic Throat: Yes posterior oropharynx normal Eyes Eyelids: Yes eyelids normal Conjunctivae: conjunctivae normal Sclerae: sclerae normal Corneas: corneas normal Pupils: Equal, round and reactive pupils present EOM: EOMs intact bilaterally Neck Neck: Yes full ROM Resp Effort & Inspection: normal respiratory effort, able to speak in complete sentences and not labored Skin General skin exam: elasticity normal Neuro General: patient oriented x3 Cranial nerves: Yes Equal, round and reactive pupils present and Yes Bilaterally intact EOM present Cognition (Neuro): normal cognition Extrem Other: Moving all extremities well without any obvious deformities Course Course Course Narrative: RME, this is a rapid medical exam performed by Michael Wu please refer to primary provider for complete H&P- 44-year-old female presents for evaluation of swollen glands. She reports that she was recently treated with pneumonia in June. She was given a Z-Jevon 2 weeks ago for an upper respiratory infection. She had a mono test this morning at urgent Care that was negative but had no other testing performed. Plan for labs, chest x-ray, viral swabs and strep swab. Reevaluation(s) Reevaluation #1: Patient's workup largely unremarkable, this includes her labs, viral swabs, strep swab and chest x-ray. I discussed this with the patient and she will be discharged to follow up with her outpatient providers Time: 20:04 Medical Decision Making Medical Decision Making MDM Narrative: 44-year-old female presents for evaluation of bilateral lymphadenopathy to the submental region. She has no Dustin's angina. Lungs are clear to auscultation, no obvious pharyngitis. No obvious thyroid goiter. Plan for labs, viral swabs, strep and chest x-ray. Differential Diagnosis Differential Diagnoses: The differential diagnosis associated with the presentation includes Lymphadenopathy Viral syndrome Pharyngitis strep pharyngitis Lymphoma Lab Data MDM Lab Attestation statement: I reviewed the patient's lab results. Mild leukocytosis to 13.3 but no left shift. This may be reactive. May related to a viral etiology. No significant anemia. Normal platelet count. No significant electrolyte abnormalities warranting 09/11/24 17:20 09/11/24 17:20 Labs: Lab Results 09/11/24 Range/Units 17:20 WBC 13.3 H (4.8-10.8) X10*3/uL RBC 4.21 (4.20-5.50) X10*6/uL Hgb 13.6 (12.0-16.0) g/dl Hct 38.7 (37.0-47.0) % MCV 91.9 (80.0-98.0) fL MCH 32.3 (27.0-33.0) pg MCHC 35.1 H (31.0-35.0) g/dl RDW 12.3 (11.0-16.0) % Plt Count 239 (160-400) X10*3/uL MPV 9.9 (9.4-12.3) fL Immature Gran % (Auto) 0.8 H (0.0-0.4) % Neut % (Auto) 69.2 (45-73) % Lymph % (Auto) 23.8 (20-40) % [place] % (Auto) 4.8 (2-11) % Eos % (Auto) 1.1 (0-4) % Baso % (Auto) 0.3 (0-2) % Lymph # (Auto) 3.2 (1.2-4.9) X10*3/uL [place] # (Auto) 0.6 (0.1-1.2) X10*3/uL Eos # (Auto) 0.1 (0.0-0.4) X10*3/uL Baso # (Auto) 0.0 (0.0-0.2) X10*3/uL Abs Immat Gran (auto) 0.10 H (0.00-0.03) X10*3/uL Absolute Neuts (auto) 9.2 H (2.0-8.3) x10*3/uL Absolute Nucleated RBC 0.000 (0.0-0.012) X10*3/uL Nucleated RBC % (auto) 0.0 (0.0-0.2) /100WBC Sodium 139 (135-145) mmol/L Potassium 4.1 (3.3-5.1) mmol/L Chloride 112 H (96-108) mmol/L Carbon Dioxide 23 (22-29) mmol/L Anion Gap 8 L (12-20) BUN 14 (9-16) mg/dL Creatinine 0.69 (0.5-1.4) mg/dL Estim Creat Clear Calc 123.0 Estimated GFR > 60 Random Glucose 151 H (60-115) mg/dL Calcium 9.0 D (8.4-10.2) mg/dL Total Bilirubin 0.2 (0.0-1.0) mg/dL AST 13 (5-31) U/L ALT 10 (0-31) U/L Alkaline Phosphatase 56 (39-117) U/L Total Protein 6.8 (6.5-8.0) g/dL Albumin 4.4 (3.5-5.0) g/dL Influenza Type A (PCR) NEGATIVE (Negative) Influenza Type B (PCR) NEGATIVE (Negative) RSV RNA Qual (PCR) NEGATIVE (Negative) SARS-CoV-2 RNA (RT-PCR) NEGATIVE (Negative) S. pyogenes GrpA LAURY Negative (Negative) Radiology Impression Discussion of test interpretation with radiology: I have reviewed the radiologist's reading. Radiologist Impression: FINDINGS: The cardiac, hilar, and mediastinal contours are normal. The lungs are clear bilaterally. There is no pneumothorax or pleural effusion. There is no focal osseous or soft tissue abnormality. XR/XR chest 2V IMPRESSION: Normal chest. Electronically signed by: London Oliva MD 09/11/2024 04:24 PM [facility] Discharge Plan Discharge Clinical Impression: Lymphadenopathy Patient Disposition: Home, Self-Care Instructions: Lymphadenopathy (ED) Additional Instructions: Your workup in the ER today was reassuring. Your white blood cell count was slightly elevated which could be related to a viral illness, your chest x-ray was clear You may use warm compresses to help with the swelling Follow-up with your primary doctor, return for new or worsening symptoms Prescriptions: No Action oxcarbazepine 300 mg tablet 600 mg PO BEDTIME clonidine HCl 0.1 mg tablet 0.05 mg PO DAILY albuterol sulfate 90 mcg/actuation HFA aerosol inhaler 2 puff inhalation Q4-6H PRN (Reason: shortness of breath or wheezing) 7 Days Qty: 8.5 0RF clonidine HCl 0.1 mg tablet 0.1 mg PO BEDTIME epinephrine [EpiPen] 0.3 mg/0.3 mL auto-injector 0.3 mg IM Q10M PRN (Reason: anaphylaxis) Qty: 1 4RF Rx Instructions: for 2 doses sertraline 100 mg tablet 100 mg PO DAILY oxcarbazepine 150 mg tablet 150 mg PO DAILY clonazepam [Klonopin] 0.5 mg tablet 0.5 mg PO DAILY losartan 50 mg tablet 50 mg PO DAILY Qty: 90 3RF Interventions: ED Discharge Assessment Last Done: 09/11/24 19:42 Discharge Date/Time: 09/11/24 19:43 Print Language: Moldovan
[2024-09-11 17:24] LABS: MANUAL DIFF FLAG NO
[2024-09-11 17:36] LABS: IDNOW Serial# 08D9AD1C; Strep A Nucleic Acid Negative (Negative)
[2024-09-11 17:44] LABS: Alanine Aminotransferase 10 U/L (0-31); Albumin Level 4.4 g/dL (3.5-5.0); Alkaline Phosphatase 56 U/L (39-117); Anion Gap 8 (12-20); Aspartate Amino Transferase 13 U/L (5-31); Bilirubin Total 0.2 mg/dL (0.0-1.0); Blood Urea Nitrogen 14 mg/dL (9-16); Carbon Dioxide 23 mmol/L (22-29); Chloride 112 mmol/L (96-108); Estimated Glomerular Filt Rate > 60; Glucose Random 151 mg/dL (60-115); Potassium 4.1 mmol/L (3.3-5.1); Sodium 139 mmol/L (135-145); Total Protein 6.8 g/dL (6.5-8.0)
[2024-09-11 17:45] LABS: Basophils Percent Auto 0.3 % (0-2); Eosinophils Absolute Auto 0.1 X10*3/uL (0.0-0.4); Eosinophils Percent Auto 1.1 % (0-4); Hematocrit 38.7 % (37.0-47.0); Hemoglobin 13.6 g/dl (12.0-16.0); Imm Gran Pct Auto 0.8 % (0.0-0.4); Lymphocytes Absolute Auto 3.2 X10*3/uL (1.2-4.9); Lymphocytes Percent Auto 23.8 % (20-40); Mean Corpuscular HGB Conc 35.1 g/dl (31.0-35.0); Mean Corpuscular Hemoglobin 32.3 pg (27.0-33.0); Mean Corpuscular Volume 91.9 fL (80.0-98.0); Mean Platelet Volume 9.9 fL (9.4-12.3); Monocytes Absolute Auto 0.6 X10*3/uL (0.1-1.2); Monocytes Percent Auto 4.8 % (2-11); Neutrophils Absolute Auto 9.2 x10*3/uL (2.0-8.3); Neutrophils Percent Auto 69.2 % (45-73); Platelet Count 239 X10*3/uL (160-400); Red Blood Count 4.21 X10*6/uL (4.20-5.50); Red Cell Distribution Width 12.3 % (11.0-16.0); White Blood Count 13.3 X10*3/uL (4.8-10.8)
[2024-09-11 18:12] LABS: Influenza A PCR NEGATIVE (Negative); Influenza B PCR NEGATIVE (Negative); Resp Syncy Virus RNA Qual PCR NEGATIVE (Negative); SARS COV2 PCR INHOUSE NEGATIVE (Negative)
[2024-09-11 19:41] VITALS: BP 137/86; PULSE 76; RESP 18; TEMP 36.3; O2SAT 99
[2024-09-11 19:42] VITALS: BP 137/86; PULSE 76; RESP 18; TEMP 36.3; O2SAT 99
== END 2024-09-11 19:43 | disposition home or self-care (01) ==
PROVIDERS: Physician Assistant; Emergency Provider Emergency Medicine; PCP Internal Medicine
DX: R59.1 Generalized enlarged lymph nodes (principal); R05.9 Cough, unspecified; Z79.899 Other long term (current) drug therapy; Z03.818 Encounter for observation for suspected exposure to other biological agents ruled out
CPT/HCPCS: 0241U; 36415; 71046; 80053; 85025; 86308; 87651; 99212; 99283; 99284

== ENCOUNTER → 2024-09-11 16:08 | Outpatient (BNV) | payer MEDICARE, MEDICAID, SELFPAY | PROVIDERS: Visit Provider Radiology Diagnostic Radiology | DX: R05.9 Cough, unspecified (principal) | CPT/HCPCS: 71046 ==

== ENCOUNTER 2024-10-01 10:19 | Outpatient (AMB) | payer MEDICARE, MEDICAID, SELFPAY ==
--- NOTE | 2024-10-01 10:29 | A.OFFPC_ITS ---
Vital Signs 10/01/24 10:38 Height 5 ft 7 in Weight 227 lb 6 oz BMI 35.6 BP 104/84 Blood Pressure Location Lt brachial Position Sitting Respiration 14 Pulse 85 Pulse Source Pulse Oximeter Temp 98.4 F Temp Source Oral Pulse Oximetry (%) 96 Oxygen Delivery Method Room Air Intake Visit Reasons: Sore Throat, swollen glands Intake Note: Sore throat, swollen glands. Went To ER 09/19/24. Facilitator Required: No Allergies lurasidone [From Latuda] Allergy (Mild, Verified 10/01/24 10:35) Itching NSAIDS (Non-Steroidal Anti-Inflamma Allergy (Verified 10/01/24 10:35) Rash bee sting Allergy (Severe, Uncoded 10/01/24 10:35) tongue swelling Tobacco use date assessed: 10/01/24 Dental Screening Dental Screen Date: 08/26/24 HPI HPI Comments History of Present Illness Details 44-year-old female with history of lumba r disc herniation with radiculopathy, HTN, bipolar disorder presenting for sore throat Patient has had swelling in the neck for the past month. She was seen 08/26 for cough and received azithromycin. She was seen at urgent care and had mono testing completed-this was negative. She no longer has cough but has persistent swelling in the neck and sore throat. She is able to tolerate eating. Denies shortness of breath. She has persistent elevated white count with no elevated lymphocyte. She does smoke. She does have a prior history of thrush. Strep testing negative today BH: Follows with [place]. MSK: Follows with pain management by Dr. Wetsbrook. Has had bilateral diagnostic sacroiliac joint injection. Dr. Westbrook things she has piriformis syndrome on the right and offered her ultrasound-guided piriformis steroid injection, but patient hesitant to have it done though is still considering this. Her pain levels did improve following physical therapy Screening colonoscopy with polyp 11/2023-5 year repeat recommended Mammogram UTD ROS see HPI PHYSICAL EXAM: GENERAL: Alert and oriented x 3. NAD EYES: EOMI. Anicteric. HENT: Moist mucous membranes. No scleral icterus. +cervical fullness/LN. There is whitish coating of the tongue with some exudate and redness of the throat LUNGS: Clear to auscultation bilaterally. CARDIOVASCULAR: Regular rate and rhythm. No murmur. No JVD. ABDOMEN: Soft, non-tender +bs EXTREMITIES: No edema. Non-tender. SKIN: No rashes or lesions. Warm. NEUROLOGIC: No focal neurological deficits. CN II-XII grossly intact PSYCHIATRIC: Cooperative. Appropriate mood and affect [facility] Medical History (Updated 10/01/24 @ 13:04 by Noris Roberts MD) Piriformis syndrome of right side History of adenomatous polyp of colon Lumbar disc herniation with radiculopathy History of shingles Essential hypertension Lazy eye of right side Legally blind in right eye, as defined in [place] Obesity (BMI 35.0-39.9 without comorbidity) Bipolar disorder Surgical History Hx of colonoscopy Hx of dilation and curettage History of carpal tunnel release History of History of bunionectomy of right great toe Family History Father Brain aneurysm Sister Gilbert's disease Daughter Bipolar disorder Mental health disorder Family/Other Hx of colonoscopy Maternal Grandmother Alcoholic Maternal Grandfather Alcoholic Daughter Schizo affective schizophrenia Other FH: mental illness Substance use disorder Social History (Updated 10/01/24 @ 10:37 by Isidra Bertrand CMA) Household Members: Family Housing: House Do you presently have visiting nurse or other home services: No Alcohol intake: former Comment: socially Patient Tobacco Use Status: Current everyday Tobacco user Tobacco use type: Cigarette Cigarette Packs Per Day: 0.5 Years Smoked: 34 e-Cigarette/Vaping Use: Never Used Second Hand Smoke Exposure: No Substance Use Type: Marijuana service: No Current occupational status: disabled Cognitive needs: No Hearing needs: No Vision needs: Yes (glasses, legally blind right eye) Questionnaire Thrive Questionnaire Date Thrive assessed: 06/10/24 I am a: Patient What is your living situation today?: I have a steady place to live Within the past 12 months, did the food you bought not last and you didn't have the money to get more?: I choose not to answer this question Within the past 12 months, did you worry whether your food would run out before you got money to buy more?: I choose not to answer this question Do you have trouble paying for medicines?: I choose not to answer this question Do you have trouble getting transportation to medical appointments?: I choose not to answer this question Do you have trouble paying your heating and electricity bill?: I choose not to answer this question Do you have trouble taking care of your child, family member or friend?: I choose not to answer this question Do you have trouble with day-to-day activities such as bathing, preparing meals, shopping, managing finances, etc.?: I choose not to answer this question Are you currently unemployed and looking for a job?: I choose not to answer this question Are you interested in more education?: I choose not to answer this question Please select the resources that you would like help with: None Currently or been in a relationship where the following occur: I choose not to answer THRIVE Score: 0 AUDIT C Alcohol Use Questionnaire (AUDIT-C) 1. How often do you have a drink containing alcohol?: Never Total Score: 0 GAY-7 AMB Questionnaire GAY-7 Date GAY - 7 assessed: 06/10/24 Feeling nervous, anxious, or on edge: 1 = Several days Not being able to stop or control worryin = Several days Worrying too much about different things: 1 = Several days Trouble relaxin = Several days Being so restless that it is hard to sit still: 1 = Several days Becoming easily annoyed or irritable: 1 = Several days Feeling afraid as if something awful might happen: 1 = Several days Total GAY-7 score (0-4 normal; 5-9 mild; 10-14 moderate; 15-21 severe): 7 Source: Developed by Drs. Regis Martinez, Stephie Palomino, Terrence Mota and colleagues, with an educational aditi from [employer]. GAY-7 Assessment Billing GAY-7 Assessment Tool: GAY-7 Assessment 31667 Physical exam (Primary Care) Vital Signs: Last Vital Signs Temp 98.4 F 10/01/24 10:38 Pulse 85 10/01/24 10:38 Resp 14 10/01/24 10:38 BP 104/84 10/01/24 10:38 Pulse Ox 96 10/01/24 10:38 Oxygen Delivery Method Room Air 10/01/24 10:38 BMI result Body Mass Index 35.6 Tobacco/Smoking Status: Tobacco use Status Tobacco use date assessed 10/01/24 10/01/24 10:42 Patient Tobacco Use Status Current everyday Tobacco 10/01/24 10:37 Tobacco use type Cigarette 10/01/24 10:37 e-Cigarette/Vaping Use Never Used 10/01/24 10:37 Thrive Assessment: Date of Thrive Assessment Date Thrive assessed 06/10/24 10/01/24 10:29 Currently or been in a relationship where the following occur: I choose not to answer Coding Level of Care Code Est Pt Level 4 (53872) Complex EM visit Add On G2211 Diagnoses Sore throat J02.9 Additional Codes GAY-7 Assessment Billing - GAY-7 Assessment Tool: GAY-7 Assessment [id number] ([id number]) Assessment & Plan Assessment & Plan (1) Sore throat: Code(s): J02.9 - Acute pharyngitis, unspecified Category: Medical Plan: Sore throat Exam c/w thrush but also with exudate in oropharynx do want to cover for strep. augmentin and fluconazole sent Persistent cervical fullness/LN. us ordered Orders: Orders Complete Blood Count Auto Diff Today J02.9 - Acute pharyngitis, unspecified, R59.1 - Generalized enlarged lymph nodes TSH reflex Free T4 Today J02.9 - Acute pharyngitis, unspecified, R59.1 - Generalized enlarged lymph nodes Vitamin D 25-OH (D2 and D3) Today J02.9 - Acute pharyngitis, unspecified, R59.1 - Generalized enlarged lymph nodes US soft tiss head and/or neck Today J02.9 - Acute pharyngitis, unspecified, R59.1 - Generalized enlarged lymph nodes Pathologist Review - CBC Today J02.9 - Acute pharyngitis, unspecified, R59.1 - Generalized enlarged lymph nodes Vitamin B12 and Folate Today J02.9 - Acute pharyngitis, unspecified, R59.1 - Generalized enlarged lymph nodes Hemoglobin A1c Today J02.9 - Acute pharyngitis, unspecified, R59.1 - Gener alized enlarged lymph nodes Medications: New fluconazole 150 mg PO DAILY 7 tabs 0RF amoxicillin-pot clavulanate 875-125 mg 1 tab PO BID 14 tabs 0RF
[2024-10-01 10:38] VITALS: BP 104/84; PULSE 85; RESP 14; TEMP 36.9; O2SAT 96; BMI 35.6
--- OUTSIDE RECORDS SUMMARY | 2024-10-01 11:03 | XMS_ITS | Clinical Summary ---
Author Organization [employer] [facility] it Address [address] [place] [address] Care Team Providers Care Business Unit Manager Name Role Phone Unavailable Primary Care Provider Unavailabl e Surgical History Surgery Date Site/Laterality Comments SECTION 2000,2004 PROCEDURE: [place] DELIVERY ONLY BUNIONECTOMY PROCEDURE: [place] CORRJ HLX VLGS BNCTY SESMDC W/DOUBLE OSTEOTOMY CARPAL TUNNEL RELEASE 2010 PROCEDURE: HISTORICAL CARPAL TUNNEL REL ELBOW SURGERY PROCEDURE: HISTORICAL ELBOW SURGERY; COMMENT: Right elbow tendonitis Medical History Medical History Date Comments Bipolar I disorder, most rec ent episode (or current) unspecified DX:Bipolar I disorder, most recent episode (or current) unspecified; COMMENT: [facility] Samayoa at [facility] Amblyopia, unspecified DX:Amblyo olga, unspecified; COMMENT: OD Family History Medical History Relation Name Comments Other: brain aneursym Father Blindness Neg Hx Cataracts Neg Hx Glaucoma Neg Hx Macular degeneration Neg Hx Strabismus Neg Hx Relation Name Status Comments Daughter 1 Alive Daughter 2 Alive Father aneurysm Maternal Grandfather Maternal Grandmother Mother Alive Paternal Grandfather Paternal Grandmother Alive Sister Alive Social History Tobacco Use Types Packs/Day Years Used Date Smoking Tobacco: Every Day Cigarettes Smokeless Tobacco: Never Alcohol Use Standard Drinks/Week Comments No 0 (1 standard drink = 0.6 oz pur e alcohol) Sex and Gender Information Value Date Recorded Sex Assigned at Not on file Gender Identity Not on file Sexual Orientation Not on file Obstetrics History Plan of Treatment Health Maintenance Due Date Last Done Comments Breast Cancer Screening 1978 Hepatitis B Vaccines (1 of 3 - 19+ 3-dose series) 1997 Cervical Cancer Screening: P ap Smear 1999 DTaP,Tdap,and Td Vaccines (2 - Td or Tdap) 06/22/2022 06/22/2012 COVID-19 Vaccine (1 - 2023-2 5 season) 2024 Influenza Vaccine (#1) 2024 06/22/2012 HIB Vaccines Aged Out No longer eligi ble based on patient's age to complete this topic HPV Vaccines Aged Out No longer eligi ble based on patient's age to complete this topic Hepatitis A Vaccines Aged Out No long er eligible based on patient's age to complete this topic IPV Vaccines Aged Out No longer eligi ble based on patient's age to complete this topic MMR Vaccines Aged Out No longer eligi ble based on patient's age to complete this topic Meningococcal ACWY Vaccine Aged Out N o longer eligible based on patient's age to complete this topic Pneumococcal Vaccine: Pediat rics (0 to 5 Years) and At-Risk Patients (6 to 64 Years) Aged Out No longer eligi ble based on patient's age to complete this topic RSV Immunization Patients Un christian 20 months Aged Out No longer eligible b ased on patient's age to complete this topic Varicella Vaccines Aged Out No longer eligible based on patient's age to complete this topic
--- OUTSIDE RECORDS SUMMARY | 2024-10-01 11:03 | XMS_ITS | Clinical Summary ---
Author Organization [facility] Address [address] [place] [address] Care Team Providers Care Director Of Recruiting Name Role Phone Unavailable Primary Care Provider Unavailabl e Source Comments PLEASE NOTE, if this patient is a minor, it may be UNLAWFUL to discuss sensitive information that is contained in these records (such as FAMILY PLANNING, MENTAL HEALTH or SUBSTANCE ABUSE) with the minor patient's parent or other person without the patient's specific authorization.[facility] Immunizations Name Administration Dates Next Due PFIZER COVID VACCINE, PURPLE CAP, 12+ 02/02/2021 ,01/12/2021 Social History Tobacco Use Types Packs/Day Years Used Date Smoking Tobacco: Never Assessed Social Connections Answer Date Recorded Social Connections and Isolation 0 03/02/2024 Financial Resource Strain Answer Date R ecorded Financial Resource Strain 0 2023 Stress Answer Date Recorded Stress 0 03/02/2024 Physical Activity Answer Date Recorded Physical Activity 0 03/02/2024 Food Insecurity Answer Date Recorded Food 0 03/02/2024 Transportation Needs Answer Date Record ed Transportation 0 03/02/2024 Housing Stability Answer Date Recorded Housing 0 03/02/2024 Safety and Environment Answer Date Brant rded Safety 0 03/02/2024 Utilities Answer Date Recorded Utilities 0 03/02/2024 Employment Answer Date Recorded Employment 0 03/02/2024 Comments Unknown Sex and Gender Information Value Date Recorded Sex Assigned at Not on file Legal Sex Female 8:39 AM PDT Gender Identity Not on file Sexual Orientation Not on file Plan of Treatment Health Maintenance Due Date Last Done Comments Diabetes Screening 1978 HPV Screening 1978 Hepatitis C Screening 1978 Lipid Screening 1978 Pap + HPV 1978 Tobacco Screening 1978 HIV Screening 1993 Relationship Safety Screening/Counseling 1993 Hypertension Screening (#1) 1996 Medicare Annual Wellness Visit 1996 Imm-Hepatitis B (1 of 3 - 19 + 3-dose series) 1997 Cervical Cancer Screening 1999 Pap Smear 1999 Breast Cancer Screening (Mammogram) 2018 CT Colonography 2023 Colonoscopy 2023 Colorectal Cancer Screening 2023 FIT/gFOBT 2023 Fecal DNA 2023 Flexible Sigmoidoscopy 2023 Alcohol and Drug Screen 08/28/2023 Depression Annual Screen 08/28/2023 [id number] ( season) 2024 021, 01/12/2021 Imm-Influenza (#1) 2024 05/22/2020, 06/22/2012 Imm-DTaP/Tdap/Td (3 - Td or Tdap) 02/06/2030 020, 06/22/2012 Cervical Ablation/Cold-Knife Conization Discontinued Cervical Cryotherapy Discontinued Colposcopy Discontinued Endometrial Biopsy Discontinued Excision/Leep Discontinued HPV Genotyping Discontinued Vaginal Pap Discontinued Vulvoscopy Discontinued Insurance [facility] ([facility]) Member Subscriber Plan / Payer (Ef fective 2019-Present) Name:Baylee Sparks Relation to Subscriber:Self Name:Baylee Sparks Payer ID:[id number] Group ID:Not on file Type:Indemnity Address: [address] [place] [address] [place]
== END 2024-10-01 10:54 | disposition home or self-care (01) ==
PROVIDERS: PCP Internal Medicine; Visit Provider Internal Medicine
DX: J02.9 Acute pharyngitis, unspecified (principal)

== ENCOUNTER 2024-10-01 10:58 | Outpatient (REF) | payer MEDICARE, MEDICAID, SELFPAY ==
--- OUTSIDE RECORDS SUMMARY | 2024-10-01 11:54 | XMS_ITS | Clinical Summary ---
Author Organization [facility] Address [address] [place] [address] Care Team Providers Care Tire Service Technician Name Role Phone Unavailable Primary Care Provider [...] Drug Screen 08/28/2023 Depression Annual Screen 08/28/2023 [id number] ( season) 2024 021, 01/12/2021 Imm-Influenza (#1) 2024 05/22/2020, 06/22/2012 Imm-DTaP/Tdap/Td (3 - Td or Tdap) 02/06/2030 020, 06/22/2012 Cervical Ablation/Cold-Knife Conization Discontinued Cervical Cryotherapy Discontinued Colposcopy Discontinued Endometrial Biopsy Discontinued Excision/Leep Discontinued HPV Genotyping Discontinued Vaginal Pap Discontinued Vulvoscopy Discontinued Insurance [facility] ([facility]) Member Subscriber Plan / Payer (Ef fective 2019-Present) Name:Baylee Sparks Relation to Subscriber:Self Name:Baylee Sparks Payer ID:[id number] Group ID:Not on file Type:Indemnity Address: [address] [place] [address] [place]
--- OUTSIDE RECORDS SUMMARY | 2024-10-01 11:54 | XMS_ITS | Clinical Summary ---
Author Organization [facility] it Address [address] [place] [address] Care Team Providers Care Patient Care Coordinator Name Role Phone Unavailable Primary Care Provider Unavailabl e Surgical History Surgery Date Site/Laterality Comments SECTION 2000,2004 PROCEDURE: [place] DELIVERY ONLY BUNIONECTOMY PROCEDURE: [place] CORRJ HLX VLGS BNCTY SESMDC W/DOUBLE OSTEOTOMY CARPAL TUNNEL RELEASE 2010 PROCEDURE: HISTORICAL CARPAL TUNNEL REL ELBOW SURGERY PROCEDURE: HISTORICAL ELBOW SURGERY; COMMENT: Right elbow tendonitis Medical History Medical History Date Comments Bipolar I disorder, most rec ent episode (or current) unspecified DX:Bipolar I disorder, most recent episode (or current) unspecified; COMMENT: Dr. Samayoa at [facility] Amblyopia, unspecified DX:Amblyo olga, unspecified; COMMENT: OD [...]
[2024-10-01 14:16] LABS: MANUAL DIFF FLAG NO
[2024-10-01 14:19] LABS: Basophils Absolute Auto 0.1 X10*3/uL (0.0-0.2); Basophils Percent Auto 0.4 % (0-2); Eosinophils Absolute Auto 0.1 X10*3/uL (0.0-0.4); Eosinophils Percent Auto 0.6 % (0-4); Hematocrit 42.3 % (37.0-47.0); Hemoglobin 14.4 g/dl (12.0-16.0); Imm Gran Abs Auto 0.06 X10*3/uL (0.00-0.03); Imm Gran Pct Auto 0.5 % (0.0-0.4); Lymphocytes Absolute Auto 3.1 X10*3/uL (1.2-4.9); Lymphocytes Percent Auto 25.4 % (20-40); Mean Corpuscular Hemoglobin 31.7 pg (27.0-33.0); Mean Corpuscular Volume 93.2 fL (80.0-98.0); Mean Platelet Volume 10.2 fL (9.4-12.3); Monocytes Absolute Auto 0.6 X10*3/uL (0.1-1.2); Monocytes Percent Auto 4.5 % (2-11); Neutrophils Absolute Auto 8.5 x10*3/uL (2.0-8.3); Neutrophils Percent Auto 68.6 % (45-73); Platelet Count 239 X10*3/uL (160-400); Red Blood Count 4.54 X10*6/uL (4.20-5.50); Red Cell Distribution Width 12.9 % (11.0-16.0); White Blood Count 12.3 X10*3/uL (4.8-10.8)
[2024-10-01 14:30] LABS: Estimated Average Glucose 88 mg/dL; Hemoglobin A1C 107.7824 umol/L; Hemoglobin A1c % 4.7 % (<6.0); Total Hemoglobin (HGBA1C) 3858.6259 umol/L
[2024-10-01 15:02] LABS: Folate 3.9 ng/mL (> or = 4.0); Vitamin B12 358 pg/mL (200-900)
[2024-10-06 14:18] LABS: Vitamin D 25-OH, D2 <4 ng/mL; Vitamin D 25-OH, D3 15 ng/mL; Vitamin D 25-OH, Total 15 ng/mL (30-100)
== END 2024-10-01 10:59 | disposition home or self-care (01) ==
LOC: HO.WFDLDS 10:58
PROVIDERS: Visit Provider Internal Medicine
DX: J02.9 Acute pharyngitis, unspecified (principal); R59.1 Generalized enlarged lymph nodes; Z13.1 Encounter for screening for diabetes mellitus
CPT/HCPCS: 82306; 82607; 82746; 83036; 84443; 85025; 87880; 96127; 99212

== ENCOUNTER 2024-10-09 12:48 | Outpatient (REF) | payer MEDICARE, MEDICAID, SELFPAY ==
--- NOTE | ~2024-10-09 | US_ITS ---
CLINICAL HISTORY: J02.9 - Acute pharyngitis, unspecified Exam: Ultrasound of the neck. Comparison: None. Findings: Ultrasound examination of the neck and cervical lymph nodes was performed. Numerous small bilateral jugular lymph nodes are identified. The largest is a right level 2 lymph node measuring 17 x 6 x 13 mm in size. All lymph nodes have a fatty hilum. No hyperemia. Impression: Reactive appearing bilateral jugular lymph nodes as fully discussed above. No suspicious findings. This document has been electronically signed by: Angel Saldana MD on 10/10/2024 09:16:27
--- OUTSIDE RECORDS SUMMARY | 2024-10-09 14:11 | XMS_ITS | Clinical Summary ---
Author Organization [facility] Address [address] [place] [address] Care Team Providers Care Insurance Professional Name Role Phone Unavailable Primary Care Provider [...] 2023 Fecal DNA 2023 Flexible Sigmoidoscopy 2023 [id number] ( season) 2024 021, 01/12/2021 Imm-Influenza (#1) 2024 05/22/2020, 06/22/2012 Alcohol and Drug Screen 08/28/2024 Depression Annual Screen 08/28/2024 Imm-DTaP/Tdap/Td (3 - Td or Tdap) 02/06/2030 020, 06/22/2012 Cervical Ablation/Cold-Knife Conization Discontinued Cervical Cryotherapy Discontinued Colposcopy Discontinued Endometrial Biopsy Discontinued Excision/Leep Discontinued HPV Genotyping Discontinued Vaginal Pap Discontinued Vulvoscopy Discontinued Insurance [facility] ([facility]) Member Subscriber Plan / Payer (Ef fective 2019-Present) Name:Baylee Sparks Relation to Subscriber:Self Name:Baylee Sparks Payer ID:[id number] Group ID:Not on file Type:Indemnity Address: [address] [place] [address] [place]
--- OUTSIDE RECORDS SUMMARY | 2024-10-09 14:11 | XMS_ITS | Clinical Summary ---
Author Organization [facility] it Address [address] [place] [address] Care Team Providers Care Skip Pitman Name Role Phone Unavailable Primary Care Provider Unavailabl e Surgical History Surgery Date Site/Laterality Comments SECTION 2000,2004 PROCEDURE: [place] DELIVERY ONLY BUNIONECTOMY PROCEDURE: [place] CORRJ HLX VLGS BNCTY SESMDC W/DOUBLE OSTEOTOMY CARPAL TUNNEL RELEASE 2010 PROCEDURE: HISTORICAL CARPAL TUNNEL REL ELBOW SURGERY PROCEDURE: HISTORICAL ELBOW SURGERY; COMMENT: Right elbow tendonitis Medical History Medical History Date Comments Bipolar I disorder, most rec ent episode (or current) unspecified DX:Bipolar I disorder, most recent episode (or current) unspecified; COMMENT: Dr. Samayoa at [facility] Amblyopia, unspecified DX:Amblyo olga, unspecified; COMMENT: [...] drink = 0.6 oz pur e alcohol) Comments Unknown Sex and Gender Information Value Date Recorded Sex Assigned at Not on file Legal Sex Female 3:19 PM EST Gender Identity Not on file Sexual Orientation Not on file Obstetrics History Plan of Treatment Health Maintenance Due Date Last Done Comments Breast Cancer Screening 1978 Hepatitis B Vaccines (1 of 3 - 19+ 3-dose series) 1997 Cervical Cancer Screening: P ap Smear 1999 DTaP,Tdap,and Td Vaccines (2 - Td or Tdap) 06/22/2022 06/22/2012 COVID-19 Vaccine (2023-2 5 season) 2024 Influenza Vaccine (#1) 2024 [...]
== END 2024-10-09 12:49 | disposition home or self-care (01) ==
LOC: HO.HMGCX 12:48
PROVIDERS: PCP Internal Medicine; Visit Provider Internal Medicine
DX: J02.9 Acute pharyngitis, unspecified (principal); R59.1 Generalized enlarged lymph nodes
CPT/HCPCS: 76536

== ENCOUNTER → 2024-10-09 12:50 | Outpatient (BNV) | payer MEDICARE, MEDICAID, SELFPAY | PROVIDERS: PCP Internal Medicine; Visit Provider Radiology Diagnostic Radiology | DX: J02.9 Acute pharyngitis, unspecified (principal) | CPT/HCPCS: 76536 ==

== ENCOUNTER 2024-11-25 08:18 | Outpatient (REF) | payer MEDICARE, MEDICAID, SELFPAY | END 2024-11-25 08:19 | disposition home or self-care (01) | LOC: HO.MAMMO 08:18 | PROVIDERS: PCP Internal Medicine; Visit Provider Internal Medicine | DX: Z12.31 Encounter for screening mammogram for malignant neoplasm of breast (principal) | CPT/HCPCS: 77063; 77067 ==

== ENCOUNTER → 2024-11-25 08:30 | Outpatient (BNV) | payer MEDICARE, MEDICAID, SELFPAY | PROVIDERS: PCP Internal Medicine; Visit Provider Internal Medicine | DX: Z12.31 Encounter for screening mammogram for malignant neoplasm of breast (principal) | CPT/HCPCS: 77063; 77067 ==

== ENCOUNTER 2025-02-25 10:20 | Outpatient (AMB) | payer MEDICARE, MEDICAID, SELFPAY ==
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
[2025-02-25 10:41] VITALS: BP 112/64; PULSE 81; RESP 12; TEMP 36.9; O2SAT 97; BMI 33.4
--- OUTSIDE RECORDS SUMMARY | 2025-02-25 11:28 | XMS_ITS | Clinical Summary ---
Author Organization [facility] it Address [address] [place] [address] Care Team Providers Care Borematic Machine Operator Name Role Phone Unavailable Primary Care Provider Unavailabl e Surgical History Surgery Date Site/Laterality Comments SECTION 2000,2004 PROCEDURE: [place] DELIVERY ONLY BUNIONECTOMY PROCEDURE: [place] CORRJ HLX VLGS BNCTY SESMDC W/DOUBLE OSTEOTOMY CARPAL TUNNEL RELEASE 2010 PROCEDURE: HISTORICAL CARPAL TUNNEL REL ELBOW SURGERY PROCEDURE: HISTORICAL ELBOW SURGERY; COMMENT: Right elbow tendonitis Medical History Medical History Date Comments Bipolar I disorder, most rec ent episode (or current) unspecified DX:Bipolar I disorder, most recent episode (or current) unspecified; COMMENT: Dr. Samayoa at [facility] Amblyopia, unspecified DX:Amblyo olga, unspecified; COMMENT: OD [...] Vaccine (2023-2 5 season) 2024 Influenza Vaccine (Season Ended) 2025 06/22/20 12 HIB Vaccines Aged Out No longer eligi [...] patient's age to complete this topic Meningococcal B Vaccine Aged Out No l onger eligible based on patient's age to complete [...]
--- OUTSIDE RECORDS SUMMARY | 2025-02-25 11:28 | XMS_ITS | Data Portability ---
Author Organization [facility], [facility] Address [address] [place] [address] Care Team Providers Care Cryolite Recovery Operator Name Role Phone RICHMOND RODRIGUEZ Primary Care Provider Assessment No assessment recorded. Plan of Treatment Reminders Order Date Submit Date Provider Last Modified By Organization Details Last Modified Time Details Appointments None recorded. Lab None recorded. Referral occupatio nal therapist referral - Diagnosis : LEFT MEDIAL EPI Treatment : continue current treatment 2023 024 rmessenger Not available 4 15:28:36 occupatio nal therapist referral - Diagnosis : left medial epi Custom molded orthosis: none Treatment : Eccentric stretchin g and strengthe kathia wrist and digits, deep tissue massage 2023 024 SEE Not available 4 16:06:14 Procedures None recorded. Surgeries None recorded. Imaging XR, elbow, 2 view - 2v lt elbow, meter maintenance person, rm 116 2023 024 rmessenger Not available 4 10:11:36 Medication Orders None recorded. Patient TargetsNo targets recorded. Patient InstructionsNo instructions recorded. Reason for Referral Occupational Therapist Refer ral for Medial epicondylitis of left elbow joint Diagnosis: left medial epiCustom molded orthosis: noneTreatment: Eccentric stretching and strengthening wrist and digits, deep tissue massage Referring Physician: Hermelindo Peters, Orthopedic Surgery, Encounter Date: 01/15/2024 Occupational Therapist Refer ral for Medial epicondylitis of left elbow joint Diagnosis: LEFT MEDIAL EPITreatment: continue current treatment Referring Physician: Hermelindo Peters, Orthopedic Surgery, Encounter Date: 03/04/2024 Medical Equipment None Reported. Allergies No known drug allergies Medications Name Sig Start Date Stop Date Status Note LastModified by Organization Details LastModified Time losartan 50 mg tablet TAKE 1 TABLET BY MOUTH DAILY active Not Available Not Available No t Available oxcarbazepi ne 150 mg tablet TAKE 1 TABLET BY MOUTH DAILY IN THE MORNING active Not Available Not Available No t Available clonidine HCl 0.1 mg tablet TAKE 1 TABLET BY MOUTH TWICE DAILY active Not Available Not Available No t Available ibuprofen 800 mg tablet TAKE 1 TABLET BY MOUTH THREE TIMES DAILY active Not Available Not Available No t Available tizanidine 4 mg tablet TAKE 1 TABLET BY MOUTH TWICE DAILY NEEDED FOR MUSCLE SPASMS 02/25 completed Not Available Not Available Not Available metronidazo le 0.75 % (37.5 mg/5 gram) vaginal gel INSERT 1 APPLICATO RFUL VAGINALLY EVERY DAY AT BEDTIME FOR 5 DAYS active Not Available Not Available No t Available clonazepam 0.5 mg tablet TAKE 1 TABLET BY MOUTH TWICE DAILY 15 TABLET EXTRA FOR PANIC ATTACKS active Not Available Not Available No t Available sertraline 100 mg tablet TAKE 1 TABLET BY MOUTH DAILY active Not Available Not Available No t Available clonazepam 1 mg tablet TAKE 1 TABLET BY MOUTH TWICE DAILY. DISCONTIN UE ALL OTHER KLONOPIN SCRIPTS 02/25 completed Not Available Not Available Not Available oxcarbazepi ne 300 mg tablet TAKE 2 TABLETS BY MOUTH DAILY AT BEDTIME active Not Available Not Available No t Available acetaminoph en 500 mg tablet active Not Available Not Available Not Available dexamethaso ne 4 mg tablet TAKE 1 TABLET BY MOUTH TWICE DAILY 02/25 completed Not Available Not Available Not Available bisacodyl 5 mg tablet,olga yed release 02/25 completed Not Available Not Available Not Available polyethylen e glycol 3350 17 gram/dose oral powder 02/25 completed Not Available Not Available Not Available clonazepam 1 mg disintegrat ing tablet DISSOLVE 1 TABLET ON THE TONGUE TWICE DAILY NEEDED FOR ANXIETY 5 EXTRA TABLET A MONTH 02/25 completed Not Available Not Available Not Available nitrofurant oin monohydrate /macrocryst als 100 mg capsule TAKE 1 CAPSULE BY MOUTH EVERY 12 HOURS FOR 3 DAYS MUST ADMINISTE R WITH A MEAL/FOOD 02/25 completed Not Available Not Available Not Available chlorhexidi ne gluconate 0.12 % mouthwash RINSE MOUTH WITH 15ML (1 CAPFUL) FOR 30 SECONDS IN MORNING AND EVENING AFTER BRUSHING, THEN SPIT active Not Available Not Available No t Available Sodium Fluoride 5000 Dry Mouth 1.1 % dental paste COVER 1/2 OF TOOTHBRUS H AND BRUSH TEETH FOR 2 MINUTES AT BEDTIME. DO NOT RINSE. active Not Available Not Available No t Available BinaxNOW COVID-19 Ag Self Test kit USE DIRECTED ON PACKAGE 02/25 completed Not Available Not Available Not Available Paxlovid 300 mg (150 mg x 2)-100 mg tablets in a dose pack TAKE TWO 150 MG TABLET OF NIRMATREL VIR WITH ONE 100 MG TABLET OF RITONAVIR TWICE DAILY FOR 5 DAYS BY MOUTH 02/25 completed Not Available Not Available Not Available Vitals Date Recorded Body height Body mass index (BMI) Body weight Provider Name and Address Organization Details Last Updated DateTime 03/04/2024 170.18 cm 34.1 kg/m2 20757.14 g PADMAJA GO [place] - [facility] 03/04/2024 09:41:54 Social History None recorded. Functional Status None recorded. Mental Status None recorded. Family History Nothing Reported. Medical History No medical history recorded. Gynecological HistoryNo gynecological history recorded. Obstetrics History GPAL:G 0 P 0 0 0 0 Past Encounters Encounter ID Performer Location Encounter Start Date Encounter Closed Date Diagnosis/Indication Diagnosis SNOMED-CT Code Diagnosis ICD10 Code Diagnosis Note [id number] MD Pauline Lopez [address] [place] [address] 01/15/2024 10:31:12 01/26/2024 10:11:36 Pain of left elbow joint 4362053962 3519042 M25.522 Medial epi condylitis of left elbow joint 6142273559 84685 M77.02 [id number] MD Pauline Lopez [address] [place] [address] 03/04/2024 09:24:09 03/18/2024 15:28:36 Medial epicondylitis of left elbow joint 2924915136 85768 M77.02 Health Concerns Section Related Observation LastModified by Organization Detai ls LastModified Time None Recorded Concern Status LastModified by Organization Details LastModified Time None Recorded Advance Directives Directive None Recorded Payers Insurance Date Sequence Insurance Name Policy Number Policy Stern Covered Member ID Stern Member ID Guarantor Name 02/26/2024 1 [place] [employer] [employer] Baylee Sparks [id number] Baylee Sparks 04/07/2024 1 [place] [employer] Baylee Sparks [id number] Baylee Sparks 04/07/2024 2 [place] [facility] Baylee Sparks [id number] Baylee Sparks Notes Date Note Type Note Provider Name and Address Organization Details Recorded Time 01/15/2024 text/html Diagnosis: Left medial [id number]-d ld female who presents with a 5 month history of left medial elbow pain. The pain is sharp in a 6/10 in severity. It occurs with grass. She has no numbness or tingling.Past family, medical, social history and review of systems has been reviewed, updated and is located in the patient s chart.Examination: Healthy appearing patient in no apparent distress. Alert and oriented. She has symmetric range of motion of her bilateral elbows and forearms. Provocative tests for the elbows reveals no instability. She is tender to palpation over left medial epicondyle. She has pain in this region with resisted wrist flexion with the elbow flexed and extended. She has pain with form rotation. No atrophy in either upper extremity. Brisk capillary refill in all digitsX-rays ordered, obtained, and reviewed today at [facility]: [place] and lateral left elbow reveal no evidence of fracture or dislocation.Plan: The patient and I reviewed the nature of medial epicondylitis. I recommended a course of therapy. The patient would like to proceed directly with surgery. I explained that since the vast majority of patients do not require surgery to recommend that we begin with surgical intervention. We did review the surgery is potential risks. The patient would like to discuss this further if therapy is not successful. She will follow-up in 4 weeks' time. Hermelindo Peters MD [address] [place], [place] [address] [address], [place], [address], [facility] - [facility] 01/15/2024 12:00:17 03/04/2024 text/html Diagnosis: Left medial epicondylitisThe patient returns at our request. She describes a 70% improvement in her discomfort she continues described medial elbow pain with grasp. She has no numbness or tingling.Past family, medical, social history and review of systems has been reviewed, updated and is located in the patient s chart.Examination: Healthy appearing patient in no apparent distress. Alert and oriented. She has symmetric range of motion of her bilateral elbows and forearms. Provocative testing elbows reveals no instability. She is tender to palpation over her left medial epicondyle. She has pain with resisted form pronation. No atrophy in either upper extremity. Brisk capillary refill in all digitsPlan: Patient and I discussed her situation at length. We discussed corticosteroid injection but agreed that she could proceed with another round of occupational therapy. She will follow up with me as directed. Hermelindo Peters MD [address] [place] [address] [address], [place], [address], [facility] - [facility] 03/04/2024 16:43:52 OBGyn Episode No OBEpisode recorded.
--- OUTSIDE RECORDS SUMMARY | 2025-02-25 11:28 | XMS_ITS | Clinical Summary ---
Author Organization [facility] Address [address] [place] [address] Care Team Providers Care Senior Programmer Name Role Phone Unavailable Primary Care Provider Unavailabl e Source Comments PLEASE NOTE, if this patient is a minor, it may be UNLAWFUL to discuss sensitive information that is contained in these records (such as FAMILY PLANNING, MENTAL HEALTH or SUBSTANCE ABUSE) with the minor patient's parent or other person without the patient's specific authorization.[facility] Immunizations Immunization Administration Dates Next Due PFIZER COVID VACCINE, [...] Health Maintenance Due Date Last Done Comments Anxiety Screening 1978 Diabetes Screening 1978 HPV Screening 1978 Hepatitis [...] 2023 Fecal DNA 2023 Flexible Sigmoidoscopy 2023 [id number] ( season) 2024 021, 01/12/2021 Imm-Influenza (#1) 2024 05/22/2020, 06/22/2012 Alcohol and Drug Screen 08/28/2024 Depression Annual Screen 08/28/2024 Imm-DTaP/Tdap/Td (3 - Td or Tdap) 02/06/2030 020, 06/22/2012 Cervical Ablation/Cold-Knife Conization Discontinued Cervical Cryotherapy Discontinued Colposcopy Discontinued Endometrial Biopsy Discontinued Excision/Leep Discontinued HPV Genotyping Discontinued Vaginal Pap Discontinued Vulvoscopy Discontinued Insurance [facility] Member Subscriber Plan / Payer (Ef fective 2019-Present) Name:aBylee Sparks Relation to Subscriber:Self Name:Baylee Sparks Payer ID:[id number] Group ID:Not on file Type:[email or web address] Address: [address] [place] [address] [place]
== END 2025-02-25 11:05 | disposition home or self-care (01) ==
LOC: HO.HMCFM 10:22
PROVIDERS: PCP Internal Medicine; Visit Provider Internal Medicine
DX: R44.2 Other hallucinations (principal); J02.9 Acute pharyngitis, unspecified; R43.0 Anosmia; R59.0 Localized enlarged lymph nodes

== ENCOUNTER → 2025-02-25 10:20 | Outpatient (BNVA) | payer MEDICARE, MEDICAID, SELFPAY | PROVIDERS: PCP Internal Medicine; Visit Provider Internal Medicine | DX: R44.2 Other hallucinations (principal); J02.9 Acute pharyngitis, unspecified; R43.0 Anosmia; R59.0 Localized enlarged lymph nodes; R61 Generalized hyperhidrosis; F31.9 Bipolar disorder, unspecified; G57.01 Lesion of sciatic nerve, right lower limb; I10 Essential (primary) hypertension; Z13.31 Encounter for screening for depression | CPT/HCPCS: 96127; 99212 ==

== ENCOUNTER 2025-02-25 11:09 | Outpatient (REF) | payer MEDICARE, MEDICAID, SELFPAY ==
[2025-02-25 14:52] LABS: MANUAL DIFF FLAG NO
[2025-02-25 14:54] LABS: Hematocrit 43.1 % (37.0-47.0); Hemoglobin 14.6 g/dl (12.0-16.0); Imm Gran Abs Auto 0.03 X10*3/uL (0.00-0.03); Imm Gran Pct Auto 0.3 % (0.0-0.4); Lymphocytes Absolute Auto 3.2 X10*3/uL (1.2-4.9); Mean Corpuscular HGB Conc 33.9 g/dl (31.0-35.0); Mean Corpuscular Hemoglobin 31.9 pg (27.0-33.0); Mean Corpuscular Volume 94.1 fL (80.0-98.0); NRBC Abs Auto 0.000 X10*3/uL (0.0-0.012); NRBC Pct Auto 0.0 /100WBC (0.0-0.2); Platelet Count 243 X10*3/uL (160-400); Red Blood Count 4.58 X10*6/uL (4.20-5.50); White Blood Count 9.5 X10*3/uL (4.8-10.8)
[2025-02-25 15:23] LABS: Iron 74 mcg/dL (30-160); Percent Iron Saturation 28 % (15-50); Total Iron Binding Capacity 263 mcg/dL (228-428); Unsaturated Iron Binding 189 ug/dL
== END 2025-02-25 11:10 | disposition home or self-care (01) ==
LOC: HO.WFDLDS 11:09
PROVIDERS: Visit Provider Internal Medicine
DX: R61 Generalized hyperhidrosis (principal)
CPT/HCPCS: 36415; 83540; 85025

== ENCOUNTER 2025-03-20 18:20 | Outpatient (REF) | payer MEDICARE, MEDICAID, SELFPAY ==
--- NOTE | ~2025-03-20 | MR_ITS ---
CLINICAL HISTORY: Phantosmia, Other hallucinations MR Brain with and without gadolinium Comparison: None provided Findings: No restricted diffusion. No intra-axial mass or hemorrhage. No midline shift. No hydrocephalus. Vascular flow voids are intact. There are no areas of abnormal enhancement. Orbital contents are unremarkable. The sinuses and mastoid air cells are clear. No focal bone lesion. IMPRESSION: No acute findings. This document has been electronically signed by: Hector Art MD on 03/22/2025 09:50:02
--- OUTSIDE RECORDS SUMMARY | 2025-03-20 18:23 | XMS_ITS | Clinical Summary ---
[facility] Address [address] [place] [address] Care Team Providers Care Conveyor Attendant Name Role Phone Unavailable Primary Care Provider Unavailabl e Surgical History Surgery Date Site/Laterality Comments SECTION 2000,2004 PROCEDURE: [place] DELIVERY ONLY BUNIONECTOMY PROCEDURE: [place] CORRJ HLX VLGS BNCTY SESMDC W/DOUBLE OSTEOTOMY CARPAL TUNNEL RELEASE 2010 PROCEDURE: HISTORICAL CARPAL TUNNEL REL ELBOW SURGERY PROCEDURE: HISTORICAL ELBOW SURGERY; COMMENT: Right elbow tendonitis Medical History Medical History Date Comments Bipolar I disorder, most rec ent episode (or current) unspecified DX:Bipolar I disorder, most recent episode (or current) unspecified; COMMENT: Dr. Samayoa at [facility] Amblyopia, unspecified DX:Amblyo olga, unspecified; COMMENT: OD [...] Vaccine (1 - 2023-2 5 season) 2024 Depression Screening 08/28/2024 Influenza Vaccine (#1) 2025 06/22/2012 HIB Vaccines Aged Out No longer [...] 5 Years) and At-Risk Patients (6 to 49 Years) Aged Out No longer eligi ble based on patient's age to complete this topic RSV Immunization Patients Un christian 20 months Aged Out No longer eligible b ased on patient's age to complete this topic Varicella Vaccines Aged Out No longer eligible based on patient's age to complete this topic
--- OUTSIDE RECORDS SUMMARY | 2025-03-20 18:23 | XMS_ITS | Data Portability ---
Author Organization [facility], [facility] Address [address] [place] [address] Care Team Providers Care Roving Weight Gauger Name Role Phone RICHMOND RODRIGUEZ Primary Care [...] elbow, 2 view - 2v lt elbow, psychiatric arnp, rm 116 2023 024 rmessenger Not available [...] Updated DateTime 03/04/2024 170.18 cm 34.1 kg/m2 04206.14 g PADMAJA GO [place] - [facility] 03/04/2024 09:41:54 Social History None recorded. Functional Status None recorded. Mental Status None recorded. Family History Nothing Reported. Medical History No medical history recorded. Gynecological HistoryNo gynecological history recorded. Obstetrics History GPAL:G 0 P 0 0 0 0 Past Encounters Encounter ID Performer Location Encounter Start Date Encounter Closed Date Diagnosis/Indication Diagnosis SNOMED-CT Code Diagnosis ICD10 Code Diagnosis Note [id number] MD Pauline Lopez [address] [place] [address] 01/15/2024 10:31:12 01/26/2024 10:11:36 Pain of left elbow joint [id number] M25.522 Medial epi condylitis of left elbow joint 3224609863 23026 M77.02 [id number] MD Pauline Lopez [address] [place] [address] 03/04/2024 09:24:09 03/18/2024 15:28:36 Medial epicondylitis of left elbow joint [id number] 04555 M77.02 Health Concerns Section Related Observation LastModified by Organization Detai ls LastModified Time None Recorded Concern Status LastModified by Organization Details LastModified Time None Recorded Advance Directives Directive None Recorded Payers Insurance Date Sequence Insurance Name Policy Number Policy Stern Covered Member ID Stern Member ID Guarantor Name 02/26/2024 1 [place] [employer] Baylee Sparks [id number] Baylee Sparks 04/07/2024 1 [place] [employer] Baylee Sparks [id number] Baylee Sparks 04/07/2024 2 [place] [facility] Baylee Sparks [id number] Baylee Sparks Notes Date Note Type Note Provider Name and Address Organization Details Recorded Time 01/15/2024 text/html ROS as noted in the HPI Diagnosis: Left medial [id number]-agtc-r ld female who presents with a 5 [...] digitsX-rays ordered, obtained, and reviewed today at [facility]: [place] and lateral left elbow reveal no [...] in 4 weeks' time. Hermelindo Peters MD [facility] [address], [place], [address], [facility] - [facility] 01/15/2024 12:00:17 03/04/2024 text/html ROS as noted in the HPI Diagnosis: Left medial epicondylitisThe patient returns at [...] with me as directed. Hermelindo Peters MD [address] [place] [address] [address], [place], [address], [facility] - [facility] 03/04/2024 16:43:52 OBGyn Episode No OBEpisode recorded.
== END 2025-03-20 18:21 | disposition home or self-care (01) ==
LOC: HO.MRI 18:20
PROVIDERS: PCP Internal Medicine; Visit Provider Internal Medicine
DX: R43.0 Anosmia (principal); R44.2 Other hallucinations; R59.0 Localized enlarged lymph nodes
CPT/HCPCS: 70553; A9585

== ENCOUNTER → 2025-03-20 18:32 | Outpatient (BNV) | payer MEDICARE, MEDICAID, SELFPAY | PROVIDERS: PCP Internal Medicine; Visit Provider Specialist | DX: R43.8 Other disturbances of smell and taste (principal) | CPT/HCPCS: 70553 ==

== ENCOUNTER 2025-07-22 14:04 | Emergency (ER) | payer MEDICARE, MEDICAID, SELFPAY ==
--- NOTE | ~2025-07-22 | CT_ITS ---
CLINICAL HISTORY: severe RLQ pain CT abdomen and pelvis with contrast Comparison: CT/SR - CT ABDOMEN PELVIS WITHOUT IV CONTRAST - 06/17/24 14:26 EDT Findings: The lung bases are clear. The gallbladder and solid organs are within normal limits. No renal stones. There is mild thickening of proximal small bowel folds. There is no bowel obstruction. There is no colitis. 2 cm corpus luteal cyst within the right ovary. 2.2 cm dominant follicle within the left ovary. Otherwise unremarkable pelvic contents. The appendix is well-visualized and is normal. No acute fracture. IMPRESSION: 1. Mild thickening of proximal small bowel folds raising the possibility of enteritis. 2. Normal appendix. 3. Small cysts within the bilateral ovaries compatible with physiologic cysts. This document has been electronically signed by: Kathleen Dexter MD on 07/22/2025 17:39:58
[2025-07-22 14:14] VITALS: BP 129/105; PULSE 117; RESP 18; TEMP 36.7; O2SAT 97; BMI 30.8
--- NOTE | 2025-07-22 14:14 | ED_ITS ---
HPI - General Adult General Chief complaint: Abdominal Pain Stated complaint: abd pain Time Seen by Provider: 07/22/25 14:53 Source: patient Mode of arrival: ambulatory Limitations: no limitations History of Present Illness ED Provider: Adia Painting PA-C HPI narrative: 45 yo female with history of HTN, bipolar disorder, chronic back pain who presents to the ER for evaluation of worsening RLQ pain for the last 3-4 days, acutely worse at 3am today. Reports pain is severe, stabbing and constant, getting worse over the last 24 hours. She reports nausea but no vomiting. She has had some loose nonbloody stools. She reports she is afraid to eat or drink due to severe RLQ pain. No fevers or chills. No urinary symptoms. No vaginal discharge. Last menstrual period was 3 weeks ago, denies chance of . She reports history of a small, asymptomatic ovarian cyst in the past. She has had a uterine albation as well. MD complaint: RLQ pain Onset (ago): day(s) Location: abdomen Radiation: back Severity: severe Severity scale (1-10): 8 Quality: stabbing and sharp Pain Consistency: constant Relieving factors: none Exacerbating factors: none Associated symptoms: loss of appetite and nausea/vomiting Treatments prior to arrival: none Related Data Home Medications ?Medication ?Instructions ?Recorded ?Confirmed clonidine HCl 0.1 mg tablet 0.1 mg PO BEDTIME 05/04/22 06/26/24 sertraline 100 mg tablet 100 mg PO DAILY 06/08/23 oxcarbazepine 150 mg tablet 150 mg PO DAILY 08/31/23 1 clonidine HCl 0.1 mg tablet 0.05 mg PO DAILY 06/16/24 06/26/24 oxcarbazepine 300 mg tablet 600 mg PO BEDTIME 06/16/24 06/26/24 clonazepam 0.5 mg tablet (Klonopin) 0.5 mg PO DAILY Previous Rx's ?Medication ?Instructions ?Recorded fluconazole 150 mg tablet 150 mg PO DAILY #7 tabs 12/20 aluminum chloride 6.25 % topical 1 appl topical Q OTHE R DAY #60 mL 02/25/25 solution (Xerac AC) losartan 50 mg tablet 50 mg PO DAILY #90 tabs 12/20 albuterol sulfate 90 mcg/actuation 2 puff PO Q4-6H PRN for wheezing 05/15/25 aerosol inhaler #8.5 grams epinephrine 0.3 mg/0.3 mL 0.3 mg (0.3 mL) IM Q10M PRN 06/12/25 injection, auto-injector (EpiPen) anaphylaxis #1 ea ondansetron 4 mg disintegrating 4 mg PO Q8H PRN nausea and 07/22/25 tablet vomiting #14 tabs Allergies Allergy/AdvReac Type Severity Reaction Status Date / Time lurasidone (From Latuda) Allergy Mild Itching Verified 07/22/25 14:16 NSAIDS (Non-Steroidal Allergy Rash Verified 07/22/25 14:16 Anti-Inflamma bee sting Allergy Severe tongue Uncoded 02/25/25 10:36 swelling Review of Systems 2 Review of Systems: Yes all other systems are reviewed and are negative [facility] Past Medical History Medical History (Updated 07/22/25 @ 18:27 by Mackenzie Chauhan ELECTRONICS DEPARTMENT MANAGER-) Piriformis syndrome of right side History of adenomatous polyp of colon Lumbar disc herniation with radiculopathy History of shingles Essential hypertension Lazy eye of right side Legally blind in right eye, as defined in [place] Obesity (BMI 35.0-39.9 without comorbidity) Bipolar disorder Surgical History Hx of colonoscopy Hx of dilation and curettage History of carpal tunnel release History of History of bunionectomy of right great toe Family History Family History Father Brain aneurysm Sister Gilbert's disease Daughter Bipolar disorder Mental health disorder Family/Other Hx of colonoscopy Maternal Grandmother Alcoholic Maternal Grandfather Alcoholic Daughter Schizo affective schizophrenia Other FH: mental illness Substance use disorder Social History Social History (Updated 02/25/25 @ 11:49 by Isidra Bertrand CMA) Household Members: Family Housing: House Do you presently have visiting nurse or other home services: No Alcohol intake: former Comment: socially Patient Tobacco Use Status: Current everyday Tobacco user Tobacco use type: Cigarette Cigarettes Per Day: 15 Years Smoked: 34 e-Cigarette/Vaping Use: Never Used Second Hand Smoke Exposure: No Substance Use Type: Marijuana Advance Directives: Yes Advance Directives Information Provided: Yes Advance Directives on File: No service: No Current occupational status: disabled Cognitive needs: No Hearing needs: No Vision needs: Yes (glasses, legally blind right eye) Physical Exam ED Exam Exam: Appearance: Alert. Oriented X3. appears uncomfortable and in pain Head: normocephalic, atraumatic. Eyes: Pupils equal, round and reactive to light. ENT: Pharynx normal. No tonsillar swelling or exudate. Neck: Normal inspection. Neck supple. CVS: Normal heart rate and rhythm. Pulses normal. Respiratory: No respiratory distress. Breath sounds normal. Abdomen: Soft with RLQ tenderness and guarding, no rebound tenderness, normal active +BS x4. pelvic deferred Skin: Skin warm and dry. Normal skin color. Normal skin turgor. No rashes. Extremities: No lower extremity edema. No joint swelling. Neuro/psych: Oriented X 3. grossly normal, nonfocal. CN II-XII intact. Normal speech and cognition. Vital Signs: Vital Signs - 24 hr 07/22/25 14:14 07/22/25 17:19 Temperature 98.1 F 97.5 F Pulse Rate 117 H 62 Respiratory Rate 18 18 Blood Pressure 129/105 H 144/85 H Pulse Oximetry 97 98 Oxygen Delivery Method Room Air Room Air BMI result Body Mass Index 30.8 Course Course Course Narrative: This is a rapid medical exam performed by Richard Alvarado NP: Additional HPI, ROS, PE not included below will be deferred to primary provider. Patient is a 45y/o F with pmhx Bipolar disorder, HTN, presenting with severe RLQ abd pain for 3 weeks. Past few days has become more and more severe. Associated nausea and vomiting. Plan: labs, UA 1700-- Mackenzie Chauhan NP Patient signed out to me from previous provider pending CT a/p. 1820-- IMPRESSION: 1. Mild thickening of proximal small bowel folds raising the possibility of enteritis. 2. Normal appendix. 3. Small cysts within the bilateral ovaries compatible with physiologic cysts. CT results listed above. Patient raising concern for enteritis, patient also with bilateral ovarian cysts. On reassessment she reports feeling generalized abdominal cramping, I did offer her Bentyl while in the ED but she has declined at this time. She would like to be discharged home with a prescription for antiemetic, which I provided to her. We discussed extensively enteritis and signs/symptoms to return to the ED for. She has a scheduled outpatient visit with GI tomorrow, which she will keep. Patient is agreeable to this plan of care at this time, provided return precautions. Medications Administered Discontinued Medications Generic Name Dose Route Start Last Admin Trade Name Isaura PRN Reason Stop Dose Admin Lactated Ringer's 1,000 mls @ 999 mls/hr 07/22/25 15:15 07/22/25 16:20 Lr IV 07/22/25 16:15 Infused .Q1H1M DAVID Infusion Iohexol 100 ml 07/22/25 16:37 07/22/25 16:37 Iohexol 350 Mg/Ml 100 Ml Infus..Btl IV 07/22/25 16:38 85 ml ONCE ONE Administration Morphine Sulfate 4 mg 07/22/25 15:00 07/22/25 15:08 Morphine Sulfate 4 Mg/Ml Cartridge IVPUSH 07/22/25 15:01 4 mg ONCE ONE Administration Protocol Ondansetron HCl 4 mg 07/22/25 15:00 07/22/25 15:08 Ondansetron Hcl 4 Mg/2 Ml Vial IVPUSH 07/22/25 15:01 4 mg ONCE ONE Administration Medical Decision Making Medical Decision Making MDM Narrative: 45-year-old female with history of bipolar disorder, obesity, chronic back pain, HTN who presents to the ER for evaluation of worsening right lower quadrant pain for the last couple of days, has been getting much worse today at 3am today. On arrival to the ER she is tachycardic with heart rates in the 1 teens, this likely due to pain. She is afebrile. Blood pressure is stable. Lab work showing white blood cell count of 12.1. UA has large leukocyte esterase but has large amount of squamous cells, concern for contamination and inaccurate UA. Will request a repeat. IV was established and she was given IV fluids, IV morphine and Zofran. HR 60s on re-evaluation with improvement in pain. Low suspicion for sepsis at this time. CT scan of the abdomen with contrast was ordered for further evaluation Differential Diagnosis Differential Diagnoses: The differential diagnosis associated with the presentation includes Acute appendicitis, ovarian cyst, ovarian torsion, kidney stone, UTI, colitis, low suspicion for PID or TOA Admission/Observation Consideration of admission/observation: Escalation of care including admission/observation considered Lab Data MDM Lab Attestation statement: I reviewed the patient's lab results. Mild leukocytosis, normal renal function, contaminated UA 07/22/25 14:28 07/22/25 14:28 Labs: Lab Results 07/22/25 07/22/25 Range/Units 14:28 17:21 WBC 12.1 H (4.8-10.8) X10*3/uL RBC 4.83 (4.20-5.50) X10*6/uL Hgb 15.4 (12.0-16.0) g/dl Hct 44.9 (37.0-47.0) % MCV 93.0 (80.0-98.0) fL MCH 31.9 (27.0-33.0) pg MCHC 34.3 (31.0-35.0) g/dl RDW 12.2 (11.0-16.0) % Plt Count 249 (160-400) X10*3/uL MPV 9.6 (9.4-12.3) fL Immature Gran % (Auto) 0.3 (0.0-0.4) % Neut % (Auto) 59.0 (45-73) % Lymph % (Auto) 33.5 (20-40) % [place] % (Auto) 5.3 (2-11) % Eos % (Auto) 1.4 (0-4) % Baso % (Auto) 0.5 (0-2) % Lymph # (Auto) 4.1 (1.2-4.9) X10*3/uL [place] # (Auto) 0.6 (0.1-1.2) X10*3/uL Eos # (Auto) 0.2 (0.0-0.4) X10*3/uL Baso # (Auto) 0.1 (0.0-0.2) X10*3/uL Abs Immat Gran (auto) 0.04 H (0.00-0.03) X10*3/uL Absolute Neuts (auto) 7.1 (2.0-8.3) x10*3/uL Absolute Nucleated RBC 0.000 (0.0-0.012) X10*3/uL Nucleated RBC % (auto) 0.0 (0.0-0.2) /100WBC Sodium 140 (135-145) mmol/L Potassium 4.2 (3.3-5.1) mmol/L Chloride 109 H (96-108) mmol/L Carbon Dioxide 24 (22-29) mmol/L Anion Gap 11 L (12-20) BUN 7 L (9-16) mg/dL Creatinine 0.74 (0.5-1.4) mg/dL Estim Creat Clear Calc 107.7 Estimated GFR > 60 Random Glucose 91 (60-115) mg/dL Calcium 9.4 (8.4-10.2) mg/dL Total Bilirubin 0.6 (0.0-1.0) mg/dL AST 15 (5-31) U/L ALT 12 (0-31) U/L Alkaline Phosphatase 53 (39-117) U/L Total Protein 7.6 (6.5-8.0) g/dL Albumin 5.3 H (3.5-5.0) g/dL Beta HCG, Quant < 2 mIU/mL Urine Color Yellow Yellow Urine Appearance Turbid Clear Urine pH 5.5 5.5 (5.0-9.0) Ur Specific [place] 1.020 >= 1.030 H (1.005-1.025) Urine Protein Trace Negative (Neg-Trace) mg/dL Urine Glucose (UA) Negative Negative (Negative) mg/dL Urine Ketones Trace Negative (Negative) mg/dL Urine Blood Small (1+) H Negative (Negative) Urine Nitrite Negative Negative (Negative) Ur Leukocyte Esterase Large (3+) H Negative (Negative) Urine RBC 0-2 (0-2) /HPF Urine WBC 11-20 (0-5) /HPF Ur Squamous Epith Cells >20 (0-2) /HPF Urine Bacteria 3+ (None Seen) Hyaline Casts 3-5 (0-2) /LPF Independent Interpretation I performed an independent interpretation of an: CT Scan Interpretation: hepatomegaly, no obvious colonic stranding in the RLQ or appendicitis on my review Independent Historian Clinical information obtained from an independent historian. History obtained from or confirmed by: Spouse External Record Review External record reviewed: Outpatient record, Prior outpatient labs and Prior outpatient radiology Prescription Management I considered prescription management with: Pain Medication and Antibiotic Chronic Conditions Patient?s care impacted by: Hypertension and Other (Bipolar disorder) Critical Care Time Critical Care Time Critical Care Time: No Discharge Plan Discharge Clinical Impression: Enteritis Abdominal pain Qualifiers: Abdominal location: right lower quadrant Qualified Code(s): R10.31 - Right lower quadrant pain Patient Disposition: Home, Self-Care Instructions: Abdominal Pain (ED), Enteritis (ED) Additional Instructions: As we discussed, you had an extensive workup in the emergency department today. Your imaging, lab work, etc was overall very reassuring. We would like for you to follow-up with your PCP within 1 week. Please return to the ED for reassessment at any time with any worsening or new complaints as we discussed. I have sent you a prescription for Zofran, the antinausea medication to your pharmacy. You may use this as needed for nausea and vomiting. I have also listed your CT scan below for your convenience, as you have your appointment with GI tomorrow. CT Abdomen/Pelvis W: IMPRESSION: 1. Mild thickening of proximal small bowel folds raising the possibility of enteritis. 2. Normal appendix. 3. Small cysts within the bilateral ovaries compatible with physiologic cysts. Prescriptions: New ondansetron 4 mg tablet,disintegrating 4 mg PO Q8H PRN (Reason: nausea and vomiting) Qty: 14 0RF No Action losartan 50 mg tablet 50 mg PO DAILY Qty: 90 3RF albuterol sulfate 90 mcg/actuation HFA aerosol inhaler 2 puff PO Q4-6H PRN (Reason: for wheezing) Qty: 8.5 3RF epinephrine [EpiPen] 0.3 mg/0.3 mL auto-injector 0.3 mg IM Q10M PRN (Reason: anaphylaxis) Qty: 1 4RF Rx Instructions: for 2 doses oxcarbazepine 300 mg tablet 600 mg PO BEDTIME clonidine HCl 0.1 mg tablet 0.05 mg PO DAILY clonidine HCl 0.1 mg tablet 0.1 mg PO BEDTIME sertraline 100 mg tablet 100 mg PO DAILY oxcarbazepine 150 mg tablet 150 mg PO DAILY clonazepam [Klonopin] 0.5 mg tablet 0.5 mg PO DAILY fluconazole 150 mg tablet 150 mg PO DAILY Qty: 7 0RF Xerac AC 6.25 % solution 1 appl topical Q OTHER DAY Qty: 60 1RF Referrals: Noris Roberts MD [Primary Care Provider, Endocrinology] Print Language: Hungarian
[2025-07-22 14:33] LABS: MANUAL DIFF FLAG NO
[2025-07-22 14:36] LABS: Appearance Urine Turbid; Glucose Urine UA Negative (Negative); PH 5.5 (5.0-9.0); Specific Gravity - Urine 1.020 (1.005-1.025); UMIC TRIGGER UACC YES
[2025-07-22 14:37] LABS: Hematocrit 44.9 % (37.0-47.0); Hemoglobin 15.4 g/dl (12.0-16.0); Imm Gran Abs Auto 0.04 X10*3/uL (0.00-0.03); Imm Gran Pct Auto 0.3 % (0.0-0.4); Lymphocytes Absolute Auto 4.1 X10*3/uL (1.2-4.9); Mean Corpuscular HGB Conc 34.3 g/dl (31.0-35.0); Mean Corpuscular Hemoglobin 31.9 pg (27.0-33.0); Mean Corpuscular Volume 93.0 fL (80.0-98.0); NRBC Abs Auto 0.000 X10*3/uL (0.0-0.012); NRBC Pct Auto 0.0 /100WBC (0.0-0.2); Platelet Count 249 X10*3/uL (160-400); Red Blood Count 4.83 X10*6/uL (4.20-5.50); White Blood Count 12.1 X10*3/uL (4.8-10.8)
[2025-07-22 14:46] LABS: UACC Culture Trigger YES
[2025-07-22 14:57] LABS: Alanine Aminotransferase 12 U/L (0-31); Albumin Level 5.3 g/dL (3.5-5.0); Alkaline Phosphatase 53 U/L (39-117); Anion Gap 11 (12-20); Aspartate Amino Transferase 15 U/L (5-31); Blood Urea Nitrogen 7 mg/dL (9-16); Calcium 9.4 mg/dL (8.4-10.2); Carbon Dioxide 24 mmol/L (22-29); Chloride 109 mmol/L (96-108); Creatinine Clr Calc Pharmacy 107.7; Estimated Glomerular Filt Rate > 60; Potassium 4.2 mmol/L (3.3-5.1); Sodium 140 mmol/L (135-145); Total Protein 7.6 g/dL (6.5-8.0)
[2025-07-22] MEDS: Lactated Ringers 1,000 ML 999 ML IV (15:16)
[2025-07-22] MEDS: iohexoL 350 MG/ML 100 ML INFUS..BTL IV (16:37)
--- NOTE | 2025-07-22 17:15 | PC.NURSE ---
pt ambulatory to bathroom to obtain urine sample. reports some relief of pain s/p morphine administration, pain now down to a 5-6/10.
[2025-07-22 17:19] VITALS: BP 144/85; PULSE 62; RESP 18; TEMP 36.4; O2SAT 98
[2025-07-22 17:29] LABS: Appearance Urine Clear; Glucose Urine UA Negative (Negative); PH 5.5 (5.0-9.0); Specific Gravity - Urine >= 1.030 (1.005-1.025)
--- OUTSIDE RECORDS SUMMARY | 2025-07-22 18:22 | XMS_ITS | Clinical Summary ---
Author Organization [facility] Address [address] [place] [address] Care Team Providers Care Liquor Runner Name Role Phone Unavailable Primary Care Provider Unavailabl e Surgical History Surgery Date Site/Laterality Comments SECTION 2000,2004 PROCEDURE: [place] DELIVERY ONLY BUNIONECTOMY PROCEDURE: [place] CORRJ HLX VLGS BNCTY SESMDC W/DOUBLE OSTEOTOMY CARPAL TUNNEL RELEASE 2010 PROCEDURE: HISTORICAL CARPAL TUNNEL REL ELBOW SURGERY PROCEDURE: HISTORICAL ELBOW SURGERY; COMMENT: Right elbow tendonitis Medical History Medical History Date Comments Bipolar I disorder, most rec ent episode (or current) unspecified DX:Bipolar I disorder, most recent episode (or current) unspecified; COMMENT: Dr. Samayoa at [facility] Amblyopia, unspecified DX:Amblyo olga, unspecified; COMMENT: OD [...] (2 - Td or Tdap) 06/22/2022 06/22/2012 Depression Screening 08/28/2024 COVID-19 Vaccine (1 - 2024-2 6 season) 2025 Influenza Vaccine (#1) 2025 06/22/2012 RSV Immunization Adult Patie nts (1 - 1-dose 75+ series) 2053 HIB Vaccines Aged Out No longer eligi [...]
--- OUTSIDE RECORDS SUMMARY | 2025-07-22 18:22 | XMS_ITS | Data Portability ---
Author Organization [facility] Address [address] [place] [address] Care Team Providers Care Bottom Man Name Role Phone RICHMOND RODRIGUEZ Primary Care Provider [phone] Assessment No assessment recorded. Plan of Treatment [...] elbow, 2 view - 2v lt elbow, flume ride operator, rm [phone] rmessenger Not available 4 10:11:36 Medication Orders None recorded. Patient TargetsNo targets recorded. Patient InstructionsNo instructions recorded. Reason for Referral Occupational Therapist Refer ral for Left medial elbow tendinopathy Diagnosis: left medial epiCustom molded orthosis: noneTreatment: Eccentric stretching and strengthening wrist and digits, deep tissue massage Referring Physician: Hermelindo Peters, Orthopedic Surgery, Encounter Date: 01/15/2024 Occupational Therapist Refer ral for Left medial elbow tendinopathy Diagnosis: LEFT MEDIAL EPITreatment: continue current treatment [...] Updated DateTime 03/04/2024 170.18 cm 34.1 kg/m2 57549.14 g PADMAJA GO [place] - [facility] 03/04/2024 09:41:54 Social History None recorded. Functional Status None recorded. Mental Status None recorded. Family History Nothing Reported. Medical History No medical history recorded. Gynecological HistoryNo gynecological history recorded. Obstetrics History GPAL:G 0 P 0 0 0 0 Past Encounters Encounter ID Performer Location Encounter Start Date Encounter Closed Date Diagnosis/Indication Diagnosis SNOMED-CT Code Diagnosis ICD10 Code Diagnosis IMO Codes Diagnosis Note [id number] MD Pauline Lopez [address] [place] [address] 01/15/2024 10:31:12 01/26/2024 10:11:36 Pain of left elbow joint [id number] 4206308 M25.522 Left media l elbow tendinopathy 8925259272 41270 M77.02 [id number] MD Pauline Lopez [address] [place] [address] 03/04/2024 09:24:09 03/18/2024 15:28:36 Left medial elbow tendinopathy [id number] 97818 M77.02 Health Concerns Section Related Observation LastModified by Organization Detai ls LastModified Time None Recorded Concern Status LastModified by Organization Details LastModified Time None Recorded Advance Directives Directive None Recorded Payers Insurance Date Sequence Insurance Name Policy Number Policy Stern Covered Member ID Stern Member ID Guarantor Name 02/26/2024 1 [place] [employer] Baylee Sparks [id number] Baylee Sparks 04/07/2024 1 [place] [employer] Baylee Sparks [id number] Baylee Sparks 04/07/2024 2 [place] [facility] Baylee Sparks [id number] Baylee Sparks Notes Date Note Type Note Provider Name and Address Organization Details Recorded Time 01/15/2024 text/html ROS as noted in the HPI Diagnosis: Left medial -hxby-h ld female who presents with a 5 [...] digitsX-rays ordered, obtained, and reviewed today at [facility]: PA and lateral left elbow reveal no [...] in 4 weeks' time. Hermelindo Peters MD [facility] [address], [place], [address], [facility] - [facility] 01/15/2024 12:00:17 03/04/2024 text/html [...] with me as directed. Hermelindo Peters MD [address] [place] [address] [address], [place], [address], [facility] - [facility] 03/04/2024 16:43:52 OBGyn Episode No OBEpisode recorded.
--- OUTSIDE RECORDS SUMMARY | 2025-07-22 18:22 | XMS_ITS ---
Author Name [facility] Unknown History of Medication Use Medication Directions Dispensed Refills Start Date End Date Stat us triamcinolone (NASACORT AQ) 55 MCG/ACT Aerosol nasal spray 2 sprays into each nostril daily. 05/12/2025 active albuterol (PROVENTIL HFA; VENTOLIN HFA) 108 (90 Base) MCG/ACT inhaler INHALE 2 PUFFS BY MOUTH EVERY 4 TO 6 HOURS FOR 1 WEEK NEEDED FOR SHORTNESS OF BREATH OR WHEEZING 02/25/2025 active clonazePAM (KlonoPIN) 0.5 MG tablet TAKE 1 TABLET BY MOUTH TWICE DAILY 15 TABLET EXTRA FOR PANIC ATTACKS active cloNIDine (CATAPRES) 0.1 MG tablet Take 0.1 mg by mouth 2 times a day. active sertraline (ZOLOFT) 100 MG tablet Take 100 mg by mouth. active Allergies Allergen Reaction Severity Comment Documented Date Source Statu s LURASIDONE OTHER (SEE COMMENTS) 05/12/2025 [facility] active NSAIDS UNKNOWN/PATIENT AND FAMILY UNABLE TO DEFINE 05/12/2025 [facility] active Problems Problem Status Onset Date Problem Type Date of Resoluti on Source Impulse control disorder active 2025-05-12 ProblemAct [facility] Deviated nasal septum active EncounterDiagnosisAct [facility] Obsessive-compulsive disorder active 2025-05-12 ProblemAct [facility] Obesity active 2025-05-12 ProblemAct [facility] Class 1 obesity active 2025-05-12 ProblemAct [facility] Anosmia active EncounterDiagnosisAct [facility] Xerostomia active EncounterDiagnosisAct [facility] Bipolar 1 disorder active 2025-05-12 ProblemAct [facility] Cigarette smoker active 2025-05-12 ProblemAct [facility] Generalized anxiety disorder active 2025-05-12 ProblemAct [facility] Encounters Encounter Type Encounter Reason Primary Diagnosis Location Date Ambulatory Nasal Congestion Nasal Congestion [facility] 05/12/2025 Care Team Organization Name Specialty Phone Email Start Date End Da te [employer] 05/12/2025 06/10/2025 [facility] Noris Roberts Primary Care 05/12/2025 [facility] 04/15/2025
--- OUTSIDE RECORDS SUMMARY | 2025-07-22 18:22 | XMS_ITS | Clinical Summary ---
Author Organization [facility] Address [address] [place] [address] Care Team Providers Care Blow Machine Tender Starch Spraying Name Role Phone Noris Roberts MD Primary Care Provider [phone] Allergies Active Allergy Reactions Criticality Noted Date Comments Lurasidone Other (See Comments) Low 05/12/2025 Nsaids Unknown/Patient and Family Unable to Define Medium 05/12/2025 Medications albuterol (PROVENTIL HFA; VENTOLIN HFA) 108 (90 Base) MCG/ACT inhaler INHALE 2 PUFFS BY MOUTH EVERY 4 TO 6 HOURS FOR 1 WEEK NEEDED FOR SHORTNESS OF BREATH OR WHEEZING Active clonazePAM (KlonoPIN) 0.5 MG tablet TAKE 1 TABLET BY MOUTH TWICE DAILY 15 TABLET EXTRA FOR PANIC ATTACKS Active cloNIDine (CATAPRES) 0.1 MG tablet Take 0.1 mg by mouth 2 times a day. Active sertraline (ZOLOFT) 100 MG tablet Take 100 mg by mouth. Active triamcinolone (NASACORT AQ) 55 MCG/ACT Aerosol nasal sprayIndication s:Anosmia 2 sprays into each nostril daily. 1 each 3 Active Active Problems Problem Noted Date Diagnosed Date Bipolar 1 disorder 05/12/2025 Cigarette smoker 05/12/2025 Generalized anxiety disorder 05/12/2025 Impulse control disorder 05/12/2025 Obsessive-compulsive disorder 05/12/2025 Class 1 obesity 05/12/2025 Obesity 05/12/2025 Encounters Date Type Department Care Team Description 05/12/2025 7:45 AM EDT Office Visit [facility] [address] [place] [address] Jc Arcos MD Xerostomia (Primary Dx); Anosmia; Deviated nasal septum from Last 3 Months Social History Tobacco Use Types Packs/Day Years Used Date Smoking Tobacco: Every Day Cigarettes Passive Smoke Exposure: Current Smokeless Tobacco: Never Comments Unknown Sex and Gender Information Value Date Recorded Sex Assigned at Not on file Legal Sex Female 10:12 AM EDT Gender Identity Female 04/15/2025 10:15 AM EDT Sexual Orientation Heterosexual (straight) 04/15 10:15 AM EDT Last Filed Vital Signs Vital Sign Reading Time Taken Comments Blood Pressure - - Pulse - - Temperature - - Respiratory Rate - - Oxygen Saturation - - Inhaled Oxygen Concentration - - Weight 98.9 kg (218 lb) 05/12/2025 8:07 AM EDT Height 170.2 cm (5' 7 ) 05/12/2025 8:07 AM EDT Body Mass Index 34.14 05/12/2025 8:07 AM EDT Plan of Treatment Health Maintenance Due Date Last Done Comments Hepatitis C Virus Screening 1978 HIV Screening 1991 DTaP/Tdap/Td Vaccines (1 - Tdap) 1997 Hepatitis B Vaccines (1 of 3 - 19+ 3-dose series) 1997 Pneumococcal Vaccine: Pediat rashid (0-5 Years) and At-Risk Patients (6 to 49 Years) (1 of 2 - PCV) 1997 Pap Smear (Ages 21-65) 1999 Mammogram 2018 Colonoscopy 2023 Influenza Vaccine 03/28/2025 COVID-19 Vaccine ( - 2024- season) 04/28/202503/2021, 01/12/2021 Insurance MEDICARE PART A & B [facility] Care Teams Blow Machine Tender Starch Spraying Relationship Specialty Start Date End Date Noris Roberts MD [address] [place] [phone] PCP - General Internal Medicine 05/12/25
[2025-07-22 18:45] VITALS: BP 141/101; PULSE 67; RESP 18; TEMP -17.7; TEMP 0; O2SAT 98
== END 2025-07-22 18:46 | disposition home or self-care (01) ==
PROVIDERS: Physician Assistant; Registered Nurse Emergency; Emergency Provider Emergency Medicine; PCP Internal Medicine
DX: K52.9 Noninfective gastroenteritis and colitis, unspecified (principal); R10.31 Right lower quadrant pain; R11.0 Nausea; Z79.899 Other long term (current) drug therapy
CPT/HCPCS: 36415; 74177; 80053; 81001; 81003; 84702; 85025; 87086; 96361; 96374; 96375; 99284; J2270; J2405; J7120; Q9967

== ENCOUNTER → 2025-07-22 14:53 | Outpatient (BNV) | payer MEDICARE, MEDICAID, SELFPAY | PROVIDERS: Emergency Provider Emergency Medicine; PCP Internal Medicine; Visit Provider Radiology Diagnostic Radiology | DX: N83.201 Unspecified ovarian cyst, right side (principal); N83.202 Unspecified ovarian cyst, left side | CPT/HCPCS: 74177 ==

== ENCOUNTER 2025-07-23 10:07 | Outpatient (REF) | payer MEDICARE, MEDICAID, SELFPAY ==
[2025-07-23 12:24] LABS: Lipase 26 U/L (8-78)
[2025-07-23 13:04] LABS: Folate 5.4 ng/mL (> or = 4.0); Vitamin B12 309 pg/mL (200-900)
[2025-07-29 14:18] LABS: Vitamin D 25-OH, D2 <4 ng/mL; Vitamin D 25-OH, D3 26 ng/mL; Vitamin D 25-OH, Total 26 ng/mL (30-100)
== END 2025-07-23 10:08 | disposition home or self-care (01) ==
LOC: HO.LAB 10:07
PROVIDERS: PCP Internal Medicine; Visit Provider Nurse Practitioner Family
DX: R10.31 Right lower quadrant pain (principal); K59.1 Functional diarrhea; E55.9 Vitamin D deficiency, unspecified; R11.2 Nausea with vomiting, unspecified; R14.0 Abdominal distension (gaseous)
CPT/HCPCS: 36415; 82306; 82607; 82746; 83690; 99202

== ENCOUNTER 2025-07-23 10:07 | Outpatient (AMB) | payer MEDICARE, MEDICAID, SELFPAY ==
--- NOTE | 2025-07-23 10:09 | A.OFFVIS_ITS ---
Vital Signs 07/23/25 10:25 Height 5 ft 7 in Weight 196 lb BMI 30.7 BP 94/72 Blood Pressure Location Lt brachial Position Sitting Pulse 86 Pulse Source Pulse Oximeter Pulse Oximetry (%) 98 Oxygen Delivery Method Room Air Intake Visit Reasons: abdominal pain Intake Note: Est pt for transfer of care / re-establish. RODRIGUEZ w/ RAYMOND. Last procedure 2023 w/ Dr. Rush. CC; C/O severe abd pain. Onset x3 weeks ago. RLQ. Also accompanied by N+V, diarrhea, and lack of appetite. Long Lines Operator Required: No Accompanied by: Self / Same As Patient Allergies lurasidone (From Latuda) Allergy (Mild, Verified 07/23/25 10:26) Itching NSAIDS (Non-Steroidal Anti-Inflamma Allergy (Verified 07/23/25 10:) Rash bee sting Allergy (Severe, Uncoded 07/23/25 10:26) tongue swelling HPI HPI abdominal pain: Details: LAST VISIT WITH KUN FRANK Results Reviewed: Impression and Post Procedure Diagnosis: colon polyps internal hemorrhoids Plan: High fiber diet leaflet Avoid straining at stool, epsom salts and sitz bath, anusol supps or cream Repeat Colonoscopy in 5 years due to polyps or earlier if clinically indicated Diagnosis A. Colon, descending, polyp: Hyperplastic polyp. B. Colon, ascending, polyp: Tubular adenoma; negative for high-grade dysplasia and carcinoma. Clinical History Pre-Op Dx: Screening Post-Op Dx: Colon polyps, internal hemorrhoids Microscopic Description Microscopic sections reviewed. Material Received A. Descending colon polyp B. Ascending colon polyp Gross Description Received in 2 parts. Part A: Received in formalin labeled ?descending colon polyp? is a 1.2 x 0.3 x 0.2 cm elongate rectangular fragment of mucosa with a central 0.35 cm congested, maroon-brown papular focus, submitted in toto in a cassette labeled A. Part B: Received in formalin labeled ?ascending colon polyp? is a 0.3 cm nair irregular tissue fragment, submitted in toto in a cassette labeled B. CEDS Copies To Felisa Amraal MD [address] [place] [address] Dr. Bhumi [place] [id number] Hermelindo Rush MD [address] [place] [address] Dr. Erica [place] [id number] Patient: Baylee Sparks Age/Sex: 43/F MR#: [id number] Page 1 of 2 Assessment & Plan Assessment & Plan (1) Adenomatous colon polyp: Code(s): D12.6 - Benign neoplasm of colon, unspecified Category: Medical Plan: Repeat asymptomatic colonoscopy 5 years All first-degree relatives begin screening at age 35 (2) Hyperplastic colon polyp: Code(s): K63.5 - Polyp of colon Category: Medical Plan: Removed (3) Hemorrhoids: Code(s): K64.9 - Unspecified hemorrhoids Category: Medical Plan: Avoid straining Maintain high-fiber diet Plan Asymptomatic 5 year polyp surveyed colonoscopy All first-degree relatives begin screening at age 35 Maintain high-fiber diet Avoid straining with hemorrhoids ED VISIT 07/22/2025 Medical Decision Making MDM Narrative: 45-year-old female with history of bipolar disorder, obesity, chronic back pain, HTN who presents to the ER for evaluation of worsening right lower quadrant pain for the last couple of days, has been getting much worse today at 3am today. On arrival to the ER she is tachycardic with heart rates in the 1 teens, this likely due to pain. She is afebrile. Blood pressure is stable. Lab work showing white blood cell count of 12.1. UA has large leukocyte esterase but has large amount of squamous cells, concern for contamination and inaccurate UA. Will request a repeat. IV was established and she was given IV fluids, IV morphine and Zofran. HR 60s on re-evaluation with improvement in pain. Low suspicion for sepsis at this time. CT scan of the abdomen with contrast was ordered for further evaluation Differential Diagnosis Differential Diagnoses: The differential diagnosis associated with the presentation includes Acute appendicitis, ovarian cyst, ovarian torsion, kidney stone, UTI, colitis, low suspicion for PID or TOA Admission/Observation Consideration of admission/observation: Escalation of care including admission/observation considered Lab Data MDM Lab Attestation statement: I reviewed the patient's lab results. Mild leukocytosis, normal renal function, contaminated UA TODAY'S VISIT Patient was seen in the ED last night for right lower quadrant pain. Patient reports that the pain started about a week ago or so and was getting worse and more intense in the last 48 hours. Patient reports nausea and vomiting as well as diarrhea. Patient denies melena, hematochezia. CT scan showed possible enteritis. Patient has not picked up her Zofran yet. She continues to have diarrhea. She is able to drink and keep fluids down. Has not tried eating anything yet as she is afraid that she will vomit. Reports epigastric pain and right lower quadrant pain. Patient reports that in the past few weeks she has been having postprandial diarrhea. Feels like anything she eats it just goes right through her. Patient denies any fever or chills. No one else in the house has similar symptoms. [facility] Medical History Piriformis syndrome of right side History of adenomatous polyp of colon Lumbar disc herniation with radiculopathy History of shingles Essential hypertension Lazy eye of right side Legally blind in right eye, as defined in [place] Obesity (BMI 35.0-39.9 without comorbidity) Bipolar disorder Surgical History Hx of colonoscopy Hx of dilation and curettage History of carpal tunnel release History of History of bunionectomy of right great toe Family History Father Brain aneurysm Sister Gilbert's disease Daughter Bipolar disorder Mental health disorder Family/Other Hx of colonoscopy Maternal Grandmother Alcoholic Maternal Grandfather Alcoholic Daughter Schizo affective schizophrenia Other FH: mental illness Substance use disorder Social History Household Members: Family Housing: House Do you presently have visiting nurse or other home services: No Alcohol intake: former Comment: socially Patient Tobacco Use Status: Current everyday Tobacco user Tobacco use type: Cigarette Cigarettes Per Day: 15 Years Smoked: 34 e-Cigarette/Vaping Use: Never Used Second Hand Smoke Exposure: No Substance Use Type: Marijuana service: No Current occupational status: disabled Cognitive needs: No Hearing needs: No Vision needs: Yes (glasses, legally blind right eye) Review of Systems Const Denies weight gain and Denies weight loss ENT Reports no additional complaints, Denies dysphagia and Denies odynophagia Card Reports no additional complaints Resp Reports no additional complaints GI Reports abdominal pain, Denies belching, Denies melena, Reports bloating, Denies change in bowel habits, Reports constipation, Denies dysphagia, Denies excessive flatus, Denies dyspepsia, Reports heartburn, Reports diarrhea, Denies loose stools, Reports nausea, Denies odynophagia and Reports vomiting Reports no additional complaints Musc Reports no additional complaints Neuro Reports no additional complaints Psych Reports no additional complaints Endo Reports no additional complaints Physical Exam Vital Signs: Last Vital Signs Pulse 86 07/23/25 10:25 BP 94/72 07/23/25 10:25 Pulse Ox 98 07/23/25 10:25 Oxygen Delivery Method Room Air 07/23/25 10:25 BMI result Body Mass Index 30.7 Const General: healthy appearing and no acute distress Nutritional Appearance: obese Orientation/consciousness: patient oriented x3 Resp Effort & Inspection: normal respiratory effort, able to speak in complete sentences, no tracheal deviation and symmetric chest movement Auscultation: clear to auscultation bilaterally Cardio Rate: regular rate GI Inspection: Yes normal to inspection, No distended and Yes obesity Palpation (GI): Soft to palpation, not firm, Tenderness to palpation present (GI) (RLQ) and No hepatosplenomegaly present Auscultation: normal bowel sounds General: Yes no CVA tenderness Back/Spine/Pelvis Back: no CVA tenderness Skin General skin exam: elasticity normal, turgor normal and dry skin Neuro General: patient oriented x3 Psych Appearance: grossly normal Mental Status: mental status grossly normal Assessment & Plan Assessment & Plan (1) Diarrhea: Code(s): R19.7 - Diarrhea, unspecified Qualifiers: Diarrhea type: functional diarrhea Qualified Code(s): K59.1 - Functional diarrhea (2) Nausea & vomiting: Code(s): R11.2 - Nausea with vomiting, unspecified Qualifiers: Vomiting type: unspecified Qualified Code(s): R11.2 - Nausea with vomiting, unspecified (3) RLQ abdominal pain: Code(s): R10.31 - Right lower quadrant pain (4) Abdominal bloating: Code(s): R14.0 - Abdominal distension (gaseous) Plan Will check GI panel, lipase. Patient was encouraged to increase fluid intake her blood pressure is low. Introduce food slowly. Discussed with her also low FODMAP diet. List of food recommended as well as list of food to avoid given to patient. Patient will return to the office in 3-4 weeks. She will call us if she will have any GI concerning symptoms. Patient is agreeable to plan of care and verbalizes understanding of instructions. She was given the opportunity to ask questions and all questions answered. Thank you for allowing me to participate in her care Orders: Orders GI Panel Today R19.7 - Diarrhea, unspecified Lipase Today R10.9 - Unspecified abdominal pain Vitamin B12 and Folate Today R19.7 - Diarrhea, unspecified Vitamin D 25-OH (D2 and D3) Today E55.9 - Vitamin D deficiency, unspecified Ova and Parasite Today R19.7 - Diarrhea, unspecified Coding Level of Care Code New Pt Level 4 (50695) Diagnoses Functional diarrhea K59.1 Diarrhea type: functional diarrhea Nausea and vomiting, unspecified vomiting type R11.2 Vomiting type: unspecified RLQ abdominal pain R10.31 Abdominal bloating R14.0 Time Spent (min) 50 Comment 35 minutes spent with patient and additional 15 minutes spent reviewing her records
[2025-07-23 10:25] VITALS: BP 94/72; PULSE 86; O2SAT 98; BMI 30.7
--- OUTSIDE RECORDS SUMMARY | 2025-07-23 11:49 | XMS_ITS | Clinical Summary ---
Author Organization [facility] it Address [address] [place] [address] Care Team Providers Care Finance Intern Name Role Phone Unavailable Primary Care Provider [...] (or current) unspecified; COMMENT: Dr. Samayoa at [facility] Amblyopia, unspecified DX:Amblyo olga, unspecified; COMMENT: OD [...]
--- OUTSIDE RECORDS SUMMARY | 2025-07-23 11:49 | XMS_ITS | Clinical Summary ---
Author Organization [facility] Address [address] [place] [address] Care Team Providers Care Plumber Apprentice Name Role Phone Noris Roberts MD Primary Care Provider [phone] Allergies Active Allergy Reactions Criticality Noted Date [...] Description 05/12/2025 7:45 AM EDT Office Visit [facility] [address] [place] [address] Jc Arcos MD Xerostomia (Primary [...] 01/12/2021 Insurance MEDICARE PART A & B [facility] Care Teams Plumber Apprentice Relationship Specialty Start Date End Date Noris Roberts MD [address] [place] [phone] PCP - General Internal Medicine 05/12/25
== END 2025-07-23 10:43 | disposition home or self-care (01) ==
LOC: HO.HGI 10:07
PROVIDERS: PCP Internal Medicine; Visit Provider Nurse Practitioner Family
DX: K59.1 Functional diarrhea (principal); R11.2 Nausea with vomiting, unspecified; R10.31 Right lower quadrant pain; R14.0 Abdominal distension (gaseous)
CPT/HCPCS: 99204